=== PATIENT | female | born 1990 | race Caucasian/White ===

== ENCOUNTER → 2018-08-03 14:58 | Outpatient (CLI) | payer OTHER, SELFPAY ==
[2018-08-03 08:23] VITALS: BMI 27.8
[2018-08-07 11:30] LABS: HPV Reflexed? NOT INDICATED
--- OUTSIDE RECORDS SUMMARY | 2018-10-08 14:22 | XMS RPT_ITS ---
:1990 Author Organization OHIP Support Name Relationship Address Phone [facility] Unavailable [address] [phone] [place] [address] MARYCHUY, SHAVON Unavailable [address] [place] [address] [facility] Unavailable [address] [phone] [place] [address] MARYCHUY, SHAVON Unavailable [address] [place] [address] [facility] Unavailable [address] [phone] [place] [address] MARYCHUY, SHAVON Unavailable [address] [place] [address] AYE, ELIZABETH Unavailable Unavailable + FORREST PERRINK Unavailable [address] + [place], [place] [id number] AYE, ELIZABETH Unavailable Unavailable + FORREST PERRINK Unavailable [address] + [place], [place] [id number] AYE, ELIZABETH Unavailable Unavailable + FORREST PERRINK Unavailable [address] + [place], [place] [id number] AYE, ELIZABETH Unavailable Unavailable + AYE, ELIZABETH Unavailable Unavailable + AYE, ELIZABETH Unavailable Unavailable + FORREST PERRINK Unavailable [address] + [place], [place] [phone] AYE, ELIZABETH Unavailable Unavailable + FORREST PERRINK Unavailable [address] + [place], [place] [phone] AYE, ELIZABETH Unavailable Unavailable + AYE, ELIZABETH Unavailable Unavailable + AYE, ELIZABETH Unavailable Unavailable + AYE, ELIZABETH Unavailable Unavailable + AYE, ELIZABETH Unavailable Unavailable + AYE, ELIZABETH Unavailable Unavailable + AYE, ELIZABETH Unavailable Unavailable + AYE, ELIZABETH Unavailable Unavailable + AYE, ELIZABETH Unavailable Unavailable + AYE, ELIZABETH Unavailable Unavailable + AYE, ELIZABETH Unavailable Unavailable + AYE, ELIZABETH Unavailable Unavailable + AYE, ELIZABETH Unavailable Unavailable + AYE, ELIZABETH Unavailable Unavailable + AYE, ELIZABETH Unavailable Unavailable + AYE, ELIZABETH Unavailable Unavailable + AYE, ELIZABETH Unavailable Unavailable + AYE, ELIZABETH Unavailable Unavailable + AYE, ELIZABETH Unavailable Unavailable + SHAVON PERRIN Unavailable [address] + [place], [place] [phone] AYE, ELIZABETH Unavailable Unavailable + AYE, ELIZABETH Unavailable Unavailable + AYE, ELIZABETH Unavailable Unavailable + AYE, LEIZABETH Unavailable Unavailable + AYE, ELIZABETH Unavailable Unavailable + AYE, ELIZABETH Unavailable Unavailable + AYE, ELIZABETH Unavailable Unavailable + AYE, ELIZABETH Unavailable Unavailable + AYE, ELIZABETH Unavailable Unavailable + AYE, ELIZABETH Unavailable Unavailable + AYE, ELIZABETH Unavailable Unavailable + MARCYHUY, SHAVON Unavailable [address] + [place], [place] [id number] AYE, ELIZABETH Unavailable Unavailable + AYE, ELIZABETH Unavailable Unavailable + AYE, ELIZABETH Unavailable Unavailable + AYE, ELIZABETH Unavailable Unavailable + AYE, ELIZABETH Unavailable Unavailable + AYE, ELIZABETH Unavailable Unavailable + AYE, ELIZABETH Unavailable Unavailable + AYE, ELIZABETH Unavailable Unavailable + AYE, ELIZABETH Unavailable Unavailable + AYE, ELIZABETH Unavailable Unavailable + AYE, ELIZABETH Unavailable Unavailable + AYE, ELIZABETH Unavailable Unavailable + AYE, ELIZABETH Unavailable Unavailable + AYE, ELIZABETH Unavailable Unavailable + AYE, ELIZABETH Unavailable Unavailable + AYE, ELIZABETH Unavailable Unavailable + AYE, ELIZABETH Unavailable Unavailable + AYE, ELIZABETH Unavailable Unavailable + AYE, ELIZABETH Unavailable Unavailable + AYE, ELIZABETH Unavailable Unavailable + AYE, ELIZABETH Unavailable Unavailable + AYE, ELIZABETH Unavailable Unavailable + AYE, ELIZABETH Unavailable Unavailable + AYE, ELIZABETH Unavailable Unavailable + AYE, ELIZABETH Unavailable Unavailable + AYE, ELIZABETH Unavailable Unavailable + Care Team Providers Name Role Phone Lorelei, Dr. Winslow Attending Unavailable Mamie, Dr. Branden Vidal Referring Unavailable Leyda, Dr. Jose Whitten Primary Care Unavailable BURNS, PATRIZIA Mcfarlane Attending Unavailable BURNS, PATRIZIA M Referring Unavailable LEYDA, JOSE M Primary Care Unavailable Veskadie, Dr. Jossy Ahumada Attending Unavailable LEYDA, JOSE Maeve Primary Care Unavailable Lappen, Dr. Obinna Vinson Attending Unavailable Leyda, Dr. Jose Whitten Primary Care Unavailable Jama, Dr. Leslye Piedra Attending Unavailable Leyda, Dr. Jose Whitten Primary Care Unavailable JOSHUA SIMMONS Attending Unavailable Leyda, Dr. Jose Whitten Primary Care Unavailable Lorelei, Dr. Winslow Attending Unavailable Mamie, Dr. Branden Vidal Referring Unavailable Leyda, Dr. Jose Whitten Primary Care Unavailable PEG AGUIRRE Attending Unavailable Leyda, Dr. Jose Whitten Primary Care Unavailable Cherullmichelle, Dr. Marek Wise Admitting Unavailable Cherullo, Dr. Marek Wise Attending Unavailable Leyda, Dr. Jose Whitten Referring Unavailable Leyda, Dr. Jose Whitten Primary Care Unavailable Lappen, Dr. Obinna Vinson Attending Unavailable LEYDA, JOSE Mcfarlane Primary Care Unavailable Leyda, Dr. Jose Whitten Primary Care Unavailable Jama, Dr. Leslye Piedra Referring Unavailable Mamie, Dr. Branden Vidal Attending Unavailable Mcewen, Dr. Leslye Piedra Admitting Unavailable Jama, Dr. Leslye Piedra Attending Unavailable Mcewen, Dr. Leslye Piedra Referring Unavailable Leyda, Dr. Jose Whitten Primary Care Unavailable Lappen, Dr. Obinna Vinson Attending Unavailable Mcewen, Dr. Leslye Piedra Referring Unavailable Leyda, Dr. Jose Whitten Primary Care Unavailable Jama, Dr. Leslye Piedra Attending Unavailable Leyda, Dr. Jose Whitten Primary Care Unavailable Lazebedouard, Dr. Winslow Attending Unavailable Jama, Dr. Leslye Piedra Referring Unavailable Leyda, Dr. Jose Whitten Primary Care Unavailable Mcewen, Dr. Leslye Piedra Attending Unavailable Leyda, Dr. Jose Whitten Primary Care Unavailable Lappen, Dr. Obinna Vinson Admitting Unavailable Lappen, Dr. Obinna Vinson Referring Unavailable Leyda, Dr. Jose Whitten Primary Care Unavailable Dayana, Dr. Danae Alcantara Attending Unavailable Mamie, Dr. Branden Vidal Attending Unavailable Jama, Dr. Leslye Piedra Referring Unavailable Leyda, Dr. Jose Whitten Primary Care Unavailable Ponsky, Dr. Jt Montiel Attending Unavailable Cherullo, Dr. Marek Wise Referring Unavailable Leyda, Dr. Jose Whitten Primary Care Unavailable Leyda, Dr. Jose Whitten Primary Care Unavailable Corteville, Dr. Heaven Veras Attending Unavailable Mcewen, Dr. Leslye Piedra Referring Unavailable Leyda, Dr. Jose Whitten Primary Care Unavailable Lappen, Dr. Obinna Vinson Attending Unavailable Lappen, Dr. Obinna Vinson Referring Unavailable LEYDA, JOSE Mcfarlane Primary Care Unavailable Lappen, Dr. Obinna Vinson Attending Unavailable LEYDA, JOSE Mcfarlane Primary Care Unavailable Mcewen, Dr. Leslye Piedra Attending Unavailable Leyda, Dr. Jose Whitten Primary Care Unavailable September, Dr. Yisel Del Rosario Attending Unavailable Mcewen, Dr. Leslye Piedra Referring Unavailable Leyda, Dr. Jose Whitten Primary Care Unavailable Jama, Dr. Leslye Piedra Attending Unavailable Lappen, Dr. Obinna Vinson Referring Unavailable Leyda, Dr. Jose Whitten Primary Care Unavailable Ozcan, Dr. Kimberley Cano Attending Unavailable Jama, Dr. Leslye Piedra Referring Unavailable Leyda, Dr. Jose Whitten Primary Care Unavailable Jama, Dr. Leslye Piedra Attending Unavailable Leyda, Dr. Jose Whitten Primary Care Unavailable Jama, Dr. Leslye Piedra Referring Unavailable Jama, Dr. Leslye Piedra Attending Unavailable Leyda, Dr. Jose Whitten Primary Care Unavailable Mcewen, Dr. Leslye Piedra Admitting Unavailable Jama, Dr. Leslye Piedra Referring Unavailable Jama, Dr. Leslye Piedra Attending Unavailable Jama, Dr. Leslye Piedra Referring Unavailable Leyda, Dr. Jose Whitten Primary Care Unavailable [place], Dr. Heaven Veras Attending Unavailable Mcewen, Dr. Leslye Piedra Referring Unavailable Leyda, Dr. Jose Whitten Primary Care Unavailable Ozcan, Dr. Kimberley Cano Attending Unavailable Mcewen, Dr. Leslye Piedra Referring Unavailable Leyda, Dr. Jose Whitten Primary Care Unavailable Leyda, Dr. Jose Whitten Primary Care Unavailable CORRECT INFO, NEEDED Referring Unavailable Mcewen, Dr. Leslye Piedra Admitting Unavailable Herbie, Dr. Jennifer Ahumada Attending Unavailable Magali, Dr. Jt Montiel Attending Unavailable Leyda, Dr. Jose Whitten Primary Care Unavailable Donald, Dr. Ton Whitten Attending Unavailable Leyda, Dr. Jose Whitten Primary Care Unavailable Leslye Yun Admitting Unavailable Leslye Yun Attending Unavailable Jose Arora Primary Care Unavailable Holly RidgeLorraine Attending Unavailable DOCTOR, OUT OF TOWN Referring Unavailable Rosalee, Lorraine Attending Unavailable DOCTOR, OUT OF TOWN Referring Unavailable [place], Lorraine Attending Unavailable [place], Lorraine Referring Unavailable PROBLEMS PROBLEMS DATE TYPE CONDITION / CODE ATTENDING STATUS SOURCE 08/03/2018 Unknown Z12.4 - Encounter Lorraine Turk Active [place] for screening for Community malignant neoplasm [facility] of cervix / Repository Z12.4(ICD-10) 08/03/2018 Unknown Z97.5 - Presence of RosaleeLorraine emanuel Active [facility] (intrauterine) [facility] contraceptive Hospital device / Repository Z97.5(ICD-10) 06/24/2018 Final diagnosis Encounter for exam Dr. Marie Bennett (discharge) of blood pressure [facility] w/o abnormal Repository findings / Z01.30(ICD-10) 06/22/2018 Admitting Calculus of kidney Dr. Jt Nuno diagnosis / N20.0(ICD-10) [facility] Repository 06/22/2018 Final diagnosis Calculus of kidney Dr. Jt Nuno (discharge) / N20.0(ICD-10) [facility] Repository 06/18/2018 Final diagnosis Anxiety disorder, Dr. Marie Stoner (discharge) unspecified / [facility] F41.9(ICD-10) Repository 06/18/2018 Final diagnosis Major depressive Dr. Marie Stoner (discharge) disorder, single [facility] episode, Repository unspecified / F32.9(ICD-10) 06/18/2018 Final diagnosis Personal history of Dr. 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 Herbie Active [facility] (discharge) type, Rh negative / [facility] Z67.91(ICD-10) Repository 06/18/[address] Herbie [facility] [place] (discharge) related conditions, [facility] third trimester / Repository O26.893(ICD-10) 06/18/[address] Herbie [facility] diagnosis pre-eclampsia [facility] complicating Repository childbirth / O14.14(ICD-10) 06/18/[address] Herbie [facility] (discharge) pre-eclampsia [facility] complicating Repository childbirth / O14.14(ICD-10) 06/18/2018 Final diagnosis Single live / Dr. Herbie Active [facility] (discharge) Z37.0(ICD-10) [facility] Repository 06/18/[address] Herbie Active [facility] (discharge) complicating [facility] childbirth / Repository O99.214(ICD-10) 06/18/2018 Final diagnosis Obesity, Dr. Herbie Active [facility] (discharge) unspecified / [facility] E66.9(ICD-10) Repository 06/18/2018 Final diagnosis Other mental Dr. Herbie [facility] [place] (discharge) disorders [facility] complicating Repository childbirth / O99.344(ICD-10) 06/18/2018 Final diagnosis Second degree Dr. Herbie [facility] (discharge) perineal laceration [facility] during delivery / Repository O70.1(ICD-10) 06/18/2018 Final diagnosis Anemia complicating Dr. Herbie [facility] (discharge) childbirth / [facility] O99.02(ICD-10) Repository 06/18/[address] Herbie [facility] (discharge) prolapse, [facility] unspecified / Repository N81.4(ICD-10) 06/18/2018 Final diagnosis Oth complications Dr. Herbie [facility] (discharge) of the puerperium, [facility] NEC / Repository O90.89(ICD-10) 06/18/2018 Final diagnosis Iron deficiency Dr. Herbie [facility] (discharge) anemia, unspecified [facility] / D50.9(ICD-10) Repository 06/18/2018 Final diagnosis [address] Herbie [facility] (discharge) of / [facility] Z3A.34(ICD-10) Repository 06/10/2018 Final diagnosis Oth diseases and Dr. Charlie Active [facility] (discharge) conditions compl [facility] preg/chldbrth / Repository O99.89(ICD-10) 06/10/2018 Final diagnosis Supervision of [facility] Dr. Charlie Active [facility] (discharge) risk , [facility] unsp, unsp Repository trimester / O09.90(ICD-10) 06/10/[address] Charlie Active [place] (discharge) malformation of [facility] urinary system, Repository unspecified / Q64.9(ICD-10) 06/10/2018 Final diagnosis Unsp infection of Dr. Charlie [facility] (discharge) urinary tract in [facility] , unsp Repository trimester / O23.40(ICD-10) 06/10/2018 Final diagnosis Mild to moderate Dr. Charlie Active [place] (discharge) pre-eclampsia, [facility] third trimester / Repository O14.03(ICD-10) 06/10/[address] Charlie Active [facility] (discharge) pre-eclampsia, [facility] unspecified Repository trimester / O14.90(ICD-10) 06/10/[address] Charlie Active [place] (discharge) complicating [facility] , third Repository trimester / O99.213(ICD-10) 06/10/2018 Final diagnosis Other obesity due Dr. Charlie Active [facility] (discharge) to excess calories [facility] / E66.09(ICD-10) Repository 06/10/2018 Final diagnosis [address] Marie Guerra (discharge) of / [facility] Z3A.33(ICD-10) Repository 06/10/2018 Final diagnosis Polyhydramnios, Dr. Charlie [facility] (discharge) third trimester, [facility] not applicable or Repository unsp / O40.3XX0(ICD-10) 06/10/2018 Final diagnosis Encounter for other Dr. Charlie [facility] (discharge) specified [facility] screening / Repository Z36.89(ICD-10) 06/04/2018 Final diagnosis Oth mental Dr. Jama Active [place] (discharge) disorders [facility] complicating Repository , third trimester / O99.343(ICD-10) 06/04/2018 Final diagnosis Allergy status to Dr. Jama [facility] (discharge) penicillin / [facility] Z88.0(ICD-10) Repository 06/04/2018 Final diagnosis Allergy status to Dr. Jama Active [facility] (discharge) sulfonamides status [facility] / Z88.2(ICD-10) Repository 06/04/[address] Jama [facility] (discharge) pre-eclampsia, [facility] third trimester / Repository O14.93(ICD-10) 06/04/[address] Jama Active [place] related conditions, [facility] third trimester / Repository O26.893(ICD-10) 06/03/2018 Final diagnosis [address] Jama Active [place] (discharge) of / [facility] Z3A.32(ICD-10) Repository 06/03/[address] Jama [facility] blood-pressure [facility] reading, w/o Repository diagnosis of htn / R03.0(ICD-10) 06/03/2018 Final diagnosis Supervision of Dr. Inocente [facility] (discharge) other high risk [facility] pregnancies, unsp Repository trimester / O09.899(ICD-10) 05/27/[address] Ayleen Active [facility] pre-eclampsia, [facility] unspecified Repository trimester / O14.90(ICD-10) 05/27/2018 Final diagnosis Maternal care for Jesusita, Dr. Marie Gonsalez (discharge) hereditary disease [facility] in fetus, unsp / Repository O35.2XX0(ICD-10) 05/27/2018 Final diagnosis [address] Marie Mc (discharge) of / [facility] Z3A.31(ICD-10) Repository 05/27/2018 Final diagnosis Encounter for Dr. Jesusita Active [place] (discharge) suspected problem [facility] with growth Repository ruled out / Z03.74(ICD-10) 05/20/2018 Final diagnosis [address] Ayleen Active [facility] (discharge) of / [facility] Z3A.30(ICD-10) Repository 05/13/[address] Jama Active [facility] (discharge) renal disease, [facility] unspecified Repository trimester / O26.839(ICD-10) 05/08/[address] Mamie Active [facility] diagnosis kidney in [facility] , third Repository trimester / O23.03(ICD-10) 05/08/2018 Final diagnosis Infections of Dr. Mamie [facility] (discharge) kidney in [facility] , third Repository trimester / O23.03(ICD-10) 05/08/2018 Final diagnosis Unsp infct of Dr. Mamie [facility] (discharge) urinary tract in [facility] , third Repository trimester / O23.43(ICD-10) 05/08/2018 Final diagnosis [address] Mamie Active [facility] (discharge) of / [facility] Z3A.28(ICD-10) Repository 05/08/2018 Final diagnosis terminal gauger (current) Dr. Mamie [facility] (discharge) use of antibiotics [facility] / Z79.2(ICD-10) Repository 04/29/2018 Admitting Encntr for priya Abbasi Dr. Active [facility] diagnosis of normal [facility] , unsp, Repository unsp trimester / Z34.90(ICD-10) 04/29/2018 Unknown Encntr for priya Abbasi Dr. Active [facility] of [facility] , unsp, Repository unsp trimester / Z34.90(ICD-10) 04/29/2018 Final diagnosis Encounter for Dr. Charlie Active [facility] (discharge) suspected [facility] anomaly ruled out / Repository Z03.73(ICD-10) 04/29/2018 Final diagnosis Enctr for Dr. Marie Guerra (discharge) screening for [facility] growth retardation Repository / Z36.4(ICD-10) 04/29/2018 Final diagnosis [address] Charlie Active [place] (discharge) of / [facility] Z3A.27(ICD-10) Repository 04/29/2018 Final diagnosis Encounter for Dr. 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 Mamie Active [facility] (discharge) of / [facility] Z3A.23(ICD-10) Repository 03/21/2018 Admitting Ot diseases and Dr. Dayana Active [facility] diagnosis conditions compl [facility] preg/chldbrth / Repository O99.89(ICD-10) 03/21/2018 Final diagnosis [address] Dayana Active [place] (discharge) of / [facility] Z3A.21(ICD-10) Repository 03/21/2018 Final diagnosis Unsp infct of Dr. Marie Anne (discharge) urinary tract in [facility] , second Repository trimester / O23.42(ICD-10) 03/21/2018 Final diagnosis Unspecified renal Dr. Marie Anne (discharge) colic / N23(ICD-10) [facility] Repository 03/21/2018 Final diagnosis Oth mental Dr. Marie Anne (discharge) disorders comp [facility] , second Repository trimester / O99.342(ICD-10) 03/07/2018 Final diagnosis Encntr screen for Dr. Marie Yun (discharge) [facility] mode of transmiss / Repository Z11.3(ICD-10) 02/28/2018 Final diagnosis Encounter for Dr. Marie Moseley (discharge) suspected cervical [facility] shortening ruled Repository out / Z03.75(ICD-10) 02/28/2018 Final diagnosis 19 weeks gestation Lazebnik, Dr. [facility] (discharge) of / [facility] Z3A.19(ICD-10) Repository 01/10/2018 Final diagnosis [address] Lorelei [facility] (discharge) of / [facility] Z3A.12(ICD-10) Repository 01/10/2018 Final diagnosis Encntr for priya Moseley Dr. [facility] (discharge) of normal [facility] , unsp, Repository unsp trimester / Z34.90(ICD-10) 01/10/2018 Final diagnosis Vomiting of Dr. Lorelei [facility] (discharge) , [facility] unspecified / Repository O21.9(ICD-10) 12/14/[address] Jama [facility] (discharge) inconclusive [facility] viability, unsp / Repository O36.80X0(ICD-10) 12/14/[address] Jama [facility] (discharge) complicating [facility] , first Repository trimester / O26.851(ICD-10) 12/14/2017 Final diagnosis [address] Jama [facility] (discharge) of / [facility] Z3A.08(ICD-10) Repository 12/10/[address] Ayleen [facility] (discharge) hemorrhage, [facility] unspecified, Repository unspecified trimester / O46.90(ICD-10) 12/10/[address] Adarsh [facility] hemorrhage, [facility] unspecified, first Repository trimester / O46.91(ICD-10) 12/10/2017 Unknown Allergy status to Dr. Adarsh [facility] penicillin / [facility] Z88.0(ICD-10) Repository 12/10/2017 Unknown Allergy status to Dr. Adarsh [facility] sulfonamides status [facility] / Z88.2(ICD-10) Repository 12/10/[address] Adarsh [facility] of / [facility] Z3A.08(ICD-10) Repository 12/10/[address] Adarsh [facility] hemorrhage, [facility] unspecified, first Repository trimester / O46.91(ICD-10) 12/06/2017 Final diagnosis Encntr for Dr. Marie Marshall (discharge) suspected maternal [facility] and cond Repository ruled out / Z03.79(ICD-10) 12/06/2017 Final diagnosis Bariatric surgery Dr. Marie Moseley (discharge) status comp [facility] , first Repository trimester / O99.841(ICD-10) PROCEDURES PROCEDURES DATE CODE DESCRIPTION STATUS SOURCE 06/16/2018 [id number](ICD10- [id number] Completed [facility] Repository 06/16/2018 [id number](ICD10- 4HVL9DH Completed [facility] Repository 06/16/2018 00320DF(ICD10- 55081SI Completed [facility] Repository 06/16/2018 [id number](ICD10- 8G4I3PG Completed [facility] Repository 06/16/2018 12H473E(ICD10- 31H333G Completed [facility] 12[facility]10[facility]2017 [facility] Rep[facility] 12/09/2017 [facility] Repository RESULTS RESULTS DEVELOPMENT AND HOUSING DIRECTOR OFFICE VISIT Observed: 08/03/2018 Status: F Source: ETHEL REPORT 9:07 AM [facility] REPOSITORY [facility] [address] [place] [address]. [address] [place] [address] OFFICE VISIT Date of Service: 08/03/18 MR#: [id number] Acct: [id number] Name: MARYCHUY,SHAD Rep #: [id number] : 1990 Provider: SARA Turk Age/Sex: 28/F Location: [facility] Status: Signed with Addenda ADDENDUM by Oriana Grimes on 08/03/18 at 0907 OFFICE PROCEDURES Office Procedure Documentation entered by Oriana Grimes 08/03/18 09:07: Todd IUD IUD GC/Chlamydia:: not done Test: Yes Not Applicable Consent Signed: Yes Time out checklist: patient, procedure, site marked/identified, positioning of patient, supplies available, allergies confirmed, team agrees on procedure IUD: Yes Todd Time out time: 08:45 Details: Sign in Communication: Completed Sign out documentation: Completed The uterus sounded to 8 cm. After prepping the cervix with betadine and using sterile technique, the cervix was grasped with a single tooth tenaculum and the IUD was inserted without difficulty and the string was cut to 3cm from the external os of the cervix. All instruments were removed from the vagina and excellent hemostasis was noted. Procedure Summary: patient tolerated the procedure well without complication. levonorgestrel 20 mcg/24 hr (5 years) intrauterine device 1 insert Intrauterine ONCE IUD Details: Sign in Communication: Completed Sign out documentation: Completed The uterus sounded to [] cm. After prepping the cervix with betadine and using sterile technique, the cervix was grasped with a single tooth tenaculum and the IUD was inserted without difficulty and the string was cut to 3cm from the external os of the cervix. All instruments were removed from the vagina and excellent hemostasis was noted. Procedure Summary: patient tolerated the procedure well without complication. Office Meds levonorgestrel Performing Provider: OBEY Feliz Administered by: OBEY Feliz on 08/03/18 08:45 Dose Route Admin Location Lot Number Expiration Date NDC Fundraising Coordinator 1 insert Intrauterine monroe [id number] 04/17/22 [id number] [employer] 08/03/18 0907 <Electronically signed by Oriana Grimes > Date Oriana Grimes cc: * Signed Intake Vital Signs08/03/18 Body Mass Index (BMI) 27.8 08/03/18 Height 5 ft 2 in 08/03/18 Weight: 148 lb 08/03/18 Body Mass Index (BMI) 27.1 08/03/18 Blood Pressure 116/70 Intake Visit Reasons: 6 WEEK PP AND IUD INSERTION Senior Financial Consultant Required: No Is patient in pain?: No Allergies Sulfa (Sulfonamide Antibiotics) Allergy (Verified 08/03/18 08:21) Nausea Penicillins [PCN] Adverse Reaction (Verified 08/03/18 08:21) Anaphylaxis Medications Fluoxetine [Prozac] 20 mg PO DAILY 07/16/17 [History Confirmed 08/03/18] estradiol 0.01% (0.1 mg/gram) vaginal cream See Rx Instructions VAGINAL .COMPLEX #42.5 g 07/07/18 [Rx Confirmed 08/03/18] levonorgestrel 19.5 mcg/24 hour (4 years) intrauterine device 1 insert INTRAUTERINE ONCE 08/03/18 [History Confirmed 08/03/18] : Yes Nurse's Note: Pt states she has not had sexual relations since the , so no test was performed. [facility] Medical History Anxiety (Acute) Borderline hypothyroidism (Acute) Depression (Acute) Kidney infection (Acute) Kidney stones, calcium oxalate (Acute) Surgical History Bladder exstrophy (Acute) H/O lithotripsy (Acute) Hernia of ovary (Acute) S/P wisdom tooth extraction (Acute) complete bladder reconstruction (Acute) Family History Father Myocardial infarction Abnormal cholesterol test Anxiety Depression Mother Myocardial infarction Anxiety Depression Social History number of children: 1 current occupational status: employed current occupation: [employer] Smoking Status: Never smoker alcohol intake: never substance use type: does not use diet: other what type of physical activity do you participate in: none seatbelt use: always do you feel safe at home: Yes additional social history: 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 DateName GA/Weeks Outcome Route Bth WeighInfant GeLabor LgtAnesthesiDel LocatProvider FOB t n h a n Depression Screen PHQ-2/9 PHQ-2 Over the last 2 weeks, how often have you been bothered by any of the following problems? 1. Little interest or pleasure in doing things: not at all 2. Feeling down, depressed, or hopeless: not at all Total score: 0 If score is 2 or greater, continue Source: Developed by Drs. José Luis Merida, Natali Mariscal, Scottie Chand and colleagues, with an educational tdo from [employer]. Scoring: Total Score Depression Severity Action 1-4 Minimal depression No action needed 5-9 Mild depression Repeat PHQ-9 at follow up 10-14 Moderate depression Make tx plan,consider counseling, fup, prescription Post HPI 6 WEEK PP AND IUD INSERTION: Details: SHAD PERRIN is a 28 year old who presents for her post visit. States doing well. No concerns emotionally. Still notes vaginal prolapse. Patient delivered another facility and recently moved here Infant Feeding: Breast Menses resumed: No Lynch since delivery: No Emotional Support: Yes Last Pap:: unsure ROS Card Denies chest pain, Denies shortness of breath Resp Denies shortness of breath GI Denies change in bowel habits, Denies bloating Denies difficulty urinating Skin/Breast Denies breast lump, Denies breast pain, Denies breast skin changes Exam Const General: cooperative, no acute distress, well developed Nutritional Appearance: average body habitus Orientation: oriented x3 Chest Chest palpation AND inspection: abnormal inspection of the chest Breast inspection: normal inspection of the breasts Breast palpation: normal palpation of the breasts, normal palpation of the axillae, no axillary lymphadenopathy GI Palpation: soft, nontender, no masses General: bladder normal to palpation External Female Exam: normal external appearance, normal appearance of the urethra Urethra: normal appearance of the urethra Speculum Exam - Vagina: normal vaginal discharge, other (gaping. Cystocele at introitus. ) Speculum Exam - Cervix: normal appearance of the cervix (displaced to left) Bimanual Exam- Vagina AND Uterus: bladder normal to palpation, normal bimanual exam, uterine size normal, uterine shape normal, uterine mobility normal, uterus non-tender Bimanual Exam- Adnexa, other: normal adnexae, no adnexal masses, adnexae non-tender, cystocele, rectocele Pelvic Support: cystocele moderate, rectocele mild Office Procedures [place] IUD IUD GC/Chlamydia:: not done Test: Yes Not Applicable Consent Signed: Yes Time out checklist: patient, procedure, site marked/identified, positioning of patient, supplies available, allergies confirmed, team agrees on procedure IUD: Yes Todd Time out time: 08:45 Details: Sign in Communication: Completed Sign out documentation: Completed The uterus sounded to 8 cm. After prepping the cervix with betadine and using sterile technique, the cervix was grasped with a single tooth tenaculum and the IUD was inserted without difficulty and the string was cut to 3cm from the external os of the cervix. All instruments were removed from the vagina and excellent hemostasis was noted. Procedure Summary: patient tolerated the procedure well without complication. levonorgestrel 20 mcg/24 hr (5 years) intrauterine device 1 insert Intrauterine ONCE IUD Details: Sign in Communication: Completed Sign out documentation: Completed The uterus sounded to [] cm. After prepping the cervix with betadine and using sterile technique, the cervix was grasped with a single tooth tenaculum and the IUD was inserted without difficulty and the string was cut to 3cm from the external os of the cervix. All instruments were removed from the vagina and excellent hemostasis was noted. Procedure Summary: patient tolerated the procedure well without complication. Office Meds levonorgestrel Performing Provider: OBEY Feliz Documented (not given) by: OBEY Feliz on 08/03/18 08:45 Dose Route Admin Location Lot Number Expiration Date NDC Fundraising Coordinator 1 insert Intrauterine Assessment AND Plan Problems 1. Routine follow-up Z39.2 2. Cystocele and rectocele with incomplete uterovaginal prolapse N81.2 3. Papanicolaou smear for cervical cancer screening Z12.4 4. Encounter for insertion of intrauterine contraceptive device (IUD) Z30.430 Plan Discussed kegel exercises, time for some resolution of prolapse. Can consider pessary if problematic. Surgical consideration after family completed. Pap collected. Liletta IUD insertion:reviewed S AND S infection, condom use RTO 6 weeks Orders Orders: Medications New: Coding Level of Care Code Care Only Diagnoses Routine follow-up Z39.2 Cystocele and rectocele with incomplete uterovaginal prolapse N81.2 Papanicolaou smear for cervical cancer screening Z12.4 Encounter for insertion of intrauterine contraceptive device (IUD) Z30.430 Additional Codes IUD (71291) 08/03/18 0852 <Electronically signed by Lorraine BARNHART> Date Lorraine BARNHART Cosigner Signature: Date (if applicable) CC: PAP I-G W/RFX Collected: 08/03/2018 Status: F Source: [facility] 8:10 AM [facility] REPOSITORY Order Comment: CYTOLOGY INFORMATION: - CLINICAL INFORMATION: - DATE LMP/MENOPAUSE: - COLLECTION VIAL: Thin Prep Vial - RADIAL DRILL PRESS OPERATOR FOR PLASTIC SOURCE: CERVICAL - COLLECTION TECHNIQUE: BRUSH/SPATULA Specimen Comment: [id number] Specimen Comment: Source.............Cervix Specimen Comment: No. of containers..01 ThinPrep Vial TYPE CODE TESTS RESULT OUT OF RANGE REFERENCE UNITS LAB L7400.0800 . Normal DIAGN Comment Result Comment: NEGATIVE FOR INTRAEPITHELIAL LESION OR MALIGNANCY. LAB L7400.0900 . Normal ADEQ Comment Result Comment: Satisfactory for evaluation. Endocervical and/or squamous metaplastic cells (endocervical component) are present. LAB L7400.1400 . Normal PERFORM Comment Result Comment: Yisel Garcia, Book Solicitor (ASCP) LAB L7400.2575 . Normal TEST METHOD Comment Result Comment: This liquid based ThinPrep(R) pap test was screened with the use of an image guided system. LAB L7400.2600 . Normal . COMM LAB L7400.2700 . Normal PAPSMR Comment Result Comment: The Pap smear is a screening test designed to aid in the detection of premalignant and malignant conditions of the uterine cervix. It is not a diagnostic procedure and should not be used as the sole means of detecting cervical cancer. Both false-positive and false-negative reports do occur. LAB L7400.2800 . Normal HPV RFLX Comment Result Comment: The HPV DNA reflex criteria were not met with this specimen result therefore, no HPV testing was performed. Performed at: [facility] Lab[facility] [place] [id number] Anhydrous Ammonia Production Supervisor: Christina Holman MD, Phone: [phone] Performed By: #### L7400.0353 #### [facility] (refer to report for specific site) refer to report for address and phone number DEVELOPMENT AND HOUSING DIRECTOR OFFICE VISIT Observed: 07/07/2018 Status: F Source: [facility] 4[facility]39 [facility] [address] [place], [place] [address] OFFICE VISIT Date of Service: 07/07/18 MR#: [id number] Acct: [id number] Name: SHAD PERRIN Rep #: [id number] : 1990 Provider: SARA Turk Age/Sex: 28/F Location: [facility] Status: Signed Intake Vital Signs07/07/18 Height 5 ft 2 in 07/07/18 Weight: 152 lb 8 oz 07/07/18 Body Mass Index (BMI) 27.8 07/07/18 Blood Pressure 112/70 Intake Visit Reasons: Prolapsed cervix-delivered on 06/16/18 Senior Financial Consultant Required: No Is patient in pain?: Yes (achy pain pretty consisten) Pain scale (1-10): 4 Allergies Sulfa (Sulfonamide Antibiotics) Allergy (Verified 07/16/17 05:24) Nausea Penicillins [PCN] Adverse Reaction (Verified 07/16/17 05:24) Anaphylaxis Medications Fluoxetine [Prozac] 20 mg PO DAILY 07/16/17 [History Confirmed 07/07/18] estradiol 0.01% (0.1 mg/gram) vaginal cream See Rx Instructions VAGINAL .COMPLEX #42.5 g 07/07/18 [Rx Confirmed 07/07/18] Is last menstrual period known: No Post menopausal: No Patient : No : Yes PFSH Medical History Anxiety (Acute) Borderline hypothyroidism (Acute) Depression (Acute) Kidney infection (Acute) Kidney stones, calcium oxalate (Acute) Surgical History Bladder exstrophy (Acute) H/O lithotripsy (Acute) Hernia of ovary (Acute) S/P wisdom tooth extraction (Acute) complete bladder reconstruction (Acute) Family History Father Myocardial infarction Abnormal cholesterol test Anxiety Depression Mother Myocardial infarction Anxiety Depression Social History number of children: 1 current occupational status: employed current occupation: [employer] Smoking Status: Never smoker alcohol intake: never substance use type: does not use diet: other what type of physical activity do you participate in: none seatbelt use: always do you feel safe at home: Yes additional social history: 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 Baby home and doing well/. First History of bladder extrophy at -never had bladder control. 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 She is not having any urinary issue. [facility] physician at moved to [place] and since she lives in [place] wanted to establish here Pregancy History 1 Elective abortions Hx Para 1 Spontaneous abortions Past Pregnancies Del. DateName GA/Weeks Outcome Route Bth WeighInfant GeLabor LgtAnesthesiDel LocatProvider FOB t n h a n Exam Other: Perineum with eythema, slightly edematis, bulging suture at episiotomy. 3mm open area with questionable start of fistula. Cervix is not prolapses but prominent anterior vaginal wall at introitus. Patient was reexamined per Dr. Foy-she was able to remove sutures. Assessment AND Plan Problems 1. Discomfort at episiotomy site G89.18 2. Midline cystocele N81.11 Plan Estradiol cream daily as directed X 4 weeks OTC pain meds and ice pack prn RTO full postpartem exam, insertion IUD and recheck in 6 weeks Medications New: Coding Level of Care Code Off vis,new,level 3 Diagnoses Discomfort at episiotomy site G89.18 Midline cystocele N81.11 Cystocele location: midline 07/07/18 3755 <Electronically signed by Lorraine BARNHART> Date Lorraine BARNHART Cosigner Signature: Date (if applicable) CC: TH ABDOMEN AP VIEW Observed: 06/22/2018 Status: F [facility] 11:05 AM [facility] Patient Name: SHAD PERRIN STUDY: ABDOMEN AP VIEW; 06/22/2018 11:05 am INDICATION: Signs/Symptoms: nephrolithiasis. COMPARISON: 06/13/2013 ACCESSION NUMBER(S): [id number] ORDERING CLINICIAN: JT NUNO FINDINGS: Two views of the abdomen and pelvis. Nonobstructive bowel gas pattern. Limited evaluation of pneumoperitoneum on supine imaging, however no gross evidence of free air is noted. 3 mm calcific density in the expected location of the inferior pole of the right kidney. Visualized lungs are clear. Osseous structures demonstrate no acute bony changes. There is again seen widening of pubic symphysis. IMPRESSION: 1. 3 mm calcific density in the expected location of the inferior pole of the right kidney, likely due to a small stone. 2. Nonobstructive bowel gas pattern. Electronically signed by: BABATUNDE KOLB MD DISCHARGE SUMMARY Observed: 06/18/2018 Status: COMPLETED Source: [facility] 12:40 PM [facility] REPOSITORY Send Summary: Note Recipients: Discharge: Summary: Admission Date: .14-Jun-2018 15:00:00 Discharge Date: 18-Jun-2018 Attending Physician at Discharge: Jennifer Stoner Admission Reason: labor Final Discharge Diagnoses: Exstrophy of bladder sequence, care following vaginal delivery, Procedures: none Condition at Discharge: Satisfactory Disposition at Discharge: .Home Vital Signs: T PRBPSpO2 Value37.259670803/7099% Date/Time06/18 11:39108/19 11: 11: 11:39108/19 11:39 Range(36C - 37.3C ) (74 - 100 ) (16 - 18 ) (108 - 150 )/ (69 - 88 ) (97% - 99% ) Highest temp of 37.3 C was recorded at 06/18 11:39 Hospital Course: HROB DOA 06/14/18 DOD: 06/16 28 yr old @ 34.4 wga by 7wk US undergoing IOL for sPEC. 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 Immunizations: Immunizations: 04-May-2017 .Influenza- Influenza Virus: Immunizations, 04-May-2017 .Influenza- Influenza Virus: Immunizations, 11-Apr-2016 .Influenza- Influenza Virus: Immunizations, 07-May-2014 .Influenza- Influenza Virus: Immunizations, 07-May-2014 .Pneumonia- Pneumococcal polysaccharide vaccine-adult: Immunizations, 27-Jul-2012 Discharge Information: and Continuing Care: Discharge Instructions: Activity: activity as tolerated. May shower.. No pushing, pulling, or lifting objects greater than 20 pounds until follow-up visit. Nutrition/Diet: regular Follow Up Appointments: Follow-Up - OB Provider: Physician/Dept/Service: OB Provider Follow-Up Appointment 01: Physician/Dept/Service: OB: To be seen by the nurse Scheduled Date/Time: 23-Jun-2018 10:00 Location: Trey Sena [address] [place], [place] [id number] Discharge Medications: Home Medication PROzac 10 mg oral tablet - 2 tab(s) orally once a day ibuprofen 400 mg oral tablet - 1 tab(s) orally every 6 hours PRN Medication Lab Results - Pending: Surgical Pathology Drawn at 16-Jun-2018 04:47:00 Radiology Results - Pending: None Electronic Signatures: Lauryn Razo (ELECTROLOG OPERATOR-INTERNAL MEDICINE NURSE PRACTITIONER) (Signed 18-Jun-2018 12:46) Authored: Send Summary, Summary Content, Immunizations, Ongoing Care, Signature/Cosignature/Attestation Last Updated: 18-Jun-2018 12:46 by Lauryn Raoz (ELECTROLOG OPERATOR-INTERNAL MEDICINE NURSE PRACTITIONER) RH IMMUNE GLOB. Collected: 06/18/2018 Status: F Source: [facility] 8:15 AM [facility] REPOSITORY TYPE CODE TESTS RESULT OUT OF REFERENCE UNITS RANGE LAB RHIG(LOINC) Dose RH IMMUNE ORDER RECD GLOB. Performed By: #### RHIG #### [facility] [id number] [place] [address] CLINICAL EVENT NOTE Observed: 06/17/2018 Status: UNK Source: [facility] 6:24 PM [facility] REPOSITORY Event: Details: Urology note From a urology standpoint, patient is ok to have villagomez catheter removed and return to straight catheterization. Please call with questions Lucero Carmen MD PGY1 Urology [place] team pager: [phone] Electronic Signatures: Lucero Carmen ( (Resident)) (Signed 17-Jun-2018 18:24) Authored: Event Last Updated: 17-Jun-2018 18:24 by Lucero Carmen ( (Resident)) DAILY PROGRESS NOTE - Observed: 06/17/2018 Status: COMPLETED Source: [facility] [id number] 3:16 PM HOSPITALS REPOSITORY Current Stage: Stage: Post- Subjective Data: Post : Ambulate: Yes Flatus: Not Applicable Tolerate Diet: Yes Lochia: Light Pain Comment: well controlled with PO medications. : denies mukherjee, cp, sob, ruq pain or vision changes. Staying in [place] with her baby. Urology paged with pt. status-delivered. They will see the patient today or tomorrow. Pt. aware. Objective Information: Objective Information: T PRBPSpO2 Value36.09901405/8798% Date/Time06/17 13: 13: 13: 13: 13:18 Range(36.1C - 36.8C ) (77 - 98 ) (16 - 18 ) (107 - 150 )/ (54 - 90 ) (97% - 100% ) Pain with Activity reported at 06/17 12:20: 2 Pain at Rest reported at 06/17 12:20: 2 Physical Exam: Constitutional: alert, oriented Obstetric: abd.soft, non-tender. Fundus firm below umbilicus Genitourinary: draining clear, yellow urine to villagomez from suprapubic cath. Extremities: no calf tenderness Psychological: appropriate affect Assessment and Plan: Admitting Dx: Preeclampsia, severe: Entered Date: 14-Jun-2018 20:53 Additional Dx: Exstrophy of bladder sequence: Entered Date: 21-Mar-2018 17:37 Comorbidity: Comorbidtyanemia Anemiairon deficiency anemia Assessment: 28 yr old @ 34.4 wga 1. s/p on PPD#1 - continue routine care - pain well controlled on po medications - dvt risk score 3 2. - 3. Contraception - to discuss at PP visit 4. c/b - sPEC, s/p mag sulfate, bp's normotensive to mild range PP, no meds at this time. asx. 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 Dispo - appropriate for d/c on PPD #2 if remains stable - for f/u 1month with Primary OB provider Marline Conroy CNP [id number] Electronic Signatures: Marline Conroy (ELECTROLOG OPERATOR-DESTINI) (Signed 17-Jun-2018 15:20) Authored: Current Stage, Subjective Data, Objective Data, Assessment and Plan, Signature/Cosignature/Attestation Last Updated: 17-Jun-2018 15:20 by Marline Conroy (ELECTROLOG OPERATOR-INTERNAL MEDICINE NURSE PRACTITIONER) KB BY FLOW Collected: 06/17/2018 Status: F Source: [facility] 12:32 PM [facility]ITALS REPOSITORY TYPE CODE TESTS RESULT OUT OF RANGE REFERENCE UNITS LAB FETK3(LOINC < 0.20 % ) KB 0.02 BY FLOW Result Comment: cells were quantitated by flow cytometry using an intracellular assay with an anti-hemoglobin F antibody. This test was developed and its performance characteristics determined by the Department of Pathology, [facility], and has not been cleared or approved by the U.S. Food and Drug Administration. The laboratory is regulated under CLIA as qualified to perform high complexity testing. This test is used for clinical purposes. It should not be regarded as investigational or for research. Performed By: #### FETKB #### [facility] [address] [place] [address] /MATERN SCR Collected: 06/17/2018 Status: F Source: [facility] 12:32 PM [facility] REPOSITORY TYPE CODE TESTS RESULT OUT OF REFERENCE UNITS RANGE LAB FMS(LOINC) see comment /MATERN SCR Result Comment: FMS= negative, give 1 vial of Rhogam Performed By: #### FMS #### [facility] [address] [place] [address] DISCHARGE PROFILE2 Observed: 06/17/2018 Status: UNK Source: [facility] 9:13 AM [facility]ITALS REPOSITORY Discharge Orders: Anticipated Discharge Date: Anticipated Discharge [id number] Problem List: Admitting Dx: Preeclampsia, severe: Catalog Name: Severe pre-eclampsia, unspecified trimester Additional Dx: Exstrophy of bladder sequence: Catalog Name: Exstrophy of urinary bladder, unspecified Activity: activity as tolerated. May shower. No pushing, pulling, or lifting objects greater than 20 pounds until follow-up visit. Diet: Dietregular : Call Provider If: - Heavy bleeding. Soaking a large pad every hour or passing large clots. - Temperature greater than 100.4 degree F. - Signs of Depression. Examples include: 1. Persistent sadness 2. Frequent crying 3. Sleep problems 4. Excessive worrying 5. Feeling unable to cope. Follow-Up - OB Provider: Physician/Dept/ServiceOB Provider Provider FINAL REVIEW of Orders: Final Review: Final Review of Medication Reconciliation and Orders Completedby ESHA Landon at 17-Jun-2018 09:16:01 Appointments: Follow-Up Appointment 01: Physician/Dept/ServiceOB: To be seen by the nurse Scheduled Date/[id number] 10:00 [id number] Lashell Sena [address] [place] [address] Phone [phone] CommentsPlease bring your insurance card, photo id, a list of medication in the original bottle, any co-pays you may have, and the discharge summary Other Clinician Instructions: Other Instructions: Other Clinician InstructionsThe Indian Academy of Pediatrics recommends that pacifier use is best avoided during the initiation of and used only after is well established. In some infants, early pacifier use may interfere with establishment of good practices, whereas in others it may indicate the presence of a problem that requires intervention. Use of a pacifier may cause problems with latching, and lead to decreased milk supply by missing feeding opportunities. Pacifiers may be used during painful procedures, but are not otherwise recommended while the infant is learning to breastfeed. Mother/Baby Information Folder given, Center Phone Numbers given, ODH Screen Pamphlet Given, Patient Information Sheet 173 HIV given, [place] Hearing Screen Brochure given, Shaken Baby pamphlet given, Hepatitis B VIS/SIIS pamphlet given, TDAP VIS given, Influenza VIS(given during influenza season) Electronic Signatures: Yonatan Luz (PT ACC REP) (Signed 17-Jun-2018 11:36) Authored: Mercedes Montemayor (RN) (Signed 17-Jun-2018 09:14) Authored: Other Clinician Instructions, Gold Form - Barber Shop Manager Summary Lauryn Razo (ELECTROLOG OPERATOR-[facility]) (Signed 18-Jun-2018 06:58) Authored: Discharge Orders, Marline Conroy (ELECTROLOG OPERATOR-[facility]) (Signed 17-Jun-2018 09:16) Authored: Discharge Orders, Provider FINAL REVIEW of Orders Last Updated: 18-Jun-2018 06:58 by Lauryn Razo (ELECTROLOG OPERATOR-[facility]) DISCHARGE PLANNING Observed: 06/17/2018 Status: UNK Source: UNIVERSITY NOTE 9:04 AM HOSPITALS REPOSITORY Patient Learning: Factors that Impact Ability to Learnnone(1) Other Factors: Functional Screen: In the recent/past 2-4 weeks, patient or family have noticedno issues that require a rehabilitation consult at this time(2) Discharge Planning: Discharge Planning: Date and Time: .06/17/2018... Nursing Note/Admission/Health Maintenance: D: Patient admitted to the Mother unit from labor and delivery.... Patient admitted for vag delivery. Patient lives father of baby. Patient was independent with ambulation and ADL's prior to admission. Patients caregiver/help after discharge will be family.... Home going needs anticipated at this time: none.... Upon arrival, admitting assessment completed. See flowsheets. Stable upon admission. Discharge folder handouts and/or brochures given to patient/caregiver and reviewed with them. E: Discharge planning initiated. P: Continue to assess home going/discharge needs. Coordinate with interdisciplinary team as needed. Signature: Mercedes Chun.... Date and Time: 06/18/18 at 1330 Nursing Note/Discharge: D: According to plan, patient discharged to home with her . Instructions printed and reviewed, see Discharge Instructions sheet. Teaching provided on new medications, self care, signs and symptoms to report, PI sheets, and follow-up appointment. Patient verbalized understanding and denies any questions at time of discharge. Patient instructed to call MD/HAZEL with any additional questions after discharge. E: Discharge teaching complete and patient is prepared for discharge. P: Patient sent home with written and verbal instructions via transport in stable condition. Signature: Lakshmi Parson RN Electronic Signatures: Lakshmi Parson (ALLEN) (Signed 18-Jun-2018 13:24) Authored: Discharge Planning Note Mercedes Chun (EDVIN) (Signed 17-Jun-2018 09:07) Authored: Discharge Planning Note Last Updated: 18-Jun-2018 13:24 by Lakshmi Parson (ALLEN) References: 1. Data Referenced From 5. Education 06/14/2018 9:38 PM 2. Data Referenced From Admission Risk Screen - OB 06/14/2018 9:38 PM DAILY PROGRESS NOTE - Observed: 06/16/2018 Status: COMPLETED Source: UNIVERSITY [id number] 7:28 PM HOSPITALS REPOSITORY Current Stage: Stage: Post- Subjective Data: Post : Ambulate: No Flatus: Yes Tolerate Diet: Yes Lochia: Light : Feeling ok. Perineum sore. Denies MUKHERJEE, vision changes, RUQ. Objective Information: Objective Information: T PRBPSpO2 [id number]/7098% Date/Time06/16 18: 18: 18: 18: 18:00 Range(36.1C - 36.8C ) (80 - 118 ) (18 - 20 ) (120 - 161 )/ (61 - 87 ) (88% - 100% ) ---- Intake and Output ----- Mn/Dy/[facility] Jun 16, 2018 2:00 [id number] Jun 16, 2018 6:00 [id number] Jun 15, 2018 10:00 [id number] The Intake and Output Totals for the last 24 hours are: IntakeOutputNet [id number] Physical Exam: Constitutional: alert, oriented, resting comfortably in bed Obstetric: fundus firm at level of umbilicus, abdomen appropriately tender ENMT: MMM Respiratory/Thorax: CTAB Cardiovascular: RRR Gastrointestinal: nontender, nondistended Genitourinary: Cervix no longer visible at the introitus. Perineal repair intact. Minimal swelling. Extremities: no calf tenderness bilaterally, trace edema Psychological: appropriate affect and mood Medications: Medications: Continuous Medications 1. Magnesium Sulfate 20 gram/ Sterile Water 500 mL Infusion: 2 g/hr IntraVenous <Continuous> Scheduled Medications 1. Acetaminophen: 975 mg Oral Every 6 Hours 2. FLUoxetine: 20 mg Oral Daily 3. Ibuprofen: 400 mg Oral Every 6 Hours 4. Iron Polysaccharide Complex: 150 mg Oral Daily 5. medroxyPROGESTERone Injectable: 150 mg IntraMuscular Once PRN Medications 1. Benzocaine 20% Topical: 1 application(s) Topical 4 Times a Day 2. Bisacodyl Rectal: 10 mg Rectal Daily 3. Calcium Gluconate Injectable: 1 gram(s) IntraVenous Push Once 4. diphenhydrAMINE: 25 mg Oral Every 6 Hours 5. Docusate: 100 mg Oral 2 Times a Day 6. Lanolin Topical: 1 application(s) Topical Daily 7. Levonorgestrel (LILETTA) 52 mg Implant: 52 mg IntraUterine Once 8. Loperamide: 4 mg Oral Every 2 Hours 9. Magnesium Hydroxide -Al Hydrox -Simethicone Oral Liquid: 30 mL Oral Every 4 Hours 10. Magnesium Hydroxide Oral Liquid CONCENTRATE: 10 mL Oral Every 24 Hours 11. Measles -Mumps -Rubella (Live) MMR Vaccine: 0.5 mL SubCutaneous Once 12. Methylergonovine Injectable: 0.2 mg IntraMuscular Once 13. Ondansetron Injectable: 4 mg IntraVenous Push Every 6 Hours 14. oxyCODONE Immediate Release: 5 mg Oral Every 4 Hours 15. Oxytocin Injectable: 10 unit(s) IntraMuscular Once 16. Sodium Chloride 0.9% Injectable Flush: 1.5 mL IntraVenous Flush Every 8 Hours and as Needed 17. Witch Shante Topical: 1 application(s) Topical Once 18. Zolpidem: 5 mg Oral At Bedtime Assessment and Plan: Assessment: 28 yo PPD1 from after IOL for sPEC, now undergoing PP Mg ppx. sPEC - Dx by MUKHERJEE refractory to multiple treatments in setting of known PEC --> improved - Mg @ 2g/hr - No signs of Mg toxicity - continue for 24 hours - No IV antihypertensives intra or , will continue to monitor - diuresing appropriately - Continue routine pp care. Concern for cervical/uterine prolapse. Improving on exam. H/o bladder extrophy s/p neobladder - Urology notified of patient admission, can page with questions or concerns: [id number] Recurrent UTI - Continue nitrofurantoin 100 mg every day Anxiety and Depression - Continue Prozac Anemia - Chronic anemia Hgb 9 on admission, EBL 400 - Iron supplementation Federica Becerril, PGY-2 Signature/Cosignature/Attestation: Attending AttestationI saw and evaluated the patient. I personally obtained the katz and critical portions of the history and physical exam or was physically present for katz and critical portions performed by the resident/fellow. I reviewed the resident/fellows documentation and discussed the patient with the resident/fellow. I agree with the resident/fellows medical decision making as documented in the residents note. I personally evaluated the patient (as noted in the above attestation) on 16-Jun-2018 Electronic Signatures: Danae Anne) (Signed 16-Jun-2018 21:26) Authored: Signature/Cosignature/Attestation Co-Signer: Current Stage, Subjective Data, Objective Data, Assessment and Plan, Signature/Cosignature/Attestation Federica Becerril (Resident)) (Signed 16-Jun-2018 19:35) Authored: Current Stage, Subjective Data, Objective Data, Assessment and Plan, Signature/Cosignature/Attestation Last Updated: 16-Jun-2018 21:26 by Danae Anne) CLINICAL EVENT Observed: 06/16/2018 Status: UNK Source: [facility] NOTE-CERVICAL PROLAPSE 10:40 AM HOSPITALS REPOSITORY Event: Topic: cervical prolapse Details: food safety officer to bedside for patient reported pressure and vaginal bulge. On exam, cervix noted to be prolapsed to level of introitus. Bleeding minimal. Dr. Kirkland to bedside to assist in attempt at reduction of prolapse. Patient's epidural redosed. Manual reduction attempted without success. Will continue to monitor. Recommend f/u outpatient with urogyn. Electronic Signatures: Mildred Givens ( (Resident)) (Signed 16-Jun-2018 19:16) Authored: Event Last Updated: 16-Jun-2018 19:16 by Mildred Givens ( (Resident)) DAILY PROGRESS NOTE - Observed: 06/16/2018 Status: UNK Source: [facility] [id number] 9:14 AM HOSPITALS REPOSITORY This report has been cancelled. DAILY PROGRESS NOTE - Observed: 06/16/2018 Status: COMPLETED Source: [facility] [id number] 8:31 AM HOSPITALS REPOSITORY Current Stage: Stage: Post- Subjective Data: Post : Ambulate: No Flatus: Yes Tolerate Diet: Yes Lochia: Light : Feeling ok. Denies MUKHERJEE, vision changes, RUQ. Objective Information: Objective Information: T PRBPSpO2 [id number]/71457% Date/Time06/16 10: 11: 11: 11: 11:54 Range(36C - 36.8C ) (82 - 118 ) (16 - 20 ) (120 - 161 )/ (65 - 87 ) (88% - 100% ) Physical Exam: Constitutional: alert, oriented, resting comfortably in bed Obstetric: fundus firm at level of umbilicus, abdomen appropriately tender ENMT: MMM Respiratory/Thorax: CTAB Cardiovascular: RRR Gastrointestinal: nontender, nondistended Extremities: no calf tenderness bilaterally, trace edema Psychological: appropriate affect and mood Medications: Medications: Continuous Medications 1. Magnesium Sulfate 20 gram/ Sterile Water 500 mL Infusion: 2 g/hr IntraVenous <Continuous> Scheduled Medications 1. Acetaminophen: 975 mg Oral Every 6 Hours 2. FLUoxetine: 20 mg Oral Daily 3. Ibuprofen: 400 mg Oral Every 6 Hours 4. Iron Polysaccharide Complex: 150 mg Oral Daily 5. medroxyPROGESTERone Injectable: 150 mg IntraMuscular Once PRN Medications 1. Benzocaine 20% Topical: 1 application(s) Topical 4 Times a Day 2. Bisacodyl Rectal: 10 mg Rectal Daily 3. Calcium Gluconate Injectable: 1 gram(s) IntraVenous Push Once 4. diphenhydrAMINE: 25 mg Oral Every 6 Hours 5. Docusate: 100 mg Oral 2 Times a Day 6. Lanolin Topical: 1 application(s) Topical Daily 7. Levonorgestrel (LILETTA) 52 mg Implant: 52 mg IntraUterine Once 8. Loperamide: 4 mg Oral Every 2 Hours 9. Magnesium Hydroxide -Al Hydrox -Simethicone Oral Liquid: 30 mL Oral Every 4 Hours 10. Magnesium Hydroxide Oral Liquid CONCENTRATE: 10 mL Oral Every 24 Hours 11. Measles -Mumps -Rubella (Live) MMR Vaccine: 0.5 mL SubCutaneous Once 12. Methylergonovine Injectable: 0.2 mg IntraMuscular Once 13. Ondansetron Injectable: 4 mg IntraVenous Push Every 6 Hours 14. oxyCODONE Immediate Release: 5 mg Oral Every 4 Hours 15. Oxytocin Injectable: 10 unit(s) IntraMuscular Once 16. Sodium Chloride 0.9% Injectable Flush: 1.5 mL IntraVenous Flush Every 8 Hours and as Needed 17. Witch Shante Topical: 1 application(s) Topical Once 18. Zolpidem: 5 mg Oral At Bedtime Assessment and Plan: Assessment: 28 yo PPD 0 by after IOL for sPEC. sPEC - Dx by MUKHERJEE refractory to multiple treatments in setting of known PEC --> improved - Mg @ 2g/hr - No signs of Mg toxicity - continue for 24 hours - No IV antihypertensives intra or , will continue to monitor H/o bladder extrophy s/p neobladder - Urology notified of patient admission, can page with questions or concerns: [id number] Recurrent UTI - Continue nitrofurantoin 100 mg every day Anxiety and Depression - Continue Prozac Anemia - Chronic anemia Hgb 9 on admission, EBL 400 - Iron supplementation Shae Riley MD PGY4 Signature/Cosignature/Attestation: Attending AttestationI saw and evaluated the patient. I personally obtained the katz and critical portions of the history and physical exam or was physically present for katz and critical portions performed by the resident/fellow. I reviewed the resident/fellows documentation and discussed the patient with the resident/fellow. I agree with the resident/fellows medical decision making as documented in the residents note. I personally evaluated the patient (as noted in the above attestation) on 16-Jun-2018 Electronic Signatures: Juliette Lee (Resident)) (Signed 16-Jun-2018 12:36) Authored: Current Stage, Subjective Data, Objective Data, Assessment and Plan, Signature/Cosignature/Attestation Edouard Kirkland) (Signed 17-Jun-2018 17:50) Authored: Signature/Cosignature/Attestation Co-Signer: Current Stage, Subjective Data, Objective Data, Assessment and Plan, Signature/Cosignature/Attestation Last Updated: 17-Jun-2018 17:50 by Edouard Kirkland) [facility] SURGICAL PATHOLOGY Observed: 06/16/2018 Status: F Source: UNIVERSITY DEPARTMENT 4:47 AM HOSPITALS REPOSITORY Name SHAD PERRIN Pathologist: HAJA MASCORRO DO Date of Procedure: 06/16/2018 Date Received: 06/17/2018 Date Reported 06/21/2018 Submitting Physician: SHARMIN SIBLEY MD Location: [id number] Copy To/Referring/Attending: LESLYE YUN MD Other External # FINAL DIAGNOSIS A. PLACENTA: -- SLIGHTLY IMMATURE PLACENTA (405 GRAMS). -- INTERVILLOUS THROMBI. Electronically Signed Out By HAJA MASCORRO DO/MIKE By the signature on this report, the individual or group listed as making the Final Interpretation/Diagnosis certifies that they have reviewed this case. Clinical History: Gestational age: 34.5 Ob index: G 1, Full term 0, Zoltan 0, Ab 0, Lvg 0 Maternal history: sPEC, s/p BMZ on 06/03/18 and 06/04/18, h/o bladder extrophy s/p neobladder, recurrent UTIs, recurrent nephrolithiasis, Rh negative s/p rhogam Baby weight: 2.53 kg Apgars: 5 at 1 minute, 8 at 5 minutes Specific questions: Preeclampsia Specimens Submitted As: A: PLACENTA Gross Description: A:Received fresh, labeled with the patient?s name and hospital number, with an accompanying placental record sheet, is a placenta. Placental membranes are translucent and complete. Membrane insertion is marginal. Point of membrane rupture is indeterminate. The umbilical cord is pale-yellow, 49 cm in total length, and inserts in the placenta, 4.0 cm from the margin. On cut section, the cord has three vessels, and measures 0.8 x 0.8 cm. The placenta is discoid, 19 x 18 2.0 cm, and weighs 405 g without cord or membranes. The surface is blue-red and translucent. The maternal surface is complete. The cut surface is dark red, and spongy. The following gross abnormalities are noted: A oropeza-white firm lesion (1.0 cm) 4.0 cm from the margin. Multiple oropeza red lamellated lesions are identified, ranging 1.5-1.0 cm and located 0.5 cm from the margin. Assistant Sales Director sections are submitted in 6 cassettes. NUB Summary of Cassettes: Specimen Label Site A 1 umbilical cord sections 2 membrane rolls 3 placental parenchyma, umbilical cord insertion site 4 placental parenchyma 5-6 placental parenchyma with oropeza and red lesions nub/06/17/2018 Performed By: #### [facility] #### [facility] Surgical Pathology Department [id number] [facility] [id number] PROCEDURE NOTE - Observed: 06/16/2018 Status: COMPLETED Source: UNIVERSITY DELIVERY 4:37 AM HOSPITALS REPOSITORY Provider Information: Maternal Delivery Information: Delivery Type: vaginal delivery Did this pt receive corticosteroids at any time during this : No Was chorioamnionitis diagnosed during this labor: no What antibiotic(s) were administered during labor and/or pre- incision: none Did this patient receive progesterone in any form to prevent premature delivery: no Rupture of Membranes: artificial Spontaneous Labor: no Induction or Scheduled : induction Is patient at delivery >/= to 37 to < 39 completed weeks of gestation: no Vaginal Delivery Type: spontaneous Vaginal Delivery Complications: none Delivery Anesthesia: epidural Presentation: vertex Vertex Presentation: Right: occiput anterior Episiotomy & Repair: none Perineal Laceration: second degree Other Laceration: none Laceration Repair: yes Abrasion: none QBL (mL): 400 mL Blood Products Transfused during Delivery (indicate number of units given): none Placenta: spontaneous Choose Baby: A Delayed Cord Clamping (equal to or greater than 30 seconds): yes Time until cord clamp: 30 seconds Day of Delivery (Baby A): 16-Jun-2018 Gestational Age at Delivery (wk.days): 34.5 Vaginal Delivery Provider: Sharmin Sibley Pharmacy Specialist: Evelio Grant Second Electronics Engineering Technician: Rubi Gracia Dictation: no Postplacental IUD: IUD Assessment and Procedure: Contraindications to postplacental IUD present on admissionnone of these exist Does patient desire postplacental IUDno Signature/Cosignature/Attestation: Attending AttestationI was present for katz portions of the procedure and the procedure lasted longer than 5 minutes. Electronic Signatures: Evelio Grant (Resident)) (Signed 16-Jun-2018 04:41) Authored: Provider Information, Postplacental IUD, Signature/Cosignature/Attestation Sharmin Sibley) (Signed 19-Jun-2018 22:38) Authored: Signature/Cosignature/Attestation Co-Signer: Provider Information, Postplacental IUD, Signature/Cosignature/Attestation Last Updated: 19-Jun-2018 22:38 by Sharmin Sibley) DELIVERY RECORD Observed: 06/16/2018 Status: UN Source: [facility] 3:42 AM HOSPITALS REPOSITORY Maternal Delivery Information: Vaginal Delivery Information: Delivery Typevaginal delivery Counts Correctyes Delivery Information: Team: Team [id number] 03:30 Code Level CalledCode Universal Level 2 team [id number] 03:35 [place] A Delivery Information: Baby A Delivery: Rupture of Membranes date/bayq45-[id number]-8632 15:37 Amniotic Fluid Colorclear Delivery Typevaginal delivery Delivery Locationlabor and delivery Delivery Date/Epyx82-Pqi-3032 03:38 Delivery Date/Time Verified ByAly/EDVIN José Length of Time of ROM (rounded down to nearest hour)12 Sexfemale Identification Band [id number] ID Bands Verified byBradfisadora/Xiao 4th ID band toFOB Weight (kg)2.53 kilogram(s) Delivery of Placenta (hh:mm)03:41 Baby A: Placenta disposalsent to pathology 1 Min: Heart Rateless than 100 beats/min Respiratory Rateweak, irregular Muscle Tonesome flexion of extremities Reflex Irritabilitycough or sneeze Colorblue, pale 1 Minute Score, Baby A5 Apgars assessed byCarr 5 Min: Heart Ratemore than 100 beats/min Respiratory Rategood, crying Muscle Tonesome flexion of extremities Reflex Irritabilitycough or sneeze Colorbody pink, extremities blue 5 Minute Score, Baby A8 Apgars assessed byCarr Resuscitation Efforts: Vigorous at Birthyes Resuscitation Effortstactile stimulation; bulb syringe Baby A: Transfer Baby A: Transfer toNICU Baby A: Transfer [id number] 03:55 Baby A: Labs sentcord blood Delivery Team: Angel Parham RN Electronic Signatures: Harman Lu) (Signed 16-Jun-2018 04:02) Authored: Maternal Delivery Information, [place] Delivery Information Last Updated: 16-Jun-2018 04:02 by Harman Lu) CLINICAL EVENT Observed: 06/15/2018 Status: UNK Source: UNIVERSITY NOTE-SVE/FSE 9:09 PM HOSPITALS REPOSITORY Event: Topic: SVE/FSE Details: Now comfortable with epidural SVE 5/80/0 FSE placed FHT 140/mod/+accels/-decels Christopher q2-3 Latent FSE placed to facilitate monitoring because tracing has been difficult Continue Pit per protocol, Currently at 18 CEFM, currently cat I Continue Vanc for GBS unknown Epidural infusing Federica Becerril, PGY-2 Electronic Signatures: Federica Becerril ( (Resident)) (Signed 15-Jun-2018 21:12) Authored: Event Last Updated: 15-Jun-2018 21:12 by Federica Becerril ( (Resident)) DAILY PROGRESS NOTE - Observed: 06/15/2018 Status: COMPLETED Source: [facility] OB-INTRAPARTUM 7:00 PM HOSPITALS REPOSITORY Current Stage: Stage: Intrapartum Subjective Data: Intrapartum: Intrapartum Progress Notes Doing well. Starting to feel contractions with Pit, overall comfortable and not asking for epidural yet. Objective Information: Objective Information: T PRBPSpO2 [id number]/99424% Date/Time06/15 18: 18: 18: 18: 18:34 Range(36C - 36.9C ) (82 - 107 ) (16 - 18 ) (120 - 156 )/ (65 - 92 ) (97% - 100% ) Highest temp of 36.9 C was recorded at 06/15 2:26 ---- Intake and Output ----- Mn/Dy/Year TimeIntakeOutputNet Jun 15, 2018 2:00 [id number] Jun 15, 2018 6:00 [id number] Jun 14, 2018 10:00 [id number] The Intake and Output Totals for the last 24 hours are: IntakeOutputNet [id number] Physical Exam: Constitutional: Well-appearing, NAD Obstetric: SVE: deferred FHT: 135/mod/+accels/-decels Christopher: q5 Eyes: Sclera clear ENMT: MMM Head/Neck: NC/AT Respiratory/Thorax: normal respiratory effort Gastrointestinal: Gravid, non-tender Musculoskeletal: Normal ROM Extremities: No calf tenderness Neurological: Alert and oriented Psychological: Appropriate throughout interview Skin: No lesions Assessment and Plan: Assessment: 28 yo at 34.3 wga by 7.2 week US undergoing IOL for sPEC. Labor management - Latent - Continue Pit per protocol. Currently at 18 - s/p AROM. Will plan to recheck when more uncomfortable - GBS unknown. Vanc ppx due to anaphylactic reaction to PCN - CEFM, currently Cat I - Epidural PRN sPEC - Dx by MUKHERJEE refractory to multiple treatments in setting of known PEC. - Mg @ 2g/hr - s/p BMZ x 2 on 06/03/2018 and 06/04/2018 - No need for antihypertensive intervention at this time, will continue to monitor for severe range BP and treat as necessary. H/o bladder extrophy s/p neobladder - Urology notified of patient admission Recurrent UTI - Continue nitrofurantoin 100 mg every day Anxiety and Depression - Continue Prozac D/w Dr. Toñito Becerril, PGY-2 Signature/Cosignature/Attestation: Attending AttestationI reviewed the resident/fellows documentation and discussed the patient with the resident/fellow. I agree with the resident/fellows medical decision making as documented in the residents note. Electronic Signatures: Federica Becerril (Resident)) (Signed 15-Jun-2018 19:10) Authored: Current Stage, Subjective Data, Objective Data, Assessment and Plan, Signature/Cosignature/Attestation Sharmin Sibley) (Signed 19-Jun-2018 22:37) Authored: Signature/Cosignature/Attestation Co-Signer: Current Stage, Subjective Data, Objective Data, Assessment and Plan, Signature/Cosignature/Attestation Last Updated: 19-Jun-2018 22:37 by Sharmin Sibley) CLINICAL EVENT Observed: 06/15/2018 Status: UNK Source: UNIVERSITY NOTE-LABOR PROGRESS 3:40 PM HOSPITALS REPOSITORY Event: Topic: labor progress Details: S- comfortable, not feeling contractions BP150/80 Lungs CTA DTRs 2+ Urine output adequate Christopher- every 5 minutes FHT- 130s, category I VE- 3.5/80/-1 AROM, clear 28 y/o at 34.3 wga by 7.2 week u/s admitted for IOL d/t sPEC. sPEC - Dx by MUKHERJEE refractory to multiple treatments in setting of known PEC. - Magnesium sulfate - s/p BMZ x 2 on 06/03/2018 and 06/04/2018 - No need for antihypertensive intervention at this time, will continue to monitor for severe range BP and treat as necessary. IOL -S/p AROM, on pitocin. well-being - Cephalic - FHT category I. H/o bladder extrophy s/p neobladder - Urology notified of patient admission Recurrent UTI - Continue nitrofurantoin 100 mg every day Anxiety and Depression - Continue Prozac Rh negative: Due for Rhogam PP GBS unknown - GBS swab collected - Vancomycin tx d/t high risk PCN allergy Electronic Signatures: Anum Rouse) (Signed 15-Jun-2018 15:46) Authored: Event Last Updated: 15-Jun-2018 15:46 by Anum Rouse) CLINICAL EVENT Observed: 06/15/2018 Status: UNK Source: UNIVERSITY NOTE-UROLOGY PLAN OF 3:25 PM HOSPITALS REPOSITORY CARE Event: Topic: Urology Plan of Care Details: I was able to see the patient at the bedside this morning. She has a hx of bladder extrophy s/p repair with a neobladder over 15 years ago. 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 The patient states that she caths via an abd stoma and does not cath per [place] urethra. She is 34 weeks and admitted with concerns for pre-eclampsia Urology has been asked to assist if the patient undergoes a . We are happy to assist. As of now, the plan is for a If a is planned, please alert urology as soon as possible so we may call in an attending physician Mike Ashford MD PGY-6 Urology Adult Pager [phone] Peds Pager [phone] Electronic Signatures: Mike Ashford (Resident)) (Signed 15-Jun-2018 15:30) Authored: Event Last Updated: 15-Jun-2018 15:30 by Mike Ashford (Resident)) DAILY PROGRESS NOTE - Observed: 06/15/2018 Status: COMPLETED Source: [facility] OB-INTRAPARTUM 10:36 AM HOSPITALS REPOSITORY Current Stage: Stage: Intrapartum OB Dating: EDC/EGA: Final [id number] EGA34.6 Subjective Data: Intrapartum: Intrapartum Progress Notes comfortable, not feeling contractions Objective Information: Objective Information: ---- Intake and Output ----- Mn/Dy/Year TimeIntakeOutputNet Jun 15, 2018 6:00 [id number] Jun 14, 2018 10:00 [id number] The Intake and Output Totals for the last 24 hours are: IntakeOutputNet [id number] T PRBPSpO2 [id number]/8299% Date/Time06/15 7: 10: 10: 10: 10:25 Range(36C - 36.9C ) (90 - 116 ) (16 - 18 ) (120 - 156 )/ (65 - 92 ) (97% - 100% ) Highest temp of 36.9 C was recorded at 06/15 2:26 Physical Exam: Constitutional: alert, oriented Obstetric: def FHT- 135, moderate variability Christopher- every 10 minutes Assessment and Plan: Assessment: Patient is 28 y/o at 34.3 wga by 7.2 week u/s admitted for IOL d/t sPEC. sPEC - Dx by MUKHERJEE refractory to multiple treatments in setting of known PEC. - Magnesium sulfate started - s/p BMZ x 2 on 06/03/2018 and 06/04/2018 - No need for antihypertensive intervention at this time, will continue to monitor for severe range BP and treat as necessary. IOL -S/p CRB, now on pitocin at 4 well-being - Cephalic - FHT category I. H/o bladder extrophy s/p neobladder - Urology notified of patient admission Recurrent UTI - Continue nitrofurantoin 100 mg every day Anxiety and Depression - Continue Prozac Rh negative: Due for Rhogam PP GBS unknown - GBS swab collected - Vancomycin tx d/t high risk PCN allergy Electronic Signatures: Anum Rouse) (Signed 15-Jun-2018 10:42) Authored: Current Stage, OB Dating, Subjective Data, Objective Data, Assessment and Plan, Signature/Cosignature/Attestation Last Updated: 15-Jun-2018 10:42 by Anum Rouse) REQUEST-LEUKOREDUCED RED CELLS Collected: Status: F Source: [facility] 06/15/2018 6:47 AM HOSPITALS REPOSITORY TYPE CODE TESTS RESULT OUT OF RANGE REFERENCE UNITS LAB [facility]) ORDER RECD REQUEST-LEUK OREDUCED RED CELLS Performed By: #### OLPC #### [facility] [address] [place] [address] VISITOR LIST Observed: 06/14/2018 Status: UNK Source: [facility] 10:22 PM HOSPITALS REPOSITORY Visitor List: shavon marychuy. terra perrin. danae knight. Manolo Knight. Elizabeth Griffiths. Te Griffiths. kendra perrin. Electronic Signatures: Harman Lu (CN) (Signed 16-Jun-2018 04:54) Authored: Visitor List Staci Hogan (RN) (Signed 14-Jun-2018 22:23) Authored: Visitor List Hawa Fish (EDVIN) (Signed 17-Jun-2018 15:31) Authored: Visitor List Last Updated: 17-Jun-2018 15:31 by Hawa Fish (RN) Observed: 06/14/2018 Status: F Source: [facility] GROUP B STREP 9:47 PM HOSPITALS REPOSITORY SCREEN PATIENT: SHAD PERRIN LOCATION: [place] [address] BILL#: [id number] : 89 AGE: SEX: F ORDERED BY: EVELIO GRANT SOURCE: VAG-RECTAL COLLECTED: 06/14/18 21:47 ANTIBIOTICS AT ANMOL.: RECEIVED : 06/14/18 23:54 SITE: Cervix R E S U L T S GROUP B STREP SCREEN FINAL 06/16/18 07:23 NEGATIVE FOR GROUP B BETA STREP. Performed By: #### GBSCR #### [facility] [address] [place] [address] ADMISSION RISK SCREEN Observed: 06/14/2018 Status: UNK Source: [facility] 9:38 PM HOSPITALS REPOSITORY Allergies: Allergies: sulfa drugs: Other penicillin: Unknown Patient Verification: New W ID Band Applied in my Departmentyes (1) Patient Identity Verified Bydriver's license/state ID(1) ID Band FULL Name, include Middle, spelling matches patient's ID used for verificationyes (1) ID Band Matches Patient ID used for Verficationyes (1) ID Band MRN Matches EMR MRNyes (1) Advance Directive: Advance Directive Medicalno (1) Advance Directive Information Givenpatient/family declined (1) Falls Risk: Altered Mobilityunsteady gait(1) Change in Mental Statusno (1) Relevant Medical History / Diagnosisnone(1) Fall Historynone(1) Altered Eliminationno(1) Medications that Might Alter: equilibrium, cognitive judgement or severity of injurynone(1) Sensory Deficitno (1) UNABLE or UNWILLING to Follow Directionsno (1) Patient Identified as a Falls Riskyes (1) Family Violence Screen: Are you or have you been threatened or abused physically, emotionally, or sexually by anyoneno (1) Do you feel UNSAFE going back to the place where you are livingno (1) Clinical assessment: Are there any apparent signs of injuries/behaviors that could be related to abuse/neglectno (1) Social Service Consult for abuse/neglect needed this visitno Functional screen: Functional Screen: In the recent/past 2-4 weeks, patient or family have noticedno issues that require a rehabilitation consult at this time Learning Assessment (Patient): Patient is Able to be Assessed for Learningyes (1) Factors Influencing Readiness to Learninterest in learning(2) Factors that Impact Ability to Learnnone(2) Devices/Methods Used to Communicatenone(2) Learning Preferencesverbal instruction(2) Cultural Considerationsnone (2) Developmental Considerationsnone (2) Quaker Considerationsnone (2) Learning Assessment (Other Learner): Other learner availableno (1) Nutrition Risk Screen: Nutrition Risk Screenno indicators present Nutrition Consult needed this visitno Can Patient Participate in Room Serviceyes Pain Screen: Pain Control Method: Laborepidural Pain Control Method: Postpartumrelaxation Pain Scalenumerical 0-10 Pain Scale Educationteaching provided Acceptable Pain Level3 = Mild Expression of Pain (nonverbal)none Chronic Painno Skin - Keshawn Scale: Keshawn Scale (daily): Keshawn: Sensory Perception (response to environment)(4) no impairment Keshawn: Moisture (degree skin exposed to moisture)(4) rarely moist Keshawn: Activity (ability to walk)(1) bedfast Keshawn: Mobility (amount/control of body movement)(4) no limitation Keshawn: Nutrition (quality of food intake)(3) adequate Keshawn: Friction and Shear(3) no apparent problem Keshawn: Score19 Pressure Injury Present on Admissionno Spiritual Screen: Are there any cultural, spiritual, confucianist practices/values/needs that are important for us to knowno Suicide/Depression Screen: During the past month, have you often been bothered by feeling down, depressed or hopelessno (1) During the past month, have you often had little interest or pleasure in doing thingsno (1) Have you had any thoughts of harming yourselfno (1) Have you had any thoughts of harming anyone elseno (1) Vaccinations: Vaccination - Influenza Vaccination Screen: Is it flu season (between and )Yes Screening for identified contraindications to influenza vaccinationpatient already received vaccine this season Vaccination - Pneumonia Vaccination Screen: Patient has received a previous pneumonia vaccine:no/unknown... Immunocompetent persons with underlying chronic conditions or reside in retirement care facilitiesnone of these conditions Persons with Functional or Anatomic Asplenianone of these conditions Immunocompromised Personsnone of these conditions Pneumonia vaccine NOT indicated due to:patient DOES NOT have a condition that indicates vaccination Vaccination - TDap Vaccination Screen: Have you received a TDap vaccine this pregnancyyes (no further action required) Significant Indicatiors: Significant Indicators: Complete Note Name:Admission Risk Screen - OB Electronic Signatures: Staci Hogan (EDVIN) (Signed 14-Jun-2018 21:39) Authored: Admission Risk Screens, Vaccinations, Mother's Chart (Do Not Modify) Last Updated: 14-Jun-2018 21:39 by Staci Hogan (EDVIN) References: 1. Data Referenced From Risk Screen - OB Triage 06/14/2018 03:14 PM 2. Data Referenced From 5. Education 06/14/2018 03:14 PM TYPE + SCREEN Collected: 06/14/2018 Status: F Source: [facility] [address] [place] [address] REPOSITORY TYPE CODE TESTS RESULT OUT OF RANGE REFERENCE UNITS LAB ABORH(LOINC ) ABO TYPE O LAB RH(LOINC) RH TYPE NEG Result Comment: Review your Rh Negative female patient's potential need for Rh Immune Globulin (RhIg)administration. LAB ABSC(LOINC) ANTIBODY SCREEN POS Performed By: #### T+S #### [place] [id number] [place] [address] ANTIBODY IDENT. Collected: 06/14/2018 Status: F Source: [facility] 9:04 [facility] REPOSITORY TYPE CODE TESTS RESULT OUT OF REFERENCE UNITS RANGE LAB ABID(LOINC ) ANTIBODY Anti-D IDENT. Acquired Performed By: #### ABID #### [facility] [id number] [place] [id number] PATH REVIEW-IMMUNOHEMATOLOGY Collected: Status: F Source: [facility] 06/14/2018 9:04 PM HOSPITALS REPOSITORY TYPE CODE TESTS RESULT OUT OF RANGE REFERENCE UNITS LAB PRV30(LOINC ) PATH ASHLEY REV-IMMUNOHE MOTOL Result Comment: By her/his signature above, the Pathologist listed as making the final interpretation certifies that she/he has personally reviewed this case. ANTIBODY DETECTION SCREEN IS POSITIVE. ANTIBODY IDENTIFICATION PANEL WAS PERFORMED. THE AUTOCONTROL IS NEGATIVE. ANTI-D IS IDENTIFIED. THE PATIENT'S RBC PHENOTYPE IS RH (D) ANTIGEN NEGATIVE. THE PATIENT HAS A HISTORY OF RECEIPT OF RHIG. THESE FINDINGS ARE CONSISTENT WITH ANTI-D ACQUIRED DUE TO RECEIPT OF RHIG. ALL OTHER COMMON CLINICALLY SIGNIFICANT ALLOANTIBODIES HAVE BEEN RULED OUT. FULL CROSSMATCHED D-ANTIGEN NEGATIVE DONOR RBC UNITS SHOULD BE SELECTED FOR TRANSFUSION FOR THIS PATIENT. Performed By: #### PR30 #### [facility] [id number] [place] [address] HISTORY AND PHYSICAL Observed: 06/14/2018 Status: COMPLETED Source: [facility] - OB 9:03 PM HOSPITALS REPOSITORY HPI/OB History/Dating: Care Provider: Leslye Yun Care Location: [place] [address]/[facility] Did this patient receive any care at [facility]: no Was this patient transferred from another facility for this admission: no Dating: Choose Antepartum or Postpartumantepartum Final [id number] Current EGA:34.3 HPI Descriptive Info: HPI Pt is a 28 yr old @ 34.3 by 7.2 week u/s admitted for sPEC. Pt had BP of 160s/90s at [facility] appointment today and was sent here for evaluation. She complains of a frontal headache that feels similar to previous headaches but is not resolving. She denies fevers, chills, nausea, vomiting, chest pain, shortness of breath, abdominal pain, dysuria, frequency, hematuria, LE edema. No Contractions or LOF. Normal FM. On presentation here, BP is in 140s/80s. Patient was treated with Reglan and caffeine in triage, without resolution of MUKHERJEE, at which point the decision was made to admit the patient for sPEC. 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 Lives w/ . Denies tobacco, alcohol, and drug use. FHx: CAD (Mom [place] at 59, Dad [place] at 51); HTN/aortic aneurysm (Dad); Breast cancer (maternal aunt dx at 52), muscular dystrophy (maternal grandmother diagnosed in 80s) Antepartum: Estimated Weight: EFW (kg): 1.792 kilogram(s) EFW (lb): 3 pound(s) EFW (oz): 15 ounce(s) Determined by: ultrasound Antepartum: Vaginal Bleeding: No Contractions/Abdominal Pain: No Discharge/Loss of Fluid: No Movement: Good High Risk Factors for Hemorrhage: none of these exist TOLAC: no Progesterone: Did this patient receive progesterone in any form to prevent premature deliveryno Labs: Labs: Blood Typed Date: 06-May-2018 Blood Type: O negative Antibody Screen Results: positive Chlamydia Date: 06-Dec-2017 Chlamydia Results: negative Gonorrhea Date: 06-Dec-2017 Gonorrhea Results: negative Group B Strep Date: 14-Jun-2018 Group B Strep Comments: Currently Pending Collection as of Jun 14 2018 8:55PM GTT (dd-mmmy): 29-Apr-2018 GTT result: 125 HBsAG Date: 07-Dec-2017 HBsAG Results: negative HIV Date: 15-Dec-2017 HIV Results: negative Rubella Date: 07-Dec-2017 Syphilis ([facility]-dd-yyyy): 29-Apr-2018 Syphilis Results: negative Urine Spot (dd-mmmyy): 14-Jun-2018 Total Protein/Creatinine Ratio: 0.6 Urine 24 hour (ddmmmyy): 23-May-2018 24 hour Creatinine: 0.91 24 hour Total Protein: 481 Family History: Family History: reviewed and not pertinent to presenting problem Social History: Social History: Smoking Statusnever smoker Alcohol Usedenies Drug Usedenies Drug 2 Usedenies Allergies: penicillin: Unknown sulfa drugs: Other Review of Systems: Constitutional: NEGATIVE: Fever, Chills, Anorexia, Weight Loss, Malaise Eyes: NEGATIVE: Blurry Vision, Drainage, Diploplia, Redness, Vision Loss/ Change ENMT: NEGATIVE: Nasal Discharge, Nasal Congestion, Ear Pain, Mouth Pain, Throat Pain Respiratory: NEGATIVE: Dry Cough, Productive Cough, Hemoptysis, Wheezing, Shortness of Breath Cardiac: NEGATIVE: Chest Pain, Dyspnea on Exertion, Orthopnea, Palpitations, Syncope Gastrointestinal: NEGATIVE: Nausea, Vomiting, Diarrhea, Constipation, Abdominal Pain Genitourinary: NEGATIVE: Discharge, Dysuria, Flank Pain, Frequency, Hematuria Musculoskeletal: NEGATIVE: Decreased ROM, Pain, Swelling, Stiffness, Weakness Neurological: POSITIVE: Headache; NEGATIVE: Dizziness, Confusion, Seizures, Syncope Psychiatric: NEGATIVE: Mood Changes, Anxiety, Hallucinations, Sleep Changes, Suicidal Ideas Skin: NEGATIVE: Mass, Pain, Pruritus, Rash, Ulcer Objective: Objective Information: T PRBPSpO2 Value36.69507102/8498% Date/Time06/14 15: 20: 20: 20: 20:59 Range(36.8C - 36.8C ) (93 - 116 ) (18 - 18 ) (137 - 148 )/ (74 - 91 ) (98% - 98% ) Physical Exam: Constitutional: alert, oriented Obstetric: FHT: 150/moderate/+accels, -decels Christopher: No CTX BSUS: Cephalic SVE: 3/50/-3 Eyes: sclera anicteric ENMT: mucus membranes pink and moist Head/Neck: NC/AT Respiratory/Thorax: normal respiratory effort, lungs clear, no wheezes or rhonchi Cardiovascular: RRR, S1 and S2 WNL, no m/l/g Extremities: No calf tenderness or swelling Psychological: appropriate affect Skin: no rashes or lesions Assessment and Plan: Assessment: Patient is 28 y/o at 34.3 wga by 7.2 week u/s admitted for IOL d/t sPEC. sPEC - mild range BPs with headache refractory to medication - pt was previously diagnosed with PEC earlier this , 24 hr urine protein 481 - will start Mg for seizure prophylaxis - s/p BMZ x 2 on 06/03/2018 and 06/04/2018 - will treat severe BPs with IV antihypertensives as needed - will continue to monitor UOP IOL - Given gestational age > 34 weeks and new diagnosis of sPEC, will proceed with IOL - Given favorable cervix, will start IOL with pitocin and AROM when appropriate well-being - Cephalic - FHT category I. H/o bladder extrophy s/p neobladder with use of abdominal stoma - Urology notified upon admission - would require Urology assistance should patient require Recurrent UTI - Continue nitrofurantoin 100 mg every day Anxiety and Depression - Continue Prozac Rh negative: Due for Rhogam PP GBS unknown - GBS swab collected upon admission - Vancomycin tx d/t high risk PCN allergy D/w Dr Toñito Gracia MD PGY4 Signatures/Attestation/Certification: Attending AttestationI saw and evaluated the patient. I personally obtained the katz and critical portions of the history and physical exam or was physically present for katz and critical portions performed by the resident/fellow. I reviewed the resident/fellows documentation and discussed the patient with the resident/fellow. I agree with the resident/fellows medical decision making as documented in the residents note. I personally evaluated the patient (as noted in the above attestation) on 14-Jun-2018 Attending Provider/ROSHAN with Admit Privileges Inpatient Certification StatementI certify this patients need for inpatient care based on the above documentation including; the order to admit as inpatient, the anticipated length of stay, diagnosis, problem list and plan of care, and discharge plan. Electronic Signatures: Rubi Gracia (Resident)) (Signed 19-Jun-2018 07:19) Authored: HPI/OB History/Dating, Objective, Assessment and Plan, Signatures/Attestation/Certification Co-Signer: HPI/OB History/Dating, Antepartum, Allergies, Review of Systems, Objective, Assessment and Plan Evelio Grant (Resident)) (Signed 14-Jun-2018 21:36) Authored: HPI/OB History/Dating, Antepartum, Allergies, Review of Systems, Objective, Assessment and Plan Sharmin Sibley) (Signed 19-Jun-2018 22:36) Authored: HPI/OB History/Dating, Family History, Social History, Review of Systems, Objective, Signatures/Attestation/Certification Co-Signer: HPI/OB History/Dating, Objective, Assessment and Plan, Signatures/Attestation/Certification Last Updated: 19-Jun-2018 22:36 by Sharmin Sibley) PATIENT PROFILE - OB Observed: 06/14/2018 Status: UNK Source: [place] [address] 8:50 PM HOSPITALS REPOSITORY Profile: Initial Info: How to be AddressedNicolle(1) Spoken Language PreferredEnglish (1) Source of Informationpatient Are you currently using the Personal Electronic Health Record or [facility] Reason for admission this visitlate complication 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 Statusemployed(2) Patient Belongingsremains with patient Patient Belongings Remaining with Patientcash/credit card; cell phone/electronics; clothing; purse/wallet Medications Brought to Hospitalno Info: Gravida1 (1) Term Deliveries0 Deliveries0 (1) Abortions0 (1) Living Children0 (1) Patient stated [id number] Calculation of EGA based on patient stated EDD34.3 Is care information applicable this patient/visityes Records availableyes Trimester Care Initiatedfirst Current Riskspreeclampsia, kidney stones Testsultrasound Previous Delivery (20 weeks or greater)no Is plan applicable this patient/visityes Planno Is infant information applicable this patient/visityes Baby's Post Discharge Care Provider (Provider Name, Address and Phone Number) [facility] Is feeding plan applicable this patient/visityes Feedingbreastmilk Benefits of Breast Milk DiscussionThe benefits of exclusive breast milk feeding and the risk of adding formula have been discussed with patient / mother. Discussion Date / [id number] 20:56 General Health: Weight in vab028 pound(s) Weight in kg80.2 kilogram(s) Weight Methodstated Is weight gain information applicable this patient/visityes Prepregnancy Weight (lb)155 pound(s) Total Weight Gain (lb)22 pound(s) Height in feet5 feet Height in inches2 inch(es) Height in cm157.4 centimeter(s) Height Methodstated BMI (kg/m2)32.371 square meter Patient or Family Member Reaction to Anesthesiano previous reaction Blood Avoidance/Restrictionsnone(1) Previous Transfusion Reactionno(1) Rsp Based Care: How would you like to participate in your careto be informed What is the number one concern for you during this hospitalizationto be informed What is the most important thing we can do to support you during this hospitalizationto be informed Is there anything we need to know to best care for youpain managed Substance: Current or Former Substance Use never: Cigarette/Tobacco(1), e-Cigarette/Vaping, Alcohol(1), Street Drugs(1) Health Mgmt: Symptoms/Conditions Managed at Homegenitourinary Genitourinary Managementmanaged Genitourinary Symptoms/Conditions Commentneobaldder Barriers to Managing Healthnone Relationship/Environ: Primary Source of Support/Comfortsignificant other; parent(2) Lives Withsignificant other(2) Resource/Environmental Concernsnone [facility] Anticipated at Transitionnone Laboratory Tests/Results: Labs: Labs: Blood Typed Date: 14-Jun-2018 Blood Type: O negative Blood Type Comments: Currently Pending Collection as of Jun 14 2018 8:55PM Antibody Screen Results: positive Rhogam Comments: Currently Pending Collection as of Jun 14 2018 8:55PM Chlamydia Date: 06-Dec-2017 Chlamydia Results: negative Gonorrhea Date: 06-Dec-2017 Gonorrhea Results: negative Group B Strep Date: 14-Jun-2018 Group B Strep Comments: Currently Pending Collection as of Jun 14 2018 8:55PM GTT (dd-mmm-yy): 29-Apr-2018 GTT result: 125 HBsAG Date: 07-Dec-2017 HBsAG Results: negative Rubella Date: 07-Dec-2017 Syphilis (mmm-dd-yyyy): 29-Apr-2018 Syphilis Results: negative Urine Spot (dd-mmm-yy): 14-Jun-2018 Total Protein/Creatinine Ratio: 0.6 Urine 24 hour (dd-mmm-yy): 23-May-2018 24 hour Creatinine: 0.91 24 hour Total Protein: 481 Information Review: Allergies, Home Meds and Significant Events have been Reviewed and Verified with Patient/Familyyes ALLERGY, INTOLERANCE, ADVERSE EVENT: Allergies: sulfa drugs: Drug Category, Other, Active penicillin: Drug, Unknown, Active Electronic Signatures: Staci Hogan (RN) (Signed 14-Jun-2018 20:58) Authored: Profile, Laboratory Tests/Results, Additional Information Last Updated: 14-Jun-2018 20:58 by Staci Hogan (EDVIN) References: 1. Data Referenced From Triage Note - OB v3 06/14/2018 03:10 PM 2. Data Referenced From Patient Profile - OB v2 05/06/2018 05:13 PM EMR ADDON Collected: 06/14/2018 Status: F Source: [facility] 4:02 PM HOSPITALS REPOSITORY TYPE CODE TESTS RESULT OUT OF REFERENCE UNITS RANGE LAB EMRAC(LOIN C) ADDON CONFIRMATION REQUEST REC'D Performed By: #### EMRAD #### NO LOCATION NEEDED CBC Collected: 06/14/2018 Status: F Source: [facility] 3:52 PM [facility] REPOSITORY TYPE CODE TESTS RESULT OUT OF REFERENCE UNITS RANGE LAB WBCR(LOINC 4.4 - 11.3 x10E9/L ) WBC High 13.7 LAB NRBC(LOINC 0.0-0.0 /100 WBC ) NUCLEATED RBC 0.0 LAB RBCCT(LOIN 4.00 - 5.20 x10E12/L C) Low RBC 3.46 LAB HGB(LOINC) 12.0 - 16.0 g/dL Low HGB 9.0 LAB HCT(LOINC) 36.0 - 46.0 % Low HCT 28.5 LAB MCV(LOINC) 80 - 100 fL MCV 82 LAB MCHC2(LOIN 32.0 - 36.0 g/dL C) Low MCHC 31.6 LAB PLTCT(LOIN 150 - 450 x10E9/L C) PLT 317 LAB RDWCV(LOIN 11.5 - 14.5 % C) High RDW-CV 15.1 Performed By: #### CBC #### [facility] [address] [place] [address] TOTAL PROTEIN, URINE Collected: 06/14/2018 Status: F Source: [facility] 3:52 [facility] REPOSITORY TYPE CODE TESTS RESULT OUT OF RANGE REFERENCE UNITS LAB TPSP(LOINC) 5 - 24 mg/dL High TOTAL 38 PROT,URINE SPOT Result Comment: Please note new reference range as of 03/31/2018. LAB CRTSP(LOINC) 20.0 - mg/dL 320.0 CREATININE,URINE 63.6 Result Comment: Please note new reference range as of 03/31/2018. LAB TPCRT(LOINC) 0.00 - mg/mg 0.17 Creat T. PROTEIN/CREAT High RATIO 0.60 Result Comment: Please note new reference range as of 03/31/2018. Performed By: #### TPS2 #### [facility] [address] [place] [address] URIC ACID Collected: 06/14/2018 Status: F Source: [facility] [address] [place] [address] REPOSITORY TYPE CODE TESTS RESULT OUT OF RANGE REFERENCE UNITS LAB URIC(LOINC) 2.3 - 6.7 mg/dL URIC ACID 4.0 Result Comment: Venipuncture immediately after or during the administration of Metamizole may lead to falsely low results. Testing should be performed immediately prior to Metamizole dosing. Performed By: #### URIC #### [facility] [address] [place] [address] COMPREHENSIVE PANEL Collected: 06/14/2018 Status: F Source: [facility] [address] [place] [address] REPOSITORY TYPE CODE TESTS RESULT OUT OF REFERENCE UNITS RANGE LAB GLU(LOINC) 74 - 99 mg/dL GLUCOSE High 118 LAB SOD(LOINC) 136 - 145 mmol/L SODIUM 136 LAB K(LOINC) 3.5 - 5.3 mmol/L POTASSIUM 3.6 LAB CHLOR(LOIN 98 - 107 mmol/L C) CHLORIDE 103 LAB BIC(LOINC) 21 - 32 mmol/L Low BICARBONATE 19 LAB ANGAP(LOIN 10 - 20 mmol/L C) ANION GAP 18 LAB UREA(LOINC 6 - 23 mg/dL ) UREA NITROGEN 11 LAB CREA(LOINC 0.50 - 1.05 mg/dL ) CREATININE 0.54 LAB GFRFN(LOIN >60 mL/min/1.7 C) 3m2 GFR-NON AM. >60 LAB GFRAA(LOIN >60 mL/min/1.7 C) 3m2 GFR- AM. >60 Result Comment: CALCULATIONS OF ESTIMATED GFR ARE PERFORMED USING THE MDRD STUDY EQUATION FOR THE IDMS-TRACEABLE CREATININE METHODS. CLIN CHEM 2007;53:766-72 LAB CA(LOINC) 8.6 - 10.6 mg/dL CALCIUM 8.8 LAB ALB(LOINC) 3.4 - 5.0 g/dL ALBUMIN Low 3.2 LAB AP(LOINC) 33 - 110 U/L ALKALINE High PHOSPHATASE 142 LAB TP(LOINC) 6.4 - 8.2 g/dL TOTAL PROTEIN Low 6.1 LAB AST(LOINC) 9 - 39 U/L AST 12 LAB TBILI(LOINC) 0.0 - 1.2 mg/dL BILIRUBIN,TOTAL 0.4 LAB ALT(LOINC) 7 - 45 U/L ALT 9 Result Comment: Patients treated with Sulfasalazine may generate falsely decreased results for ALT. Performed By: #### CMP #### [facility] [address] [place] [address] LDH Collected: 06/14/2018 Status: F Source: [facility] 3:52 PM [facility]OSPITALS REPOSITORY TYPE CODE TESTS RESULT OUT OF RANGE REFERENCE UNITS LAB LDH(LOINC) 84 - 246 U/L LDH 166 Performed By: #### LDH #### [facility] [address] [place] [address] DAILY PROGRESS NOTE - Observed: 06/14/2018 Status: COMPLETED Source: [facility] OB-TRIAGE 3:37 PM [facility]OSPITALS REPOSITORY Current Stage: Stage: Triage Subjective Data: Antepartum: Vaginal Bleeding: No Contractions/Abdominal Pain: No Discharge/Loss of Fluid: No Movement: Good Fevers/Chills: No Preeclampsia Symptoms: Yes Headache, High BP Antepartum: Pt is a 28 yr old @ 34.3 by ALISON of 07/23/18 with known diagnosis of preeclampsia presenting due to high BP. Pt had BP of 160s/90s at NST appointment today and was sent here for evaluation. She complains of a frontal headache that feels similar to previous headaches but is not resolving. She denies fevers, chills, nausea, vomiting, chest pain, shortness of breath, abdominal pain, dysuria, frequency, hematuria, LE edema. No Contractions or LOF. Normal FM. On presentation here, BP is in 140s/80s. 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 Lives w/ . Denies tobacco, alcohol, and drug use. FHx: CAD (Mom [place] at 59, Dad [place] at 51); HTN/aortic aneurysm (Dad); Breast cancer (maternal aunt dx at 52), muscular dystrophy (maternal grandmother diagnosed in 80s) Objective Information: Objective Information: T PRBPSpO2 [id number]% Date/Time06/14 15: 15: 15: 15: 15:15 Range(36.8C - 36.8C ) (116 - 116 ) (18 - 18 ) (144 - 144 )/ (88 - 88 ) (98% - 98% ) Pain at Rest reported at 06/14 15:15: 3 Physical Exam: Constitutional: alert, oriented Obstetric: Christopher: no contractions FHT: 140s-150s with moderate variability, + accels, no decels Head/Neck: neck supple, no thyromegaly Respiratory/Thorax: normal respiratory effort, lungs clear, no wheezes or rhonchi Cardiovascular: S1 S2 RRR, no murmurs Gastrointestinal: No tenderness to palpation Musculoskeletal: Normal ROM Extremities: No LE edema Psychological: appropriate affect Skin: no rashes or lesions Assessment and Plan: Assessment: Pt is a 28 yr old @ 34.3 by ALISON of 07/23/18 with known diagnosis of preeclampsia presenting due to high BP. # Preeclampsia - PEC diagnosed by mild-range pressures in clinic and P:C 400 05/13/18 with 24hr urine 481 - BP on presentation 140s/80s, + headache - HELLP labs pending #Tachycardia -Pt has history of possible hyperthyroid, never treated -Tachycardia in 110s, higher than baseline HR from prior visits Plan: -Cycle pressures - improving to 130s/70s -HELLP labs unremarkable -TSH pending Pt signed out to oncoming team. Discussed with Dr. Abbasi. Tita Guerrero, DO PGY-1 Signature/Cosignature/Attestation: Attending AttestationI saw and evaluated the patient. I personally obtained the katz and critical portions of the history and physical exam or was physically present for katz and critical portions performed by the resident/fellow. I reviewed the resident/fellows documentation and discussed the patient with the resident/fellow. I agree with the resident/fellows medical decision making as documented in the resident/fellows note with the exception/addition of the following: I personally evaluated the patient (as noted in the above attestation) on 14-Jun-2018 Comments/ Additional Findings MFM Attending Addendum: I have seen, evaluated and counseled the above patient independently. 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 Patient with mild persistent MUKHERJEE in triage, no other cardiopulmonary or neurologic sx. Initial VS - BPs not requiring antihypertensive therapy. Cardiopulmonary exam non-focal. Abdomen soft, non-distended, uterus/abdomen non-tender, no rebound. Extremities non-tender, 1+ pedal edema. NST reactive. and maternal status reassuring. Reviewed plan for BP monitoring, lab assessment and period of observation in triage. Discussed potential for admission to AP service or potentially delivery if meeting criteria for Pre-E with severe features and maternal/ indications for delivery were reviewed. If admitted for delivery will contact Urology service (Magali) who plans to be available should CD be indicated. All questions answered. Ms. Perrin expressed understanding and agreement with the plan of care. Obinna Abbasi MD Electronic Signatures: Obinna Abbasi) (Signed 20-Jun-2018 10:24) Authored: Signature/Cosignature/Attestation Co-Signer: Current Stage, Subjective Data, Objective Data, Assessment and Plan Tita GuerreroDO (Resident)) (Signed 14-Jun-2018 17:37) Authored: Current Stage, Subjective Data, Objective Data, Assessment and Plan Last Updated: 20-Jun-2018 10:24 by Obinna Abbasi) RISK SCREEN - OB Observed: 06/14/2018 Status: UNK Source: [facility] TRI[facility] 3:14 PM [facility]PITALS REPOSITORY Allergies: Allergies: Allergies: sulfa drugs: Other penicillin: Unknown Patient Verification: Patient Verification: New W ID Band Applied in my Departmentyes Patient Identity Verified Bydriver's license/state ID ID Band FULL Name, include Middle, spelling matches patient's ID used for verificationyes ID Band Matches Patient ID used for Verficationyes ID Band MRN Matches EMR MRNyes Advance Directives: Advance Directive: Advance Directive Medicalno Advance Directive Information Givenpatient/family declined Falls Risk: Falls Risk: Altered Mobilityunsteady gait Change in Mental Statusno Relevant Medical History / Diagnosisnone Fall Historynone Altered Eliminationno Medications that Might Alter: equilibrium, cognitive judgement or severity of injurynone Sensory Deficitno UNABLE or UNWILLING to Follow Directionsno Patient Identified as a Falls Riskyes Family Violence: Abuse Screen: Are you or have you been threatened or abused physically, emotionally, or sexually by anyoneno Do you feel UNSAFE going back to the place where you are livingno Clinical assessment: Are there any apparent signs of injuries/behaviors that could be related to abuse/neglectno Learning Assessment (Patient): Learning Assessment (Patient): Patient is Able to be Assessed for Learningyes Factors Influencing Readiness to Learninterest in learning Factors that Impact Ability to Learnnone Devices/Methods Used to Communicatenone Learning Preferencesverbal instruction Cultural Considerationsnone Developmental Considerationsnone Quaker Considerationsnone Learning Assessment (Other Learner): Other learner availableno Suicide/Depression: Suicide/Depression Screen: During the past month, have you often been bothered by feeling down, depressed or hopelessno During the past month, have you often had little interest or pleasure in doing thingsno Have you had any thoughts of harming yourselfno Have you had any thoughts of harming anyone elseno Electronic Signatures: Sully Venegas (RN) (Signed 14-Jun-2018 15:15) Authored: Allergies, Patient Verification, Advance Directives, Falls Risk, Family Violence, Learning Assessment (Patient), Learning Assessment (Other Learner), Suicide/Depression Last Updated: 14-Jun-2018 15:15 by Sully Venegas (EDVIN) ALT Collected: 06/10/2018 Status: F Source: [place] [id number] [place] [address] REPOSITORY TYPE CODE TESTS RESULT OUT OF RANGE REFERENCE UNITS LAB ALT(LOINC) 7 - 45 U/L ALT 8 Result Comment: Patients treated with Sulfasalazine may generate falsely decreased results for ALT. Performed By: #### ALT #### [facility] [address] [place] [address] AST Collected: 06/10/2018 Status: F Source: [address] REPOSITORY TYPE CODE TESTS RESULT OUT OF RANGE REFERENCE UNITS LAB AST(LOINC) 9 - 39 U/L AST 10 Performed By: #### AST #### [facility] [address] [place] [address] CREATININE Collected: 06/10/2018 Status: F Source: [address] REPOSITORY TYPE CODE TESTS RESULT OUT OF REFERENCE UNITS RANGE LAB CREA(LOINC 0.50 - 1.05 mg/dL ) CREATININE 0.52 LAB GFRFN(LOIN >60 mL/min/1.73 C) m2 GFR-NON AM. >60 LAB GFRAA(LOIN >60 mL/min/1.73 C) m2 GFR- AM. >60 Result Comment: CALCULATIONS OF ESTIMATED GFR ARE PERFORMED USING THE MDRD STUDY EQUATION FOR THE IDMS-TRACEABLE CREATININE METHODS. CLIN CHEM 2007;53:766-72 Performed By: #### CREAT #### [facility] [address] [place] [address] UREA NITROGEN Collected: 06/10/2018 Status: F Source: [facility] 12:43 PM [facility]OSPITALS REPOSITORY TYPE CODE TESTS RESULT OUT OF REFERENCE UNITS RANGE LAB UREA(LOINC) 6 - 23 mg/dL UREA NITROGEN 11 Performed By: #### UREA #### [facility] [address] [place] [address] URIC ACID Collected: 06/10/2018 Status: F Source: [facility] 12:43 PM [facility]OSPITALS REPOSITORY TYPE CODE TESTS RESULT OUT OF RANGE REFERENCE UNITS LAB URIC(LOINC) 2.3 - 6.7 mg/dL URIC ACID 3.3 Result Comment: Venipuncture immediately after or during the administration of Metamizole may lead to falsely low results. Testing should be performed immediately prior to Metamizole dosing. Performed By: #### URIC #### [facility] [address] [place] [address] CBC Collected: 06/10/2018 Status: F Source: [facility] 12:43 [facility] REPOSITORY TYPE CODE TESTS RESULT OUT OF REFERENCE UNITS RANGE LAB WBCR(LOINC 4.4 - 11.3 x10E9/L ) WBC High 13.5 LAB NRBC(LOINC 0.0-0.0 /100 WBC ) NUCLEATED RBC 0.0 LAB RBCCT(LOIN 4.00 - 5.20 x10E12/L C) Low RBC 3.47 LAB HGB(LOINC) 12.0 - 16.0 g/dL Low HGB 9.0 LAB HCT(LOINC) 36.0 - 46.0 % Low HCT 29.0 LAB MCV(LOINC) 80 - 100 fL MCV 84 LAB MCHC2(LOIN 32.0 - 36.0 g/dL C) Low MCHC 31.0 LAB PLTCT(LOIN 150 - 450 x10E9/L C) PLT 341 LAB RDWCV(LOIN 11.5 - 14.5 % C) High RDW-CV 15.0 Performed By: #### CBC #### [facility] [address] [place] [address] TSH WITH REFLEX TO Collected: 06/10/2018 Status: F Source: [facility] FREE T4 IF ABNORMAL 12:43 PM HOSPITALS REPOSITORY TYPE CODE TESTS RESULT OUT OF RANGE REFERENCE UNITS LAB TSH2(LOINC) 0.44 - 3.98 mIU/L TSH 1.31 Result Comment: TSH testing is performed using different testing methodology at [facility] than at other [facility]. Direct result comparisons should only be made within the same method. . Patients receiving more than 5 mg/day of biotin may have interference in test results. A sample should be taken no sooner than eight hours after previous dose. Contact [phone] for additional information. Performed By: #### THYDS #### [facility] [address] [place] [address] DISCHARGE PROFILE2 Observed: 06/04/2018 Status: UNK Source: [facility] 7:02 PM HOSPITALS REPOSITORY Discharge Orders: Anticipated Discharge Date: Anticipated Discharge [id number] : Follow-Up - OB Provider: Physician/Dept/ServiceOB Provider Triage OB: Call Provider If: Contractions or cramps become more frequent than 8 in one hour or 4 in 20 minutes. Regular painful contractions every 5 minutes or less for one hour. Time your contractions from the beginning of one to the beginning of the next.. Pressure in your vagina or lower abdomen that may feel like the baby is pushing down. Period-like cramps or low dull backache that may come and go. Abdominal cramps that may be accompanied by diarrhea. Gush of fluid or blood from your vagina (it is normal to have spotting after vaginal exam or intercourse). Change in the type or amount of vaginal discharge. Your baby is not moving as much as usual. Temperature greater than 100.4(F) orally. Severe headache which is not relieved in 30 minutes after taking Tylenol (Acetaminophen). Blurry vision or spots before your eyes. Severe heartburn or pain on the upper right side of your abdomen that is not relieved by an antacid. Signs of Depression. Examples include: 1. Persistent sadness 2. Frequent crying 3. Sleep problems 4. Excessive worrying 5. Feeling unable to cope. Follow-Up - OB Provider: Physician/Dept/ServiceOB Provider CommentsFollow up with Dr. Yun as scheduled. Provider FINAL REVIEW of Orders: Final Review: Final Review of Medication Reconciliation and Orders Completedby Physician Reviewing ProviderSilvia Betts MD (Resident) at 04-Jun-2018 19:03:24 Other Clinician Instructions: Handouts Given: Topic 1Daily Movement Count Topic 2True vs False Labor Topic 3Preeclampsia Electronic Signatures: Silvia Betts ( (Resident)) (Signed 04-Jun-2018 19:03) Authored: Discharge Orders, , Triage OB, Provider FINAL REVIEW of Orders, Gold Form - Barber Shop Manager Summary Sully Vinson (ALLEN) (Signed 04-Jun-2018 19:05) Authored: Discharge Orders, Other Clinician Instructions Last Updated: 04-Jun-2018 19:05 by Sully Vinson (ALLEN) CLINICAL EVENT Observed: 06/04/2018 Status: UNK Source: [facility] NURSE VISIT 7:01 PM HOSPITALS REPOSITORY FOR BMZ ADMINISTRATIO Event: Topic: Triage nurse visit for BMZ administration Details: 28yo @ 33.0wga by LMP c/w 7wk US with h/o bladder reconstruction presents for BMZ #2 administration. No new complaints since triage visit 24hrs prior. 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 Lives w/ . Denies tobacco, alcohol, and drug use. FHx: CAD (Mom [place] at 59, Dad [place] at 51); HTN/aortic aneurysm (Dad); Breast cancer (maternal aunt dx at 52), muscular dystrophy (maternal grandmother diagnosed in 80s) Doppler heart tones 152. Pt received second dose of BMZ. Silvia Betts MD PGY-1 Vice President Of News pager [phone] Electronic Signatures: Silvia Betts (Resident)) (Signed 05-Jun-2018 00:05) Authored: Event Last Updated: 05-Jun-2018 00:05 by Silvia Betts (Resident)) RISK SCREEN - OB Observed: 06/04/2018 Status: UNK Source: [facility] TRIAGE 6:45 PM HOSPITALS REPOSITORY Allergies: Allergies: Allergies: sulfa drugs: Other penicillin: Unknown Patient Verification: Patient Verification: New W ID Band Applied in my Departmentyes Patient Identity Verified Bypatient ID Band FULL Name, include Middle, spelling matches patient's ID used for verificationyes ID Band Matches Patient ID used for Verficationyes ID Band MRN Matches EMR MRNyes Advance Directives: Advance Directive: Advance Directive Medicalno Advance Directive Information Givenpatient/family declined Falls Risk: Falls Risk: Altered Mobilitynone Change in Mental Statusno Relevant Medical History / Diagnosisnone Fall Historynone Altered Eliminationno Medications that Might Alter: equilibrium, cognitive judgement or severity of injurynone Sensory Deficitno UNABLE or UNWILLING to Follow Directionsno Patient Identified as a Falls Riskyes Family Violence: Abuse Screen: Are you or have you been threatened or abused physically, emotionally, or sexually by anyoneno Do you feel UNSAFE going back to the place where you are livingno Clinical assessment: Are there any apparent signs of injuries/behaviors that could be related to abuse/neglectno Learning Assessment (Patient): Learning Assessment (Patient): Patient is Able to be Assessed for Learningyes Factors Influencing Readiness to Learnmotivation to learn Factors that Impact Ability to Learnnone Devices/Methods Used to Communicatenone Learning Preferencesaudio; verbal instruction; group instruction; written material; individual instruction; skill demonstration Cultural Considerationsnone Developmental Considerationsnone Quaker Considerationsnone Learning Assessment (Other Learner): Other learner availableyes... Learnersignificant other Factors Influencing Readiness to Learninterest in learning Factors that Impact Ability to Learnnone Devices/Methods Used to Communicatenone Learning Preferencesaudio, group instruction, individual instruction, skill demonstration, verbal instruction, written material Cultural Considerationsnone Developmental Considerationsnone Quaker Considerationsnone Suicide/Depression: Suicide/Depression Screen: During the past month, have you often been bothered by feeling down, depressed or hopelessno During the past month, have you often had little interest or pleasure in doing thingsno Have you had any thoughts of harming yourselfno Have you had any thoughts of harming anyone elseno Electronic Signatures: Sully Vinson (ALLEN) (Signed 04-Jun-2018 18:47) Authored: Allergies, Patient Verification, Advance Directives, Falls Risk, Family Violence, Learning Assessment (Patient), Learning Assessment (Other Learner), Suicide/Depression Last Updated: 04-Jun-2018 18:47 by Sully Vinson (ALLEN) DISCHARGE PROFILE2 Observed: 06/03/2018 Status: UNK Source: [facility] 8:50 PM [facility]OSPITALS REPOSITORY Discharge Orders: Anticipated Discharge Date: Anticipated Discharge [id number] : Follow-Up - OB Provider: Physician/Dept/ServiceOB Provider Triage OB: Call Provider If: Contractions or cramps become more frequent than 8 in one hour or 4 in 20 minutes. Regular painful contractions every 5 minutes or less for one hour. Time your contractions from the beginning of one to the beginning of the next.. Pressure in your vagina or lower abdomen that may feel like the baby is pushing down. Period-like cramps or low dull backache that may come and go. Abdominal cramps that may be accompanied by diarrhea. Gush of fluid or blood from your vagina (it is normal to have spotting after vaginal exam or intercourse). Change in the type or amount of vaginal discharge. Your baby is not moving as much as usual. Temperature greater than 100.4(F) orally. Severe headache which is not relieved in 30 minutes after taking Tylenol (Acetaminophen). Blurry vision or spots before your eyes. Severe heartburn or pain on the upper right side of your abdomen that is not relieved by an antacid. Signs of Depression. Examples include: 1. Persistent sadness 2. Frequent crying 3. Sleep problems 4. Excessive worrying 5. Feeling unable to cope. Follow-Up - OB Provider: [facility] tomorrow, 06/04, at about 24hours after your first shot (8:00pm). Provider FINAL REVIEW of Orders: Final Review: Final Review of Medication Reconciliation and Orders Completedby Physician Reviewing ProviderSilvia Betts MD (Resident) at 03-Jun-2018 20:52:49 Electronic Signatures: Silvia Betts (Resident)) (Signed 03-Jun-2018 20:52) Authored: Discharge Orders, , Triage OB, Provider FINAL REVIEW of Orders, Gold Form - Barber Shop Manager Summary Last Updated: 03-Jun-2018 20:52 by Silvia Betts (Resident)) DAILY PROGRESS NOTE - Observed: 06/03/2018 Status: COMPLETED Source: [facility] 8:27 PM [facility]OSPITALS REPOSITORY Current Stage: Stage: Triage OB Dating: EDC/EGA: Final [id number] EGA32.6 Subjective Data: Antepartum: Vaginal Bleeding: No Contractions/Abdominal Pain: No Discharge/Loss of Fluid: No Movement: Good Preeclampsia Symptoms: No Antepartum: 28yo @ 32.6wga by LMP c/w 7wk US with h/o bladder reconstruction presents from clinic for evaluation due to h/o PEC and BMZ administration. She has been monitoring her blood pressures at home, has had two mild-ranges at home in the past week but each time she was normotensive after sitting for a few minutes. She also had mild headaches Wednesday-, no longer present; some epigastric pain yesterday that is also now resolved. No vision changes or swelling. Also denies VB, LOF, ctx, decreased FM. 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 Lives w/ . Denies tobacco, alcohol, and drug use. FHx: CAD (Mom [place] at 59, Dad [place] at 51); HTN/aortic aneurysm (Dad); Breast cancer (maternal aunt dx at 52), muscular dystrophy (maternal grandmother diagnosed in 80s) Objective Information: Objective Information: T PRBPSpO2 [id number]% Date/Time06/03 19: 19: 19: 19: 19:21 Range(36.7C - 36.7C ) (100 - 103 ) (17 - 17 ) (137 - 139 )/ (72 - 91 ) (100% - 100% ) Pain with Activity reported at 06/03 19:21: 0 Pain at Rest reported at 06/03 19:21: 0 Physical Exam: Constitutional: alert, oriented Obstetric: NST: 130/mod/+acc/-dec Christopher: no ctx Eyes: pupils equal, sclerae clear, EOMI Head/Neck: NC/AT Respiratory/Thorax: normal respiratory effort, CTAB Cardiovascular: RRR Gastrointestinal: nontender gravid abdomen Extremities: no LE edema or tenderness Neurological: grossly intact Psychological: appropriate affect Skin: warm and dry, no rashes or lesions Assessment and Plan: Assessment: 28yo @ 32.6wga by LMP c/w 7wk US w/ h/o PEC here for cycle BPs, check PEC labs, administer BMZ per Dr. Yun. 1. H/o bladder exstrophy s/p neobladder w/ recurrent UTIs and nephrolithiasis - fu with Dr. Fernandes - On macrobid suppression - urology to be present if indication for delivery 2. Preeclampsia - dx'd by mild-range BPs in clinic and P:C 400 - BPs normotensive in triage - HELLP labs wnl - Growth ultrasound q3 weeks - twice weekly testing with BPP or NST with weekly LILA - delivery @ 37wga 3. IUP - BMZ #1 2030 06/03/18, will return to triage in 24hrs for dose #2 - PNLs reviewed, wnl - NST reactive DW Dr. Rashi Betts MD PGY-1 Vice President Of News pager [phone] Signature/Cosignature/Attestation: Attending AttestationI saw and evaluated the patient. I personally obtained the katz and critical portions of the history and physical exam or was physically present for katz and critical portions performed by the resident/fellow. I reviewed the resident/fellows documentation and discussed the patient with the resident/fellow. I agree with the resident/fellows medical decision making as documented in the residents note. I personally evaluated the patient (as noted in the above attestation) on 03-Jun-2018 Electronic Signatures: Mohini Markham) (Signed 11-Jun-2018 09:09) Authored: Signature/Cosignature/Attestation Co-Signer: Assessment and Plan, Signature/Cosignature/Attestation Silvia Betts (Resident)) (Signed 04-Jun-2018 01:19) Authored: Current Stage, OB Dating, Subjective Data, Objective Data, Assessment and Plan, Signature/Cosignature/Attestation Last Updated: 11-Jun-2018 09:09 by Mohini Markham) CBC Collected: 06/03/2018 Status: F Source: [facility] 7:18 [facility]ALS REPOSITORY TYPE CODE TESTS RESULT OUT OF REFERENCE UNITS RANGE LAB WBCR(LOINC 4.4 - 11.3 x10E9/L ) WBC High 13.9 LAB NRBC(LOINC 0.0-0.0 /100 WBC ) NUCLEATED RBC 0.0 LAB RBCCT(LOIN 4.00 - 5.20 x10E12/L C) Low RBC 3.41 LAB HGB(LOINC) 12.0 - 16.0 g/dL Low HGB 9.2 LAB HCT(LOINC) 36.0 - 46.0 % Low HCT 28.9 LAB MCV(LOINC) 80 - 100 fL MCV 85 LAB MCHC2(LOIN 32.0 - 36.0 g/dL C) Low MCHC 31.8 LAB PLTCT(LOIN 150 - 450 x10E9/L C) PLT 285 LAB RDWCV(LOIN 11.5 - 14.5 % C) High RDW-CV 14.8 Performed By: #### CBC #### [facility] [address] [place] [address] LDH Collected: 06/03/2018 Status: F Source: [facility] 7:18 [facility] REPOSITORY TYPE CODE TESTS RESULT OUT OF RANGE REFERENCE UNITS LAB LDH(LOINC) 84 - 246 U/L LDH 157 Performed By: #### LDH #### [facility] [address] [place] [address] COMPREHENSIVE PANEL Collected: 06/03/2018 Status: F Source: [facility] 7:18 PM [facility]OSPITALS REPOSITORY TYPE CODE TESTS RESULT OUT OF REFERENCE UNITS RANGE LAB GLU(LOINC) 74 - 99 mg/dL GLUCOSE 97 LAB SOD(LOINC) 136 - 145 mmol/L SODIUM 137 LAB K(LOINC) 3.5 - 5.3 mmol/L POTASSIUM 3.7 LAB CHLOR(LOIN 98 - 107 mmol/L C) CHLORIDE 106 LAB BIC(LOINC) 21 - 32 mmol/L Low BICARBONATE 20 LAB ANGAP(LOIN 10 - 20 mmol/L C) ANION GAP 15 LAB UREA(LOINC 6 - 23 mg/dL ) UREA NITROGEN 12 LAB CREA(LOINC 0.50 - 1.05 mg/dL ) CREATININE 0.50 LAB GFRFN(LOIN >60 mL/min/1.7 C) 3m2 GFR-NON AM. >60 LAB GFRAA(LOIN >60 mL/min/1.7 C) 3m2 GFR- AM. >60 Result Comment: CALCULATIONS OF ESTIMATED GFR ARE PERFORMED USING THE MDRD STUDY EQUATION FOR THE IDMS-TRACEABLE CREATININE METHODS. CLIN CHEM 2007;53:766-72 LAB CA(LOINC) 8.6 - 10.6 mg/dL CALCIUM 8.9 LAB ALB(LOINC) 3.4 - 5.0 g/dL ALBUMIN Low 3.1 LAB AP(LOINC) 33 - 110 U/L ALKALINE High PHOSPHATASE 117 LAB TP(LOINC) 6.4 - 8.2 g/dL TOTAL PROTEIN Low 5.8 LAB AST(LOINC) 9 - 39 U/L AST 12 LAB TBILI(LOINC) 0.0 - 1.2 mg/dL BILIRUBIN,TOTAL 0.2 LAB ALT(LOINC) 7 - 45 U/L ALT 9 Result Comment: Patients treated with Sulfasalazine may generate falsely decreased results for ALT. Performed By: #### CMP #### [facility] [address] [place] [address] URIC ACID Collected: 06/03/2018 Status: F Source: [facility] 7:18 PM [facility] REPOSITORY TYPE CODE TESTS RESULT OUT OF RANGE REFERENCE UNITS LAB URIC(LOINC) 2.3 - 6.7 mg/dL URIC ACID 3.6 Result Comment: Venipuncture immediately after or during the administration of Metamizole may lead to falsely low results. Testing should be performed immediately prior to Metamizole dosing. Performed By: #### URIC #### [facility] [address] [place] [address] RISK SCREEN - OB Observed: 06/03/2018 Status: UNK Source: [facility] TRIAGE 6:49 PM HOSPITALS REPOSITORY Allergies: Allergies: Allergies: sulfa drugs: Other penicillin: Unknown Patient Verification: Patient Verification: New W ID Band Applied in my Departmentyes Patient Identity Verified Bypatient ID Band FULL Name, include Middle, spelling matches patient's ID used for verificationyes ID Band Matches Patient ID used for Verficationyes ID Band MRN Matches EMR MRNyes Advance Directives: Advance Directive: Advance Directive Medicalno Advance Directive Information Givenpatient/family declined Falls Risk: Falls Risk: Altered Mobilitynone Change in Mental Statusno Relevant Medical History / Diagnosisnone Fall Historynone Altered Eliminationno Medications that Might Alter: equilibrium, cognitive judgement or severity of injurynone Sensory Deficitno UNABLE or UNWILLING to Follow Directionsno Patient Identified as a Falls Riskyes Family Violence: Abuse Screen: Are you or have you been threatened or abused physically, emotionally, or sexually by anyoneno Do you feel UNSAFE going back to the place where you are livingno Clinical assessment: Are there any apparent signs of injuries/behaviors that could be related to abuse/neglectno Learning Assessment (Patient): Learning Assessment (Patient): Patient is Able to be Assessed for Learningyes Factors Influencing Readiness to Learnpain Factors that Impact Ability to Learnnone Devices/Methods Used to Communicatenone Learning Preferencesverbal instruction Cultural Considerationsnone Developmental Considerationsnone Quaker Considerationsnone Learning Assessment (Other Learner): Other learner availableno Suicide/Depression: Suicide/Depression Screen: During the past month, have you often been bothered by feeling down, depressed or hopelessno During the past month, have you often had little interest or pleasure in doing thingsno Have you had any thoughts of harming yourselfno Have you had any thoughts of harming anyone elseno Electronic Signatures: Spring Titus) (Signed 03-Jun-2018 18:53) Authored: Allergies, Patient Verification, Advance Directives, Falls Risk, Family Violence, Learning Assessment (Patient), Learning Assessment (Other Learner), Suicide/Depression Last Updated: 03-Jun-2018 18:53 by Spring Titus (RN) CBC Collected: 05/27/2018 Status: F Source: [place] [id number]:[id number] [place] [address] REPOSITORY TYPE CODE TESTS RESULT OUT OF RANGE REFERENCE UNITS LAB WBCR(LOINC) 4.4 - 11.3 x10E9/L High WBC 11.7 LAB RBCCT(LOINC 4.00 - 5.20 x10E12/L ) Low RBC 3.37 LAB HGB(LOINC) 12.0 - 16.0 g/dL Low HGB 9.0 LAB HCT(LOINC) 36.0 - 46.0 % Low HCT 28.4 LAB MCV(LOINC) 80 - 100 fL MCV 84 LAB MCHC2(LOINC 32.0 - 36.0 g/dL ) Low MCHC 31.7 LAB PLTCT(LOINC 150 - 450 x10E9/L ) PLT 282 LAB RDWCV(LOINC 11.5 - 14.5 % ) High RDW-CV 14.6 Performed By: #### CBC #### [facility] [address] [place] [id number] ALT Collected: 05/27/2018 Status: F Source: [address] REPOSITORY TYPE CODE TESTS RESULT OUT OF RANGE REFERENCE UNITS LAB ALT(LOINC) 7 - 45 U/L ALT 8 Result Comment: Patients treated with Sulfasalazine may generate falsely decreased results for ALT. Performed By: #### ALT #### [facility] [address] [place] [address] AST Collected: 05/27/2018 Status: F Source: [place] [id number]:[address] [place] [address] REPOSITORY TYPE CODE TESTS RESULT OUT OF RANGE REFERENCE UNITS LAB AST(LOINC) 9 - 39 U/L AST 10 Performed By: #### AST #### [facility] [address] [place] [id number] CREATININE Collected: 05/27/2018 Status: F Source: [place] [id number]:[id number] [place] [address] REPOSITORY TYPE CODE TESTS RESULT OUT OF REFERENCE UNITS RANGE LAB CREA(LOINC 0.50 - 1.05 mg/dL ) CREATININE 0.60 LAB GFRFN(LOIN >60 mL/min/1.73 C) m2 GFR-NON AM. >60 LAB GFRAA(LOIN >60 mL/min/1.73 C) m2 GFR- AM. >60 Result Comment: CALCULATIONS OF ESTIMATED GFR ARE PERFORMED USING THE MDRD STUDY EQUATION FOR THE IDMS-TRACEABLE CREATININE METHODS. CLIN CHEM 2007;53:766-72 Performed By: #### CREAT #### [facility] [address] [place] [address] UREA NITROGEN Collected: 05/27/2018 Status: F Source: [facility] 5:09 PM [facility] REPOSITORY TYPE CODE TESTS RESULT OUT OF REFERENCE UNITS RANGE LAB UREA(LOINC) 6 - 23 mg/dL UREA NITROGEN 11 Performed By: #### UREA #### [facility] [address] [place] [address] URIC ACID Collected: 05/27/2018 Status: F Source: [facility] 5:09 [facility] REPOSITORY TYPE CODE TESTS RESULT OUT OF RANGE REFERENCE UNITS LAB URIC(LOINC) 2.3 - 6.7 mg/dL URIC ACID 3.1 Result Comment: Venipuncture immediately after or during the administration of Metamizole may lead to falsely low results. Testing should be performed immediately prior to Metamizole dosing. Performed By: #### URIC #### [facility] [address] [place] [address] TOTAL PROTEIN,URINE 24H Collected: 05/23/2018 Status: F Source: [facility] 9:54 AM [facility] REPOSITORY TYPE CODE TESTS RESULT OUT OF REFERENCE UNITS RANGE LAB COLLP(LOIN hr C) COLLECTION 24 PERIOD LAB VOLUM(LOIN mL C) URINE VOLUME 1335 LAB TPUC(LOINC Not Established mg/dL ) TOTAL PROTEIN,URINE 36 LAB TPUV(LOINC 0 - 149 mg/24h ) TOTAL High PROTEIN,24HR 481 LAB CRTUC(LOIN 20.0 - 320.0 mg/dL C) CREATININE,URINE 67.8 Result Comment: Please note new reference range as of 04/04/2018. LAB CRTUV(LOINC) 0.67 - g/24h 1.59 CREATININE, 24HR 0.91 Performed By: #### TPUR #### [facility] [address] [place] [address] CREAT CLEARANCE Collected: 05/23/2018 Status: F Source: [facility] 9:54 AM [facility] REPOSITORY TYPE CODE TESTS RESULT OUT OF REFERENCE UNITS RANGE LAB COLLP(LOIN hr C) COLLECTION 24 PERIOD LAB VOLUM(LOIN mL C) URINE VOLUME 1335 LAB CREA(LOINC 0.50 - 1.05 mg/dL ) CREATININE 0.52 LAB GFRFN(LOIN >60 mL/min/1.73 C) m2 GFR-NON AM. >60 LAB GFRAA(LOIN >60 mL/min/1.73 C) m2 GFR- AM. >60 Result Comment: CALCULATIONS OF ESTIMATED GFR ARE PERFORMED USING THE MDRD STUDY EQUATION FOR THE IDMS-TRACEABLE CREATININE METHODS. CLIN CHEM 2007;53:766-72 LAB CRTUC(LOINC) 20.0 - mg/dL 320.0 CREATININE,URINE 67.8 Result Comment: Please note new reference range as of 04/04/2018. LAB CRCL2(LOINC) 70 - 125 mL/min CREATININE CLEARANCE 121 Performed By: #### CRCL #### [facility] [address] [place] [address] CBC Collected: 05/20/2018 Status: F Source: [address] REPOSITORY TYPE CODE TESTS RESULT OUT OF RANGE REFERENCE UNITS LAB WBCR(LOINC) 4.4 - 11.3 x10E9/L High WBC 12.4 LAB RBCCT(LOINC 4.00 - 5.20 x10E12/L ) Low RBC 3.37 LAB HGB(LOINC) 12.0 - 16.0 g/dL Low HGB 9.2 LAB HCT(LOINC) 36.0 - 46.0 % Low HCT 28.6 LAB MCV(LOINC) 80 - 100 fL MCV 85 LAB MCHC2(LOINC 32.0 - 36.0 g/dL ) MCHC 32.2 LAB PLTCT(LOINC 150 - 450 x10E9/L ) PLT 295 LAB RDWCV(LOINC 11.5 - 14.5 % ) High RDW-CV 14.6 Performed By: #### CBC #### [facility] [address] [place] [address] AST Collected: 05/20/2018 Status: F Source: [place] [address]:[address] [place] [address] REPOSITORY TYPE CODE TESTS RESULT OUT OF RANGE REFERENCE UNITS LAB AST(LOINC) 9 - 39 U/L AST 11 Performed By: #### AST #### [facility] [address] [place] [address] ALT Collected: 05/20/2018 Status: F Source: [facility] 11:47 [facility] REPOSITORY TYPE CODE TESTS RESULT OUT OF RANGE REFERENCE UNITS LAB ALT(LOINC) 7 - 45 U/L ALT 10 Result Comment: Patients treated with Sulfasalazine may generate falsely decreased results for ALT. Performed By: #### ALT #### [facility] [address] [place] [address] CREATININE Collected: 05/20/2018 Status: F Source: [facility] 11:47 AM [facility] REPOSITORY TYPE CODE TESTS RESULT OUT OF REFERENCE UNITS RANGE LAB CREA(LOINC 0.50 - 1.05 mg/dL ) CREATININE 0.52 LAB GFRFN(LOIN >60 mL/min/1.73 C) m2 GFR-NON AM. >60 LAB GFRAA(LOIN >60 mL/min/1.73 C) m2 GFR- AM. >60 Result Comment: CALCULATIONS OF ESTIMATED GFR ARE PERFORMED USING THE MDRD STUDY EQUATION FOR THE IDMS-TRACEABLE CREATININE METHODS. CLIN CHEM 2007;53:766-72 Performed By: #### CREAT #### [facility] [address] [place] [address] UREA NITROGEN Collected: 05/20/2018 Status: F Source: [facility] 11:47 AM [facility] REPOSITORY TYPE CODE TESTS RESULT OUT OF REFERENCE UNITS RANGE LAB UREA(LOINC) 6 - 23 mg/dL UREA NITROGEN 11 Performed By: #### UREA #### [facility] [address] [place] [address] URIC ACID Collected: 05/20/2018 Status: F Source: [facility] 11:47 AM [facility] REPOSITORY TYPE CODE TESTS RESULT OUT OF RANGE REFERENCE UNITS LAB URIC(LOINC) 2.3 - 6.7 mg/dL URIC ACID 3.1 Result Comment: Venipuncture immediately after or during the administration of Metamizole may lead to falsely low results. Testing should be performed immediately prior to Metamizole dosing. Performed By: #### URIC #### [facility] [address] [place] [address] TOTAL PROTEIN, URINE Collected: 05/13/2018 Status: F Source: [facility] 4:15 PM [facility] REPOSITORY TYPE CODE TESTS RESULT OUT OF RANGE REFERENCE UNITS LAB TPSP(LOINC) 5 - 24 mg/dL High TOTAL 51 PROT,URINE SPOT Result Comment: Please note new reference range as of 03/31/2018. LAB CRTSP(LOINC) 20.0 - mg/dL 320.0 CREATININE,URINE 126.0 Result Comment: Please note new reference range as of 03/31/2018. LAB TPCRT(LOINC) 0.00 - mg/mg 0.17 Creat T. PROTEIN/CREAT High RATIO 0.40 Result Comment: Please note new reference range as of 03/31/2018. Performed By: #### TPS2 #### [facility] [address] [place] [address] DISCHARGE SUMMARY Observed: 05/08/2018 Status: COMPLETED Source: [facility] 11:54 AM [facility]OSPITALS REPOSITORY Send Summary: Discharge Summary Providers: Provider RoleProvider Name Josefinamarydhruv Branden Ly, Jose Hudson Note Recipients: N/A Discharge: Summary: Admission Date: .06-May-2018 09:51:00 Discharge Date: 08-May-2018 Attending Physician at Discharge: Branden Hatch Admission Reason: concern for UTI vs pyelonephritis Final Discharge Diagnoses: UTI vs pyelonephritis Procedures: IV abx Condition at Discharge: Satisfactory Disposition at Discharge: .Home Hospital Course: Hospital Course Patient admitted 05/06 for concern for resistant pseudomonas at OSH. Repeat UCx on 04/26 was a pansensitive pseudomonas and patient had continued PO abx. She was sent to the hospital however for concern for dysuria and flank pain. Patient was seen by ID and started on IV Cefepime. Her vital signs were stable and she remained afebrile. Her symptoms improved. Her UCx while in house grew mixed urethral theresa. On discharge, ID stated that patient may continue daily macrobid prophylaxis and did not require a treatment course. They also recommended weekly UCx. Patient has follow up with her provider on 05/13, macrobid was sent to patient's pharmacy. From Patient HOT Patient is a 28 y/o at 29.1 wga (05/08) by 7.2 week u/s who is admitted [facility] for dysuria and b/l flank pain after failing two abx txs as an outpatient. Reports intermitted nausea over the past few days. Patient denies fever, chills, chest pain, SOB, vomiting, constipation, diarrhea. Denies VB, LOF, CTX; endorses FM. c/b - H/o bladder extrophy s/p neobladder - Questionable h/o hypothyoridism (TSH 0.63 on 01/18/2018) - Anxiety and depression, on Prozac - Rh negative, s/p Rhogam Immunizations: Immunizations: 04-May-2017 .Influenza- Influenza Virus: Immunizations, 04-May-2017 .Influenza- Influenza Virus: Immunizations, 11-Apr-2016 .Influenza- Influenza Virus: Immunizations, 07-May-2014 .Influenza- Influenza Virus: Immunizations, 07-May-2014 .Pneumonia- Pneumococcal polysaccharide vaccine-adult: Immunizations, 27-Jul-2012 Discharge Information: and Continuing Care: Discharge Instructions: Patient will need weekly UCx. Discharge Medications: Home Medication PROzac 10 mg oral tablet - 2 tab(s) orally once a day Multivitamins oral tablet - 1 tab(s) orally once a day Macrobid 100 mg oral capsule - 1 cap(s) orally once a day until the end of PRN Medication Lab Results - Pending: Path Review Immunohematology Drawn at 06-May-2018 16:56:00 Radiology Results - Pending: None Signature/Cosignature/Attestation: Attending AttestationI saw and evaluated the patient. I personally obtained the katz and critical portions of the history and physical exam or was physically present for katz and critical portions performed by the resident/fellow. I reviewed the resident/fellows documentation and discussed the patient with the resident/fellow. I agree with the resident/fellows medical decision making as documented in the residents note. I personally evaluated the patient (as noted in the above attestation) on 08-May-2018 Electronic Signatures: Branden Hatch) (Signed 09-May-2018 09:04) Authored: Ongoing Care, Signature/Cosignature/Attestation Co-Signer: Send Summary, Summary Content, Immunizations, Ongoing Care, Signature/Cosignature/Attestation Sheree Church (Resident)) (Signed 08-May-2018 11:59) Authored: Send Summary, Summary Content, Immunizations, Ongoing Care, Signature/Cosignature/Attestation Last Updated: 09-May-2018 09:04 by Branden Hatch () CLINICAL EVENT Observed: 05/08/2018 Status: UNK Source: [facility] NOTE-ID PHONE RECS 11:51 AM HOSPITALS REPOSITORY Event: Topic: ID Phone Recs Details: Spoke to ID team this morning who had seen patient on 05/16. Recommended that patient continue Macrobid suppressive therapy until end of . Did not think patient required treatment at this time as most recent UCx grew mixed urethral theresa. Final clinical note from ID pending. They did recommend that patient undergo weekly UCx. I will inform patient's care providers regarding this as outpatient management. Patient has upcoming appointment 05/13. Will discharge patient home on PO macrobid with follow up as scheduled. Sheree Church MD PGY3 M[facility] Pager [phone] Electronic Signatures: Sheree Church ( (Resident)) (Signed 08-May-2018 11:53) Authored: Event Last Updated: 08-May-2018 11:53 by Sheree Church ( (Resident)) CBC Collected: 05/08/2018 Status: F Source: [facility] 8:43 AM [facility]OSPITALS REPOSITORY TYPE CODE TESTS RESULT OUT OF REFERENCE UNITS RANGE LAB WBCR(LOINC 4.4 - 11.3 x10E9/L ) WBC High 11.8 LAB NRBC(LOINC 0.0-0.0 /100 WBC ) NUCLEATED RBC 0.0 LAB RBCCT(LOIN 4.00 - 5.20 x10E12/L C) Low RBC 3.13 LAB HGB(LOINC) 12.0 - 16.0 g/dL Low HGB 8.9 LAB HCT(LOINC) 36.0 - 46.0 % Low HCT 26.8 LAB MCV(LOINC) 80 - 100 fL MCV 86 LAB MCHC2(LOIN 32.0 - 36.0 g/dL C) MCHC 33.2 LAB PLTCT(LOIN 150 - 450 x10E9/L C) PLT 250 LAB RDWCV(LOIN 11.5 - 14.5 % C) RDW-CV 14.1 Performed By: #### CBC #### [facility] [address] [address] HEPATIC FUNCTION Collected: 05/08/2018 Status: F Source: [facility] PANEL 8:43 AM HOSPITALS REPOSITORY TYPE CODE TESTS RESULT OUT OF REFERENCE UNITS RANGE LAB ALB(LOINC) 3.4 - 5.0 g/dL Low ALBUMIN 2.8 LAB TBILI(LOIN 0.0 - 1.2 mg/dL C) BILIRUBIN,TOTAL 0.3 LAB DBILI(LOIN 0.0 - 0.3 mg/dL C) BILIRUBIN,DIRECT 0.0 LAB AP(LOINC) 33 - 110 U/L ALKALINE PHOSPHATASE 87 LAB ALT(LOINC) 7 - 45 U/L ALT 7 Result Comment: Patients treated with Sulfasalazine may generate falsely decreased results for ALT. LAB AST(LOINC) 9 - 39 U/L AST 9 LAB TP(LOINC) 6.4 - 8.2 g/dL Low TOTAL PROTEIN 5.4 Performed By: #### HEPFP #### [facility] [address] [place] [address] RENAL FUNCTION PANEL Collected: 05/08/2018 Status: F Source: [facility] 8:43 [facility] REPOSITORY TYPE CODE TESTS RESULT OUT OF REFERENCE UNITS RANGE LAB GLU(LOINC) 74 - 99 mg/dL Low GLUCOSE 72 LAB SOD(LOINC) 136 - 145 mmol/L SODIUM 138 LAB K(LOINC) 3.5 - 5.3 mmol/L POTASSIUM 3.7 LAB CHLOR(LOIN 98 - 107 mmol/L C) CHLORIDE 106 LAB BIC(LOINC) 21 - 32 mmol/L BICARBONATE 22 LAB ANGAP(LOIN 10 - 20 mmol/L C) ANION GAP 14 LAB UREA(LOINC 6 - 23 mg/dL ) UREA NITROGEN 9 LAB CREA(LOINC 0.50 - 1.05 mg/dL ) Low CREATININE 0.42 LAB GFRFN(LOIN >60 mL/min/1.7 C) 3m2 GFR-NON AM. >60 LAB GFRAA(LOIN >60 mL/min/1.7 C) 3m2 GFR- AM. >60 Result Comment: CALCULATIONS OF ESTIMATED GFR ARE PERFORMED USING THE MDRD STUDY EQUATION FOR THE IDMS-TRACEABLE CREATININE METHODS. CLIN CHEM 2007;53:766-72 LAB CA(LOINC) 8.6 - 10.6 mg/dL CALCIUM Low 8.4 LAB PHOS(LOINC) 2.5 - 4.9 mg/dL PHOSPHORUS 3.7 Result Comment: The performance characteristics of phosphorus testing in heparinized plasma have been validated by the individual laboratory site where testing is performed. Testing on heparinized plasma is not approved by the FDA; however, such approval is not necessary. LAB ALB(LOINC) 3.4 - 5.0 g/dL Low ALBUMIN 2.8 Performed By: #### RENAL #### [facility] [address] [place] [address] DAILY PROGRESS NOTE - Observed: 05/08/2018 Status: COMPLETED Source: [facility] OB-ANTEPARTUM - MFM 6:24 AM HOSPITALS REPOSITORY Current Stage: Stage: Antepartum - MFM OB Dating: EDC/EGA: Final [id number] EGA29.1 Subjective Data: Antepartum: Vaginal Bleeding: No Contractions/Abdominal Pain: No Discharge/Loss of Fluid: No Movement: Good Fevers/Chills: No Preeclampsia Symptoms: No Antepartum: Patient resting comfortably. Reports some left-sided flank pain. Denies fevers, chills, n/v, constipation, diarrhea. Denies persistent headaches, vision changes, scotomas, chest pain, dyspnea, RUQ pain, pain/swelling in extremities. Objective Information: Objective Information: T PRBPSpO2 [id number]% Date/Time05/08 5: 5: 5: 5: 5:15 Range(36.2C - 37.4C ) (82 - 96 ) (16 - 18 ) (105 - 122 )/ (68 - 77 ) (97% - 99% ) Highest temp of 37.4 C was recorded at 05/07 23:10 Pain reported at 05/07 23:10: 1 = Mild Pain with Activity reported at 05/08 5:20: 6 Pain at Rest reported at 05/08 5:20: 6 ---- Intake and Output ----- Mn/Dy/Year TimeIntakeOutputNet May 08, 2018 6:00 [id number] May 07, 2018 10:00 [id number] May 07, 2018 2:00 [id number] The Intake and Output Totals for the last 24 hours are: IntakeOutputNet [id number] Physical Exam: Constitutional: alert, oriented Obstetric: NST appropriate for gestational age (see testing note). Head/Neck: NC/AT Respiratory/Thorax: normal respiratory effort, lungs clear, no wheezes or rhonchi Cardiovascular: S1 S2 RRR, no murmurs Musculoskeletal: Left-sided CVA tenderness, right side nontender. Extremities: no calf tenderness or lower extremity edema Psychological: appropriate affect Skin: no rashes or lesions Assessment and Plan: Assessment: Patient is a 28 y/o at 29.1 wga by 7.2 week u/s admitted for recurrent UTI in the setting of neobladder and failed abx tx x 2. 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 UCx on 05/06/2018 showed mixed urethral theresa. - Cefepime 2 g q8h per ID recommendations (much appreciated). 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 - Bilateral renal u/s (05/07/2018) revealed mild right and moderate left sided hydronephrosis with nephrolithiasis in the left renal pole. Anxiety and depression - Mood stable - Continue prozac Rh negative - S/p Rhogam well-being - NST appropriate for gestational age IUP - labs WNL - 1 hr GTT WNL - S/p TDaP and flu vaccine d/w Dr. Mamie Grant MD PGY-1 [facility] Pager [phone] Signature/Cosignature/Attestation: Attending AttestationI saw and evaluated the patient. I personally obtained the katz and critical portions of the history and physical exam or was physically present for katz and critical portions performed by the resident/fellow. I reviewed the resident/fellows documentation and discussed the patient with the resident/fellow. I agree with the resident/fellows medical decision making as documented in the resident/fellows note with the exception/addition of the following: I personally evaluated the patient (as noted in the above attestation) on 08-May-2018 Comments/ Additional Findings Patient clinically imrpoved. Will transition to oral antibiotics and plan for discharge. ID appreciated regarding oral abx guidance. Electronic Signatures: Branden Hatch) (Signed 08-May-2018 10:49) Authored: Signature/Cosignature/Attestation Co-Signer: Current Stage, OB Dating, Subjective Data, Objective Data, Assessment and Plan, Signature/Cosignature/Attestation Evelio Grant (Resident)) (Signed 08-May-2018 06:31) Authored: Current Stage, OB Dating, Subjective Data, Objective Data, Assessment and Plan, Signature/Cosignature/Attestation Last Updated: 08-May-2018 10:49 by Branden Hatch) DAILY PROGRESS NOTE - Observed: 05/08/2018 Status: COMPLETED Source: [facility] OB- TESTING 6:18 AM [facility]OSPITALS REPOSITORY Current Stage: Stage: Testing Objective Information: Objective Information: ---- Intake and Output ----- Mn/Dy/Year TimeIntakeOutputNet May 08, 2018 6:00 [id number] May 07, 2018 10:00 [id number] May 07, 2018 2:00 [id number] The Intake and Output Totals for the last 24 hours are: IntakeOutputNet [id number] Testing: NST Interpretation - Baby A: Baseline [id number] Variabilitymoderate (amplitude range 6 to 25 bpm) InterpretationAppropriate for EGA (2 10x10 accels) Accelerations2+ DecelerationsNone Signature/Cosignature/Attestation: Attending AttestationI saw and evaluated the patient. I personally obtained the katz and critical portions of the history and physical exam or was physically present for katz and critical portions performed by the resident/fellow. I reviewed the resident/fellows documentation and discussed the patient with the resident/fellow. I agree with the resident/fellows medical decision making as documented in the residents note. I personally evaluated the patient (as noted in the above attestation) on 08-May-2018 Electronic Signatures: Branden Hatch) (Signed 08-May-2018 10:47) Authored: Signature/Cosignature/Attestation Co-Signer: Current Stage, Objective Data, Testing, Signature/Cosignature/Attestation Evelio Grant (Resident)) (Signed 08-May-2018 06:19) Authored: Current Stage, Objective Data, Testing, Signature/Cosignature/Attestation Last Updated: 08-May-2018 10:47 by Branden Hatch) US RENAL BILAT Observed: 05/07/2018 Status: F Source: [facility] 2:15 PM HOSPITALS REPOSITORY Patient Name: SHAD GRIFFITHS STUDY: US RENAL BILAT; 05/07/2018 2:15 pm INDICATION: Signs/Symptoms: Bladder extrophy s/p repair, self-cath, current UTI, on IV abx. COMPARISON: Renal ultrasound dated 03/18/2018 ACCESSION NUMBER(S): [id number] ORDERING CLINICIAN: SHEREE CHURCH TECHNIQUE: Multiple grayscale and color Doppler images of the kidneys were obtained. FINDINGS: RIGHT KIDNEY: The right kidney measures 12.4 cm in length. The renal cortical echogenicity and thickness are within normal limits. There is a small right-sided hydronephrosis which persists postvoid; no evidence of nephrolithiasis. LEFT KIDNEY: The left kidney measures 14.3 cm in length. Again identified is Doppler gated collecting system on the left side with moderate to severe hydronephrosis which again persists postvoid. There is a stone in the lower pole of the left kidney, measuring 0.9 x 0.6 x 0.9 cm BLADDER: The patient has reconstructed neobladder with at least 2 echogenic foci seen in the dependent portion of the lumen with posterior shadowing, with the largest measuring 1.3 x 0.6 x 1.1 cm, likely representing calculi. IMPRESSION: Mild right-sided and moderate to severe left-sided hydronephrosis which persisted in postvoid images. Status post reconstructed neobladder with at least 2 echogenic foci seen in the dependent portion of the neobladder, which also seen on prior exam, likely representing calculi. Nephrolithiasis in the lower pole of the left kidney, measuring 0.9 x 0.6 x 0.9 cm. I personally reviewed the images/study and I agree with the findings as stated. This study was interpreted at [facility], [place], [place]. Electronically signed by: MIKE RIVERA MD CBC Collected: 05/07/2018 Status: F Source: [facility] 11:57 AM HOSPITALS REPOSITORY TYPE CODE TESTS RESULT OUT OF REFERENCE UNITS RANGE LAB WBCR(LOINC 4.4 - 11.3 x10E9/L ) WBC 9.8 LAB NRBC(LOINC 0.0-0.0 /100 WBC ) NUCLEATED RBC 0.0 LAB RBCCT(LOIN 4.00 - 5.20 x10E12/L C) Low RBC 2.94 LAB HGB(LOINC) 12.0 - 16.0 g/dL Low HGB 8.1 LAB HCT(LOINC) 36.0 - 46.0 % Low HCT 25.4 LAB MCV(LOINC) 80 - 100 fL MCV 86 LAB MCHC2(LOIN 32.0 - 36.0 g/dL C) Low MCHC 31.9 LAB PLTCT(LOIN 150 - 450 x10E9/L C) PLT 238 LAB RDWCV(LOIN 11.5 - 14.5 % C) RDW-CV 13.9 Performed By: #### CBC #### [facility] [address] [place] [address] RENAL FUNCTION PANEL Collected: 05/07/2018 Status: F Source: [facility] 11:57 AM HOSPITALS REPOSITORY TYPE CODE TESTS RESULT OUT OF REFERENCE UNITS RANGE LAB GLU(LOINC) 74 - 99 mg/dL GLUCOSE 88 LAB SOD(LOINC) 136 - 145 mmol/L SODIUM 137 LAB K(LOINC) 3.5 - 5.3 mmol/L POTASSIUM 3.8 LAB CHLOR(LOIN 98 - 107 mmol/L C) CHLORIDE 106 LAB BIC(LOINC) 21 - 32 mmol/L BICARBONATE 24 LAB ANGAP(LOIN 10 - 20 mmol/L C) ANION GAP 11 LAB UREA(LOINC 6 - 23 mg/dL ) UREA NITROGEN 8 LAB CREA(LOINC 0.50 - 1.05 mg/dL ) Low CREATININE 0.45 LAB GFRFN(LOIN >60 mL/min/1.7 C) 3m2 GFR-NON AM. >60 LAB GFRAA(LOIN >60 mL/min/1.7 C) 3m2 GFR- AM. >60 Result Comment: CALCULATIONS OF ESTIMATED GFR ARE PERFORMED USING THE MDRD STUDY EQUATION FOR THE IDMS-TRACEABLE CREATININE METHODS. CLIN CHEM 2007;53:766-72 LAB CA(LOINC) 8.6 - 10.6 mg/dL CALCIUM 8.6 LAB PHOS(LOINC) 2.5 - 4.9 mg/dL PHOSPHORUS 2.9 Result Comment: The performance characteristics of phosphorus testing in heparinized plasma have been validated by the individual laboratory site where testing is performed. Testing on heparinized plasma is not approved by the FDA; however, such approval is not necessary. LAB ALB(LOINC) 3.4 - 5.0 g/dL Low ALBUMIN 2.6 Performed By: #### RENAL #### [facility] [address] [place] [address] DAILY PROGRESS NOTE - Observed: 05/07/2018 Status: COMPLETED Source: [facility] OB-ANTEPARTUM - MFM 6:24 AM HOSPITALS REPOSITORY Current Stage: Stage: Antepartum - MFM OB Dating: EDC/EGA: Final [id number] Subjective Data: Antepartum: Vaginal Bleeding: No Contractions/Abdominal Pain: No Discharge/Loss of Fluid: No Movement: Good Fevers/Chills: No Preeclampsia Symptoms: No Antepartum: Patient resting comfortably w/o complaints. Denies fevers, chills, n/v, constipation, diarrhea. Denies persistent headaches, vision changes, scotomas, chest pain, dyspnea, RUQ pain, pain/swelling in extremities. Objective Information: Objective Information: T PRBPSpO2 [id number]/7097% Date/Time05/07 5: 5: 5: 5: 5:12 Range(36.6C - 36.9C ) (86 - 120 ) (17 - 20 ) (109 - 132 )/ (70 - 84 ) (96% - 98% ) Highest temp of 36.9 C was recorded at 05/06 15:35 Pain with Activity reported at 05/06 16:45: 0 Pain at Rest reported at 05/06 16:45: 0 ---- Intake and Output ----- Mn/Dy/Year TimeIntakeOutputNet May 07, 2018 6:00 [id number] May 06, 2018 10:00 [id number] The Intake and Output Totals for the last 24 hours are: IntakeOutputNet [id number] Physical Exam: Constitutional: alert, oriented Obstetric: NST appropriate for gestational age (see testing note). 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 - Cefepime 2 g q8h per ID recommendations (much appreciated). - Will f/u w/ ID for retirement chronic suppression as patient has previously failed supression with nitrofurantoin and two other abx. Anxiety and depression - Mood stable - Continue prozac Rh negative - S/p Rhogam well-being - NST appropriate for gestational age IUP - labs WNL - 1 hr GTT WNL - S/p TDaP and flu vaccine Evelio Grant MD PGY-1 [facility] Pager [phone] Signature/Cosignature/Attestation: Attending AttestationI saw and evaluated the patient. I personally obtained the katz and critical portions of the history and physical exam or was physically present for katz and critical portions performed by the resident/fellow. I reviewed the resident/fellows documentation and discussed the patient with the resident/fellow. I agree with the resident/fellows medical decision making as documented in the residents note. I personally evaluated the patient (as noted in the above attestation) on 07-May-2018 Electronic Signatures: Branden Hatch) (Signed 07-May-2018 20:04) Authored: Signature/Cosignature/Attestation Co-Signer: Current Stage, OB Dating, Subjective Data, Objective Data, Assessment and Plan, Signature/Cosignature/Attestation Evelio Grant (Resident)) (Signed 07-May-2018 06:29) Authored: Current Stage, OB Dating, Subjective Data, Objective Data, Assessment and Plan, Signature/Cosignature/Attestation Last Updated: 07-May-2018 20:04 by Branden Hatch) DAILY PROGRESS NOTE - Observed: 05/07/2018 Status: COMPLETED Source: [facility] OB- TESTING 5:38 AM [facility]OSPITALS REPOSITORY Current Stage: Stage: Testing Objective Information: Objective Information: T PRBPSpO2 Value36.41970214/7097% Date/Time05/07 5: 5: 5: 5: 5:12 Range(36.6C - 36.9C ) (86 - 120 ) (17 - 20 ) (109 - 132 )/ (70 - 84 ) (96% - 98% ) Highest temp of 36.9 C was recorded at 05/06 15:35 Pain with Activity reported at 05/06 16:45: 0 Pain at Rest reported at 05/06 16:45: 0 Testing: Indications: IndicationRecurrent UTI with concern for pyelonephritis NST Interpretation - Baby A: Baseline [id number] Variabilitymoderate (amplitude range 6 to 25 bpm) InterpretationAppropriate for EGA (2 10x10 accels) Accelerations2+ DecelerationsNone Signature/Cosignature/Attestation: Attending AttestationI saw and evaluated the patient. I personally obtained the katz and critical portions of the history and physical exam or was physically present for katz and critical portions performed by the resident/fellow. I reviewed the resident/fellows documentation and discussed the patient with the resident/fellow. I agree with the resident/fellows medical decision making as documented in the residents note. I personally evaluated the patient (as noted in the above attestation) on 07-May-2018 Electronic Signatures: Branden Hatch) (Signed 07-May-2018 20:03) Authored: Signature/Cosignature/Attestation Co-Signer: Current Stage, Objective Data, Testing, Signature/Cosignature/Attestation Evelio Grant (Resident)) (Signed 07-May-2018 05:39) Authored: Current Stage, Objective Data, Testing, Signature/Cosignature/Attestation Last Updated: 07-May-2018 20:03 by Branden Hatch) URINALYSIS Collected: 05/06/2018 Status: F Source: [facility] 5:37 PM HOSPITALS REPOSITORY TYPE CODE TESTS RESULT OUT OF RANGE REFERENCE UNITS LAB COLU(LOIN STRAW,YELLOW C) COLOR YELLOW LAB APPRU(KEREN CLEAR NC) APPEARANCE CLEAR LAB SPGRU(KEREN 1.005 - 1.035 NC) SPECIFIC GRAVITY 1.011 LAB SANDRA(LOINC 5.0 - 8.0 ) pH 7.0 LAB PROTU(KEREN NEGATIVE mg/dL NC) PROTEIN NEGATIVE LAB GLUCU(KEREN NEGATIVE mg/dL NC) GLUCOSE NEGATIVE LAB BLDU(LOIN NEGATIVE C) BLOOD Abnormal SMALL (1+) LAB KETU(LOIN NEGATIVE mg/dL C) KETONES Abnormal 20 (1+) LAB BILIU(KEREN NEGATIVE NC) BILIRUBIN NEGATIVE LAB UROU2(KEREN 0.0 - 1.9 mg/dL NC) UROBILINOGEN <2.0 LAB NITRU(KEREN NEGATIVE NC) NITRITE NEGATIVE LAB LEUKU(KEREN NEGATIVE NC) LEUKOCYTE ESTERASE NEGATIVE Performed By: #### UA #### [facility] [address] [place] [address] UA MICROSCOPIC Collected: 05/06/2018 Status: F Source: [facility] 5:37 PM HOSPITALS REPOSITORY TYPE CODE TESTS RESULT OUT OF RANGE REFERENCE UNITS LAB WBCUR(LOINC 0-5 /HPF ) Abnormal WBC 26 LAB RBCUR(LOINC 0-5 /HPF ) RBC 5 LAB MUCOU(LOINC /LPF ) MUCUS 1+ Performed By: #### UAMIC #### [facility] [address] [place] [address] URINE Observed: 05/06/2018 Status: F Source: [facility] CULTURE,BACTERIAL 5:37 PM HOSPITALS REPOSITORY PATIENT: SHAD GRIFFITHS LOCATION: [place] [address] BILL#: [id number] : 89 AGE: SEX: F ORDERED BY: EVELIO GRANT SOURCE: URINE COLLECTED: 05/06/18 17:37 ANTIBIOTICS AT ANMOL.: RECEIVED : 05/06/18 22:18 SITE: Straight Cath R E S U L T S URINE CULTURE,BACTERIAL FINAL 05/07/18 15:59 MIXED URETHRAL THERESA. Performed By: #### URINC #### [facility] [address] [place] [address] DISCHARGE PLANNING Observed: 05/06/2018 Status: UNK Source: [facility] NOTE 5:25 PM HOSPITALS REPOSITORY Discharge Needs Assessment: Discharge Planning Assessment [id number] Discharge Planning Assessment Completed byTraci Syed RN Patient Learning: Factors that Impact Ability to Learnnone(1) Other Factors: Functional Screen: In the recent/past 2-4 weeks, patient or family have noticedno issues that require a rehabilitation consult at this time(2) Discharge Planning: Discharge Planning: Date and Time: May 06, 2018. 1726. Nursing Note/Admission/Health Maintenance: D: Patient admitted to the [facility]OP[facility] unit from Labor and Delivery triage with r/o recurrent Pyelo. Pt currently 28.6wks and has had multiple UTI's this . Pt has umbilical stoma. Lives at home with . States she feels safe and has adequate resources. Patient was independent with ambulation and ADL's prior to admission. Patient's caregiver/help after discharge will be family as needed. Home going needs anticipated at this time: None Upon arrival, admitting assessment completed. See flowsheets. Stable upon admission. Discharge folder handouts and/or brochures given to patient/caregiver and reviewed with them. E: Discharge planning initiated. P: Continue to assess home going/discharge needs. Coordinate with Regional Education Coordinator as needed. Signature: Traci Syed RN Final Disposition/Discharge: Disposition/Discharge Information: Discharge/Transfer Information: Discharge/Transfer Date/[id number] 12:45 Discharged Accompanied Byspouse Discharge Modewheelchair Transportation Methodprivate car Final DispositionHome Electronic Signatures: Bess Calvillo (RN) (Signed 08-May-2018 12:52) Authored: Final Disposition/Discharge Traci Syed (ALLEN) (Signed 06-May-2018 17:28) Authored: Discharge Planning Note Last Updated: 08-May-2018 12:52 by Bess Calvillo (RN) References: 1. Data Referenced From 5. Education 05/06/2018 01:42 PM 2. Data Referenced From Admission Risk Screen - OB 05/06/2018 01:42 PM CLINICAL INTERVENTION - Observed: 05/06/2018 Status: UNK Source: [facility] 5:20 PM [facility]OSPITALS REPOSITORY Pharmacist's Clinical Intervention: Active and Pending Medications: Cefepime IV Piggy Back, in Sodium Chloride 0.9% 50 mL (MAXIPIME) DOSE = 2 gram(s) Every 8 Hours Recommended Infusion Time: 30 minute(s), 06-May-2018, Active Reason for pharmacist's clinical intervention: Medication change, talked to ordering physician. Cefepime 2 grams ordered. patient had unknown pcn allergy. contacted nurse who called back and told me patients allergy is itching/hives and throat itching and possibly throat swelling. I called the team and told them my findings. They said this was a ID recommdation. discussed low chance of cross reactivity but to be on the look out just in case Medication change: Stated allergy to med, Drug choice Pharmacist intervention: Contacted physician, Contacted nurse Type of recommendation: Order clarification, ADR or allergy identification, Pharmacokinetics Is this intervention medication reconciliation related: No Expected outcome and basis: Prevention of ADR/Error/Toxicity, Enhance therapeutic effect/increase quality, Order clarified or corrected, Improve patient medication compliance, Discharge medication questions asked by patient and answered Time Required: 10-30 minutes Electronic Signatures: Jose Alberto Carter () (Signed 06-May-2018 17:22) Authored: Pharmacist's Clinical Intervention Last Updated: 06-May-2018 17:22 by Jose Alberto Carter () PATIENT PROFILE - OB Observed: 05/06/2018 Status: [facility] Source: [place] [id number] 5:13 PM HOSPITALS REPOSITORY Profile: Initial Info: How to be AddressedNicolle(1) Spoken Language PreferredEnglish (1) Source of Informationpatient Are you currently using the Personal Electronic Health Record or [employer]no Are you interested in learning more about [employer] for the management of your healthnot at this time Reason for admission this visitother diagnosis mid-late [place] Statusemployed Patient Belongingsremains with patient Patient Belongings Remaining with Patientclothing Medications Brought to Hospitalno Info: Gravida1 (1) Term Deliveries0 Deliveries0 (1) Abortions0 (1) Living Children0 (1) Patient stated [id number] Calculation of EGA based on patient stated EDD28.6 Is care information applicable this patient/visityes Records availablerequesting Trimester Care Initiatedfirst Current Risksnone Testsnone yet Previous Delivery (20 weeks or greater)no Is plan applicable this patient/visitnot yet Is information applicable this patient/visitnot yet Is feeding plan applicable this patient/visityes Feedingbreastmilk Benefits of Breast Milk DiscussionThe benefits of exclusive breast milk feeding and the risk of adding formula have been discussed with patient / mother. Discussion Date / [id number] 17:20 General Health: Weight in gke379.8 pound(s) Weight in kg78.4 kilogram(s) Weight Methodactual (measured) Scale Typestanding Is weight gain information applicable this patient/visityes Prepregnancy Weight (lb)150 pound(s) Total Weight Gain (lb)22 pound(s) Height in cm157.4 centimeter(s) Height Methodstated BMI (kg/m2)31.645 square meter Patient or Family Member Reaction to Anesthesiano previous reaction Blood Avoidance/Restrictionsnone(1) Previous Transfusion Reactionno(1) Rsp Based Care: How would you like to participate in your carecommunication What is the number one concern for you during this hospitalizationdenies What is the most important thing we can do to support you during this hospitalizationgood care Is there anything we need to know to best care for youdenies Substance: Current or Former Substance Use never: Cigarette/Tobacco(1), Alcohol(1), Street Drugs(1) Health Mgmt: Symptoms/Conditions Managed at [facility] Barriers to Managing Healthnone Relationship/Environ: Primary Source of Support/Comfortsignificant other; parent(2) Lives Withsignificant other(2) Resource/Environmental Concernsnone [facility] Anticipated at Transitionnone Information Review: Allergies, Home Meds and Significant Events have been Reviewed and Verified with Patient/Familyyes ALLERGY, INTOLERANCE, ADVERSE EVENT: Allergies: sulfa drugs: Drug Category, Other, Active penicillin: Drug, Unknown, Active Electronic Signatures: Traci Syed) (Signed 06-May-2018 17:24) Authored: Profile, Additional Information Last Updated: 06-May-2018 17:24 by Traci Syed (ALLEN) References: 1. Data Referenced From Triage Note - OB v3 05/06/2018 10:00 AM 2. Data Referenced From Patient Profile - OB v2 03/18/2018 12:41 PM TYPE + SCREEN Collected: 05/06/2018 Status: F Source: [facility] 4:56 PM HOSPITALS REPOSITORY TYPE CODE TESTS RESULT OUT OF RANGE REFERENCE UNITS LAB ABORH(LOINC ) ABO TYPE O LAB RH(LOINC) RH TYPE NEG Result Comment: Review your Rh Negative female patient's potential need for Rh Immune Globulin (RhIg)administration. LAB ABSC(LOINC) ANTIBODY SCREEN POS Performed By: #### T+S #### [facility] [address] [place] [address] ANTIBODY IDENT. Collected: 05/06/2018 Status: F Source: [facility] 4:56 [facility] REPOSITORY TYPE CODE TESTS RESULT OUT OF REFERENCE UNITS RANGE LAB ABID(LOINC ) ANTIBODY Anti-D IDENT. Acquired Performed By: #### ABID #### [facility] [address] [place] [address] PATH REVIEW-IMMUNOHEMATOLOGY Collected: Status: F Source: [facility] 05/06/2018 4:56 [facility] REPOSITORY TYPE CODE TESTS RESULT OUT OF RANGE REFERENCE UNITS LAB PRV30(LOINC ) PATH H.MC REV-IMMUNOHE MOTOL Result Comment: By her/his signature above, the Pathologist listed as making the final interpretation certifies that she/he has personally reviewed this case. ANTIBODY DETECTION SCREEN IS POSITIVE. ANTIBODY IDENTIFICATION PANEL WAS PERFORMED. THE AUTOCONTROL IS NEGATIVE. ANTI-D IS IDENTIFIED. THE PATIENT'S RBC PHENOTYPE IS RH (D) ANTIGEN NEGATIVE. THE PATIENT HAS A HISTORY OF RECEIPT OF RHIG. THESE FINDINGS ARE CONSISTENT WITH ANTI-D ACQUIRED DUE TO RECEIPT OF RHIG. ALL OTHER COMMON CLINICALLY SIGNIFICANT ALLOANTIBODIES HAVE BEEN RULED OUT. FULL CROSSMATCHED D-ANTIGEN NEGATIVE DONOR RBC UNITS SHOULD BE SELECTED FOR TRANSFUSION FOR THIS PATIENT. Performed By: #### PR30 #### [facility] [address] [place] [address] CBC AND DIFFERENTIAL Collected: 05/06/2018 Status: F Source: [facility] 4:55 [facility] REPOSITORY TYPE CODE TESTS RESULT OUT OF REFERENCE UNITS RANGE LAB WBCR(LOINC 4.4 - 11.3 x10E9/L ) WBC High 13.4 LAB NRBC(LOINC 0.0-0.0 /100 WBC ) NUCLEATED RBC 0.0 LAB RBCCT(LOIN 4.00 - 5.20 x10E12/L C) Low RBC 3.44 LAB HGB(LOINC) 12.0 - 16.0 g/dL Low HGB 9.7 LAB HCT(LOINC) 36.0 - 46.0 % Low HCT 29.2 LAB MCV(LOINC) 80 - 100 fL MCV 85 LAB MCHC2(LOIN 32.0 - 36.0 g/dL C) MCHC 33.2 LAB PLTCT(LOIN 150 - 450 x10E9/L C) PLT 303 LAB RDWCV(LOIN 11.5 - 14.5 % C) RDW-CV 14.3 LAB NEUT(LOINC 40.0 - 80.0 % ) % NEUTROPHIL 71.3 LAB IG(LOINC) 0.0 - 0.9 % % AUTOMATED 0.4 IMMATURE GRAN Result Comment: Percent differential counts (%) should be interpreted in the context of the absolute cell counts (cells/L). LAB LYMPH(LOINC) 13.0 - % 44.0 % LYMPHOCYTE 21.7 LAB MONO(LOINC) 2.0 - 10.0 % % MONOCYTE 5.6 LAB EOS(LOINC) 0.0 - 6.0 % % EOSINOPHIL 0.8 LAB BASO(LOINC) 0.0 - 2.0 % % BASOPHIL 0.2 LAB #NEUT(LOINC) 1.20 - x10E9/L 7.70 NEUTROPHIL High 9.51 LAB #LYMP(LOINC) 1.20 - x10E9/L 4.80 LYMPHOCYTE 2.90 LAB #MONO(LOINC) 0.10 - x10E9/L 1.00 MONOCYTE 0.75 LAB #EOS(LOINC) 0.00 - x10E9/L 0.70 EOSINOPHIL 0.11 LAB #BASO(LOINC) 0.00 - x10E9/L 0.10 BASOPHIL 0.03 Performed By: #### CBCDF #### [facility] [address] [place] [address] BASIC METABOLIC PANEL Collected: 05/06/2018 Status: F Source: [facility] 4:55 PM HOSPITALS REPOSITORY TYPE CODE TESTS RESULT OUT OF REFERENCE UNITS RANGE LAB GLU(LOINC) 74 - 99 mg/dL GLUCOSE High 127 LAB SOD(LOINC) 136 - 145 mmol/L SODIUM 136 LAB K(LOINC) 3.5 - 5.3 mmol/L Low POTASSIUM 3.4 LAB CHLOR(LOIN 98 - 107 mmol/L C) CHLORIDE 104 LAB BIC(LOINC) 21 - 32 mmol/L BICARBONATE 21 LAB ANGAP(LOIN 10 - 20 mmol/L C) ANION GAP 14 LAB UREA(LOINC 6 - 23 mg/dL ) UREA NITROGEN 10 LAB CREA(LOINC 0.50 - 1.05 mg/dL ) Low CREATININE 0.44 LAB GFRFN(LOIN >60 mL/min/1.7 C) 3m2 GFR-NON AM. >60 LAB GFRAA(LOIN >60 mL/min/1.7 C) 3m2 GFR- AM. >60 Result Comment: CALCULATIONS OF ESTIMATED GFR ARE PERFORMED USING THE MDRD STUDY EQUATION FOR THE IDMS-TRACEABLE CREATININE METHODS. CLIN CHEM 2007;53:766-72 LAB CA(LOINC) 8.6 - 10.6 mg/dL CALCIUM 8.7 Performed By: #### BMP #### [facility] [address] [place] [address] CONSULT-INFECTIOUS DISEASE Observed: 05/06/2018 Status: COMPLETED Source: [facility] 4:35 PM HOSPITALS REPOSITORY Service: Service: Infectious Disease Consult: Consult requested by (Attending Name): Leslye Yun Reason: UTI History of Present Illness: HPI: 28 y/o at 28.6 wga by 7.2 week u/s who was 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 She is currently admitted for concern about UTI; she notes some fullness and a burning sensation over her bilateral flanks, which she associates with urine tract infection. On 04/26, she had a urine culture that grew pansusceptible Pseudomonas, for which she has received Ciprofloxacin without much improvement. Prior to that medication, she received Cephalexin, which she tolerated well, but also did not improve her urine tract infection symptoms. She has been on Nitrofurantoin since the beginning of her , but this was stopped since she was started on Cephalexin. Patient denies fever, chills, change in BMs. She reports some nausea, but thinks it is related to her . No other issues or concerns. Past Medical/Surgical History: Medical History: Acute pyelonephritis NOS (disorder): Kidney stone (disorder): Review Family/Social History and ROS: Family History: Family History: No known positive history contributory to current presentation. Constitutional: NEGATIVE: Fever, Chills ENMT: NEGATIVE: Nasal Discharge, Nasal Congestion, Throat Pain Respiratory: NEGATIVE: Dry Cough, Productive Cough, Hemoptysis, Wheezing Cardiac: NEGATIVE: Chest Pain, Syncope Gastrointestinal: POSITIVE: Nausea; NEGATIVE: Vomiting, Diarrhea, Constipation, Abdominal Pain Genitourinary: NEGATIVE: Discharge, Dysuria, Flank Pain, Frequency, Hematuria Musculoskeletal: NEGATIVE: Decreased ROM, Pain, Swelling, Stiffness, Weakness Neurological: NEGATIVE: Dizziness, Confusion, Headache, Seizures, Syncope Skin: NEGATIVE: Mass, Pain, Pruritus, Rash, Ulcer All Other Systems: All other systems reviewed and are negative Allergies: sulfa drugs: Other penicillin: Unknown Objective: Objective Information: T PRBPSpO2 [id number]/7297% Date/Time05/06 15: 15: 15: 15: 15:35 Range(36.7C - 36.9C ) (106 - 120 ) (17 - 20 ) (123 - 132 )/ (72 - 84 ) (96% - 97% ) Highest temp of 36.9 C was recorded at 05/06 15:35 Physical Exam: Constitutional: NAD; appears stated age; comfortable, in no acute distress Eyes: clear sclera, well injected conjunctiva, EOMI ENMT: Oral mucosa clear, no lesion seen, no thrush Head/Neck: Soft neck; trachea midline; no thyroid enlargement, tenderness or asymmetry Respiratory/Thorax: Good chest expansion; audible, bilateral, symmetrical air entry; no rales, rhonchi or wheezes. Cardiovascular: Regular rhythm and rate; no murmurs, rubs or gallops appreciated Gastrointestinal: soft, non tender, no hepatosplenomegaly, no palpable masses, bowel sounds present, no pulsating abdominal mass palpated. Genitourinary: no genital ulcers or other lesions seen; no CVA tenderness Musculoskeletal: full range of motion, no gross signs of inflammation over upper and lower extremities joints. Extremities: soft calves, no lower extremities edema Neurological: Alert and oriented to time, place, person and situation. Adequate comprehension and judgment. Language fluid. No dysarthria. Normal voice. Cranial nerves: Visual meyer fully intact. EOMI. Facial sensation intact to light touch. Facial strength normal. Symmetric nasolabial folds. Tongue protrudes to midline. Palate elevates symmetrically. Shoulder shrug 5/5. Motor: Tone normal; strength 5/5 in proximal and distal musculature of all extremities, range of motion grossly normal. No observed fasciculation, tremor or abnormal movements. Breast: No masses, tenderness, no discharge or discoloration Lymphatic: no cervical, subclavicular, axillary or groin adenopathies palpated. Psychological: Adequate mood and behavior. Skin: Multiple well healed old scars Medications: Medications: ANTI-INFECTIVES: 1. Cefepime IV Piggy Back: 2 gram(s) IntraVenous Piggyback Every 8 Hours CENTRAL NERVOUS SYSTEM AGENTS: 1. Ondansetron Injectable: 4 mg IntraVenous Push Every 6 Hours PRN GASTROINTESTINAL AGENTS: 1. Magnesium Hydroxide -Al Hydrox -Simethicone Oral Liquid: 30 mL Oral Every 6 Hours PRN 2. Magnesium Hydroxide Oral Liquid CONCENTRATE: 10 mL Oral Every 12 Hours PRN 3. Metoclopramide Injectable: 10 mg IntraVenous Push Every 6 Hours PRN 4. Docusate: 100 mg Oral 2 Times a Day PRN 5. Psyllium Packet: 1 packet(s) Oral Daily PRN MISCELLANEOUS AGENTS: 1. Lidocaine 1% Injectable: 0.5 mL SubCutaneous Once PRN NUTRITIONAL PRODUCTS: 1. Lactated Ringers Infusion: 1000 mL IntraVenous <Continuous> 2. Sodium Chloride 0.9% Injectable Flush: 1.5 mL IntraVenous Flush Every 8 Hours and as Needed PRN 3. Sodium Chloride 0.9% Injectable Flush: 1.5 mL IntraVenous Flush Every 8 Hours and as Needed PRN 4. with Folic Acid: 1 tablet(s) Oral Daily PSYCHOTHERAPEUTIC AGENTS: 1. FLUoxetine: 20 mg Oral Daily Recent Lab Results: Results: I have reviewed these laboratory results: Urinalysis 06-May-2018 17:37:00 ResultValue Color, Urine YELLOW Reference Range: STRAW,YELLOW Appearance, Urine CLEAR Specific [place], Urine 1.011 pH, Urine 7.0 Protein, Urine NEGATIVE Glucose, Urine NEGATIVE Blood, Urine SMALL (1+) A Ketones, Urine 20 (1+) A Bilirubin, Urine NEGATIVE Urobilinogen, Urine <2.0 Nitrite, Urine NEGATIVE Leukocyte Esterase, Urine NEGATIVE Urinalysis, Microscopic 06-May-2018 17:37:00 ResultValue White Cells 26 A Red Blood Cells 5 Mucous 1+ Complete Blood Count + Differential 06-May-2018 16:55:00 ResultValue White Blood Cell Count 13.4 H Nucleated Erythrocyte Count 0.0 Red Blood Cell Count 3.44 L HGB 9.7 L HCT 29.2 L MCV 85 MCHC 33.2 PLT 303 RDW-CV 14.3 Neutrophil % 71.3 Immature Granulocytes % 0.4 Lymphocyte % 21.7 Monocyte % 5.6 Eosinophil % 0.8 Basophil % 0.2 Neutrophil Count 9.51 H Lymphocyte Count 2.90 Monocyte Count 0.75 Eosinophil Count 0.11 Basophil Count 0.03 Basic Metabolic Panel 06-May-2018 16:55:00 ResultValue Glucose, Serum 127 H NA 136 K 3.4 L CL 104 Bicarbonate, Serum 21 Anion Gap, Serum 14 BUN 10 CREAT 0.44 L GFR-Non >60 GFR- >60 Calcium, Serum 8.7 Assessment: 28 year old woman, in her third trimester, 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 Recommendations: - Get urinalysis and urine culture - Get CBC, RFP - Recommend to get kidney ultrasound to evaluate for flank pain in the context of possible urine tract infection and history of nephrolithiasis - Start Cefepime 2 grams IV every 8 hours (pseudomonal dose) - Monitor CBC, RFP, LFTs while on antibiotics. ID team B pager [phone]. For new consults, contact pager [phone]. Electronic Signatures: Peter Cuba) (Signed 06-May-2018 20:56) Authored: Service, History of Present Illness, Past Medical/Surgical History, Review Family/Social History and ROS, Allergies, Objective, Assessment/Recommendations, Signature/Cosignature/Attestation Last Updated: 06-May-2018 20:56 by Peter Cuba) ADMISSION RISK SCREEN Observed: 05/06/2018 Status: UNK Source: [facility] - OB 1:42 PM HOSPITALS REPOSITORY Allergies: Allergies: sulfa drugs: Other penicillin: Unknown Patient Verification: New W ID Band Applied in my Departmentyes (1) Patient Identity Verified Bypatient(1) ID Band FULL Name, include Middle, spelling matches patient's ID used for verificationyes (1) ID Band Matches Patient ID used for Verficationyes (1) ID Band MRN Matches EMR MRNyalem (1) Advance Directive: Advance Directive Medicalno (1) Advance Directive Information Givenpatient/family declined (1) Falls Risk: Altered Mobilityunsteady gait(1) Change in Mental Statusno (1) Relevant Medical History / Diagnosisnone(1) Fall Historynone(1) Altered Eliminationno(1) Medications that Might Alter: equilibrium, cognitive judgement or severity of injurynone(1) Sensory Deficitno (1) UNABLE or UNWILLING to Follow Directionsno (1) Patient Identified as a Falls Riskyes (1) Family Violence Screen: Are you or have you been threatened or abused physically, emotionally, or sexually by anyoneno (1) Has anyone ever threatened to hurt your family or your petsno Does anyone try to keep you from having/contacting other friends or doing things outside your homeno Do you feel UNSAFE going back to the place where you are livingno (1) Clinical assessment: Are there any apparent signs of injuries/behaviors that could be related to abuse/neglectno (1) Social Service Consult for abuse/neglect needed this visitno Functional screen: Functional Screen: In the recent/past 2-4 weeks, patient or family have noticedno issues that require a rehabilitation consult at this time Learning Assessment (Patient): Patient is Able to be Assessed for Learningyes (1) Factors Influencing Readiness to Learnmotivation to learn(2) Factors that Impact Ability to Learnnone(2) Devices/Methods Used to Communicatenone(2) Learning Preferencesverbal instruction(2) Cultural Considerationsnone (2) Developmental Considerationsnone (2) Quaker Considerationsnone (2) Learning Assessment (Other Learner): Other learner availableno (1) Nutrition Risk Screen: Nutrition Risk Screenno indicators present Nutrition Consult needed this visitno Can Patient Participate in Room Serviceyes Pain Screen: Pain Control Method: Labornone Pain Control Method: Postpartumnone Pain Scalenumerical 0-10 Pain Scale Educationteaching provided Acceptable Pain Level3 = Mild Presence of Painno Expression of Pain (nonverbal)none Lifestyle Changes/Adaptations in Response to Painno change Chronic Painno Skin - Keshawn Scale: Keshawn Scale (daily): Keshawn: Sensory Perception (response to environment)(4) no impairment Keshawn: Moisture (degree skin exposed to moisture)(4) rarely moist Keshawn: Activity (ability to walk)(3) walks occasionally Keshawn: Mobility (amount/control of body movement)(4) no limitation Keshawn: Nutrition (quality of food intake)(3) adequate Keshawn: Friction and Shear(3) no apparent problem Keshawn: Score21 Pressure Injury Present on Admissionno Spiritual Screen: Are there any cultural, spiritual, confucianist practices/values/needs that are important for us to knowno Do you want a visit/item from Pastoral Careno Would you like your Country Manager/Director Of Occupational Therapy notifiedno Suicide/Depression Screen: During the past month, have you often been bothered by feeling down, depressed or hopelessno (1) During the past month, have you often had little interest or pleasure in doing thingsno (1) Have you had any thoughts of harming yourselfno (1) Have you had any thoughts of harming anyone elseno (1) Vaccinations: Vaccination - Influenza Vaccination Screen: Is it flu season (between and )Yes Screening for identified contraindications to influenza vaccinationpatient already received vaccine this season Vaccination - Pneumonia Vaccination Screen: Patient has received a previous pneumonia vaccine:no/unknown... Immunocompetent persons with underlying chronic conditions or reside in middle or intermediate school principal care facilitiesnone of these conditions Persons with Functional or Anatomic Asplenianone of these conditions Immunocompromised Personsnone of these conditions Pneumonia vaccine NOT indicated due to:patient DOES NOT have a condition that indicates vaccination Vaccination - TDap Vaccination Screen: Have you received a TDap vaccine this pregnancyyes (no further action required) Significant Indicatiors: Significant Indicators: Complete Note Name:Admission Risk Screen - OB Electronic Signatures: Traci Syed (ALLEN) (Signed 06-May-2018 13:47) Authored: Admission Risk Screens, Vaccinations, Mother's Chart (Do Not Modify) Last Updated: 06-May-2018 13:47 by Traci Syed (ALLEN) References: 1. Data Referenced From Risk Screen - OB Triage 05/06/2018 10:05 AM 2. Data Referenced From 5. Education 05/06/2018 10:05 AM HISTORY AND PHYSICAL Observed: 05/06/2018 Status: COMPLETED Source: [facility] - OB 1:04 PM [facility]OSPITALS REPOSITORY HPI/OB History/Dating: Care Provider: Patrizia Burns Care Location: [place] [address]/[facility]/[place] Did this patient receive any care at [facility]: no Was this patient transferred from another facility for this admission: no Dating: Choose Antepartum or Postpartumantepartum Final [id number] Current EGA:28.6 HPI Descriptive Info: HPI Patient is a 28 y/o at 28.6 wga by 7.2 week u/s who is admitted to [facility] for dysuria and b/l flank pain after failing two abx txs as an outpatient. Reports intermitted nausea over the past few days. Patient denies fever, chills, chest pain, SOB, vomiting, constipation, diarrhea. Denies VB, LOF, CTX; endorses FM. 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 PMHx: As per above. Meds: PNV, prozac, zofran Allergies: Sulfa (nausea), PCN (angioedema, hives) PSHx: Bladder extrophy repair w/ neobladder, stoma scar revision, multiple lithotripsies and nephrostomy tubes for nephrolithiasis SHx: Works in [employer]. Lives w/ . Denies tobacco, alcohol, and drug use. FHx: CAD (Mom [place] at 59, Dad [place] at 51); HTN/aortic aneurysm (Dad); Breast cancer (maternal aunt dx at 52), muscular dystrophy (maternal grandmother diagnosed in 80s) Antepartum: Estimated Weight: EFW (kg): 0 kilogram(s) EFW (lb): 0 pound(s) EFW (oz): 0 ounce(s) Antepartum: Vaginal Bleeding: No Contractions/Abdominal Pain: No Discharge/Loss of Fluid: No Movement: Good High Risk Factors for Hemorrhage: none of these exist TOLAC: no Progesterone: Did this patient receive progesterone in any form to prevent premature deliveryno Labs: Labs: Blood Typed Date: 29-Apr-2018 Blood Type: O negative Antibody Screen Results: negative Chlamydia Date: 06-Dec-2017 Chlamydia Results: negative Gonorrhea Date: 06-Dec-2017 Gonorrhea Results: negative GTT (dd-mmm-yy): 29-Apr-2018 GTT result: 125 HBsAG Date: 07-Dec-2017 HBsAG Results: negative HIV Date: 07-Dec-2017 HIV Results: negative Rubella Date: 07-Dec-2017 Syphilis (mmm-dd-yyyy): 29-Apr-2018 Syphilis Results: negative Allergies: sulfa drugs: Other penicillin: Unknown Review of Systems: Constitutional: NEGATIVE: Fever, Chills, Anorexia, Weight Loss, Malaise Eyes: NEGATIVE: Blurry Vision, Drainage, Diploplia, Redness, Vision Loss/ Change ENMT: NEGATIVE: Nasal Discharge, Nasal Congestion, Ear Pain, Mouth Pain, Throat Pain Respiratory: NEGATIVE: Dry Cough, Productive Cough, Hemoptysis, Wheezing, Shortness of Breath Cardiac: NEGATIVE: Chest Pain, Dyspnea on Exertion, Orthopnea, Palpitations, Syncope Gastrointestinal: POSITIVE: Nausea; NEGATIVE: Vomiting, Diarrhea, Constipation, Abdominal Pain Genitourinary: POSITIVE: Dysuria, Flank Pain, Frequency; NEGATIVE: Discharge, Hematuria Musculoskeletal: NEGATIVE: Decreased ROM, Pain, Swelling, Stiffness, Weakness Neurological: NEGATIVE: Dizziness, Confusion, Headache, Seizures, Syncope Psychiatric: NEGATIVE: Mood Changes, Anxiety, Hallucinations, Sleep Changes, Suicidal Ideas Objective: Objective Information: T PRBPSpO2 [id number]/8496% Date/Time05/06 11: 11: 11: 11: 11:57 Range(36.7C - 36.8C ) (106 - 120 ) (17 - 20 ) (127 - 132 )/ (76 - 84 ) (96% - 97% ) Pain with Activity reported at 05/06 11:57: 0 Pain at Rest reported at 05/06 11:57: 0 Physical Exam: Constitutional: alert, oriented Obstetric: NST: 155/moderate/+accels, -decels Christopher: No CTX Head/Neck: NC/AT Respiratory/Thorax: normal respiratory effort, lungs clear, no wheezes or rhonchi Cardiovascular: S1 S2 RRR, no murmurs Extremities: no calf tenderness or swelling Psychological: appropriate affect Skin: no rashes or lesions Assessment and Plan: Assessment: Patient is a 28 y/o at 28.6 wga by 7.2 week u/s admitted for recurrent UTI in the setting of neobladder and failed abx tx x 2. Recurrent UTI - UCx growing pansensitive Pseudomonas aeruginosa (04/26/2018). - ID consult pending Anxiety and depression - Mood stable - Continue prozac Rh negative - S/p Rhogam well-being - NST appropriate for gestational age IUP - labs WNL - 1 hr GTT WNL - S/p TDaP and flu vaccine Dispo: Admit to [facility] 4 d/w Dr. Mamie Grant MD PGY-1 [facility] Pager [phone] Signatures/Attestation/Certification: Attending AttestationI saw and evaluated the patient. I personally obtained the katz and critical portions of the history and physical exam or was physically present for katz and critical portions performed by the resident/fellow. I reviewed the resident/fellows documentation and discussed the patient with the resident/fellow. I agree with the resident/fellows medical decision making as documented in the resident/fellows note with the exception/addition of the following: I personally evaluated the patient (as noted in the above attestation) on 06-May-2018 Comments/ Additional Findings Patient seen and records reviewed. Persistent infection despite outpatient oral antibiotics. Back discomfort potentially consistent with renal infection. ID consult appreciated. Complicated case given surgically repaired bladder. Patient expresses understanding and agreement. Attending Provider/ROSHAN with Admit Privileges Inpatient Certification StatementI certify this patients need for inpatient care based on the above documentation including; the order to admit as inpatient, the anticipated length of stay, diagnosis, problem list and plan of care, and discharge plan. Electronic Signatures: Branden Hatch) (Signed 07-May-2018 20:02) Authored: Signatures/Attestation/Certification Co-Signer: HPI/OB History/Dating, Antepartum, Allergies, Review of Systems, Objective, Assessment and Plan, Signatures/Attestation/Certification Evelio Grant (Resident)) (Signed 06-May-2018 14:06) Authored: HPI/OB History/Dating, Antepartum, Allergies, Review of Systems, Objective, Assessment and Plan, Signatures/Attestation/Certification Last Updated: 07-May-2018 20:02 by Branden Hatch) DISCHARGE PROFILE2 Observed: 05/06/2018 Status: UN Source: [facility] 11:56 AM HOSPITALS REPOSITORY Discharge Orders: Anticipated Discharge Date: Anticipated Discharge [id number] Problem List: Admitting Dx: Urinary tract infection in mother during , antepartum: Catalog Name: Unspecified infection of urinary tract in , unspecified trimester Triage OB: Activity: Return to normal activity as tolerated. Asses movements daily. Call Provider If: Regular painful contractions every 5 minutes or less for one hour. Time your contractions from the beginning of one to the beginning of the next.. Pressure in your vagina or lower abdomen that may feel like the baby is pushing down. Period-like cramps or low dull backache that may come and go. Abdominal cramps that may be accompanied by diarrhea. Gush of fluid or blood from your vagina (it is normal to have spotting after vaginal exam or intercourse). Change in the type or amount of vaginal discharge. Your baby is not moving as much as usual. Temperature greater than 100.4(F) orally. Severe headache which is not relieved in 30 minutes after taking Tylenol (Acetaminophen). Blurry vision or spots before your eyes. Severe heartburn or pain on the upper right side of your abdomen that is not relieved by an antacid. Diet: Regular. Follow-Up - OB Provider: Physician/Dept/ServiceOB Provider Dr. Yun Scheduled Date/[id number] 15:[address] Yun as scheduled. Provider FINAL REVIEW of Orders: Final Review: Final Review of Medication Reconciliation and Orders Completedby Physician Reviewing ProviderSheree Church MD (Resident) at 08-May-2018 06:46:28 Other Clinician Instructions: Other Instructions: Nursing InstructionsCall your OB provider for contractions (tightening, balling up) more than 4-6 times an hour; constant menstrual- like cramps in your lower belly; low, dull backache different from what you normally have; increased pressure or pain in your pelvis, lower belly, back or thighs; increased vaginal discharge or mucus-like watery or bloody discharge; red vaginal bleeding; leaking amniotic fluid (water breaks); chills or fever of 100.4 F or above; severe headache that does not go away; blurry vision; decreased baby movements; feeling that something is not right; feeling depressed or unable to cope Other Clinician InstructionsA few days after your discharge, one of our care coordinators, Pratima or Bess, will be calling you to see how things have been going at home. This phone call also gives you the opportunity to clarify any information on your discharge instructions or ask any questions that may have come up since leaving the hospital. Electronic Signatures: Pratima Viramontes (RN) (Signed 06-May-2018 11:56) Authored: Other Clinician Instructions, Gold Form - Barber Shop Manager Summary Sheree Church (Resident)) (Signed 08-May-2018 06:46) Authored: Discharge Orders, Triage OB, Provider FINAL REVIEW of Orders Last Updated: 08-May-2018 12:01 by Bess Calvillo (RN) RISK SCREEN - OB Observed: 05/06/2018 Status: UNK Source: [facility] TRIAGE 10:05 AM HOSPITALS REPOSITORY Allergies: Allergies: Allergies: sulfa drugs: Other penicillin: Unknown Patient Verification: Patient Verification: New W ID Band Applied in my Departmentyes Patient Identity Verified Bypatient ID Band FULL Name, include Middle, spelling matches patient's ID used for verificationyes ID Band Matches Patient ID used for Verficationyes ID Band MRN Matches EMR MRNyes Advance Directives: Advance Directive: Advance Directive Medicalno Advance Directive Information Givenpatient/family declined Falls Risk: Falls Risk: Altered Mobilityunsteady gait Change in Mental Statusno Relevant Medical History / Diagnosisnone Fall Historynone Altered Eliminationno Medications that Might Alter: equilibrium, cognitive judgement or severity of injurynone Sensory Deficitno UNABLE or UNWILLING to Follow Directionsno Patient Identified as a Falls Riskyes Family Violence: Abuse Screen: Are you or have you been threatened or abused physically, emotionally, or sexually by anyoneno Do you feel UNSAFE going back to the place where you are livingno Clinical assessment: Are there any apparent signs of injuries/behaviors that could be related to abuse/neglectno Learning Assessment (Patient): Learning Assessment (Patient): Patient is Able to be Assessed for Learningyes Factors Influencing Readiness to Learnmotivation to learn Factors that Impact Ability to Learnnone Devices/Methods Used to Communicatenone Learning Preferencesverbal instruction Cultural Considerationsnone Developmental Considerationsnone Quaker Considerationsnone Learning Assessment (Other Learner): Other learner availableno Suicide/Depression: Suicide/Depression Screen: During the past month, have you often been bothered by feeling down, depressed or hopelessno During the past month, have you often had little interest or pleasure in doing thingsno Have you had any thoughts of harming yourselfno Have you had any thoughts of harming anyone elseno Electronic Signatures: Kayleigh Johnson (RN) (Signed 06-May-2018 10:06) Authored: Allergies, Patient Verification, Advance Directives, Falls Risk, Family Violence, Learning Assessment (Patient), Learning Assessment (Other Learner), Suicide/Depression Last Updated: 06-May-2018 10:06 by Kayleigh Johnson (RN) CBC Collected: 04/29/2018 Status: F Source: [facility] 5:22 [facility] REPOSITORY TYPE CODE TESTS RESULT OUT OF RANGE REFERENCE UNITS LAB WBCR(LOINC) 4.4 - 11.3 x10E9/L High WBC 12.3 LAB RBCCT(LOINC 4.00 - 5.20 x10E12/L ) Low RBC 3.23 LAB HGB(LOINC) 12.0 - 16.0 g/dL Low HGB 9.1 LAB HCT(LOINC) 36.0 - 46.0 % Low HCT 28.4 LAB MCV(LOINC) 80 - 100 fL MCV 88 LAB MCHC2(LOINC 32.0 - 36.0 g/dL ) MCHC 32.0 LAB PLTCT(LOINC 150 - 450 x10E9/L ) PLT 281 LAB RDWCV(LOINC 11.5 - 14.5 % ) RDW-CV 14.1 Performed By: #### CBC #### [facility] [address] [place] [address] GLUCOSE,1 HR SCREEN, Collected: 04/29/2018 Status: F Source: [facility] PREG 5:22 [facility] REPOSITORY TYPE CODE TESTS RESULT OUT OF RANGE REFERENCE UNITS LAB GLUS1(LOINC <135 mg/dL ) GLUCOSE,1 125 HR SCREEN, PREG Result Comment: Diagnostic value with glucose loading dose of 50 g. Reference values from [employer]. Diabetes Care 2015;38(Suppl.1):S8-S16 Performed By: #### GLUS1 #### [facility] [address] [place] [address] TYPE + SCREEN Collected: 04/29/2018 Status: F Source: [facility] 5:22 [facility] REPOSITORY TYPE CODE TESTS RESULT OUT OF RANGE REFERENCE UNITS LAB ABORH(LOINC ) ABO TYPE O LAB RH(LOINC) RH TYPE NEG Result Comment: Review your Rh Negative female patient's potential need for Rh Immune Globulin (RhIg)administration. LAB ABSC([facility]) ANTIBODY SCREEN NEG Performed By: #### T+S #### [facility] [address] [place] [address] SYPHILIS IGG Collected: 04/29/2018 Status: F Source: [facility] 5:22 [facility] REPOSITORY TYPE CODE TESTS RESULT OUT OF REFERENCE UNITS RANGE LAB SYPHG(LOIN NONREACTIVE C) SYPHILIS IGG NON REACTIVE Result Comment: Patients receiving more than 5 mg/day of biotin may have interference in test results. A sample should be taken no sooner than eight hours after previous dose. Contact [phone] for additional information. LAB SOURCE([facility]) Lab Specimen Source Performed By: #### SYPH #### [facility] [address] [place] [address] URINE Observed: 04/26/2018 Status: F Source: [facility] CULTURE,BACTERIAL 12:30 PM HOSPITALS REPOSITORY PATIENT: SHAD GRIFFITHS LOCATION: [facility] BILL#: [id number] : 89 AGE: SEX: F ORDERED BY: LESLYE YUN SOURCE: URINE COLLECTED: 04/26/18 12:30 ANTIBIOTICS AT ANMOL.: RECEIVED : 04/26/18 21:43 SITE: Clean Catch/Voided R E S U L T S URINE CULTURE,BACTERIAL FINAL 04/28/18 08:49 ISOLATE1 : Pseudomonas aeruginosa 20,000-80,000 CFU/ML Organism Ps aerug Antibiotic BP INTRP Aztreonam S Ceftazidime S Ciprofloxacin S Cefepime S Gentamicin S Levofloxacin S Piperc/Tazobact S Tobramycin S S=SUSCEPTIBLE I=INTERMEDIATE R=RESISTANT SDD=SUSCEPTIBLE DOSE DEPENDENT NS=NONSUSCEPTIBLE X=REPORTED IN ERROR Performed By: #### URINC #### [facility] [address] [facility] [place] [place] [address] Observed: 04/18/2018 Status: F Source: DENOMINATIONAL C URINE 10:35 AM [facility] REPOSITORY Final Report: 50,000 cfu/ml Pseudomonas aeruginosa ORGANISM: PA SUSCEPTIBILITY RESULTS Antibiotic CIERRA Dilutn CIERRA Interp ORGANISM: PA Ceftaz : 4 S Cipro : <=1 S Gent : <=4 S Levo : <=2 S Angela : <=1 S Pip/Aren : <=16 S Tobra : <=4 S Performed By: #### [id number] #### DAVID Microbiology Subsection [address] [place] [address] OFFICE VISIT (UROLOGY) Observed: 04/15/2018 Status: UNK Source: SCOTT 12:16 PM [facility]IT[facility] REPOSITORY Chief Complaint 2 mo f/u, uti and stones History of Present Illness Last Visit (Dr. Fernandes) Bladder extrophy History of calculi History of UTI -refer to urology for assistance during delivery if necessary -continue abx prophylaxis Today's Visit: 27 year old female with history of bladder extrophy with reconstructed neobladder, nephrolithiasis, and UTIs presents today to discuss catheter problem. Patient is currently and states she has difficulty maneuvering the catheter to the appropriate pocket to drain urine, as the causes her bladder to move around. She has no other complaints today. Denies gross hematuria, nocturia, f lank pain, and bothersome frequency or urgency. Patient is a non-smoker. Review of Systems Please refer to intake forms, which will be scanned into the chart. Constitutional: no fever, no chills and not feeling poorly. Eyes: no eyesight problems. ENT: no hearing loss, no nosebleeds and no sore throat. Cardiovascular: no chest pain, no palpitations and no lower extremity edema. Respiratory: no shortness of breath, no wheezing, no cough and no shortness of breath during exertion. Gastrointestinal: no abdominal pain, no constipation, no heartburn, no diarrhea, no vomiting and no blood in stools. Genitourinary: incontinence, urinary retention and incomplete emptying of bladder, but no dysuria, no pelvic pain, no vaginal discharge and normal micturition flank pain. Musculoskeletal: no arthralgias and no gait abnormality. Integumentary: no skin lesions, no change in a mole and no skin wound. Neurological: no confusion, no dizziness, no fainting and no difficulty walking. Psychiatric: anxiety and depression, but not suicidal. 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5) (Z11.3) Sinusitis (473.9) (J32.9) Supervision of high-risk (V23.9) (O09.90) Thyroid enlargement (240.9) (E04.9) Vaginal bleeding in patient at less than 20 weeks gestation (640.90) (O20.9) Visit for genetic screening (V82.79) (Z13.79) Past Medical History History of Abnormal brain scan (794.09) (R94.02) History of acute sinusitis (V12.69) (Z87.09) History of ear pain (V12.49) (Z86.69) History of epigastric pain (V12.79) (Z87.19) History of fever (V13.89) (Z87.898) History of hemoptysis (V12.69) (Z87.09) History of sore throat (V12.60) (Z87.09) History of Vaginal Pap smear (V76.47) (Z12.72) Surgical History History of Bladder Cystotomy History of General Surgery Pt. chart only states scar tissue removal History of Hernia Repair History of Percutaneous Creation Of Nephrostomy Tract History of Repair Of Bladder Reconstruction Family History No pertinent family history No pertinent family history Social History Always uses seat belt Being A Social Drinker Denied: History of Drug Use Denied: History of domestic violence Never smoker No alcohol use No illicit drug use Allergies Penicillins Recorded By: Katey Jacques; 12/27/2012 10:18:32 AM Sulfa Drugs Recorded By: Katey Jacques; 12/27/2012 10:18:32 AM Current Meds FLUoxetine HCl - 20 MG Oral Capsule; TAKE 1 CAPSULE Daily; Therapy: [id number] to (Last Rx:[id number]) Requested for: [id number] Ordered Rx By: Jose Arora; Dispense: 0 Days ; #:90 Capsule; Refill: 1;For: Anxiety; SCOTT = N; Verified Transmission to [facility]; Last Updated By: ZuleymaAREVS; 01/26/2018 4:11:38 PM Nitrofurantoin Macrocrystal 100 MG Oral Capsule; TAKE 1 CAPSULE AT BEDTIME; Therapy: [id number] to (Evaluate:24Jul2018) Requested for: 97Zqi1913; Last Rx:[id number] Ordered Rx By: Marek Cevallos; Dispense: 30 Days ; #:30 Capsule; Refill: 5;For: Bladder exstrophy; SCOTT = N; Verified Transmission to [facility] [employer] [facility] Ondansetron HCl - 8 MG Oral Tablet; TAKE 1 TABLET Every 8 hours; Therapy: [id number] to (Evaluate:26Dec2017) Requested for: [id number]; Last Rx:[id number] Ordered Rx By: Patrizia Burns; Dispense: 10 Days ; #:30 Tablet; Refill: 1;For: Nausea and vomiting in ; SCOTT = N; Verified Transmission to [id number]; Last Updated By: Zuleyma [facility] ([facility]); 12/06/2017 4:15:25 PM 19 29-1 MG Oral Tablet; Therapy: [id number] to Recorded Dispense: 0 Days ; #: Sufficient Tablet; Refill: 0; SCOTT = N; Record; Last Updated By: Lakshmi Galindo; 12/06/2017 2:36:57 PM Physical Exam Constitutional - General appearance: No acute distress, well appearing and well nourished. Neck - Neck: Normal, supple, trachea midline, no masses or lymphadenopathy. Thyroid: Normal, no thyromegaly. Pulmonary Respiratory effort: No increased work of breathing or signs of respiratory distress. Cardiovascular Auscultation of heart: Normal rate and rhythm, normal S1 and S2, no murmurs. Upper Left Extremity:. No signs of clubbing, cyanosis or edema. Lower Left Extremity:. No signs of clubbing, cyanosis or edema. Upper Right Extremity:. No signs of clubbing, cyanosis or edema. Lower Right Extremity:. No signs of clubbing, cyanosis or edema. Genitourinary - External genitalia: Normal and no lesions appreciated. Vagina: Normal, no lesions or dryness appreciated. Urethra: Normal. Urethral meatus: Normal. Bladder: Normal, soft, non-tender and no prolapse or masses appreciated. Cervix: Normal, no palpable masses. Uterus: Normal, non-tender, not enlarged, and no palpable masses. Adnexa/parametria: Normal, non-tender and no fullness or masses a ppreciated. Anus, perineum, and rectum: Normal sphincter tone, no masses, and no prolapse. Chest - Breasts: No masses noted. Abdomen - Abdomen: Normal, non-tender, and no organomegaly noted. Gravid abdomen. Liver and spleen: No hepatomegaly or splenomegaly. Examination for hernias: No hernias appreciated. Lymphatic Palpation of lymph nodes in neck, axillae, groin and/or other locations: No lymphadenopathy or masses noted. Skin Skin and subcutaneous tissue: Normal skin turgor and no lesions or rashes. Palpation of skin and subcutaneous tissue: Normal. Neurologic: Sensation:grossly intact, no focal deficit. Psychiatric Orientation to person, place, and time: Normal. Mood and affect: Normal. Results/Data IO UA (automated w/o microscopy)14Apr2018 03:10PMJt Nuno Test NameResultFlagReference IO ColorYellowColorless-Yellow IO AppearanceCloudyClear IO Glucose - UrineNegativeNormal IO BilirubinNegativeNegative IO KetonesNegativeNegative IO Specific Gravity1.0201.000-1.030 IO BloodHemolyzed traceNegative IO pH7.05.0-8.0 IO Protein, UrineTraceNegative IO UrobilinogenNormal Normal (0.2-1.0 mg/dl) IO Nitrite, UrineNegativeNegative IO LeukocytesTraceNegative IO ColorYellowColorless-Yellow IO AppearanceCloudyClear IO Glucose - UrineNegativeNormal IO BilirubinNegativeNegative IO KetonesNegativeNegative IO Specific Gravity1.0201.000-1.030 IO BloodHemolyzed traceNegative IO pH7.05.0-8.0 IO Protein, UrineTraceNegative IO UrobilinogenNormal Normal (0.2-1.0 mg/dl) IO Nitrite, UrineNegativeNegative IO LeukocytesTraceNegative Diagnoses/Problems Neurogenic bladder (596.54) (N31.9) Orders Neurogenic bladder IO UA (automated w/o microscopy); Status:Resulted - Requires Verification,Retrospective By Protocol Authorization; Done: 14Apr2018 03:10PM Performed:In Office; Due:93Gmc6829; Last Updated By:Rosalie Abreu; 04/14/2018 3:11:31 PM;Ordered; For:Neurogenic bladder; Ordered By:Jt Nuno; Patient Discussion/Summary Today's Visit: 27 year old female with history of bladder extrophy with reconstructed neobladder, nephrolithiasis, and UTIs presents today to discuss catheter problem. Patient is currently and states she has difficulty maneuvering the catheter to the appropriate pocket to drain urine, as the causes her bladder to move around. She has no other complaints today. Denies gross hematuria, nocturia, f lank pain, and bothersome frequency or urgency. Patient is a non-smoker. Plan: 27 year old female with history of bladder extrophy with reconstructed neobladder, nephrolithiasis, and UTIs. Patient is currently and states she has difficulty maneuvering the catheter to the appropriate pocket to drain urine, as the causes her bladder to move around. She will try different sizes of catheters for this. She is due to deliver 07/2018 and plans to deliver vaginally. She was reassured that Urology will be available at that time if needed. Patient also has cystoscopy on two year intervals to survey her neobladder for malignancy. Will plan for her next cystoscopy in summer. Patient was encouraged to follow up sooner as needed. All questions and concerns were addressed. Patient verbalizes understanding and has no other questions at this time. IBlanca, am scribing for and in the presence of Dr. Nuno, under the supervision of Angie Sage. IJt, agree that all documentation by the scribe, Blanca Katz, were under my direction and are an accurate representation of the discussion, physical exam, assessment and plan. .. End of Encounter Meds FLUoxetine HCl - 20 MG Oral Capsule; TAKE 1 CAPSULE Daily; Therapy: [id number] to (Last Rx:[id number]) Requested for: [id number] Ordered Nitrofurantoin Macrocrystal 100 MG Oral Capsule; TAKE 1 CAPSULE AT BEDTIME; Therapy: [id number] to (Evaluate:24Jul2018) Requested for: 53Glj2383; Last Rx:[id number] Ordered Ondansetron HCl - 8 MG Oral Tablet; TAKE 1 TABLET Every 8 hours; Therapy: 74Ebr8966 to (Evaluate:56Ugj1349) Requested for: [id number]; Last Rx:[id number] Ordered 19 29-1 MG Oral Tablet; Therapy: [id number] to Recorded Signatures Electronically signed by : AMEENA Badillo; Apr 14 2018 4:07PM EST (Co-author) Electronically signed by : Jt Nuno MD; Apr 15 2018 12:16PM EST (Author) URINE Observed: 03/21/2018 Status: F Source: SC[facility] CULTURE,BACTERIAL 12:21 PM [facility]OS[facility]IT[facility] REPOSITORY PATIENT: SHAD GRIFFITHS LOCATION: [place] [address] BILL#: [id number] : [birth year] AGE: SEX: F ORDERED BY: ELIDIA DAVENPORT SOURCE: URINE COLLECTED: 03/21/18 12:21 ANTIBIOTICS AT ANMOL.: RECEIVED : 03/21/18 13:50 SITE: pt self caths thru her stoma R E S U L T S URINE CULTURE,BACTERIAL FINAL 03/22/18 07:27 MULTIPLE ORGANISMS PRESENT, PROBABLE CONTAMINATION PLEASE REPEAT CULTURE. Performed By: #### URINC #### [facility] [id number] [place] [address] DAILY PROGRESS NOTE - Observed: 03/21/2018 Status: COMPLETED Source: [facility] OB-ANTEPARTUM - MFM 6:02 AM [facility]ITALS REPOSITORY Current Stage: Stage: Antepartum - MFM Subjective Data: Antepartum: Vaginal Bleeding: No Contractions/Abdominal Pain: No Discharge/Loss of Fluid: No Movement: Good Fevers/Chills: No Preeclampsia Symptoms: No Antepartum: Pain is well controlled with new regimen of oxycodone 10 Q4hrs. Patient received three doses overnight. Also states that lidoderm patch is very helpful for the localized back pain. Has no other concerns at this time. Objective Information: Objective Information: ---- Intake and Output ----- Mn/Dy/Year TimeIntakeOutputNet Mar 21, 2018 6:00 [id number] Mar 20, 2018 10:00 [id number] Mar 20, 2018 2:00 [id number] The Intake and Output Totals for the last 24 hours are: IntakeOutputNet [id number] Physical Exam: Constitutional: alert, oriented Obstetric: NST: 140/moderate/+ accels/ no decels TOCO: no contractions Respiratory/Thorax: normal respiratory effort, lungs clear, no wheezes or rhonchi Cardiovascular: S1 S2 RRR, no murmurs Gastrointestinal: stoma appears normal, no erythema or pain Musculoskeletal: Some tenderness on left flank near the spine at the L2 level. Assessment and Plan: Assessment: 27 yo at 22 3/7 weeks with left flank pain and newly diagnosed kidney stone. 1. Left Flank Pain, possible left nephrolithiasis - discontinued w/ 4mg morphine - Now on scheduled dose of oxycodone 10mg Q4hrs, received three doses overnight - Lidoderm patches in place on back for localized pain - Will continue supportive management for now, hydration with NS 150ml/hr - U/S reported 5mm stone, CT scan recommended due to poor quality of image but will be deferred in the setting of decreased pain. 2. UTI - Nitrates on urine analysis - Patient started on Macrobid BID 3. Nausea - Zofran as needed - Currently stable 4. - Qshift FHR - dopplers appropriate for gestational age 5. DVT ppx - SCD For DVT ppx d/w Dr. Dayana Davenport MD PhD, PGY-2 L&D- Night team Signature/Cosignature/Attestation: Attending AttestationI saw and evaluated the patient. I personally obtained the ktaz and critical portions of the history and physical exam or was physically present for katz and critical portions performed by the resident/fellow. I reviewed the resident/fellow?s documentation and discussed the patient with the resident/fellow. I agree with the resident/fellow?s medical decision making as documented in the resident?s note. I personally evaluated the patient (as noted in the above attestation) on 21-Mar-2018 Comments/ Additional Findings [facility] Staff Patient with improved pain control using PO, instead of IV, medication. Medical management of unilateral kidney pain, where dilation but no stone was seen on imaging, is reasonable for a period of time, and she was prescribed oxycodone for one week, based on current utilized dose, in addition to lidocaine patches and tylenol. She has follow-up with [facility] in the next few weeks and understands to return or call with any worsening pain or other sxs. I agree with discharge home today. Danae Anne MD Electronic Signatures: Danae Anne) (Signed 21-Mar-2018 17:35) Authored: Signature/Cosignature/Attestation Co-Signer: Current Stage, Objective Data, Assessment and Plan, Signature/Cosignature/Attestation Elidia Davenport (Resident)) (Signed 21-Mar-2018 08:08) Authored: Current Stage, Subjective Data, Objective Data, Assessment and Plan, Signature/Cosignature/Attestation Last Updated: 21-Mar-2018 17:35 by Danae Anne) DAILY PROGRESS NOTE - Observed: 03/20/2018 Status: COMPLETED Source: SCOTT OB-ANTEPARTUM - MFM 5:40 AM [facility]ITALS REPOSITORY Current Stage: Stage: Antepartum - M Subjective Data: Antepartum: Antepartum: Patient states that her pain is well controlled with IV morphine. Endorses some spontaneous N/V this am that has resolved. Patient planning to ask RN for Zofran if nausea persists. Objective Information: Objective Information: ---- Intake and Output ----- Mn/Dy/[facility] Mar 18, 2018 10:00 [id number] Mar 18, 2018 2:00 [id number] Physical Exam: Constitutional: alert, oriented Obstetric: NST: 140/moderate/+ accels/ no decels TOCO: no contractions Respiratory/Thorax: normal respiratory effort, lungs clear, no wheezes or rhonchi Cardiovascular: S1 S2 RRR, no murmurs Gastrointestinal: stoma appears normal, no erythema or pain Musculoskeletal: Some tenderness on left flank near the spine at the L2 level. Assessment and Plan: Assessment: 27 yo at 21 6/7 weeks with left flank pain and newly diagnosed kidney stone. 1. Left Flank Pain, possible left nephrolithiasis - pain controlled w/ 4mg morphine - required 12mg total overnight (from 6pm-3am) - Patient recently requested return to 2mg of morphine for pain management, well controlled at this time. - Will continue supportive management for now, hydration with NS 150ml/hr, IV morphine/oxycodone and tylenol PRN for pain. - U/S reported 5mm stone, CT scan recommended due to poor quality of image but will be deferred in the setting of decreased pain. 2. UTI - Nitrates on urine analysis - Patient started on Macrobid BID 3. Nausea - Zofran as needed - Currently stable 4. - Qshift FHR - dopplers appropriate for gestational age 5. DVT ppx - SCD For DVT ppx d/w Dr. Dayana Holland. MD Issac PhD, PGY-2 L&D- Night team Signature/Cosignature/Attestation: Attending AttestationI saw and evaluated the patient. I personally obtained the katz and critical portions of the history and physical exam or was physically present for katz and critical portions performed by the resident/fellow. I reviewed the resident/fellow?s documentation and discussed the patient with the resident/fellow. I agree with the resident/fellow?s medical decision making as documented in the resident?s note. I personally evaluated the patient (as noted in the above attestation) on 20-Mar-2018 Comments/ Additional Findings [facility] Staff Since am rounding, readdressed medication and goals for pain control with Shad Opting for a trial of oxycodone scheduled with ongoing tylenol, the addition of a licocaine patch for what she describes as burning pain over her left kidney; will use morphine IV as breakthrough only Will reassess tomorrow and and working towards discharge tomorrow evening if pain reasonably controlled Danae Anne MD Electronic Signatures: Danae Anne) (Signed 20-Mar-2018 17:55) Authored: Signature/Cosignature/Attestation Co-Signer: Current Stage, Objective Data, Assessment and Plan, Signature/Cosignature/Attestation Elidia Davenport (Resident)) (Signed 20-Mar-2018 10:53) Authored: Current Stage, Subjective Data, Objective Data, Assessment and Plan, Signature/Cosignature/Attestation Last Updated: 20-Mar-2018 17:55 by Danae Anne) DAILY PROGRESS NOTE - Observed: 03/19/2018 Status: COMPLETED Source: SCOTT OB-ANTEPARTUM - MFM 7:00 AM [facility]ITALS REPOSITORY Current Stage: Stage: Antepartum - MFM Subjective Data: Antepartum: Antepartum: Patient is doing well this morning. States that pain was well controlled overnight after increasing the morphine to 4mg. Has required 12mg of morphine overnight. U/S was also performed overnight. Objective Information: Objective Information: T PRBPSpO2 [id number]/6297% Date/Time03/19 3:559/ 3:559 3:559/ 3:559/ 3:55 Range(36.8C - 38C ) (76 - 111 ) (18 - 20 ) (100 - 133 )/ (62 - 76 ) (96% - 99% ) Highest temp of 38 C was recorded at 03/18 11:10 ---- Intake and Output ----- Mn/Dy/Year TimeIntakeOutputNet Mar 19, 2018 6:00 [id number] Mar 18, 2018 10:00 [id number] Mar 18, 2018 2:00 [id number] The Intake and Output Totals for the last 24 hours are: IntakeOutputNet [id number] Physical Exam: Constitutional: alert, oriented Obstetric: NST: 140/moderate/+ accels/ no decels TOCO: no contractions Respiratory/Thorax: normal respiratory effort, lungs clear, no wheezes or rhonchi Cardiovascular: S1 S2 RRR, no murmurs Gastrointestinal: stoma appears normal, no erythema or pain Musculoskeletal: Some tenderness on left flank near the spine at the L2 level. Recent Lab Results: Results: I have reviewed these laboratory results: Urinalysis 18-Mar-2018 20:50:00 ResultValue Color, Urine YELLOW Reference Range: STRAW,YELLOW Appearance, Urine HAZY Specific [place], Urine 1.010 pH, Urine 7.0 Protein, Urine NEGATIVE Glucose, Urine NEGATIVE Blood, Urine SMALL (1+) A Ketones, Urine 20 (1+) A Bilirubin, Urine NEGATIVE Urobilinogen, Urine <2.0 Nitrite, Urine POSITIVE A Leukocyte Esterase, Urine NEGATIVE Urinalysis, Microscopic 18-Mar-2018 20:50:00 ResultValue White Cells 26 A Red Blood Cells 7 A Epithelial Cells, Squamous <1 Bacteria, Urine 1+ A Mucous 1+ Assessment and Plan: Assessment: 27 yo at 21 6/7 weeks with left flank pain and newly diagnosed kidney stone. 1. Left Flank Pain, possible left nephrolithiasis - pain initially controlled w/ 2mg morphine but increased requirement overnight - Uptitrated to 4mg of morphine overnight, required 12mg total, pain is now well controlled - Patient recently requested return to 2mg of morphine for pain management, well controlled at this time. - Nitrates on urine analysis , plan for treatment w/ Macrobid treatment - Will continue supportive management for now, hydration with NS 150ml/hr, IV morphine/oxycodone and tylenol PRN for pain. Antiemetics as needed. - U/S reported 5mm stone, CT scan recommended due to poor quality of image but will be deferred in the setting of decreased pain. 2. - Qshift FHR - dopplers appropriate for gestational age 3. DVT ppx - SCD For DVT ppx d/w Dr. Dayana Holland. MD Issac PhD, PGY-2 L&D- Night team Signature/Cosignature/Attestation: Attending AttestationI saw and evaluated the patient. I personally obtained the katz and critical portions of the history and physical exam or was physically present for katz and critical portions performed by the resident/fellow. I reviewed the resident/fellow?s documentation and discussed the patient with the resident/fellow. I agree with the resident/fellow?s medical decision making as documented in the resident?s note. I personally evaluated the patient (as noted in the above attestation) on 19-Mar-2018 Comments/ Additional Findings [facility] Staff Patient seen on 03/19, though note being signed on 03/21 by me. Agreed with plan as of 03/19, with updated plan of care today, 03/21 Danae Anne MD Electronic Signatures: Danae Anne) (Signed 21-Mar-2018 08:55) Authored: Signature/Cosignature/Attestation Co-Signer: Objective Data, Assessment and Plan, Signature/Cosignature/Attestation Elidia Davenport (Resident)) (Signed 20-Mar-2018 05:46) Authored: Current Stage, Subjective Data, Objective Data, Assessment and Plan, Signature/Cosignature/Attestation Last Updated: 21-Mar-2018 08:55 by Danae Anne) URINALYSIS Collected: 03/18/2018 Status: F Source: SCOTT 8:50 [facility] REPOSITORY TYPE CODE TESTS RESULT OUT OF RANGE REFERENCE UNITS LAB COLU(LOIN STRAW,YELLOW C) COLOR YELLOW LAB APPRU(KEREN CLEAR NC) APPEARANCE HAZY LAB SPGRU(KEREN 1.005 - 1.035 NC) SPECIFIC GRAVITY 1.010 LAB SANDRA(LOINC 5.0 - 8.0 ) pH 7.0 LAB PROTU(KEREN NEGATIVE mg/dL NC) PROTEIN NEGATIVE LAB GLUCU(KEREN NEGATIVE mg/dL NC) GLUCOSE NEGATIVE LAB BLDU(LOIN NEGATIVE C) BLOOD Abnormal SMALL (1+) LAB KETU(LOIN NEGATIVE mg/dL C) KETONES Abnormal 20 (1+) LAB BILIU(KEREN NEGATIVE NC) BILIRUBIN NEGATIVE LAB UROU2(KEREN 0.0 - 1.9 mg/dL NC) UROBILINOGEN <2.0 LAB NITRU(KEREN NEGATIVE NC) NITRITE Abnormal POSITIVE LAB LEUKU(KEREN NEGATIVE NC) LEUKOCYTE ESTERASE NEGATIVE Performed By: #### UA #### [facility] [id number] [place] [id number] UA MICROSCOPIC Collected: 03/18/2018 Status: F Source: SCOTT 8:50 [facility] REPOSITORY TYPE CODE TESTS RESULT OUT OF RANGE REFERENCE UNITS LAB WBCUR(LOIN 0-5 /HPF C) Abnormal WBC 26 LAB RBCUR(LOIN 0-5 /HPF C) Abnormal RBC 7 LAB EPSQE(LOIN /HPF C) SQUAMOUS <1 EPITH. CELLS LAB BACUR(LOIN /HPF C) Abnormal BACTERIA 1+ LAB MUCOU(LOIN /LPF C) MUCUS 1+ Performed By: #### UAMIC #### [facility] [address] [place] [address] US RENAL BILAT Observed: 03/18/2018 Status: F Source: SCOTT 4:30 PM [facility] REPOSITORY Patient Name: SHAD GRIFFITHS STUDY: US RENAL BILAT; 03/18/2018 4:30 pm INDICATION: Signs/Symptoms: Left flank pain, h/o bladder extrophy and , possible nephrolithiasis. COMPARISON: 04/11/2016 ultrasound kidneys, 12/09/2017 ultrasound pelvis, 07/14/2017 CT abdomen and pelvis ACCESSION NUMBER(S): [id number] ORDERING CLINICIAN: MELVIN SMITH TECHNIQUE: Multiple images of the kidneys were obtained. FINDINGS: RIGHT KIDNEY: The right kidney measures 10.2 cm in length. The renal cortical echogenicity and thickness are within normal limits. No hydronephrosis is present; 5.5 mm midpole nephrolith identified. LEFT KIDNEY: The left kidney measures 12.4 cm in length. The renal cortical echogenicity and thickness are within normal limits. Note is made of duplex left renal collecting system with dilated upper pole collecting system. BLADDER: Postsurgical changes consistent with reconstructed bladder. IMPRESSION: Subcentimeter nonobstructing right renal calculus without hydronephrosis. Duplex collecting system of the left kidney with dilated upper pole collecting system. Reconstructed neobladder has dependent echogenic contents could be due to hemorrhagic blood clots, though cannot definitely differentiate from debris or nonshadowing calculi. Recommend better evaluation with CT of the abdomen and pelvis. I personally reviewed the image(s) / study and resident, Dr. Estrella's interpretation. I agree with the findings as stated. This study has been interpreted at [facility] in [place], [place]. Electronically signed by: KHADIJAH BARRIENTOS MD HISTORY AND PHYSICAL Observed: 03/18/2018 Status: COMPLETED Source: UNIVERSITY - OB 3:13 PM HOSPITALS REPOSITORY HPI/OB History/Dating: Care Provider: RYDER Care Location: [place] [address]/[facility] Did this patient receive any care at [facility]?: no Was this patient transferred from another facility for this admission?: no Dating: ? Choose Antepartum or Postpartumantepartum ? Final [id number] ? Current EGA:21.6 HPI Descriptive Info: ? HPI 27 yo at 21 6/7 weeks who was admitted for left flank pain. Started last night. Worsening. Colicky in nature. Previously had similar episodes with renal stone. All prev episodes in the left kidney. No fever or chill. This is notable for: - Bladder exstrophy, diagnosed at . She had neobladder created with small intestine/appendix, and has been self-cathing through a stoma. Has not required any perineal surgery, though did undergo vaginal dilation as a teenager. - Possible history of hypothyroidism, most recent TSH/FT4 WNL, has never required medication - Anxiety/depression, followed by Dr. Jose Arora (), has been well controlled with Prozac. Discontinued Trazodone with . PMH: As above PSH: Exstrophy surgery as above. Stoma scar revision. Multiple lithotripsies/nephrostomy tubes for nephrolithiasis. 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 no history of STIs. 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 to [employer]. Denies tobacco/alcohol/drug use. Family Hx: CAD (Mom [place] at 59, Dad [place] at 51); HTN/aortic aneurysm (Dad); Breast cancer (maternal aunt dx at 52), muscular dystrophy (maternal grandmother diagnosed in 80s) Antepartum: Estimated Weight: EFW (kg): 0 kilogram(s) EFW (lb): 0 pound(s) EFW (oz): 0 ounce(s) Antepartum: ? Vaginal Bleeding: No ? Contractions/Abdominal Pain: No ? Discharge/Loss of Fluid: No ? Movement: Good ? High Risk Factors for Hemorrhage: none of these exist ? TOLAC: no Progesterone: ? Did this patient receive progesterone in any form to prevent premature deliveryno Allergies: ? sulfa drugs: Other ? penicillin: Unknown Objective: Objective Information: T PRBPSpO2 [id number]/7499% Date/Time03/18 15: 15: 15: 15: 15:05 Range(36.8C - 38C ) (98 - 111 ) (18 - 20 ) (113 - 133 )/ (74 - 76 ) (96% - 99% ) Highest temp of 38 C was recorded at 03/18 11:10 Physical Exam: Constitutional: alert, oriented Respiratory/Thorax: normal respiratory effort, lungs clear, no wheezes or rhonchi Cardiovascular: S1 S2 RRR, no murmurs Gastrointestinal: stoma appears normal, no erythema or pain Musculoskeletal: Some tenderness on left flank Medications: Medications: Continuous Medications 1. Lactated Ringers Infusion: 1000 mL IntraVenous <Continuous> Scheduled Medications 1. Morphine Injectable: 2 mg IntraVenous Push Once 2. with Folic Acid: 1 tablet(s) Oral Daily PRN Medications 1. Acetaminophen: 975 mg Oral Every 6 Hours 2. diphenhydrAMINE Injectable: 25 mg IntraVenous Push Every 4 Hours 3. Docusate: 100 mg Oral 2 Times a Day 4. Lidocaine 1% Injectable: 0.5 mL SubCutaneous Once 5. Magnesium Hydroxide -Al Hydrox -Simethicone Oral Liquid: 30 mL Oral Every 6 Hours 6. Magnesium Hydroxide Oral Liquid CONCENTRATE: 10 mL Oral Every 12 Hours 7. Metoclopramide Injectable: 10 mg IntraVenous Push Every 6 Hours 8. Morphine Injectable: 2 mg IntraVenous Push Every 4 Hours 9. Ondansetron Injectable: 4 mg IntraVenous Push Every 6 Hours 10. Ondansetron Injectable: 4 mg IntraVenous Push Every 6 Hours 11. Psyllium Packet: 1 packet(s) Oral Daily 12. Sodium Chloride 0.9% Injectable Flush: 1.5 mL IntraVenous Flush Every 8 Hours and as Needed Assessment and Plan: Problem List: Medical History: Kidney stone (disorder): Assessment: 27 yo at 21 6/7 weeks with left flank pain 1. Left Flank Pain, possible left nephrolithiasis Ms. Griffiths has a prev history of bladder extrophy s/p neobladder creation. She is performing intermittent cath through her stoma. Her neobladder is on the right side requiring her left ureter to course through the midline to the right. She has had several kidney stones because of this. On exam she is afebrile, WBC was 12k, Cr was 0.36. Will also order renal US to evaluate for stone or other issues. UA and Ucx pending. Supportive management for now, hydration with NS 150ml/hr, IV morphine/oxycodone and tylenol PRN for pain. Antiemetics as needed. 2. madden, uncomplicated. Normal anatomy US with some SOVs. FHR qshift. SCD For DVT ppx Pt seen and dw Dr. Abbasi, MFM attending Melvin Smith MD MF fellow Signatures/Attestation/Certification: Attending AttestationI saw and evaluated the patient. I personally obtained the katz and critical portions of the history and physical exam or was physically present for katz and critical portions performed by the resident/fellow. I reviewed the resident/fellow?s documentation and discussed the patient with the resident/fellow. I agree with the resident/fellow?s medical decision making as documented in the resident/fellow?s note with the exception/addition of the following: I personally evaluated the patient (as noted in the above attestation) on 18-Mar-2018 Comments/ Additional Findings MFM Attending Addendum: I have seen, evaluated and counseled the above patient independently. I reviewed the documentation and agree with the clinical assessment and medical decision making as noted above with the following addendum/modifications: 27 yo at 21+6 wga with history of bladder extrophy (s/p repair, neobladder with umbilical stoma) and recurrent nephrolithiasis presenting for evaluation and management of flank pain and suspected renal stone. Does not feel urine is cloudy/malodorous and denies fever/chills or other sx of UTI/pyelonephritis. Patient also takes macrobid as suppressive therapy. Denies chest pain, palpitations, dyspnea, pleurisy, abdominal pain, LOF, VB or contractions and ROS otherwise negative. Remainder of history as above. AF and VS stable/appropriate. Cardiopulmonary exam non-focal. Back with L CVAT. Abdomen soft, non-distended, uterus/abdomen non-tender, no rebound, normal appearing umbilical stoma. Extremities without erythema, tenderness or edema. Labs reviewed - no leukocytosis, normal serum Cr. Impression: Blackman gestation at 21+6 wga History of bladder extrophy s/p repair, suspect nephrolithiasis Plan: Currently and maternal status reassuring overall. Agree with plan for admission to AP service for evaluation and management of suspected renal stone. Plan for IV hydration, anlagesia, UCx and renal US. Will inform Urology of admission (patient followed by Dr. Fernandes). All questions answered. Ms. Griffiths expressed understanding and agreement with the plan of care. Obinna Abbasi MD Electronic Signatures: Obinna Abbasi) (Signed 18-Mar-2018 17:21) Authored: Signatures/Attestation/Certification Co-Signer: HPI/OB History/Dating, Assessment and Plan Melvin Smith) (Signed 18-Mar-2018 16:11) Authored: HPI/OB History/Dating, Antepartum, Allergies, Objective, Assessment and Plan Last Updated: 18-Mar-2018 17:21 by Obinna Abbasi) DISCHARGE PLANNING Observed: 03/18/2018 Status: UNK Source: UNIVERSITY NOTE 1:07 PM HOSPITALS REPOSITORY Patient Learning: ? Factors that Impact Ability to Learnnone(1) Other Factors: ? Functional Screen: In the recent/past 2-4 weeks, patient or family have noticedno issues that require a rehabilitation consult at this time(2) Discharge Planning: Discharge Planning: Date and Time: 03/18/18 @ 1110 Nursing Note/Admission/Health Maintenance: D: Patient admitted to the DEVELOPMENT AND HOUSING DIRECTOR unit from home Patient admitted for kidney stones presenting with back pain and nausea. Patient lives at home Patient was independent with ambulation and ADL's prior to admission. Patient's caregiver/help after discharge will be boyfriend Home going needs anticipated at this time: none Upon arrival, admitting assessment completed. See flowsheets. Stable upon admission. E: Discharge planning initiated. P: Continue to assess home going/discharge needs. Coordinate with Regional Education Coordinator as needed. Signature: Jose Lopez RN Final Disposition/Discharge: Disposition/Discharge Information: Discharge/Transfer Information: ? Discharge/Transfer Date/[id number] 13:00 ? Discharged Accompanied Byspouse ? Discharge Modeambulatory ? Transportation Methodprivate car ? Final DispositionHome Electronic Signatures: Jose Lopez (EDVIN) (Signed 18-Mar-2018 13:59) Authored: Discharge Planning Note Hue Hardy (RN) (Signed 21-Mar-2018 13:08) Authored: Final Disposition/Discharge Last Updated: 21-Mar-2018 13:08 by Hue Hardy (RN) References: 1. Data Referenced From 5. Education 03/18/2018 12:20 PM 2. Data Referenced From Admission Risk Screen - OB 03/18/2018 12:20 PM DISCHARGE PROFILE2 Observed: 03/18/2018 Status: UNK Source: UN[facility]ERSITY 1:05 PM HOSPITALS REPOSITORY Discharge Orders: Anticipated Discharge Date: ? Anticipated Discharge [id number] Activity: activity as tolerated. May shower. May return to school/work Instructions: May drive. Weight-bearing Instructions: full weight bearing. Diet: ? Dietregular Provider FINAL REVIEW of Orders: Final Review: ? Final Review of Medication Reconciliation and Orders Completedby Physician ? Reviewing ProviderElidia Davenport MD (Resident) at 21-Mar-2018 11:49:31 Other Clinician Instructions: Other Instructions: ? Nursing InstructionsCall your OB provider for contractions (tightening, balling up) more than 4-6 times an hour; constant menstrual- like cramps in your lower belly; low, dull backache different from what you normally have; increased pressure or pain in your pelvis, lower belly, back or thighs; increased vaginal discharge or mucus-like watery or bloody discharge; red vaginal bleeding; leaking amniotic fluid (water breaks); chills or fever of 100.4 F or above; severe headache that does not go away; blurry vision; decreased baby movements; feeling that something is not right; feeling depressed or unable to cope. ? Other Clinician InstructionsA few days after your discharge, one of our care coordinators, Pratima Kellogg, will be calling you to see how things have been going at home. This phone call also gives you the opportunity to clarify any information on your discharge instructions or ask any questions that may have come up since leaving the hospital. Electronic Signatures: Jose Lopez) (Signed 18-Mar-2018 13:07) Authored: Other Clinician Instructions, Gold Form - Barber Shop Manager Summary Elidia Davenport (Resident)) (Signed 21-Mar-2018 11:49) Authored: Discharge Orders, Provider FINAL REVIEW of Orders Hue Hardy (EDVIN) (Signed 21-Mar-2018 13:08) Authored: Other Clinician Instructions Last Updated: 21-Mar-2018 13:08 by Hue Hardy (RN) CBC AND DIFFERENTIAL Collected: 03/18/2018 Status: F Source: [facility] 1:02 PM HOSPITALS REPOSITORY TYPE CODE TESTS RESULT OUT OF REFERENCE UNITS RANGE LAB WBCR(LOINC 4.4 - 11.3 x10E9/L ) WBC High 12.7 LAB NRBC(LOINC 0.0-0.0 /100 WBC ) NUCLEATED RBC 0.0 LAB RBCCT(LOIN 4.00 - 5.20 x10E12/L C) Low RBC 3.32 LAB HGB(LOINC) 12.0 - 16.0 g/dL Low HGB 9.9 LAB HCT(LOINC) 36.0 - 46.0 % Low HCT 28.8 LAB MCV(LOINC) 80 - 100 fL MCV 87 LAB MCHC2(LOIN 32.0 - 36.0 g/dL C) MCHC 34.4 LAB PLTCT(LOIN 150 - 450 x10E9/L C) PLT 356 LAB RDWCV(LOIN 11.5 - 14.5 % C) RDW-CV 14.0 LAB NEUT(LOINC 40.0 - 80.0 % ) % NEUTROPHIL 73.9 LAB IG(LOINC) 0.0 - 0.9 % % AUTOMATED 0.7 IMMATURE GRAN Result Comment: Percent differential counts (%) should be interpreted in the context of the absolute cell counts (cells/L). LAB LYMPH(LOINC) 13.0 - % 44.0 % LYMPHOCYTE 19.9 LAB MONO(LOINC) 2.0 - 10.0 % % MONOCYTE 4.6 LAB EOS(LOINC) 0.0 - 6.0 % % EOSINOPHIL 0.7 LAB BASO(LOINC) 0.0 - 2.0 % % BASOPHIL 0.2 LAB #NEUT(LOINC) 1.20 - x10E9/L 7.70 NEUTROPHIL High 9.41 LAB #LYMP(LOINC) 1.20 - x10E9/L 4.80 LYMPHOCYTE 2.53 LAB #MONO(LOINC) 0.10 - x10E9/L 1.00 MONOCYTE 0.58 LAB #EOS(LOINC) 0.00 - x10E9/L 0.70 EOSINOPHIL 0.09 LAB #BASO(LOINC) 0.00 - x10E9/L 0.10 BASOPHIL 0.03 Performed By: #### CBCDF #### [facility] [id number] [place] [address] BASIC METABOLIC PANEL Collected: 03/18/2018 Status: F Source: [facility] 1:02 PM HOSPITALS REPOSITORY TYPE CODE TESTS RESULT OUT OF REFERENCE UNITS RANGE LAB GLU(LOINC) 74 - 99 mg/dL GLUCOSE High 110 LAB SOD(LOINC) 136 - 145 mmol/L SODIUM 137 LAB K(LOINC) 3.5 - 5.3 mmol/L Low POTASSIUM 3.1 LAB CHLOR(LOIN 98 - 107 mmol/L C) CHLORIDE 104 LAB BIC(LOINC) 21 - 32 mmol/L BICARBONATE 22 LAB ANGAP(LOIN 10 - 20 mmol/L C) ANION GAP 14 LAB UREA(LOINC 6 - 23 mg/dL ) UREA NITROGEN 9 LAB CREA(LOINC 0.50 - 1.05 mg/dL ) Low CREATININE 0.36 LAB GFRFN(LOIN >60 mL/min/1.7 C) 3m2 GFR-NON AM. >60 LAB GFRAA(LOIN >60 mL/min/1.7 C) 3m2 GFR- AM. >60 Result Comment: CALCULATIONS OF ESTIMATED GFR ARE PERFORMED USING THE MDRD STUDY EQUATION FOR THE IDMS-TRACEABLE CREATININE METHODS. CLIN CHEM 2007;53:766-72 LAB CA(LOINC) 8.6 - 10.6 mg/dL Low CALCIUM 8.4 Performed By: #### BMP #### [facility] [address] [place] [address] TYPE + SCREEN Collected: 03/18/2018 Status: F Source: [facility] 1:02 PM HOSPITALS REPOSITORY TYPE CODE TESTS RESULT OUT OF RANGE REFERENCE UNITS LAB ABORH(LOINC ) ABO TYPE O LAB RH(LOINC) RH TYPE NEG Result Comment: Review your Rh Negative female patient's potential need for Rh Immune Globulin (RhIg)administration. LAB ABSC(LOINC) ANTIBODY SCREEN NEG Performed By: #### T+S #### [facility] [address] [place] [address] PATIENT PROFILE - OB Observed: 03/18/2018 Status: UNK Source: [place] [id number] 12:41 PM HOSPITALS REPOSITORY Profile: Initial Info: How to be AddressedNicolle Spoken Language PreferredEnglish Source of Informationpatient Are you currently using the Personal Electronic Health Record or [facility] Reason for admission this visitearly complication [place] Belongingsremains with patient Medications Brought to Hospitalno Info: Gravida1 Term Deliveries0 Deliveries0 Abortions0 Living Children0 Patient stated [id number] Calculation of EGA based on patient stated EDD21.6 Is care information applicable this patient/visit?yes Records availablerequesting Trimester Care Initiatedfirst Current Risksnone Testskick counts Previous Delivery (20 weeks or greater)no Is plan applicable this patient/visit?not yet Is infant information applicable this patient/visit?not yet Is feeding plan applicable this patient/visit?not yet General Health: Weight in aba211.2 pound(s) Weight in kg72.7 kilogram(s) Weight Methodactual (measured) Scale Typestanding Is weight gain information applicable this patient/visit?yes Prepregnancy Weight (lb)156 pound(s) Total Weight Gain (lb)4 pound(s) Height in feet5 feet Height in inches5 inch(es) Height in cm165.1 centimeter(s) Height Methodstated BMI (kg/m2)26.671 square meter Patient or Family Member Reaction to Anesthesiano previous reaction; no previous family member reaction Blood Avoidance/Restrictionsnone Previous Transfusion Reactionno Rsp Based Care: How would you like to participate in your care?Be in the know What is the number one concern for you during this hospitalization?infection What is the most important thing we can do to support you during this hospitalization?Keeping me in the know Is there anything we need to know to best care for you?nothing Substance: Current or Former Substance Use never: Cigarette/Tobacco, e-Cigarette/Vaping, Alcohol, Street Drugs Health Mgmt: Symptoms/Conditions Managed at Homegenitourinary; behavioral health Behavioral Health Symptoms/Conditionsdepression; anxiety Behavioral Management Strategiesmedication therapy Behavioral Health Managementmanaged Genitourinary Managementmanaged Barriers to Managing Healthnone Relationship/Environ: Primary Source of Support/Comfortsignificant other; parent Lives Withsignificant other Resource/Environmental Concernsnone [facility] Anticipated at Transitionnone Information Review: ? Allergies, Home Meds and Significant Events have been Reviewed and Verified with Patient/Familyyes ALLERGY, INTOLERANCE, ADVERSE EVENT: Allergies: ? sulfa drugs: Drug Category, Other, Active ? penicillin: Drug, Unknown, Active Electronic Signatures: Jose Lopez) (Signed 18-Mar-2018 18:59) Authored: Profile, Additional Information Last Updated: 18-Mar-2018 18:59 by Jose Lopez) URINALYSIS Collected: 03/18/2018 Status: F Source: [facility] 12:[address] [place] [address] REPOSITORY TYPE CODE TESTS RESULT OUT OF RANGE REFERENCE UNITS LAB COLU(LOIN STRAW,YELLOW C) COLOR YELLOW LAB APPRU(KEREN CLEAR NC) APPEARANCE HAZY LAB SPGRU(KEREN 1.005 - 1.035 NC) SPECIFIC GRAVITY 1.010 LAB SANDRA(LOINC 5.0 - 8.0 ) pH 7.0 LAB PROTU(KEREN NEGATIVE mg/dL NC) PROTEIN NEGATIVE LAB GLUCU(KEREN NEGATIVE mg/dL NC) GLUCOSE NEGATIVE LAB BLDU(LOIN NEGATIVE C) BLOOD Abnormal MODERATE (2+) LAB KETU(LOIN NEGATIVE mg/dL C) KETONES Abnormal 5 (TRACE) LAB BILIU(KEREN NEGATIVE NC) BILIRUBIN NEGATIVE LAB UROU2(KEREN 0.0 - 1.9 mg/dL NC) UROBILINOGEN <2.0 LAB NITRU(KEREN NEGATIVE NC) NITRITE Abnormal POSITIVE LAB LEUKU(KEREN NEGATIVE NC) LEUKOCYTE ESTERASE NEGATIVE Performed By: #### UA #### [facility] [address] [place] [id number] UA MICROSCOPIC Collected: 03/18/2018 Status: F Source: [facility] 12:[address] [place] [address] REPOSITORY TYPE CODE TESTS RESULT OUT OF RANGE REFERENCE UNITS LAB WBCUR(LOIN 0-5 /HPF C) Abnormal WBC 6 LAB RBCUR(LOIN 0-5 /HPF C) Abnormal RBC 11 LAB BACUR(LOIN /HPF C) Abnormal BACTERIA 1+ LAB MUCOU(LOIN /LPF C) MUCUS 1+ Performed By: #### UAMIC #### [facility] [address] [place] [id number] URINE Observed: 03/18/2018 Status: F Source: [facility] CULTURE,BACTERIAL 12:25 HOSPITALS REPOSITORY PATIENT: SHAD GRIFFITHS LOCATION: [place] [address] BILL#: [id number] : 89 AGE: SEX: F ORDERED BY: SHEREE CHURCH SOURCE: URINE COLLECTED: 03/18/18 12:25 ANTIBIOTICS AT ANMOL.: RECEIVED : 03/18/18 13:26 SITE: Clean Catch/Voided R E S U L T S URINE CULTURE,BACTERIAL FINAL 03/19/18 09:00 MULTIPLE ORGANISMS PRESENT, PROBABLE CONTAMINATION PLEASE REPEAT CULTURE. Performed By: #### URINC #### [facility] [address] [place] [address] ADMISSION RISK SCREEN Observed: 03/18/2018 Status: UNK Source: [facility]ERS[facility] - OB 12:20 PM HOSPITALS REPOSITORY Allergies: Allergies: ? sulfa drugs: Other ? penicillin: Unknown Patient Verification: ? New W ID Band Applied in my Departmentyes ? Patient Identity Verified Bypatient ? ID Band FULL Name, include Middle, spelling matches patient's ID used for verificationyes ? ID Band Matches Patient ID used for Verficationyes ? ID Band MRN Matches EMR MRNyes Advance Directive: ? Advance Directive Medicalno ? Advance Directive Information Givenpatient/family declined Falls Risk: ? Altered Mobilitynone ? Change in Mental Statusno ? Relevant Medical History / Diagnosisnone ? Fall Historynone ? Altered Eliminationyes ? Medications that Might Alter: equilibrium, cognitive judgement or severity of injurynone ? Sensory Deficitno ? UNABLE or UNWILLING to Follow Directionsno ? Patient Identified as a Falls Riskno ? Provide Rationale not identified as Falls Riskno risk factors identified Family Violence Screen: ? Are you or have you been threatened or abused physically, emotionally, or sexually by anyone?no ? Has anyone ever threatened to hurt your family or your pets?no ? Does anyone try to keep you from having/contacting other friends or doing things outside your home?no ? Do you feel UNSAFE going back to the place where you are living?no ? Clinical assessment: Are there any apparent signs of injuries/behaviors that could be related to abuse/neglectno ? Social Service Consult for abuse/neglect needed this visit?no Functional screen: ? Functional Screen: In the recent/past 2-4 weeks, patient or family have noticedno issues that require a rehabilitation consult at this time Learning Assessment (Patient): ? Patient is Able to be Assessed for Learningyes ? Factors Influencing Readiness to Learnacuteness of illness; pain ? Factors that Impact Ability to Learnnone ? Devices/Methods Used to Communicateglasses ? Learning Preferencesindividual instruction; verbal instruction; written material ? Cultural Considerationsnone ? Developmental Considerationsnone ? Quaker Considerationsnone Learning Assessment (Other Learner): ? Other learner availableno Nutrition Risk Screen: ? Nutrition Risk Screenno indicators present ? Nutrition Consult needed this visit?no ? Can Patient Participate in Room Service?yes Pain Screen: ? Pain Control Method: Labornone ? Pain Control Method: Postpartumnone ? Pain Scalenumerical 0-10 ? Pain Scale Educationteaching provided ? Acceptable Pain Level5 = Moderate ? Presence of Painyes ? Expression of Pain (nonverbal)none ? Chronic Painno Skin - Keshawn Scale: Keshawn Scale (daily): ? Keshawn: Sensory Perception (response to environment)(4) no impairment ? Keshawn: Moisture (degree skin exposed to moisture)(4) rarely moist ? Keshawn: Activity (ability to walk)(4) walks frequently ? Keshawn: Mobility (amount/control of body movement)(4) no limitation ? Keshawn: Nutrition (quality of food intake)(4) excellent ? Keshawn: Friction and Shear(3) no apparent problem ? Keshawn: Score23 Pressure Injury Present on Admissionno Spiritual Screen: ? Are there any cultural, spiritual, confucianist practices/values/needs that are important for us to know?no ? Do you want a visit/item from Pastoral Care?no ? Would you like your Country Manager/Director Of Occupational Therapy notified?no Suicide/Depression Screen: ? During the past month, have you often been bothered by feeling down, depressed or hopeless?no ? During the past month, have you often had little interest or pleasure in doing things?no ? Have you had any thoughts of harming yourself?no ? Have you had any thoughts of harming anyone else?no Vaccinations: Vaccination - Influenza Vaccination Screen: ? Is it flu season? (between and )No Vaccination - Pneumonia Vaccination Screen: ? Patient has received a previous pneumonia vaccine:yes Vaccination - TDap Vaccination Screen: ? Have you received a TDap vaccine this ?no or unknown... ? TDap vaccine should NOT be administered for the following reasons (expanded guideline statements below):patient does not meet recommended guidelines ? TDap vaccine indicated?no (indicate reason above) Significant Indicatiors: Significant Indicators: Complete ? Note Name:Admission Risk Screen - OB Electronic Signatures: Jose Lopez) (Signed 18-Mar-2018 12:33) Authored: Admission Risk Screens, Vaccinations, Mother's Chart (Do Not Modify) Last Updated: 18-Mar-2018 12:33 by Berschig, Jose (RN) BACTERIAL VAGINOSIS Collected: 03/07/2018 Status: F Source: UNIVERSITY PANEL 2:35 PM HOSPITALS REPOSITORY TYPE CODE TESTS RESULT OUT OF REFERENCE UNITS RANGE LAB TVAGI(LOIN Not Detected C) TRICHOMONAS VAGINALIS Not Detected Result Comment: NOT DETECTED BY DNA PROBE LAB GVAGI(LOINC) Not Detected GARDNERELLA VAGINALIS Not Detected Result Comment: NOT DETECTED BY DNA PROBE LAB KRIS(LOINC) Not Detected Not DAMIAN Detected SPECIES Result Comment: NOT DETECTED BY DNA PROBE Performed By: #### VAG #### [facility] [id number] [place] [address] DEVELOPMENT AND HOUSING DIRECTOR - OFFICE Observed: 02/10/2018 Status: UNK Source: UNIVERSITY VISIT 4:16 PM HOSPITALS REPOSITORY Chief Complaint care History of Present Illness 27 yo at 16 2/7 weeks here for PNC due to h/o bladder exstrophy Feeling well, no complaints today, no fever or chill 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) Depression (311) (F32.9) Fatigue (780.79) (R53.83) Hyperlipidemia (272.4) (E78.5) Added by Problem List Migration; 2012-12-22; Moved to [facility] Jun 10 2013 9:01PM Hyperthyroidism (242.90) (E05.90) Infectious mononucleosis (075) (B27.90) Mole of skin (216.9) (D22.9) Muscle spasm (728.85) (M62.838) Nausea and vomiting in (643.90) (O21.9) Nephrolithiasis (592.0) (N20.0) Neurogenic bladder (596.54) (N31.9) (V22.2) (Z34.90) Pre-operative clearance (V72.84) (Z01.818) Sinusitis (473.9) (J32.9) Supervision of high-risk (V23.9) (O09.90) Thyroid enlargement (240.9) (E04.9) Vaginal bleeding in patient at less than 20 weeks gestation (640.90) (O20.9) Visit for genetic screening (V82.79) (Z13.79) Past Medical History History of Abnormal brain scan (794.09) (R94.02) History of acute sinusitis (V12.69) (Z87.09) History of ear pain (V12.49) (Z86.69) History of epigastric pain (V12.79) (Z87.19) History of fever (V13.89) (Z87.898) History of hemoptysis (V12.69) (Z87.09) History of sore throat (V12.60) (Z87.09) History of Vaginal Pap smear (V76.47) (Z12.72) Surgical History History of Bladder Cystotomy History of General Surgery Pt. chart only states scar tissue removal History of Hernia Repair History of Percutaneous Creation Of Nephrostomy Tract History of Repair Of Bladder Reconstruction Family History No pertinent family history No pertinent family history Social History Always uses seat belt Being A Social Drinker Denied: History of Drug Use Denied: History of domestic violence Never smoker No alcohol use No illicit drug use Allergies Penicillins Recorded By: Katey Jacques; 12/27/2012 10:18:32 AM Sulfa Drugs Recorded By: Katey Jacques; 12/27/2012 10:18:32 AM Current Meds FLUoxetine HCl - 20 MG Oral Capsule; TAKE 1 CAPSULE Daily; Therapy: 26Fwd4110 to (Last Rx:[id number]) Requested for: 10Dzn4965 Ordered Rx By: Jose Arora; Dispense: 0 Days ; #:90 Capsule; Refill: 1;For: Anxiety; SCOTT = N; Verified Transmission to [facility]; Last Updated By: Be Amor; 01/26/2018 4:11:38 PM Nitrofurantoin Macrocrystal 100 MG Oral Capsule; TAKE 1 CAPSULE AT BEDTIME; Therapy: 48Bpn0426 to (Evaluate:67Jvg7995) Requested for: 42Wwa2490; Last Rx:[id number] Ordered Rx By: Marek Fernandes; Dispense: 30 Days ; #:30 Capsule; Refill: 5;For: Bladder exstrophy; SCOTT = N; Verified Transmission to [facility] [address] Ondansetron HCl - 8 MG Oral Tablet; TAKE 1 TABLET Every 8 hours; Therapy: 20Kxe5421 to (Evaluate:80Psg7829) Requested for: 25Akr7873; Last Rx:[id number] Ordered Rx By: Patrizia Burns; Dispense: 10 Days ; #:30 Tablet; Refill: 1;For: Nausea and vomiting in ; SCOTT = N; Verified Transmission to [id number]; Last Updated By: Be Amor; 12/06/2017 4:15:25 PM 19 29-1 MG Oral Tablet; Therapy: 87Pjj1266 to Recorded Dispense: 0 Days ; #: Sufficient Tablet; Refill: 0; SCOTT = N; Record; Last Updated By: Lakshmi Galindo; 12/06/2017 2:36:57 PM PROzac 20 MG Oral Capsule; Therapy: 00Lga8295 to Recorded Dispense: 0 Days ; #: Sufficient Capsule; Refill: 0; SCOTT = N; Record; Last Updated By: Lakshmi Galindo; 12/06/2017 2:36:57 PM Results/Data Cult, [id number] 03:49PMLeslye Yun Test NameResultFlagReference Culture, UrineMICRSLT PATIENT: SHAD GRIFFITHS LOCATION: [facility] BILL#: [id number] : 89 AGE: SEX: F ORDER ED BY: LESLYE YUN SOURCE: URINE COLLECTED: 02/07/18 15:49 ANTIBIOTICS AT ANMOL.: RECEIVED : 02/07/18 23:00 SITE: Clean Catch/Voided R E S U L T S URINE CULTURE,BACTERIAL FINAL 02/09/18 07:52 NO SIGNIFICANT GROWTH. 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) Supervision of high-risk (V23.9) (O09.90) Orders Start: Nitrofurantoin Monohyd Macro 100 MG Oral Capsule; TAKE 1 CAPSULE TWICE DAILY UNTIL GONE Rx By: Leslye Yun; Dispense: 7 Days ; #:14 Capsule; Refill: 0;For: Bladder exstrophy, Neurogenic bladder, ; SCOTT = N; Verified Transmission to [id number] Cult, Urine; Source:Urine; Status:Complete; Done: 47Kfn3703 03:49PM Performed:[facility]; Due:08May2018;Ordered; For:Bladder exstrophy, ; Ordered By:Leslye Yun; Site : CLEAN CATCH VOIDED (URINE) Patient Discussion/Summary 27 yo at 16 2/7 weeks here for PNC due to h/o bladder exstrophy O: See flowsheet, normal vs Urine dip + nitrite abd non tender, no erythema around stoma ext no edema 1. H/o bladder exstrophy s/p neobladder - fu with Dr. Fernandes - On macrobid daily supression dose - UA + nitrite today, otherwise asx - Prior UA rev'd no nitrite this , will treat empirically with Macrobid 100mg BID x7 days (she is also PCN and sulfa allergic) - Send urine cx > to return for BETI during her anatomy US - Will eval pelvic adequacy at around 34-36 weeks and discuss rec mode of delivery - Fever/pyelo precs reviewed 2. - Schedule anatomy US in 2 weeks - RTC in 4 weeks Seen and dw SHEREE Hackett attending Melvin Smith MD MFM Fellow. Attending Note Attestation: I saw and evaluated the patient. I personally obtained the katz and critical portions of the history and physical exam or was physically present for katz and critical portions performed by [facility] attendee. I reviewed the attendee's documentation and discussed the patient with the attendee. I agree with the attendee's medical decision making as documented on the attendee's note. Signatures Electronically signed by : Melvin Smith MD; Feb 07 2018 4:50PM EST (Co-author) Electronically signed by : Leslye Yun MD; Feb 10 2018 4:16PM EST (Author) URINE Observed: 02/07/2018 Status: F Source: SCOTT CULTURE,BACTERIAL 3:49 PM HOSPITALS REPOSITORY PATIENT: SHAD GRIFFITHS LOCATION: [facility] BILL#: [id number] : 89 AGE: SEX: F ORDERED BY: LESLYE YUN SOURCE: URINE COLLECTED: 02/07/18 15:49 ANTIBIOTICS AT ANMOL.: RECEIVED : 02/07/18 23:00 SITE: Clean Catch/Voided R E S U L T S URINE CULTURE,BACTERIAL FINAL 02/09/18 07:52 NO SIGNIFICANT GROWTH. Performed By: #### URINC #### [facility] [address] 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 Renal calculi in the past. Rare UTI. Now 15 weeks - no current issues - plan is for induced vaginal delivery but urologic consultation is requested if is necessary Referral to another urologist for management has been made as I am leaving the area and will not be here for the . . Review of Systems Constitutional: no fever, no chills and not feeling poorly. Eyes: no eyesight problems. ENT: no hearing loss, no nosebleeds and no sore throat. Cardiovascular: no chest pain, no palpitations and no lower extremity edema. Respiratory: no shortness of breath, no wheezing, no cough and no shortness of breath during exertion. Gastrointestinal: abdominal pain and nausea, but no constipation, no heartburn, no diarrhea, no vomiting and no blood in stools. Genitourinary: no dysuria, no incontinence, no pelvic pain, no vaginal discharge and normal micturition. Musculoskeletal: no arthralgias and no gait abnormality. Integumentary: no skin lesions, no change in a mole and no skin wound. Neurological: no confusion, no dizziness, no fainting and no difficulty walking. Psychiatric: anxiety and depression, but not suicidal. 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) Depression (311) (F32.9) Fatigue (780.79) (R53.83) Hyperlipidemia (272.4) (E78.5) Added by Problem List Migration; 2012-12-22; Moved to [facility] Jun 10 2013 9:01PM Hyperthyroidism (242.90) (E05.90) Infectious mononucleosis (075) (B27.90) Mole of skin (216.9) (D22.9) Muscle spasm (728.85) (M62.838) Nausea and vomiting in (643.90) (O21.9) Nephrolithiasis (592.0) (N20.0) Neurogenic bladder (596.54) (N31.9) (V22.2) (Z34.90) Pre-operative clearance (V72.84) (Z01.818) Sinusitis (473.9) (J32.9) Supervision of high-risk (V23.9) (O09.90) Thyroid enlargement (240.9) (E04.9) Vaginal bleeding in patient at less than 20 weeks gestation (640.90) (O20.9) Visit for genetic screening (V82.79) (Z13.79) Past Medical History History of Abnormal brain scan (794.09) (R94.02) History of acute sinusitis (V12.69) (Z87.09) History of ear pain (V12.49) (Z86.69) History of epigastric pain (V12.79) (Z87.19) History of fever (V13.89) (Z87.898) History of hemoptysis (V12.69) (Z87.09) History of sore throat (V12.60) (Z87.09) History of Vaginal Pap smear (V76.47) (Z12.72) Surgical History History of Bladder Cystotomy History of General Surgery Pt. chart only states scar tissue removal History of Hernia Repair History of Percutaneous Creation Of Nephrostomy Tract History of Repair Of Bladder Reconstruction Family History No pertinent family history No pertinent family history Social History Always uses seat belt Being A Social Drinker Denied: History of Drug Use Denied: History of domestic violence Never smoker No alcohol use No illicit drug use Allergies Penicillins Recorded By: Katey Jacques; 12/27/2012 10:18:32 AM Sulfa Drugs Recorded By: Katey Jacques; 12/27/2012 10:18:32 AM Current Meds Nitrofurantoin Macrocrystal 100 MG Oral Capsule; TAKE 1 CAPSULE AT BEDTIME; Therapy: 96Rcc7590 to (Evaluate:14Jan2018) Requested for: 80Xgx7312; Last Rx:[id number] Ordered Rx By: Patrizia Burns; Dispense: 30 Days ; #:30 Capsule; Refill: 0;For: Bladder exstrophy; SCOTT = N; Verified Transmission to [id number]; Last Updated By: ZuleymaAREVS; 01/26/2018 9:01:59 AM Ondansetron HCl - 8 MG Oral Tablet; TAKE 1 TABLET Every 8 hours; Therapy: 67Pzj4295 to (Evaluate:26Dec2017) Requested for: 99Xgu4819; Last Rx:[id number] Ordered Rx By: Patrizia Burns; Dispense: 10 Days ; #:30 Tablet; Refill: 1;For: Nausea and vomiting in ; SCOTT = N; Verified Transmission to [facility]; Last Updated By: LoggedIn; 12/06/2017 4:15:25 PM 19 29-1 MG Oral Tablet; Therapy: 95Dgb7715 to Recorded Dispense: 0 Days ; #: Sufficient Tablet; Refill: 0; SCOTT = N; Record; Last Updated By: Lakshmi Galindo; 12/06/2017 2:36:57 PM PROzac 20 MG Oral Capsule; Therapy: 97Kgh5783 to Recorded Dispense: 0 Days ; #: Sufficient Capsule; Refill: 0; SCOTT = N; Record; Last Updated By: Lakshmi Galindo; 12/06/2017 2:36:57 PM Vitals Vital Signs Recorded: 31Zlh9872 02:41PM Heart Rate94 Mhwcijeb469 Ysjnjeecq76 Height5 ft 2 in Hbiqml208 lb 6 oz BMI Qmzrgetsfi12.97 BSA Calculated1.73 Diagnoses/Problems 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) Provider Impressions Bladder extrophy History of calculi History of UTI -refer to urology for assistance during delivery if necessary -continue abx prophylaxis End of Encounter Meds Nitrofurantoin Macrocrystal 100 MG Oral Capsule; TAKE 1 CAPSULE AT BEDTIME; Therapy: 16Vez5797 to (Evaluate:24Jul2018) Requested for: 95Zbu6530; Last Rx:11Psa1179 Ordered Ondansetron HCl - 8 MG Oral Tablet; TAKE 1 TABLET Every 8 hours; Therapy: 56Hzi1010 to (Evaluate:26Dec2017) Requested for: 50Laj0804; Last Rx:57Agg3436 Ordered 19 29-1 MG Oral Tablet; Therapy: 09Qam4365 to Recorded PROzac 20 MG Oral Capsule (FLUoxetine HCl); Therapy: 43Vcc1876 to Recorded Signatures Electronically signed by : Marek Fernandes MD; Jan 26 2018 9:45AM EST (Author) Reviewed by : Jose Arora DO; Jan 26 2018 11:54AM EST GENETICS - Observed: 01/23/2018 Status: UNK Source: [facility] 8:10 AM HOSPITALS REPOSITORY Chief Complaint 27 year old female here today for genetics consultation per Dr. YUN Accompanied by . Reference Documentation See scanned note pedigree. 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) Depression (311) (F32.9) Fatigue (780.79) (R53.83) Hyperlipidemia (272.4) (E78.5) Added by Problem List Migration; 2012-12-22; Moved to [facility] Jun 10 2013 9:01PM Hyperthyroidism (242.90) (E05.90) Infectious mononucleosis (075) (B27.90) Mole of skin (216.9) (D22.9) Muscle spasm (728.85) (M62.838) Nausea and vomiting in (643.90) (O21.9) Nephrolithiasis (592.0) (N20.0) Neurogenic bladder (596.54) (N31.9) (V22.2) (Z34.90) Pre-operative clearance (V72.84) (Z01.818) Sinusitis (473.9) (J32.9) Supervision of high-risk (V23.9) (O09.90) Thyroid enlargement (240.9) (E04.9) Vaginal bleeding in patient at less than 20 weeks gestation (640.90) (O20.9) Past Medical History History of Abnormal brain scan (794.09) (R94.02) History of acute sinusitis (V12.69) (Z87.09) History of ear pain (V12.49) (Z86.69) History of epigastric pain (V12.79) (Z87.19) History of fever (V13.89) (Z87.898) History of hemoptysis (V12.69) (Z87.09) History of sore throat (V12.60) (Z87.09) History of Vaginal Pap smear (V76.47) (Z12.72) Surgical History History of Bladder Cystotomy History of General Surgery Pt. chart only states scar tissue removal History of Hernia Repair History of Percutaneous Creation Of Nephrostomy Tract History of Repair Of Bladder Reconstruction Family History No pertinent family history No pertinent family history Social History Always uses seat belt Being A Social Drinker Denied: History of Drug Use Denied: History of domestic violence Never smoker No alcohol use No illicit drug use Allergies Penicillins Recorded By: Katey Jacques; 12/27/2012 10:18:32 AM Sulfa Drugs Recorded By: Katey Jacques; 12/27/2012 10:18:32 AM Current Meds Nitrofurantoin Macrocrystal 100 MG Oral Capsule; TAKE 1 CAPSULE AT BEDTIME; Therapy: 62Ike8209 to (Evaluate:37Dqe5902) Requested for: 40Sio7584; Last Rx:02Pnr2282 Ordered Rx By: Patrizia Burns; Dispense: 30 Days ; #:30 Capsule; Refill: 0;For: Bladder exstrophy; SCOTT = N; Verified Transmission to [facility]; Last Updated By: Rg AmorBandtastic; 12/15/2017 9:52:28 AM [facility] Sleep-A[facility] Nighttime 25 MG Oral Tablet; Take 1/2 tab up to three times daily as needed for nausea; Therapy: 31Bfx1477 to (Last Rx:26Ykx1400) Requested for: 00Loi3719 Ordered Rx By: Patrizia Burns; Dispense: 0 Days ; #:30 Tablet; Refill: 0;For: Nausea and vomiting in ; SCOTT = N; Verified Transmission to [facility]; Last Updated By: Rg AmorBandtastic; 12/06/2017 4:15:25 PM Ondansetron HCl - 8 MG Oral Tablet; TAKE 1 TABLET Every 8 hours; Therapy: 22Fnd7620 to (Evaluate:26Dec2017) Requested for: 58Daz9258; Last Rx:20Qun6210 Ordered Rx By: Patrizia Burns; Dispense: 10 Days ; #:30 Tablet; Refill: 1;For: Nausea and vomiting in ; SCOTT = N; Verified Transmission to [facility]; Last Updated By: Rg AmorBandtastic; 12/06/2017 4:15:25 PM 19 29-1 MG Oral Tablet; Therapy: 33Jjq7835 to Recorded Dispense: 0 Days ; #: Sufficient Tablet; Refill: 0; SCOTT = N; Record; Last Updated By: Lakshmi Galindo; 12/06/2017 2:36:57 PM PROzac 20 MG Oral Capsule; Therapy: 52Hbk5834 to Recorded Dispense: 0 Days ; #: Sufficient Capsule; Refill: 0; SCOTT = N; Record; Last Updated By: Lakshmi Galindo; 12/06/2017 2:36:57 PM Vitals Vital Signs Recorded: 14Jan2018 01:05PM Heart Rate92 Prcurjxx250 Hgrylyhgw00 Height5 ft 2 in Jfacbb092 lb BMI Abycijoxwr13.9 BSA Calculated1.73 LMP Pain Scale0 Diagnoses/Problems (V22.2) (Z34.90) 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 Singleton is a 27 year year old, , female who was 13 weeks at the time of our appointment with an EDC of 07/23/18. She was seen for genetic counseling with her , Shavon, to discuss her genetic screening and testing options. 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 She has a personal history of depression and anxiety for which she takes Prozac. She is being seen by maternal medic ine for her ongoing care with this . A nuchal translucency was measured previous and was within normal limits. FAMILY HISTORY: Medical and family histories were reviewed and the following additional concerns regarding this were apparent. Ms. Singleton' paternal grandfather was born with epispadius. Her father has depression and has had an aortic aneurysm. Ms. Singleton has a maternal aunt who had breast cancer in her 50s and a maternal half-aunt who had breast cancer in her 60s. Reportedly, both wome n had negative BRCA genetic testing. The remainder of the family history was negative for defects, intellectual disabilities, recurrent loss, or recognized inherited conditions. Consanguinity was denied. ETHNICITY: Ms. Singleton is of [place], [place] and [place] ancestry and her is of Kisw[place]ili and [place] ancestry. Per ACOG recommendations from September 2016, we discussed the option of carrier screening for cystic fi brosis (CF) and spinal muscular atrophy (SMA). We reviewed the varied clinical manifestations of both conditions and the availability of carrier screening for both. Based on the couple's ethnicity, the risk for CF is 1 in 2500 and the risk for SMA is 1 in 5000. If both members of the couple are found to be carriers for the same condition, there is a 25% chance for an affected child and diagno sis would be available. [place] screening is only available for CF and is not yet available for SMA. Carrier screening for CF and SMA was declined. COUNSELING: The following information was discussed with your patient: 1.Bladder exstrophy and epispadius are part of the same complex (BEEC). There have been families in which there can be an autosomal dominant inheritance pattern noted, with reduced penetrance. Thus, thi s family, with 2 affected family members, it is possible that there is a greater genetic tendency compared to families with an isolated case. However, recurrence risks are estimated to be 1 in 70 althou gh there is a theoretical risk that this chance could be higher if an autosomal dominant condition is in the family. There are no genetic studies available for [facility] at this time. Diagnosis is made by ultrasound. 2.Ms. Singleton was interested in noninvasive screening to determine the gender as she was told that knowing the gender would assist in delineating the treatment plan for an affected pregnan cy. While this is true, her medical insurance plan would not cover the cost of NIPS for this reason as we do not know the is affected. 3.The availability, benefits and limitations of non-invasive screening. We discussed the methodology for this testing, which includes using cell-free DNA obtained from a mother's blood to screen for the presence of common chromosomal abnormalities. Depending on the laboratory used, there is a >99% sensitivity for Down syndrome, at least 97.4% sensitivity for trisomy 18, and at least 87.5% sensitivity for trisomy 13. Specificity for these trisomies is >99%. Although sensitivity and specificity rates are high, in a woman of 27 years old, the positive predictive value is 50%; where as false negative results are rare. This means that 50% of the time a positive result will not be confirmed. In the event of an abnormal result, diagnosis through amniocentesis is recommended t o confirm the findings. Results take approximately 7-10 days. Currently, not all insurance companies are covering noninvasive screening on lower risk women, including Ms. Singleton' and the self-pay strauss is $349. 4.Chromosomes, genes, non-disjunction, and common aneuploidies. Based on the age of 27 at EDC, the risk for having a fetus with Down syndrome is 1 in 1124. The risk for any chromosome abnormality is 1 in 476. 5. We discussed the newest version of first trimester maternal serum screening from our reference laboratory that now includes measuring inhibin and placental growth factor analytes along with nuchal tr anslucency. The sensitivity for Down syndrome is increased to 95% and the false positive rate is reduced to 2.3%. Sensitivity for trisomy 18 and 13 is 95% with a false positive rate of 0.5%. 6.The availability, benefits and limitations of ultrasound study. An ultrasound study is recommended at 12-14 weeks gestation for assessment of nuchal translucency and again at 19-20 weeks gestation to survey organs. An ultrasound study in the second trimester can identify 50% of Down syndrome cases and 90% of trisomy 18 or trisomy 13 cases. DISPOSITION: The couple stated that they understood the above information and declined further screening at this time. Peg Aguirre M.S., Ph.D., Licensed Genetic Counselor, spent 30 minutes with the patient with greater than 50% of the time spent in face to face counseling. Thank you for allowing us to participate in the care of your patient. Should you or your patient have any questions, please do not hesitate to contact our office at [phone]. Sincerely, Peg Aguirre M.S., Ph.D. Licensed Genetic Counselor reviewed by Branden Hatch M.D. Attending Note Attendee Role: genetics Attestation: I discussed the patient with the attendee, and reviewed the attendee's documentation. I agree with the attendee's medical decision making and plans as documented in the attendee's note. End of Encounter Meds [facility] Sleep-Aid Nighttime 25 MG Oral Tablet; Take 1/2 tab up to three times daily as needed for nausea; Therapy: 40Mbg9969 to (Last Rx:48Yyj9804) Requested for: 70Qto5508 Ordered Nitrofurantoin Macrocrystal 100 MG Oral Capsule; TAKE 1 CAPSULE AT BEDTIME; Therapy: 61Ixc4106 to (Evaluate:14Jan2018) Requested for: 67Deh6794; Last Rx:45Eta9328 Ordered Ondansetron HCl - 8 MG Oral Tablet; TAKE 1 TABLET Every 8 hours; Therapy: 39Rln1879 to (Evaluate:26Dec2017) Requested for: 99Zpj8839; Last Rx:39Prc9110 Ordered 19 29-1 MG Oral Tablet; Therapy: 48Nxk0211 to Recorded PROzac 20 MG Oral Capsule (FLUoxetine HCl); Therapy: 47Qxj6671 to Recorded Signatures Electronically signed by : Peg Aguirre, PhD; Jan 21 2018 1:05PM EST (Author) Reviewed by : Branden Hatch MD; Jan 23 2018 8:15AM EST TSH Collected: 01/18/2018 Status: F Source: SCOTT 11:36 AM HOSPITALS REPOSITORY TYPE CODE TESTS RESULT OUT OF RANGE REFERENCE UNITS LAB TSH2(LOINC) 0.44 - 3.98 mIU/L TSH 0.63 Result Comment: TSH testing is performed using different testing methodology at [facility] than at other [facility]. Direct result comparisons should only be made within the same method. . Patients receiving more than 5 mg/day of biotin may have interference in test results. A sample should be taken no sooner than eight hours after previous dose. Contact [phone] for additional information. Performed By: #### TSH2 #### [facility] [address] [place] [address] FIRST TRIMESTER SCREEN Collected: 01/18/2018 Status: F Source: [facility] PLUS 11:36 AM HOSPITALS REPOSITORY TYPE CODE TESTS RESULT OUT OF REFERENCE UNITS RANGE LAB GN111(LOIN C) FIRST TRIMESTER SEE BELOW SCREEN PLUS Result Comment: RESULTS WILL BE SENT ON SEPARATE REPORT. Performed By: #### FTSPL #### [facility] [address] [address] [place], [place] [id number] PROVIDER NOTE - ED Observed: 12/10/2017 Status: COMPLETED Source: [facility] 2:28 AM HOSPITALS REPOSITORY Time Seen: ? Time Seen 09-Dec-2017 21:27 Triage Vital Signs: ? Triage Information Most recent Vital Sign Value Date Temp (F): 98.8 12-09-2017 22:07 Temp (C): 37.1 12-09-2017 22:07 Heart Rate (beats/min): 101 12-09-2017 22:07 Respirations (breaths/min): 20 12-09-2017 22:07 SpO2 (%): 97 12-09-2017 22:07 BP Systolic (mm Hg): 142 12-09-2017 22:07 BP Diastolic (mm Hg): 87 12-09-2017 22:07 History of Present Illness: /Lactating: ? Are You yes (1) ? Are You Currently no (1) This 27 year old Female presents with complaint(s) of vaginal bleeding(1)vaginal bleeding 8 weeks (1) Past Medical History: Medical History: ? Acute pyelonephritis NOS (disorder): ? Kidney stone (disorder): Allergy, Intolerance, Adverse Event: Allergies: ? sulfa drugs: Drug Category, Other, Active ? penicillin: Drug, Unknown, Active Outpatient Medication, Review/Add Medications: * Patient Currently Takes Medications as of 14-Jul-2017 14:38 documented in Structured Notes Smoking Status: never smoker Alcohol Use: occasionally Drug Use: denies HISTORY ATTESTATION: ? Attestation I have reviewed and confirmed nurse's/medic's notes for patient's medications, allergies, medical history, and surgical history PROGRESS NOTE: ? ED Course: HPI: This is a 27-year-old female coming in today complaining of vaginal bleeding. Patient says it's dark red blood later than a period that started a few hours ago. She had no trauma. No recent intercourse. She states that she is almost 8 weeks . She had ultrasound done this past Wednesday that was normal. She has not had vaginal bleeding during this . She is a Ab0 female that is getting care at high risk because of her bladder surgery at childhood she's had no abdominal cramping and no leaking fluid and no vaginal discharge she has not had any anticoagulant PMH: Reviewed Fam Hx: Reviewed and unremarkable except for that mentioned SOC HX: Denies IV drugs ROS: Ten systems reviewed and unremarkable except for the pertinent positives discussed above Physical exam: General: Vitals noted, no distress. Afebrile. EENT: No scleral icterus Posterior oropharynx unremarkable and mm moist. Neck: No adenopathy Cardiac: Regular, rate, rhythm, no murmur. Pulmonary: Lungs clear bilaterally with good aeration. No adventitious breath sounds. Chest: Equal chest rise Abdomen: Soft, nonsurgical. Nontender. No peritoneal signs. Normoactive bowel sounds. No pulsatile mass. : No flank tenderness; scant amount of dark red blood in the vaginal vault. Os closed Extremities: No clubbing, cyanosis edema or palpable cords. Skin: Warm, dry. No rash. Neuro: Alert and oriented, speech clear. No focal neurologic deficits, NIH score of 0. Medical Decision Making: CBC is unremarkable. Blood type previously drawn was O-. Ultrasound showed 7 week 5 day intrauterine Patient was discussed with the DEVELOPMENT AND HOUSING DIRECTOR water resource consultant. She felt the patient could be discharged home and get rhogam in the office tomorrow since we do not have rhogram available here in the emergency department Impression: Vaginal bleeding in first trimester Portions of this note are produced with speech recognition. Errors in translation may be present. Please call for any questions. Diagnoses/Visit Problems: ? Vaginal bleeding in : MEDICATION RECONCILIATION/DISCHARGE MEDS: * Outpatient Medication Status not yet specified Attestation: CRITICAL CARE: ? Is This a Critically Ill Patient no Electronic Signatures: Jossy Corbin) (Signed 10-Dec-2017 02:34) Authored: Time Seen / ED Notes, Triage Vital Signs, History of Present Illness, Patient History, History Attestation, Progress Note, ED Disposition (REQUIRED), Attestation Last Updated: 10-Dec-2017 02:34 by Jossy Corbin) References: 1. Data Referenced From Triage - ED 12/09/2017 10:07 PM RISK SCREEN - ADULT Observed: 12/10/2017 Status: UNK Source: [facility] 12:28 AM [facility]OSPITALS REPOSITORY Preferred Language: Preferred Language: ? Preferred Language for Discussing Health Care (patient/designee) Kiswahili Advanced Directives: ? Advance Directive Medical no Family Violence Adult: Abuse Screen: ? Are you or have you been threatened or abused physically, emotionally, or sexually by anyone? no Suicide / Depression: Suicide/Depression Screen: ? During the past month, have you often been bothered by feeling down, depressed or hopeless? no ? During the past month, have you often had little interest or pleasure in doing things? no ? Have you had any thoughts of harming yourself? no (1) ? Have you had any thoughts of harming anyone else? no (1) Learning Assessment (Patient): Learning Assessment (Patient): ? Patient is Able to be Assessed for Learning yes ? Factors Influencing Readiness to Learn acuteness of illness; anxiety ? Factors that Impact Ability to Learn none ? Devices/Methods Used to Communicate none ? Learning Preferences written material ? Cultural Considerations none ? Developmental Considerations none ? Quaker Considerations none ? Other Learners mother Learning Assessment (Other Learner): Learning Assessment (Other Learner): ? Other learner available yes... ? Learner mother ? Factors Influencing Readiness to Learn acuteness of illness ? Factors that Impact Ability to Learn none ? Devices/Methods Used to Communicate none ? Learning Preferences written material ? Cultural Considerations none ? Developmental Considerations none ? Quaker Considerations none Fall Risk Adult: Falls Risk: ? Altered Mobility none ? Change in Mental Status no ? Relevant Medical History / Diagnosis none ? Fall History none ? Altered Elimination no ? Medications that Might Alter: equilibrium, cognitive judgement or severity of injury none ? Sensory Deficit no ? UNABLE or UNWILLING to Follow Directions no ? Patient Identified as a Falls Risk no ? Provide Rationale not identified as Falls Risk no risk factors identified Pressure Injury: Pressure Injury Present on Admission no Respiratory / Cough /TB: ED / TB / Cough / Respiratory Screen: ? Do you have a cough? no Smoking/Social History (Required age 13 or older): Smoking Status: never smoker Alcohol Use: occasionally Drug Use: denies Admission Risk Screen: ? Significant Indicators Complete CAGE: CAGE: Is this an injured patient at a Trauma Center ([facility] / [facility]): no Electronic Signatures: Sylvia Howard (RN) (Signed 10-Dec-2017 00:30) Authored: Preferred Language, Advanced Directives, Family Violence Adult, Suicide / Depression, Learning Assessment (Patient), Learning Assessment (Other Learner), Fall Risk Adult, Pressure Injury, Respiratory / Cough /TB, Smoking/Social History (Required age 13 or older), CAGE Last Updated: 10-Dec-2017 00:30 by Sylvia Howard (RN) References: 1. Data Referenced From Triage - ED 12/09/2017 10:07 PM US PELVIS OB Observed: 12/09/2017 Status: F Source: [facility] TRANSABDOMINAL WITH 10:32 PM [facility] REPOSITORY TRANSVAGINAL Patient Name: SHAD GRIFFITHS STUDY: US PELVIS OB TRANSABDOMINAL WITH TRANSVAGINAL; 12/09/2017 10:32 pm INDICATION: Signs/Symptoms: bleeding in1st tri. COMPARISON: None. ACCESSION NUMBER(S): [id number] ORDERING CLINICIAN: JOSSY CORBIN TECHNIQUE: Grayscale and color Doppler transabdominal and transvaginal images of the pelvis. Spectral Doppler of the ovaries. FINDINGS: LMP = 10/15/2017, corresponding to 7 weeks, 6 days; beta-hCG = none available. There is an intrauterine gestational sac with a pole and normal-appearing yolk sac. [place]-rump length of 11.1 mm corresponds to a gestational age of 7 weeks, 2 days. cardiac activity is detected at 147 beats per minute. Mean gestational sac diameter is 22.2 mm corresponding to 7 weeks, 1 day. There is a normal amount of chorionic fluid. UTERUS: The uterus has a homogeneous echotexture, is anteverted, and measures 8.8 x 5.3 x 7.8 cm. CERVIX: Closed. OVARIES: The right ovary measures 2.3 x 1.2 x 1.7 cm and appears normal. The left ovary measures 3.1 x 1.9 x 2.8 cm and appears normal. Both ovaries demonstrate normal arterial and venous color and spectral Doppler flow. No adnexal mass is seen. CUL-DE-SAC: No free fluid. IMPRESSION: Single live intrauterine with gestational age of 7 weeks, 6 days based on LMP, which is concordant with biometric measurements. Routine anatomic survey ultrasound is recommended between 18 and 20 weeks gestational age. Transvaginal images confirm the above. Electronically signed by: OSVALDO BATEMAN MD TRIAGE - ED Observed: 12/09/2017 Status: UNK Source: [facility] 10:07 PM HOSPITALS REPOSITORY Quick Triage: The patient and/or guardian verbally acknowledges placement for services into the following (when Urgent Care Service hours are operating): emergency department Are You yes Are You Currently no Chart Review: CHIEF COMPLAINT SHAD GRIFFITHS is a Female patient with a chief complaint of vaginal bleeding. Other Complaints: vaginal bleeding 8 weeks Triage Date/Time: 09-Dec-2017 22:07 Vital Signs: Temperature: 98.8F ( 37.1C) Blood Pressure: 142/87 Mean: Heart Rate: 101 Respiratory Rate: 20 Pulse Oximetry: 97% Height: 5 feet 2.00 inches. 157.4 CM Weight: 154.0 pounds. Calculated 69.8 kg. 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 Symptoms Are Negative For: back pain, edema, fever, vaginal itching, nausea and vaginal discharge. PAIN Pain Scale Used: TAZ Past Medical History: ? Past Medical History Reviewed yes Electronic Signatures: Sylvia Howard (RN) (Signed 09-Dec-2017 22:46) Authored: Triage, Past Medical History Last Updated: 09-Dec-2017 22:46 by Sylvia Howard (RN) CBC AND DIFFERENTIAL Collected: 12/09/2017 Status: F Source: [facility] 9:35 PM HOSPITALS REPOSITORY TYPE CODE TESTS RESULT OUT OF REFERENCE UNITS RANGE LAB WBCR(LOINC 4.4 - 11.3 x10E9/L ) WBC High 12.6 LAB RBCCT(LOIN 4.00 - 5.20 x10E12/L C) RBC 4.45 LAB HGB(LOINC) 12.0 - 16.0 g/dL HGB 12.8 LAB HCT(LOINC) 36.0 - 46.0 % HCT 38.1 LAB MCV(LOINC) 80 - 100 fL MCV 86 LAB MCHC2(LOIN 32.0 - 36.0 g/dL C) MCHC 33.6 LAB PLTCT(LOIN 150 - 450 x10E9/L C) PLT 342 LAB RDWCV(LOIN 11.5 - 14.5 % C) RDW-CV High 14.8 LAB NEUT(LOINC 40.0 - 80.0 % ) % NEUTROPHIL 54.7 LAB LYMPH(LOIN 13.0 - 44.0 % C) % LYMPHOCYTE 36.7 LAB MONO(LOINC 2.0 - 10.0 % ) % MONOCYTE 6.9 LAB EOS(LOINC) 0.0 - 6.0 % % EOSINOPHIL 1.5 LAB BASO(LOINC 0.0 - 2.0 % ) % BASOPHIL 0.2 LAB #NEUT(LOIN 1.20 - 7.70 x10E9/L C) NEUTROPHIL 6.88 Result Comment: Percent differential counts (%) should be interpreted in the context of the absolute cell counts (cells/L). LAB #LYMP(LOINC) 1.20 - x10E9/L 4.80 LYMPHOCYTE 4.60 LAB #MONO(LOINC) 0.10 - x10E9/L 1.00 MONOCYTE 0.86 LAB #EOS(LOINC) 0.00 - x10E9/L 0.70 EOSINOPHIL 0.19 LAB #BASO(LOINC) 0.00 - x10E9/L 0.10 BASOPHIL 0.02 Performed By: #### CBCDF #### [facility] [address] [facility] [address] [place] [address] CBC Collected: 12/07/2017 Status: F Source: [facility] 12:[address] [place] [address] REPOSITORY TYPE CODE TESTS RESULT OUT OF REFERENCE UNITS RANGE LAB WBCR(LOINC 4.4 - 11.3 x10E9/L ) WBC 10.3 LAB NRBC(LOINC 0.0-0.0 /100 WBC ) NUCLEATED RBC 0.0 LAB RBCCT(LOIN 4.00 - 5.20 x10E12/L C) RBC 4.39 LAB HGB(LOINC) 12.0 - 16.0 g/dL HGB 12.6 LAB HCT(LOINC) 36.0 - 46.0 % HCT 37.9 LAB MCV(LOINC) 80 - 100 fL MCV 86 LAB MCHC2(LOIN 32.0 - 36.0 g/dL C) MCHC 33.2 LAB PLTCT(LOIN 150 - 450 x10E9/L C) PLT 315 LAB RDWCV(LOIN 11.5 - 14.5 % C) High RDW-CV 14.7 Performed By: #### CBC #### [facility] [address] [place] [id number] HEPATITIS B SURFACE AG Collected: 12/07/2017 Status: F Source: [facility] 12:[address] [place] [address] REPOSITORY TYPE CODE TESTS RESULT OUT OF REFERENCE UNITS RANGE LAB HAGFN(LOIN NONREACTIVE C) HEP.B SURFACE NONREACTIVE AG Result Comment: Patients receiving more than 5 mg/day of biotin may have interference in test results. A sample should be taken no sooner than eight hours after previous dose. Contact [phone] for additional information. LAB SOURCE(LOINC) Lab Specimen Source Performed By: #### HBSAG #### [facility] [address] [place] [id number] SYPHILIS IGG Collected: 12/07/2017 Status: F Source: [facility] 12:54 [facility] REPOSITORY TYPE CODE TESTS RESULT OUT OF REFERENCE UNITS RANGE LAB SYPHG(LOIN NONREACTIVE C) SYPHILIS IGG NON REACTIVE Result Comment: Patients receiving more than 5 mg/day of biotin may have interference in test results. A sample should be taken no sooner than eight hours after previous dose. Contact [phone] for additional information. LAB SOURCE(LOINC) Lab Specimen Source Performed By: #### SYPH #### [facility] [address] [place] [address] TYPE + SCREEN Collected: 12/07/2017 Status: F Source: [facility] 12:54 [facility] REPOSITORY TYPE CODE TESTS RESULT OUT OF RANGE REFERENCE UNITS LAB ABORH(LOINC ) ABO TYPE O LAB RH(LOINC) RH TYPE NEG Result Comment: Review your Rh Negative female patient's potential need for Rh Immune Globulin (RhIg)administration. LAB ABSC(LOINC) ANTIBODY SCREEN NEG Performed By: #### T+S #### [address] [place] [address] RUBELLA IGG AB Collected: 12/07/2017 Status: F Source: [facility] 12:[address] [place] [address] REPOSITORY TYPE CODE TESTS RESULT OUT OF REFERENCE UNITS RANGE LAB RUBIG(LOINC IU/ML ) RUBELLA IGG AB 35.9 Result Comment: REF VALUES NON-IMMUNE: < 5 EQUIVOCAL: 5-9 IMMUNE: >=10 Performed By: #### RUBIG #### [facility] [id number] [place] [address]. [place] [address] HEMOGLOBIN IDENTIFICATION Collected: 12/07/2017 Status: F Source: [facility] 12:[address] [place] [address] REPOSITORY TYPE CODE TESTS RESULT OUT OF REFERENCE UNITS RANGE LAB HBA(LOINC) % HEMOGLOBIN A 96.5 LAB HBF(LOINC) % HEMOGLOBIN F 0.4 LAB HBA2(LOINC % ) HEMOGLOBIN A2 3.1 Result Comment: HGB A2 values may be falsely elevated in the presence of HGB S. LAB HBINT(LOINC) INTERPRETATION SEE COMMENT Result Comment: Normal Performed By: #### SOPHY #### [facility] [address] [place] [address] PATH REVIEW-HGB Collected: 12/07/2017 Status: F Source: [facility] IDENTIFICATION 12:[address] [place] [address] REPOSITORY TYPE CODE TESTS RESULT OUT OF RANGE REFERENCE UNITS LAB PRV27(LOINC ) ERI BOTELLO REV-HGB IDENT. Result Comment: By her/his signature above, the Pathologist listed as making the final interpretation certifies that she/he has personally reviewed this case. Performed By: #### PR27 #### [facility] [address] [place] [id number] CBC Collected: 12/06/2017 Status: CANCELLED Source: [facility] 4:42 [facility] REPOSITORY Order Comment: TEST CBC WAS CANCELLED, 12/06/2017 16:56 UNABLE TO OBTAIN SPECIMEN. TYPE CODE TESTS RESULT OUT OF REFERENCE UNITS RANGE LAB WBCR(LOINC ) WBC Canceled LAB NRBC(LOINC ) NUCLEATED RBC Canceled LAB RBCCT(LOIN C) RBC Canceled LAB HGB(LOINC) HGB Canceled LAB HCT(LOINC) HCT Canceled LAB MCV(LOINC) MCV Canceled LAB MCHC2(LOIN C) MCHC Canceled LAB PLTCT(LOIN C) PLT Canceled LAB RDWCV(LOIN C) RDW-CV Canceled Performed By: #### CBC #### [facility] [address] [place] [address] HEPATITIS B SURFACE Collected: 12/06/2017 Status: CANCELLED Source: [facility] AG 4:42 [facility] REPOSITORY Order Comment: TEST HEPATITIS B SURFACE AG WAS CANCELLED, 12/06/2017 16:56 UNABLE TO OBTAIN SPECIMEN. TYPE CODE TESTS RESULT OUT OF REFERENCE UNITS RANGE LAB HAGFN(LOIN C) HEP.B SURFACE Canceled AG Result Comment: Patients receiving more than 5 mg/day of biotin may have interference in test results. A sample should be taken no sooner than eight hours after previous dose. Contact [phone] for additional information. LAB SOURCE(LOINC) Lab Specimen Source Performed By: #### HBSAG #### [facility] [address] [place] [address] HEMOGLOBIN IDENTIFICATION Collected: 12/06/2017 Status: CANCELLED Source: [facility] 4:42 [facility] REPOSITORY Order Comment: TEST HEMOGLOBIN IDENTIFICATION WAS CANCELLED, 12/06/2017 16:56 UNABLE TO OBTAIN SPECIMEN. TYPE CODE TESTS RESULT OUT OF REFERENCE UNITS RANGE LAB HBINT(KEREN NC) INTERPRETATION Canceled Performed By: #### SOPHY #### [facility] [address] [place] [address] PATH REVIEW-HGB Collected: 12/06/2017 Status: CANCELLED Source: [place] [id number] [place] [address] REPOSITORY Order Comment: TEST PATH REVIEW-HGB IDENTIFICATION WAS CANCELLED, 12/06/2017 16:56 UNABLE TO OBTAIN SPECIMEN. TYPE CODE TESTS RESULT OUT OF REFERENCE UNITS RANGE LAB PRV27(LOINC ) PATH Canceled REV-HGB IDENT. Result Comment: By her/his signature above, the Pathologist listed as making the final interpretation certifies that she/he has personally reviewed this case. Performed By: #### PR27 #### [facility] [address] [place] [address] RUBELLA IGG AB Collected: 12/06/2017 Status: CANCELLED Source: [address] REPOSITORY Order Comment: TEST RUBELLA IGG AB WAS CANCELLED, 12/06/2017 16:56 UNABLE TO OBTAIN SPECIMEN. TYPE CODE TESTS RESULT OUT OF REFERENCE UNITS RANGE LAB RUBIG(LOIN C) RUBELLA IGG Canceled AB Performed By: #### RUBIG #### [facility] [address] [place] [id number] SYPHILIS IGG Collected: 12/06/2017 Status: CANCELLED Source: [address] REPOSITORY Order Comment: TEST SYPHILIS IGG WAS CANCELLED, 12/06/2017 16:56 UNABLE TO OBTAIN SPECIMEN. TYPE CODE TESTS RESULT OUT OF REFERENCE UNITS RANGE LAB SYPHG(LOIN C) SYPHILIS IGG Canceled Result Comment: Patients receiving more than 5 mg/day of biotin may have interference in test results. A sample should be taken no sooner than eight hours after previous dose. Contact [phone] for additional information. LAB SOURCE(LOINC) Lab Specimen Source Performed By: #### SYPH #### [facility] [address] [place] [id number] TYPE + SCREEN Collected: 12/06/2017 Status: CANCELLED Source: [facility] 4:42 PM HOSPITALS REPOSITORY Order Comment: TEST TYPE + SCREEN WAS CANCELLED, 12/06/2017 16:56 UNABLE TO OBTAIN SPECIMEN. TYPE CODE TESTS RESULT OUT OF REFERENCE UNITS RANGE LAB ABORH(LOIN C) ABO TYPE Canceled LAB RH(LOINC) RH TYPE Canceled LAB ABSC(LOINC ) ANTIBODY Canceled SCREEN Performed By: #### T+S #### [facility] [address] [place] [address] URINALYSIS Collected: 12/06/2017 Status: F Source: [facility] 2:56 PM [facility] REPOSITORY TYPE CODE TESTS RESULT OUT OF RANGE REFERENCE UNITS LAB COLU(LOIN STRAW,YELLOW C) COLOR STRAW LAB APPRU(KEREN CLEAR NC) APPEARANCE CLEAR LAB SPGRU(KEREN 1.005 - 1.035 NC) Low SPECIFIC GRAVITY 1.003 LAB SANDRA(LOINC 5.0 - 8.0 ) pH 6.0 LAB PROTU(KEREN NEGATIVE mg/dL NC) PROTEIN NEGATIVE LAB GLUCU(KEREN NEGATIVE mg/dL NC) GLUCOSE NEGATIVE LAB BLDU(LOIN NEGATIVE C) BLOOD Abnormal SMALL (1+) LAB KETU(LOIN NEGATIVE mg/dL C) KETONES NEGATIVE LAB BILIU(KEREN NEGATIVE NC) BILIRUBIN NEGATIVE LAB UROU2(KEREN 0.0 - 1.9 mg/dL NC) UROBILINOGEN <2.0 LAB NITRU(KEREN NEGATIVE NC) NITRITE NEGATIVE LAB LEUKU(KEREN NEGATIVE NC) LEUKOCYTE Abnormal ESTERASE TRACE Performed By: #### UA #### [facility] [address] [place] [address] UA MICROSCOPIC Collected: 12/06/2017 Status: F Source: [facility] 2:56 PM [facility] REPOSITORY TYPE CODE TESTS RESULT OUT OF RANGE REFERENCE UNITS LAB WBCUR(LOINC 0-5 /HPF ) WBC 2 LAB RBCUR(LOINC 0-5 /HPF ) RBC <1 LAB MUCOU(LOINC /LPF ) MUCUS 1+ Performed By: #### UAMIC #### [facility] [address] [place] [address] GC + CHLAMYDIA BY Collected: 12/06/2017 Status: F Source: [facility] AMPLIFIED DETECTION 2:56 PM [facility] REPOSITORY TYPE CODE TESTS RESULT OUT OF REFERENCE UNITS RANGE LAB GCAMP(LOINC NEGATIVE ) NEGATIVE N.GONORRHEA, AMPLIFIED Result Comment: Performance characteristics for Neisseria gonorrhoeae testing on female urine samples has been validated by [facility]. Testing on this sample type is not FDA-approved, but such approval is not necessary. This laboratory is certified by CLIA to perform high complexity testing. LAB CTAMP(LOINC) NEGATIVE CHLAMYDIA TRACH.,AMPLIFIED NEGATIVE Result Comment: Performance characteristics for Chlamydia trachomatis testing on female urine samples has been validated by [facility]. Testing on this sample type is not FDA-approved, but such approval is not necessary. This laboratory is certified by CLIA to perform high complexity testing. LAB [facility] Lab Specimen Source Urine Performed By: #### GCCHA #### [facility] [address] [place] [address] URINE Observed: 12/06/2017 Status: F Source: [facility] CULTURE,BACTERIAL 2:56 PM HOSPITALS REPOSITORY PATIENT: SHAD GRIFFITHS LOCATION: [address]#: [id number] : 89 AGE: SEX: F ORDERED BY: PATRIZIA BURNS SOURCE: URINE COLLECTED: 12/06/17 14:56 ANTIBIOTICS AT ANMOL.: RECEIVED : 12/07/17 03:37 SITE: Clean Catch/Voided R E S U L T S URINE CULTURE,BACTERIAL FINAL 12/07/17 21:58 MULTIPLE ORGANISMS PRESENT, PROBABLE CONTAMINATION PLEASE REPEAT CULTURE. Performed By: #### URINC #### [facility] [address] [place] [address] HCG,BETA-QUANTITATIVE Collected: Status: F Source: [facility] 11/19/2017 12:00 PM HOSPITALS REPOSITORY TYPE CODE TESTS RESULT OUT OF RANGE REFERENCE UNITS LAB HCGQU(LOINC IU/L ) Abnormal 2226 HCG,BETA-QU ANTITATIVE Result Comment: Low-level positive HCG results can be seen in early , in jeff- or post-menopausal females due to normal pituitary HCG production, or with analytic interference. Repeat testing in 48-72 hours can aid in assessing for as results should double in this time period. FSH measurement is recommended in jeff- or post-menopausal females as concurrent elevation of FSH can support pituitary production as the source of the HCG elevation. . Total HCG measurement is performed using the Siemens Advia Centaur immunoassay which detects intact HCG and free beta HCG subunit. This test is not indicated for use as a tumor marker. HCG testing is performed using a different test methodology at [facility] than other [facility]. Direct result comparison should only be made within the same method. REF VALUES NON FEMALE <5 MALES <5 Performed By: #### HCGQU #### [facility] [address] [place] [address] PROGRESS Observed: 11/16/2017 Status: COMPLETED Source: [place] 8:00 AM [facility] REPOSITORY HNO ID: [id number] Author: Salvatore Gonzales) Mia Service: (none) Author Type: Nurse Practitioner Type: Progress Notes Filed: 11/16/2017 11:11 AM Note Text: Subjective The history is provided by the patient. 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 Eye Problem This is a new problem. The current episode started in the past 7 days (5 DAYS). The problem occurs constantly. The problem has been gradually worsening. Associated symptoms include congestion, coughing and a sore throat. Pertinent negatives include no abdominal pain, anorexia, arthralgias, change in bowel habit, chest pain, chills, diaphoresis, fatigue, fever, headaches, joint swelling, myalgias, nausea, neck pain, numbness, rash, swollen glands, urinary symptoms, vertigo, visual change, vomiting or weakness. Associated symptoms comments: Post nasal drip that may or may not be baseline; right ear pain; right eye crusted shut this am with yellow/green crusts. Nothing aggravates the symptoms. Treatments tried: OTC cold medicine The treatment provided mild relief. Ear Pain Associated symptoms include congestion, coughing and a sore throat. Pertinent negatives include no abdominal pain, anorexia, arthralgias, change in bowel habit, chest pain, chills, diaphoresis, fatigue, fever, headaches, joint swelling, myalgias, nausea, neck pain, numbness, rash, swollen glands, urinary symptoms, vertigo, visual change, vomiting or weakness. Review of Systems Constitutional: Negative for chills, diaphoresis, fatigue and fever. HENT: Positive for congestion, ear pain and sore throat. Negative for ear discharge, hearing loss, nosebleeds, sinus pain and tinnitus. Right ear fullness; Right ear pain 3/10. Eyes: Positive for blurred vision, discharge and redness. Negative for double vision, photophobia and pain. Blurred vision in right eye d/t discharge in right eye Respiratory: Positive for cough. Negative for stridor. Cardiovascular: Negative for chest pain. Gastrointestinal: Negative for abdominal pain, anorexia, change in bowel habit, diarrhea, nausea and vomiting. Musculoskeletal: Negative for arthralgias, joint swelling, myalgias and neck pain. Skin: Negative for rash. Neurological: Negative for vertigo, weakness, numbness and headaches. Objective Physical Exam Constitutional: She is oriented to person, place, and time and well-developed, well-nourished, and in no distress. HENT: Head: Normocephalic. Right Ear: Hearing, tympanic membrane, external ear and ear canal normal. Left Ear: Hearing, tympanic membrane, external ear and ear canal normal. Nose: Right sinus exhibits maxillary sinus tenderness. Right sinus exhibits no frontal sinus tenderness. Left sinus exhibits maxillary sinus tenderness. Left sinus exhibits no frontal sinus tenderness. Mouth/Throat: Oropharynx is clear and moist and mucous membranes are normal. Eyes: EOM and lids are normal. Pupils are equal, round, and reactive to light. Right conjunctiva is injected. Yellow mucoid discharge at medial aspect of right eye. Cardiovascular: Normal rate, regular rhythm and normal heart sounds. Pulmonary/Chest: Effort normal and breath sounds normal. Lymphadenopathy: She has no cervical adenopathy. No palpable cervical lymph nodes on exam. Neurological: She is alert and oriented to person, place, and time. Skin: Skin is warm and dry. ASSESSMENT/PLAN: 1. Bacterial conjunctivitis - ICD9: 372.39, 041.9, ICD10: H10.9 (primary diagnosis) - TOBRAMYCIN 0.3 % EYE DROPS - as written - conjunctivitis patient information provided - For any changes in vision, increased eye pain or eye discharge, sensitivity to the light, or fever greater than 101F, please report immediately to the emergency room. - Work excuse provided 2. Otalgia of right ear - ICD9: 388.70, ICD10: H92.01 - Flonase 2 sprays both nostrils once daily at bedtime. - Zyrtec (cetrizine) 10 mg by mouth once daily. 3. Common cold - ICD9: 460, ICD10: J00 - common cold patient information provided - Nasal saline 2 sprays both nostrils every 3 hours while awake. May also use neti pot/bottle nasal saline rinse. - May also use Guaifenesin (Mucinex) 600-1200 mg by mouth every 2 hours. You must be drinking lots of water in order for this medication to work. You may also use Sudafed per the package instructions to help with nasal congestion. - If no improvement in cold symptoms in 5 days, please follow up with your PCP or [facility]. Salvatore Bellamy APRN.DESTINI CNOV Observed: 11/16/2017 Status: COMPLETED Source: [place] 7:45 AM [facility] REPOSITORY Office Visit (STFLE) SHAD GRIFFITHS ([id number]) 1990 F Date Time Provider Department 11/16/17 7:45 AM SALVATORE BELLAMY (DESTINI) ST[facility]LE During your visit today, we recorded the following information about you: Temperature Pulse Blood pressure Weight 99.6 degrees 99/minute 112/86 71.7 kg Height Last Period 1.549 m 10/17/17 Salvatore Bellamy APRN.CNP 11/16/2017 11:11 AM Addendum Subjective The history is provided by the patient. 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 Eye Problem This is a new problem. The current episode started in the past 7 days (5 DAYS). The problem occurs constantly. The problem has been gradually worsening. Associated symptoms include congestion, coughing and a sore throat. Pertinent negatives include no abdominal pain, anorexia, arthralgias, change in bowel habit, chest pain, chills, diaphoresis, fatigue, fever, headaches, joint swelling, myalgias, nausea, neck pain, numbness, rash, swollen glands, urinary symptoms, vertigo, visual change, vomiting or weakness. Associated symptoms comments: Post nasal drip that may or may not be baseline; right ear pain; right eye crusted shut this am with yellow/green crusts. Nothing aggravates the symptoms. Treatments tried: OTC cold medicine The treatment provided mild relief. Ear Pain Associated symptoms include congestion, coughing and a sore throat. Pertinent negatives include no abdominal pain, anorexia, arthralgias, change in bowel habit, chest pain, chills, diaphoresis, fatigue, fever, headaches, joint swelling, myalgias, nausea, neck pain, numbness, rash, swollen glands, urinary symptoms, vertigo, visual change, vomiting or weakness. Review of Systems Constitutional: Negative for chills, diaphoresis, fatigue and fever. HENT: Positive for congestion, ear pain and sore throat. Negative for ear discharge, hearing loss, nosebleeds, sinus pain and tinnitus. Right ear fullness; Right ear pain 3/10. Eyes: Positive for blurred vision, discharge and redness. Negative for double vision, photophobia and pain. Blurred vision in right eye d/t discharge in right eye Respiratory: Positive for cough. Negative for stridor. Cardiovascular: Negative for chest pain. Gastrointestinal: Negative for abdominal pain, anorexia, change in bowel habit, diarrhea, nausea and vomiting. Musculoskeletal: Negative for arthralgias, joint swelling, myalgias and neck pain. Skin: Negative for rash. Neurological: Negative for vertigo, weakness, numbness and headaches. Objective Physical Exam Constitutional: She is oriented to person, place, and time and well-developed, well-nourished, and in no distress. HENT: Head: Normocephalic. Right Ear: Hearing, tympanic membrane, external ear and ear canal normal. Left Ear: Hearing, tympanic membrane, external ear and ear canal normal. Nose: Right sinus exhibits maxillary sinus tenderness. Right sinus exhibits no frontal sinus tenderness. Left sinus exhibits maxillary sinus tenderness. Left sinus exhibits no frontal sinus tenderness. Mouth/Throat: Oropharynx is clear and moist and mucous membranes are normal. Eyes: EOM and lids are normal. Pupils are equal, round, and reactive to light. Right conjunctiva is injected. Yellow mucoid discharge at medial aspect of right eye. Cardiovascular: Normal rate, regular rhythm and normal heart sounds. Pulmonary/Chest: Effort normal and breath sounds normal. Lymphadenopathy: She has no cervical adenopathy. No palpable cervical lymph nodes on exam. Neurological: She is alert and oriented to person, place, and time. Skin: Skin is warm and dry. ASSESSMENT/PLAN: 1. Bacterial conjunctivitis - ICD9: 372.39, 041.9, ICD10: H10.9 (primary diagnosis) - TOBRAMYCIN 0.3 % EYE DROPS - as written - conjunctivitis patient information provided - For any changes in vision, increased eye pain or eye discharge, sensitivity to the light, or fever greater than 101F, please report immediately to the emergency room. - Work excuse provided 2. Otalgia of right ear - ICD9: 388.70, ICD10: H92.01 - Flonase 2 sprays both nostrils once daily at bedtime. - Zyrtec (cetrizine) 10 mg by mouth once daily. 3. Common cold - ICD9: 460, ICD10: J00 - common cold patient information provided - Nasal saline 2 sprays both nostrils every 3 hours while awake. May also use neti pot/bottle nasal saline rinse. - May also use Guaifenesin (Mucinex) 600-1200 mg by mouth every 2 hours. You must be drinking lots of water in order for this medication to work. You may also use Sudafed per the package instructions to help with nasal congestion. - If no improvement in cold symptoms in 5 days, please follow up with your PCP or [facility]. Salvatore Bellamy APRN.DESTINI Driver 11/16/2017 8:03 AM Signed Left eye acuity:20/16 Right eye acuity:20/20 Joshua Bellamy APRN.DESTINI 11/16/2017 8:17 AM Signed [facility] PATIENT INFO CONJUNCTIVITIS OVERVIEW Conjunctivitis, also called pinkeye, is defined as an inflammation of the conjunctiva. The conjunctiva is the thin membrane that lines the inner surface of the eyelids and the whites of the eyes (called the sclera). Conjunctivitis can affect children and adults. The most common symptoms of conjunctivitis include a red eye and discharge. There are many potential causes of conjunctivitis, including bacterial or viral infections, allergies, or a non-specific condition (eg, a foreign body in the eye). All types of conjunctivitis cause a red eye, although not everyone with a red eye has conjunctivitis. TYPES OF CONJUNCTIVITIS There are four main types of conjunctivitis: bacterial, viral, allergic, and non-specific. Most cases of infectious conjunctivitis are viral in adults and children; however, bacterial conjunctivitis is more common in children than in adults. Viral conjunctivitis ? Viral conjunctivitis is typically caused by a virus that can also cause the common cold. A person may have symptoms of conjunctivitis alone, or as part of a general cold syndrome, with swollen lymph nodes (glands), fever, a sore throat, and runny nose. Viral conjunctivitis is highly contagious. It is spread by contact, usually with objects which have come into contact with the infected person's eye secretions. As examples, the virus can be transmitted when an infected person touches their eye and then touches another surface (eg, door handle) or shares an object that has touched their eye (eg, a towel or pillow case). The most common symptoms of viral conjunctivitis include redness, watery or mucus discharge, and a burning, maura, or gritty feeling in one eye. Some people have morning crusting followed by watery discharge, perhaps with some scant mucus discharge throughout the day. The second eye usually becomes infected within 24 to 48 hours. There is no cure for viral conjunctivitis. Recovery can begin within days, although the symptoms frequently get worse for the first three to five days, with gradual improvement over the following one to two weeks for a total course of two to three weeks. Some people experience morning crusting that continues for up to two weeks after the initial symptoms, although the daytime redness, irritation, and tearing should be much improved. Bacterial conjunctivitis ? Bacterial conjunctivitis is highly contagious, often affecting multiple family members or children within a classroom. Bacterial conjunctivitis is spread by contact, usually with objects which have come into contact with the infected person's eye secretions. As examples, the virus can be transmitted when an infected person touches their eye and then touches another surface (eg, door handle) or shares an object that has touched their eye (eg, a towel or pillow case). The most common symptoms of bacterial conjunctivitis include redness and thick discharge from one eye, although both eyes can become infected. The discharge may be yellow, white, or green, and it usually continues to drain throughout the day. The affected eye often is stuck shut in the morning. Most types of bacterial conjunctivitis resolve quickly and cause no permanent damage when treated with antibiotic eye drops or ointment Non-specific conjunctivitis ? It is possible to develop a red eye and discharge that is not caused by an infection or allergy. The most common causes include one of the following. ? People with a dry eye may have chronic or intermittent redness or discharge. A person whose eyes are irrigated after a chemical splash may have redness and discharge. ? A person with a foreign body (eg, dust, eyelash) in the eye may have redness and discharge for 12 to 24 hours after the object is removed. All of these problems generally improve spontaneously within 24 hours. CONJUNCTIVITIS TREATMENT The treatment of conjunctivitis depends upon the cause. For this reason, it is important to have the correct diagnosis before treatment begins. Viral conjunctivitis treatment ? A topical antihistamine/decongestant eye drop may help to relieve the itching and irritation of viral conjunctivitis. These drops are available without a prescription in most pharmacies. However, particular care must be taken to avoid spreading viral infections from one eye to the other ? apply drops only to affected eye and wash hands thoroughly after application. Similar to cold medicines, this treatment may reduce the symptoms but does not shorten the course of the infection. Another option is to use warm or cool compresses, as needed. The irritation and discharge may get worse for three to five days before getting better, and symptoms can persist for two to three weeks. Bacterial conjunctivitis treatment ? Bacterial conjunctivitis is usually treated with an antibiotic eye drop or ointment. When started early, treatment helps to shorten the duration of symptoms, although most cases do resolve spontaneously if no treatment is used. Adults ? Adults are usually treated with an antibiotic eye drop or ointment for five to seven days. Redness, irritation, and eye discharge should begin to improve within 24 to 48 hours. If there is no improvement or if the condition worsens within this time, the person should be evaluated by an nylon winder. Contact lens wearers ? People who wear contact lenses should be evaluated by a healthcare provider before treatment begins; this is to confirm the diagnosis of conjunctivitis and to be sure that another, more serious condition related to contact lens use (an infection of the cornea), is not present. People who wear contact lenses should avoid wearing the lenses during the first 24 hours of treatment, or until the eye is no longer red. The contact case should be thrown away and the contacts disinfected overnight or replaced (if disposable). Return to work/school ? The safest approach to avoid spreading viral and bacterial conjunctivitis to others is to stay home until there is no longer any discharge from the eye(s). However, this is not practical for most students and for those who work outside the home. Most daycare centers and schools require that students receive 24 hours of eye drops or ointment before returning to school. This treatment helps to prevent the spread of bacterial conjunctivitis, but is not necessary or helpful for children with viral conjunctivitis. Viral conjunctivitis is similar to a cold because it spreads easily between people. Younger children, who may not remember to wash their hands or avoid touching their eyes, should probably not attend school until the discharge has resolved. Older students or adults may choose to attend school/work, although they should limit close contact with others. In addition, adults who have contact with the very old, the very young, and people with a weakened immune system should limit contact with these susceptible individuals. Non-specific conjunctivitis treatment ? The conjunctiva heals quickly after it is injured, and non-specific conjunctivitis usually resolves within a few days without any treatment. However, the eye may feel better faster when it is treated with a lubricant, such as drops or ointments. These products are available without a prescription in most pharmacies. Preservative-free preparations are more expensive and are necessary only for people with a severe case of dry eye and those who are allergic to preservatives. Lubricant drops can be used as often as hourly with no side effects. The ointment provides longer lasting relief but blurs vision temporarily. For this reason, some people use ointment only at bedtime. It may be worthwhile to switch brands if one brand of drop or ointment is irritating, since each preparation contains different active and inactive ingredients and preservatives. Antibiotic or steroid eye drops/ointments are not recommended unless there is a specific reason they are needed (eg, a bacterial infection or inflammatory condition). Using these treatments when they are not needed can lead to serious complications. If the symptoms of conjunctivitis do not improve within two weeks, an examination with an nylon winder may be recommended. CONJUNCTIVITIS PREVENTION Bacterial and viral conjunctivitis are both highly contagious and spread by direct contact with secretions or contact with contaminated objects. Simple hygiene measures can help minimize transmission to others. ? Adults or children with bacterial or viral conjunctivitis should not share handkerchiefs, tissues, towels, cosmetics, or bed sheets/pillows with uninfected family or friends. ? Hand washing is an essential and highly effective way to prevent the spread of infection. Hands should be wet with water and plain soap, and rubbed together for 15 to 30 seconds. It is not necessary to use antibacterial hand soap. Teach children to wash their hands before and after eating and after touching the eyes, coughing, or sneezing. ? Alcohol-based hand rubs are a good alternative for disinfecting hands if a sink is not available. Hand rubs should be spread over the entire surface of hands, fingers, and wrists until dry, and may be used several times. These rubs can be used repeatedly without skin irritation or loss of effectiveness. [facility] PATIENT INFO COMMON COLD OVERVIEW The common cold is one of the most frequent illnesses in the [place]. Although most colds are mild and resolve within a short time period, colds cost billions of dollars per year, mostly due to lost time at work and school. COMMON COLD CAUSES The common cold is a group of symptoms caused by one of a large number of viruses. Rhinoviruses cause the greatest number of colds; there are more than 100 different varieties of rhinovirus. Most viruses cause a person to be ill only once. However, due to the large number of viruses, a person can have a cold multiple times throughout his or her lifetime. The average adult experiences two to three colds per year, while children average 8 to 12 colds per year. Colds are transmitted from [id number]. Less often, the virus can be transmitted by touching a surface. Direct contact ? People with colds typically carry the cold virus on their hands. The virus may remain alive on the skin and capable of infecting another person for at least two hours. Thus, if a sick person shakes someone's hand and that individual then touches his eye, nose, or mouth, the virus can be transmitted and later infect that person. Infection from particles on surfaces ? Some cold viruses can live on surfaces (such as a counter top, door handle, or phone) for several hours. Inhaling viral particles ? Droplets containing viral particles can be breathed, coughed, or sneezed into the air by a person with a cold. The virus can be transmitted to others if another person is standing close (a few feet) and the droplet touches that person?s eye, nose, or mouth. Covering the mouth while coughing or sneezing greatly reduces this risk. Most cold viruses are not spread by saliva. Thus, kissing itself is not likely to transmit the common cold, but close direct contact can. Colds are not caused by cold climates or being exposed to cold air. However, some types of virus cause more colds during certain seasons (eg, fall and winter versus spring). COMMON COLD SIGNS AND SYMPTOMS The common cold usually causes nasal congestion, runny nose, and sneezing. A sore throat may be present on the first day but usually resolves quickly. If a cough occurs, it generally develops on about the fourth or fifth day of symptoms, typically when congestion and runny nose are usually resolving. COMMON COLD COMPLICATIONS In most cases, colds do not cause serious illness. Most colds last for three to seven days, although many people continue to have symptoms (coughing, sneezing, congestion) for up to two weeks. Some viruses that cause the common cold can also depress the immune system or cause swelling in the lining of the nose or airways; this can, in turn, lead to a new viral infection or bacterial infection. ? One of the more common complications is sinusitis, which is usually caused by viruses and rarely (about 2 percent of the time) by bacteria. However, it can be difficult to distinguish bacterial sinusitis from sinusitis caused by a cold because the signs and symptoms can be similar Having thick or yellow to green-colored nasal discharge does not mean that bacterial sinusitis has developed; discolored nasal discharge is a normal phase of the common cold. ? Lower respiratory infections, such as pneumonia or bronchitis, may develop following a cold. ? Infection of the middle ear, or otitis media, can accompany or follow a cold. ? The influenza virus, which causes the flu, can also cause features similar to those of a cold. However, the flu usually causes other signs and symptoms (fever, body aches) and is more serious than a cold. COMMON COLD TREATMENT There is no specific treatment for the viruses that cause the common cold. Most treatments are aimed at relieving some of the symptoms of the cold, but do not shorten or cure the cold. Antibiotics are not useful for treating the common cold; antibiotics are only used to treat illnesses caused by bacteria, not viruses. The symptoms of a cold will resolve over time, even without any treatment. The following are treatments that may reduce the symptoms caused by the common cold. People with underlying medical conditions and those who use other [id number] or prescription medications should speak with their healthcare provider or pharmacist to ensure that it is safe to use these treatments. Runny nose and nasal congestion ? Runny nose and congestion may improve with the use of decongestants. Pseudoephedrine is a decongestant that can improve nasal congestion. Most drugstores in the [place] carry pseudoephedrine behind the counter, so it must be requested from the pharmacist (a prescription is not required). Antihistamines such as diphenhydramine (Benadryl?) may also help, but can cause side effects such as drowsiness and drying of the eyes, nose, and mouth. Nasal inhalers, including ipratropium bromide (Atrovent?, available by prescription) may relieve runny nose and sneezing while cromolyn sodium (NasalCrom?, a non-prescription medicine) may relieve runny nose, cough, and sneezing. Other nasal sprays such an oxymetazoline (Afrin? and others) can also give temporary relief of nasal congestion. However, these sprays should never be used for more than two to three days; use for more than three days use can worsen congestion. Nasal irrigation and saline sprays ? Rinsing the nose with a salt-water (saline) solution is called nasal irrigation or nasal lavage. Saline is also available in a standard nasal spray, although this is not as effective as using larger amounts of water in an irrigation. Nasal irrigation is particularly useful for treating drainage down the back of the throat, sneezing, nasal dryness, and congestion. The treatment helps by rinsing out allergens and irritants from the nose. Saline rinses also clean the nasal lining and can be used before applying sprays containing medications, to get a better effect from the medication. Nasal lavage with warmed saline can be performed as needed, once per day, or twice daily for increased symptoms. Nasal lavage carries few risks when performed correctly. Saline nasal sprays and irrigation kits can be purchased [id number]. Saline mixes can also be purchased or patients can make their own solution. A variety of devices, including bulb syringes, Neti pots, and bottle sprayers, may be used to perform nasal lavage; instructions for nasal lavage are provided in the table. At least 200 mL (about 3/4 cup) of fluid is recommended for each nostril. Sore throat and headache ? Sore throat and headache are best treated with a mild pain reliever such as acetaminophen (Tylenol?) or a non-steroidal anti-inflammatory agent such as ibuprofen or naproxen (Motrin? or Aleve?). Cough ? Common cough medicine ingredients include guaifenesin and dextromethorphan; these are often combined with other medications in sxku-rwi-hybjiwb cold formulas. However, the benefit of cough medicines is likely to be small to non-existent. In clinical trials, cough suppressants were no more effective in reducing the duration or severity of coughing due to cold than a placebo (a non-drug substitute). Antibiotics ? Antibiotics should not be used to treat an uncomplicated common cold. As noted above, colds are caused by viruses. Antibiotics treat bacterial, not viral infections. Alternative treatments ? Heated, humidified air can improve symptoms of nasal congestion and runny nose, and causes few to no side effects. PREVENTION Hand washing is an essential and highly effective way to prevent the spread of infection. Hands should be wet with water and plain soap, and rubbed together for 15 to 30 seconds. Special attention should be paid to the fingernails, between the fingers, and the wrists. Hands should be rinsed thoroughly, and dried with a single use towel. Alcohol-based hand rubs are a good alternative for disinfecting hands if a sink is not available. Hand rubs should be spread over the entire surface of hands, fingers, and wrists until dry, and may be used several times. These rubs can be used repeatedly without skin irritation or loss of effectiveness. Hand rubs are available as a liquid or wipe in small, portable sizes that are easy to carry in a pocket or handbag. When a sink is available, visibly soiled hands should be washed with soap and water. Hands should be washed before preparing food and eating, and after coughing, blowing the nose, or sneezing. While it is not always possible to limit contact with people who may be infected with a cold, touching the eyes, nose, or mouth after direct contact should be avoided when possible. In addition, tissues should be used to cover the mouth when sneezing or coughing. These used tissues should be disposed of promptly. Sneezing/coughing into the sleeve of one's clothing (at the inner elbow) is another means of containing sprays of saliva and secretions and does not contaminate the hands. SUMMARY ? The average adult experiences two to three colds per year, while children average 8 to 12 colds per year. ? Symptoms of the common cold usually include nasal congestion, runny nose, and sneezing. They typically last for three to seven days, although many people have symptoms (coughing, sneezing, congestion) for up to two weeks. ? People with colds typically carry the cold virus on their hands, where it can infect another person for at least two hours. Some cold viruses can live on surfaces (such as a counter top, door handle, or phone) for several hours. Droplets containing viral particles can be breathed, coughed, or sneezed into the air. ? There is no specific treatment for colds. Treatment may reduce some of the symptoms of the cold, but do not shorten or cure the cold. Antibiotics are not useful for treating the common cold. Hand washing can prevent the spread of infection. Hands should be wet with water and plain soap, and rubbed together for 15 to 30 seconds. Alcohol-based hand rubs are a good alternative for disinfecting hands if a sink is not available Nasal saline 2 sprays both nostrils every 3 hours while awake. May also use neti pot/bottle nasal saline rinse. May also use Guaifenesin (Mucinex) 600-1200 mg by mouth every 2 hours. You must be drinking lots of water in order for this medication to work. You may also use Sudafed per the package instructions to help with nasal congestion. For any changes in vision, increased eye pain or eye discharge, sensitivity to the light, or fever greater than 101F, please report immediately to the emergency room. Flonase 2 sprays both nostrils once daily at bedtime. Zyrtec (cetrizine) 10 mg by mouth once daily. If no improvement in cold symptoms in 5 days, please follow up with your PCP or [facility]. Referring Provider: SELF [[id number]] Allergies As of Date: 11/16/2017 Noted Allergy Reaction PENICILLINS 08/27/2015 10 - Anaphylaxis SULFA (SULFONAMIDE ANTIBIOTICS) 07/19/2011 11 - Vomiting SULFA (SULFONAMIDE ANTIBIOTICS) 07/19/2011 16 - Unknown Date Reviewed: 11/16/2017 Reviewed by: Salvatore Bellamy - Fully Assessed Reason for Visit: Eye Problem [43] Cmt: RIGHT EYE CRUSTED OVER THIS MORNING,CLOSED SHUT,REDNESS,FEELS LIKE EYE LID IS SWOLLEN, PAIN AND DRAINAGE IN RIGHT EAR,.RIGHT EYE STARTED THIS MORNING Ear Pain [817] Cmt: RIGHT EAR PAIN STARTED YESTERDAY EAR FEELS FULL, Primary Visit Diagnosis:Bacterial conjunctivitis [H10.9] Other Visit Diagnoses:Otalgia of right ear [H92.01] Common cold [J00] Order(s):tobramycin (TOBREX) 0.3 % ophthalmic solutionUse 1-2 Drops in the right eye every 4 hours for 7 days.Disp: 1 BottleRfl: 0 Prescriptions as of 11/16/2017 Sig: FLUTICASONE 50 MCG/ACTUATION * Use 2 Sprays in each nostril * FLUOXETINE 20 MG CAPSULE Take 20 mg by mouth once elzbieta* TRAZODONE ORAL Take 50 mg by mouth once elzbieta* NORGESTIMATE 0.18 MG/0.215 MG* Take by mouth once daily. TOBRAMYCIN 0.3 % EYE DROPS Use 1-2 Drops in the right ey* Medication notes this encounter AZITHROMYCIN 250 MG TABLET >> Joshua Drvier 11/16/2017 7:50 AM >> JOSHUA DRIVER November 16, 2017 7:50 AM PT NO LONGER TAKING Problem List As Of Date 11/16/2017 Noted Resolved Renal calculus [N20.0] INVALID FOR*04/28/2017 Other instructions from your clinician: [facility] PATIENT INFO CONJUNCTIVITIS OVERVIEW Conjunctivitis, also called pinkeye, is defined as an inflammation of the conjunctiva. The conjunctiva is the thin membrane that lines the inner surface of the eyelids and the whites of the eyes (called the sclera). Conjunctivitis can affect children and adults. The most common symptoms of conjunctivitis include a red eye and discharge. There are many potential causes of conjunctivitis, including bacterial or viral infections, allergies, or a non-specific condition (eg, a foreign body in the eye). All types of conjunctivitis cause a red eye, although not everyone with a red eye has conjunctivitis. TYPES OF CONJUNCTIVITIS There are four main types of conjunctivitis: bacterial, viral, allergic, and non-specific. Most cases of infectious conjunctivitis are viral in adults and children; however, bacterial conjunctivitis is more common in children than in adults. Viral conjunctivitis ? Viral conjunctivitis is typically caused by a virus that can also cause the common cold. A person may have symptoms of conjunctivitis alone, or as part of a general cold syndrome, with swollen lymph nodes (glands), fever, a sore throat, and runny nose. Viral conjunctivitis is highly contagious. It is spread by contact, usually with objects which have come into contact with the infected person's eye secretions. As examples, the virus can be transmitted when an infected person touches their eye and then touches another surface (eg, door handle) or shares an object that has touched their eye (eg, a towel or pillow case). The most common symptoms of viral conjunctivitis include redness, watery or mucus discharge, and a burning, maura, or gritty feeling in one eye. Some people have morning crusting followed by watery discharge, perhaps with some scant mucus discharge throughout the day. The second eye usually becomes infected within 24 to 48 hours. There is no cure for viral conjunctivitis. Recovery can begin within days, although the symptoms frequently get worse for the first three to five days, with gradual improvement over the following one to two weeks for a total course of two to three weeks. Some people experience morning crusting that continues for up to two weeks after the initial symptoms, although the daytime redness, irritation, and tearing should be much improved. Bacterial conjunctivitis ? Bacterial conjunctivitis is highly contagious, often affecting multiple family members or children within a classroom. Bacterial conjunctivitis is spread by contact, usually with objects which have come into contact with the infected person's eye secretions. As examples, the virus can be transmitted when an infected person touches their eye and then touches another surface (eg, door handle) or shares an object that has touched their eye (eg, a towel or pillow case). The most common symptoms of bacterial conjunctivitis include redness and thick discharge from one eye, although both eyes can become infected. The discharge may be yellow, white, or green, and it usually continues to drain throughout the day. The affected eye often is stuck shut in the morning. Most types of bacterial conjunctivitis resolve quickly and cause no permanent damage when treated with antibiotic eye drops or ointment Non-specific conjunctivitis ? It is possible to develop a red eye and discharge that is not caused by an infection or allergy. The most common causes include one of the following. ? People with a dry eye may have chronic or intermittent redness or discharge. A person whose eyes are irrigated after a chemical splash may have redness and discharge. ? A person with a foreign body (eg, dust, eyelash) in the eye may have redness and discharge for 12 to 24 hours after the object is removed. All of these problems generally improve spontaneously within 24 hours. CONJUNCTIVITIS TREATMENT The treatment of conjunctivitis depends upon the cause. For this reason, it is important to have the correct diagnosis before treatment begins. Viral conjunctivitis treatment ? A topical antihistamine/decongestant eye drop may help to relieve the itching and irritation of viral conjunctivitis. These drops are available without a prescription in most pharmacies. However, particular care must be taken to avoid spreading viral infections from one eye to the other ? apply drops only to affected eye and wash hands thoroughly after application. Similar to cold medicines, this treatment may reduce the symptoms but does not shorten the course of the infection. Another option is to use warm or cool compresses, as needed. The irritation and discharge may get worse for three to five days before getting better, and symptoms can persist for two to three weeks. Bacterial conjunctivitis treatment ? Bacterial conjunctivitis is usually treated with an antibiotic eye drop or ointment. When started early, treatment helps to shorten the duration of symptoms, although most cases do resolve spontaneously if no treatment is used. Adults ? Adults are usually treated with an antibiotic eye drop or ointment for five to seven days. Redness, irritation, and eye discharge should begin to improve within 24 to 48 hours. If there is no improvement or if the condition worsens within this time, the person should be evaluated by an nylon winder. Contact lens wearers ? People who wear contact lenses should be evaluated by a healthcare provider before treatment begins; this is to confirm the diagnosis of conjunctivitis and to be sure that another, more serious condition related to contact lens use (an infection of the cornea), is not present. People who wear contact lenses should avoid wearing the lenses during the first 24 hours of treatment, or until the eye is no longer red. The contact case should be thrown away and the contacts disinfected overnight or replaced (if disposable). Return to work/school ? The safest approach to avoid spreading viral and bacterial conjunctivitis to others is to stay home until there is no longer any discharge from the eye(s). However, this is not practical for most students and for those who work outside the home. Most daycare centers and schools require that students receive 24 hours of eye drops or ointment before returning to school. This treatment helps to prevent the spread of bacterial conjunctivitis, but is not necessary or helpful for children with viral conjunctivitis. Viral conjunctivitis is similar to a cold because it spreads easily between people. Younger children, who may not remember to wash their hands or avoid touching their eyes, should probably not attend school until the discharge has resolved. Older students or adults may choose to attend school/work, although they should limit close contact with others. In addition, adults who have contact with the very old, the very young, and people with a weakened immune system should limit contact with these susceptible individuals. Non-specific conjunctivitis treatment ? The conjunctiva heals quickly after it is injured, and non-specific conjunctivitis usually resolves within a few days without any treatment. However, the eye may feel better faster when it is treated with a lubricant, such as drops or ointments. These products are available without a prescription in most pharmacies. Preservative-free preparations are more expensive and are necessary only for people with a severe case of dry eye and those who are allergic to preservatives. Lubricant drops can be used as often as hourly with no side effects. The ointment provides longer lasting relief but blurs vision temporarily. For this reason, some people use ointment only at bedtime. It may be worthwhile to switch brands if one brand of drop or ointment is irritating, since each preparation contains different active and inactive ingredients and preservatives. Antibiotic or steroid eye drops/ointments are not recommended unless there is a specific reason they are needed (eg, a bacterial infection or inflammatory condition). Using these treatments when they are not needed can lead to serious complications. If the symptoms of conjunctivitis do not improve within two weeks, an examination with an nylon winder may be recommended. CONJUNCTIVITIS PREVENTION Bacterial and viral conjunctivitis are both highly contagious and spread by direct contact with secretions or contact with contaminated objects. Simple hygiene measures can help minimize transmission to others. ? Adults or children with bacterial or viral conjunctivitis should not share handkerchiefs, tissues, towels, cosmetics, or bed sheets/pillows with uninfected family or friends. ? Hand washing is an essential and highly effective way to prevent the spread of infection. Hands should be wet with water and plain soap, and rubbed together for 15 to 30 seconds. It is not necessary to use antibacterial hand soap. Teach children to wash their hands before and after eating and after touching the eyes, coughing, or sneezing. ? Alcohol-based hand rubs are a good alternative for disinfecting hands if a sink is not available. Hand rubs should be spread over the entire surface of hands, fingers, and wrists until dry, and may be used several times. These rubs can be used repeatedly without skin irritation or loss of effectiveness. [facility] PATIENT INFO COMMON COLD OVERVIEW The common cold is one of the most frequent illnesses in the [place]. Although most colds are mild and resolve within a short time period, colds cost billions of dollars per year, mostly due to lost time at work and school. COMMON COLD CAUSES The common cold is a group of symptoms caused by one of a large number of viruses. Rhinoviruses cause the greatest number of colds; there are more than 100 different varieties of rhinovirus. Most viruses cause a person to be ill only once. However, due to the large number of viruses, a person can have a cold multiple times throughout his or her lifetime. The average adult experiences two to three colds per year, while children average 8 to 12 colds per year. Colds are transmitted from [id number]-tctjkx. Less often, the virus can be transmitted by touching a surface. Direct contact ? People with colds typically carry the cold virus on their hands. The virus may remain alive on the skin and capable of infecting another person for at least two hours. Thus, if a sick person shakes someone's hand and that individual then touches his eye, nose, or mouth, the virus can be transmitted and later infect that person. Infection from particles on surfaces ? Some cold viruses can live on surfaces (such as a counter top, door handle, or phone) for several hours. Inhaling viral particles ? Droplets containing viral particles can be breathed, coughed, or sneezed into the air by a person with a cold. The virus can be transmitted to others if another person is standing close (a few feet) and the droplet touches that person?s eye, nose, or mouth. Covering the mouth while coughing or sneezing greatly reduces this risk. Most cold viruses are not spread by saliva. Thus, kissing itself is not likely to transmit the common cold, but close direct contact can. Colds are not caused by cold climates or being exposed to cold air. However, some types of virus cause more colds during certain seasons (eg, fall and winter versus spring). COMMON COLD SIGNS AND SYMPTOMS The common cold usually causes nasal congestion, runny nose, and sneezing. A sore throat may be present on the first day but usually resolves quickly. If a cough occurs, it generally develops on about the fourth or fifth day of symptoms, typically when congestion and runny nose are usually resolving. COMMON COLD COMPLICATIONS In most cases, colds do not cause serious illness. Most colds last for three to seven days, although many people continue to have symptoms (coughing, sneezing, congestion) for up to two weeks. Some viruses that cause the common cold can also depress the immune system or cause swelling in the lining of the nose or airways; this can, in turn, lead to a new viral infection or bacterial infection. ? One of the more common complications is sinusitis, which is usually caused by viruses and rarely (about 2 percent of the time) by bacteria. However, it can be difficult to distinguish bacterial sinusitis from sinusitis caused by a cold because the signs and symptoms can be similar Having thick or yellow to green-colored nasal discharge does not mean that bacterial sinusitis has developed; discolored nasal discharge is a normal phase of the common cold. ? Lower respiratory infections, such as pneumonia or bronchitis, may develop following a cold. ? Infection of the middle ear, or otitis media, can accompany or follow a cold. ? The influenza virus, which causes the flu, can also cause features similar to those of a cold. However, the flu usually causes other signs and symptoms (fever, body aches) and is more serious than a cold. COMMON COLD TREATMENT There is no specific treatment for the viruses that cause the common cold. Most treatments are aimed at relieving some of the symptoms of the cold, but do not shorten or cure the cold. Antibiotics are not useful for treating the common cold; antibiotics are only used to treat illnesses caused by bacteria, not viruses. The symptoms of a cold will resolve over time, even without any treatment. The following are treatments that may reduce the symptoms caused by the common cold. People with underlying medical conditions and those who use other gvzj-che-csgxhki or prescription medications should speak with their healthcare provider or pharmacist to ensure that it is safe to use these treatments. Runny nose and nasal congestion ? Runny nose and congestion may improve with the use of decongestants. Pseudoephedrine is a decongestant that can improve nasal congestion. Most drugstores in the [place] carry pseudoephedrine behind the counter, so it must be requested from the pharmacist (a prescription is not required). Antihistamines such as diphenhydramine (Benadryl?) may also help, but can cause side effects such as drowsiness and drying of the eyes, nose, and mouth. Nasal inhalers, including ipratropium bromide (Atrovent?, available by prescription) may relieve runny nose and sneezing while cromolyn sodium (NasalCrom?, a non-prescription medicine) may relieve runny nose, cough, and sneezing. Other nasal sprays such an oxymetazoline (Afrin? and others) can also give temporary relief of nasal congestion. However, these sprays should never be used for more than two to three days; use for more than three days use can worsen congestion. Nasal irrigation and saline sprays ? Rinsing the nose with a salt-water (saline) solution is called nasal irrigation or nasal lavage. Saline is also available in a standard nasal spray, although this is not as effective as using larger amounts of water in an irrigation. Nasal irrigation is particularly useful for treating drainage down the back of the throat, sneezing, nasal dryness, and congestion. The treatment helps by rinsing out allergens and irritants from the nose. Saline rinses also clean the nasal lining and can be used before applying sprays containing medications, to get a better effect from the medication. Nasal lavage with warmed saline can be performed as needed, once per day, or twice daily for increased symptoms. Nasal lavage carries few risks when performed correctly. Saline nasal sprays and irrigation kits can be purchased [id number]. Saline mixes can also be purchased or patients can make their own solution. A variety of devices, including bulb syringes, Neti pots, and bottle sprayers, may be used to perform nasal lavage; instructions for nasal lavage are provided in the table. At least 200 mL (about 3/4 cup) of fluid is recommended for each nostril. Sore throat and headache ? Sore throat and headache are best treated with a mild pain reliever such as acetaminophen (Tylenol?) or a non-steroidal anti-inflammatory agent such as ibuprofen or naproxen (Motrin? or Aleve?). Cough ? Common cough medicine ingredients include guaifenesin and dextromethorphan; these are often combined with other medications in alxn-dab-gvmmalp cold formulas. However, the benefit of cough medicines is likely to be small to non-existent. In clinical trials, cough suppressants were no more effective in reducing the duration or severity of coughing due to cold than a placebo (a non-drug substitute). Antibiotics ? Antibiotics should not be used to treat an uncomplicated common cold. As noted above, colds are caused by viruses. Antibiotics treat bacterial, not viral infections. Alternative treatments ? Heated, humidified air can improve symptoms of nasal congestion and runny nose, and causes few to no side effects. PREVENTION Hand washing is an essential and highly effective way to prevent the spread of infection. Hands should be wet with water and plain soap, and rubbed together for 15 to 30 seconds. Special attention should be paid to the fingernails, between the fingers, and the wrists. Hands should be rinsed thoroughly, and dried with a single use towel. Alcohol-based hand rubs are a good alternative for disinfecting hands if a sink is not available. Hand rubs should be spread over the entire surface of hands, fingers, and wrists until dry, and may be used several times. These rubs can be used repeatedly without skin irritation or loss of effectiveness. Hand rubs are available as a liquid or wipe in small, portable sizes that are easy to carry in a pocket or handbag. When a sink is available, visibly soiled hands should be washed with soap and water. Hands should be washed before preparing food and eating, and after coughing, blowing the nose, or sneezing. While it is not always possible to limit contact with people who may be infected with a cold, touching the eyes, nose, or mouth after direct contact should be avoided when possible. In addition, tissues should be used to cover the mouth when sneezing or coughing. These used tissues should be disposed of promptly. Sneezing/coughing into the sleeve of one's clothing (at the inner elbow) is another means of containing sprays of saliva and secretions and does not contaminate the hands. SUMMARY ? The average adult experiences two to three colds per year, while children average 8 to 12 colds per year. ? Symptoms of the common cold usually include nasal congestion, runny nose, and sneezing. They typically last for three to seven days, although many people have symptoms (coughing, sneezing, congestion) for up to two weeks. ? People with colds typically carry the cold virus on their hands, where it can infect another person for at least two hours. Some cold viruses can live on surfaces (such as a counter top, door handle, or phone) for several hours. Droplets containing viral particles can be breathed, coughed, or sneezed into the air. ? There is no specific treatment for colds. Treatment may reduce some of the symptoms of the cold, but do not shorten or cure the cold. Antibiotics are not useful for treating the common cold. Hand washing can prevent the spread of infection. Hands should be wet with water and plain soap, and rubbed together for 15 to 30 seconds. Alcohol-based hand rubs are a good alternative for disinfecting hands if a sink is not available Nasal saline 2 sprays both nostrils every 3 hours while awake. May also use neti pot/bottle nasal saline rinse. May also use Guaifenesin (Mucinex) 600-1200 mg by mouth every 2 hours. You must be drinking lots of water in order for this medication to work. You may also use Sudafed per the package instructions to help with nasal congestion. For any changes in vision, increased eye pain or eye discharge, sensitivity to the light, or fever greater than 101F, please report immediately to the emergency room. Flonase 2 sprays both nostrils once daily at bedtime. Zyrtec (cetrizine) 10 mg by mouth once daily. If no improvement in cold symptoms in 5 days, please follow up with your PCP or Express Care. Visit Notes: >> Joshua Toussaint November 16, 2017 8:01 AM Status: Signed Left eye acuity:20/16 Right eye acuity:20/20 Joshua Driver Prescriptions ordered this encounter Disp Refills Start End TOBRAMYCIN 0.3 % EYE DROPS 1 Satish* 0 11/16/2017 11/23/2017 Route: RIGHT EYE Sig: Use 1-2 Drops in the right eye every 4 hours for 7 days. Medications Discontinued During This Encounter azithromycin (ZITHROMAX Z-ISIS) 250 m* 6 ta* 0 06/18/2017 11/16/2017 Sig: Two (2) tablets by mouth the first day and then one (1) tablet by mouth daily for 4 days. Disc: Course of therapy completed Letter Text Salvatore Bellamy APRN.CNP [facility] [address] [facility] [address] Dept: [phone] Dept 11/16/2017 Shad Griffiths [address] [place] [address] Dr Butch [facility] [address] To Whom it May Concern: This is to certify that Shad Anastacia Griffiths was seen at our office for medical care. Shad may return to work on 11/17/2017. If you have any questions please feel free to call. Sincerely: Salvatore Bellamy APRN.INTERNAL MEDICINE NURSE PRACTITIONER Encounter Status:Closed by SALVATORE BELLAMY CNP on 11/16/17 ALLERGIES ALLERGIES DATE TYPE / NAME / CODE REACTION SEVERITY SOURCE CODE 08/03/2018 Drug Penicillins/F0010 Anaphylaxis Unknown [facility] Allergy/41 17152(RXNORM) Community 9206272[facility]) Repository 08/03/2018 Drug Sulfa Nausea Unknown [facility] Allergy/41 (Sulfonamide [facility] 7368618( Antibiotics)/F001 [facility]) 378554(RXNORM) Repository 08/27/2015 Drug PENICILLINS ANAPHYLAXIS High [facility] Class/[address] [place] [address](SNOM Repository ED CT) 07/19/2011 Drug SULFA Vomiting [facility] Class/4195 (SULFONAMIDE [address] [place] [address](SN ANTIBIOTICS) Repository ED CT) ENCOUNTERS ENCOUNTERS ADMIT/DISCHARGE ACCOUNT NUMBER ADMITTING ENCOUNTER LOCATION SOURCE CLASS 08/03/2018 [id number] Ambulatory [facility] ding:LABSPEC Repository 08/03/2018/08/03/19 [id number] Ambulatory BMSBuilding: [place] 19 [facility] Repository 07/07/2018/07/07/20 [id number] Ambulatory BMSBuilding: [place] 18 BMS.[facility] Repository 06/24/2018 [id number] Ambulatory [facility] Repository 06/22/2018 [id number] Ambulatory UHCBuilding: [address] Repository 06/14/2018/06/18/20 [id number] Jama, Inpatient UHCBuilding: [place] [address] Dr[address] Coreas Encounter LF8RShnc: [facility] E8317Tkr: Repository [id number] 06/14/2018 [id number] Ambulatory [facility] Repository 06/10/2018 [id number] Ambulatory [facility] Repository 06/07/2018 [id number] Ambulatory [facility] Repository 06/04/2018/06/04/20 [id number] Mcewen, Ambulatory UHCBuilding: [place] [address] Dr[address] Coreas NH4WTzkb: [facility] R1846Qmw: Repository [id number] 06/03/2018/06/03/20 [id number] Ambulatory UHCBuilding: [place] [address] CU8DVjiw: Hospitals F4393Hbn: Repository [id number] 06/03/2018 [id number] Ambulatory [facility] Repository 05/31/2018 [id number] Ambulatory [facility] Repository 05/27/2018 [id number] Ambulatory [facility] Repository 05/27/2018 [id number] Ambulatory [facility] Repository 05/24/2018 [id number] Ambulatory [facility] Repository 05/20/2018 [id number] Ambulatory [facility] Repository 05/20/2018 [id number] Ambulatory [facility] Repository 05/13/2018 [id number] Ambulatory [facility] Repository 05/06/2018/05/08/20 [id number] Mcewen, Inpatient UHCBuilding: [place] [address] Dr[address] Coreas Encounter UK2MLnhp: [facility] S9540Nqo: Repository [id number] 04/29/2018 [id number] Ambulatory [facility] Repository 04/29/2018 [id number] Ambulatory [facility] Repository 04/18/2018/04/18/20 [id number] Jama, Ambulatory [place] [address] Regional ding:[facility] Repository 04/18/2018 [id number] Ambulatory [address] [place] [address] Repository 04/14/2018 [id number] Ambulatory [address] [place] [address] Repository 04/01/2018 [id number] Ambulatory [facility] Repository 03/18/2018/03/21/[id number] Ayleen Inpatient UHCBuilding: [place] [address] [facility] TR4OAasx: Hospitals U9764Mci: Repository [id number] 03/07/2018 [id number] Ambulatory [facility] Repository 02/28/2018 [id number] Ambulatory [facility] Repository 02/07/2018 [id number] Ambulatory [facility] Repository 01/25/2018 [id number] [facility] [address] [place] [address] Dr. Jara [facility] Repository 01/14/2018 [id number] Ambulatory [facility] Repository 01/10/2018 [id number] Ambulatory [facility] Repository 12/14/2017 [id number] Ambulatory [facility] Repository 12/10/2017 [id number] Ambulatory [facility] Repository 12/09/2017/12/11/19 [id number] Ambulatory [address] lding:VIRIDIANARo Repository om: UZZP7Xop: JTER06 12/07/2017 [id number] Ambulatory [facility] Repository 12/06/2017 [id number] Ambulatory [facility] Repository 12/06/2017 [id number] Ambulatory [facility] Repository 11/16/2017 [id number] Ambulatory [facility] Repository PAYERS PAYERS ENCOUNTER GUARANTOR PAYER SUBSCRIBER SOURCE 08/03/2018 HSAD [id number] Primary SHAVON ANGEL LUISB: Evens Velasquez Insurance:MED [place] [id number] TPAPolicy Number: [facility] [id number]: (553) [id number] Repository [phone] (HP) e Date:3859-11-96WN [address], [place] [address]AZ: CHECK WEBSITE 08/03/2018 Secondary NOT GIVENUNK [facility] Insurance:SELF PAY [facility] Number: Effective Repository Date:2018-08-03 08/03/2018 SHAD [id number] Primary SHAVON SIGLERDOB: [place] Eva Insurance:MEDICAL [id number] [address]Vaf: (330) Number: Repository [phone] () [id number] e Date:2411-08-79WY [address] [place], [place] [address]WP: 08/03/2018 Secondary NOT GIVENUNK [facility] Insurance:SELF PAY [facility] Number: Effective Repository Date:2018-08-03 07/07/2018 SHAD [id number] Primary SHAVON SIGLERDOB: [place] Insurance:MEDICAL [id number] [address]Frg: (330) Number: Repository [phone] () [id number] e Date:3110-65-65CD [address] [place] [address]BZ: 07/07/2018 Secondary SHAD [place] Insurance:MED MUT SIGLERDOB: [facility] [id number] [facility] Number: Repository [id number] e Date:9975-57-18CM [address] [address]FG: 07/07/2018 Tertiary NOT GIVENUNK [place] Insurance:SELF PAY [facility] Number: Effective Repository Date:2018-06-21 06/24/2018 SHAD SIGLERDOB: [facility] [id number] Insurance:Medical SIGLERDOB: [facility] [address] [facility] [id number] Repository [address] Number: [address] [id number]: [id number] [address] e Date:Plan [id number]: (HP) Name:[facility] (HP) (WP) 06/22/2018 SHAD HEINB: [facility] [id number] Insurance:Medical SIGLERDOB: [facility] [address] [facility] [id number] Repository [place], [place] Number: [address] [id number]: [id number] S3RGBMDXZ[place], [place] e Date:Plan [id number]: (HP) Name:[facility] (HP) (WP) 06/22/2018 Secondary SHAVON HEINB: [place] Insurance:[place] [id number] [facility] [address] [facility] U2KEBKCIVV[place], [place] Number: [id number]: [id number] e Date:Plan () Name:[facility] [address], [place] [address]TB: 06/14/2018 SHAD HEINB: [facility] [id number] Insurance:Medical SIGLERDOB: [facility] [address] [facility] [id number] Repository K8LJIGXMHVIRGIN[place], [place] Number: [address] [id number]: [id number] [address] e Date:Plan [id number]: (HP) Name:[facility] () (WP) 06/14/2018 SHAD HEINB: [facility] [id number] Insurance:Medical SIGLERDOB: [facility] [address] [facility] [id number] Repository D8AAGIOVEVIR[place]ACH, [place] Number: [address] [id number]: [id number] [address] e Date:Plan [id number]: (HP) Name:[place] [phone] () (WP) 06/10/2018 SHAD HEINB: [facility] [id number] Insurance:Medical SIGLERDOB: [facility] [address] [facility] [id number] Repository L1YMZEYSA, [place] Number: [address] [id number]: [id number] I7MJLEDIW, [place] e Date:Plan [id number]: (HP) Name:[place] [phone] () (WP) 06/07/2018 SHAD HEINB: [facility] Insurance:Medical SIGLERDOB: [facility] [address] [facility] [id number] Repository Y5USPQIMN, [place] Number: [address] [id number]: [id number] N9UPAVSVV, [place] e Date:Plan [id number]: (HP) Name:[place] [phone] () (WP) 06/04/2018 SHAD HEINB: [facility] Insurance:Medical SIGLERDOB: [facility] [address] [facility] [id number] Repository D6QGPPHQW, [place] Number: [address] [id number]: [id number] I1KOERKCE, [place] e Date:Plan [id number]: (HP) Name:[place] [address] () (WP) 06/03/2018 SHAD HEINB: [facility] [id number] Insurance:Medical SIGLERDOB: [facility] [address] [facility] [id number] Repository F9GUKHVMC, [place] Number: [address] [id number]: [id number] E6OIDWGEU, [place] e Date:Plan [id number]: (HP) Name:[place] [address] () (WP) 06/03/2018 SHAD HEINB: [facility] [id number] Insurance:Medical SIGLERDOB: [facility] [address] [facility] [id number] Repository E6LCYUCJK, [place] Number: [address] [id number]: [id number] F9PWQUXDV, [place] e Date:Plan [id number]: () Name:[address] () (WP) 05/31/2018 SHAD HEINB: [facility] [id number] Insurance:Medical SIGLERDOB: [facility] [address] [facility] [id number] Repository Z1JCGLXIZ, [place] Number: [address] [id number]: [id number] J0MDEBRUL, [place] e Date:Plan [id number]: () Name:[address] () (WP) 05/31/2018 Secondary shavon siglerDOB: University Insurance:[place] [id number] [facility] Number: [id number] e Date:Plan Name:[facility] [address]Uwqvfeqxl, [place] [id number]: 05/27/2018 SHAD HEINB: [facility] [id number] Insurance:Medical SIGLERDOB: [facility] [address] [facility] [id number] Repository E7UOUUNVQ, [place] Number: [address] [id number]: [id number] U9KCBPPVV, [place] e Date:Plan [id number]: (HP) Name:[facility] () (WP) 05/27/2018 SHAD HEINB: [facility] [id number] Insurance:Medical SIGLERDOB: [facility] [address] [facility] [id number] Repository Y6UMVSAKL, [place] Number: [address] [id number]: [id number] L6IUOQDFB, [place] e Date:Plan [id number]: (HP) Name:[facility] () (WP) 05/24/2018 SHAD HEINB: [facility] [id number] Insurance:Medical SIGLERDOB: [facility] [address] [facility] [id number] Repository G7JWOJTTR, [place] Number: [address] [id number]: [id number] S9AXVTHBS, [place] e Date:Plan [id number]: (HP) Name:[facility] () (WP) 05/20/2018 SHAD HEINB: [facility] [id number] Insurance:Medical SIGLERDOB: [facility] [address] [facility] [id number] Repository N0BVTALIB, [place] Number: [address] [id number]: [id number] M5LVGSKQC, [place] e Date:Plan [id number]: (HP) Name:[facility] () (WP) 05/20/2018 SHAD FLOYD: [facility] [id number] Insurance:Medical [facility] CENTRAL CAMPUSB: [facility] [address] [facility] [id number] Repository D3YAJAXIK, [place] Number: [address] [id number]: [id number] J1KUUYTFF, [place] e Date:Plan [id number]: (HP) Name:[facility] () (WP) 05/13/2018 SHAD SIGLERDOB: [facility] [id number] Insurance:Medical SIGLERDOB: [facility] [address] [facility] [id number] Repository Y8NHQMAQJ, [place] Number: [address] [id number]: [id number] T4WJDPUHS, [place] e Date:Plan [id number]: (HP) Name:[facility] () (WP) 05/13/2018 [facility] Insurance:Medical SIGLERDOB: [facility] [id number] Repository Number: [address] [id number] C6KOENYIC, [place] e Date:Plan [id number]: Name:[place] [address] () (WP) 05/06/2018 SHAD SIGMERARIB: [facility] [id number] Insurance:Medical SIGCHIPPEWA [facility] HOSPITALB: [facility] [address] [facility] [id number] Repository H1OXKARGH, [place] Number: [address] [id number]: [id number] Q7QLOAUVS, [place] e Date:Plan [id number]: (HP) Name:[facility] () (WP) 04/29/2018 SHAD PÉREZOB: [facility] [id number] Insurance:Medical KOVACSDOB: [facility] [address] [facility] [id number] Repository J8PTQXOPVVIRGINIA [place]ACH, [place] Number: [address] [id number]: [id number] [address] e Date:Plan [id number]: () Name:[place] [address] () (WP) 04/29/2018 SHAD KALEBLAURASDOB: [facility] [id number] Insurance:Medical KOVACSDOB: [facility] [address] [facility] [id number] Repository Y7TOLYCZE, [place] Number: [address] [id number]: [id number] [address] e Date:Plan [id number]: () Name:[place] [address] () (WP) 04/18/2018 SHAD Galaviz [facility] SHAD Anastacia Mormon ELISAOB: Insurance:Medical KOVACSDOB: [facility] Number: [id number] [facility] [address] [facility] [address] Repository E3CMIFZJVVIRGIN[place], [place] Date:2018-04-[address] [address]Fjl: [id number] [address]Kwe: Name:Medical () [facility] ()Tel: (579) [place], [place] [phone] () [address]AE: 04/18/2018 SHAD PÉREZOB: [facility] [id number] Insurance:Medical KOVACSDOB: [facility] [address] [facility] [id number] Repository N7FZMCINX, [place] Number: [address] [id number]: [id number] P7XYGSDSY, [place] e Date:Plan [id number]: () Name:[facility] () (WP) 04/18/2018 [facility] Insurance:Medical KOVACSDOB: [facility] [id number] Repository Number: [address] [id number] Z2YSVWXUOVIRGINIA BEACH, [place] e Date:Plan [id number]: Name:[facility] () (WP) 04/14/2018 SHAD [facility]aviz [facility] CenterV[facility]SDOB: Insurance:Medical KOVACSDOB: [facility] [id number] Repository JASMIN MONTES Number: JASMIN ASHLEY [facility] [id number] [place], [place] e Date:[facility] [address]Vqf: (330) Name:[place], [place] () [address]Knc: () (WP) 04/01/2018 SHAD HEIN: [facility] Insurance:Medical SIGCHIPPEWA CITY MON[facility]IDEO HOSPITALB: [facility] [address] [facility] [id number] Repository [address], [place] Number: [address] [id number]: [id number] P7MKATZDB, [place] e Date:Plan [id number]: () Name:[facility] () (WP) 03/18/2018 TE ANNNHOB: [facility] [id number] Insurance:Medical KOVACSDOB: [facility] [id number] Repository [place], [place] Number: [address] ZAVALA [address]Ybx: (585) [id number] [address] [phone] () e Date:Plan [id number]: Name:[facility] (HP) () 03/07/2018 SHAD A [facility] Hamilton[facility] Gal[facility]iz [facility]: Insurance:Medical KOVACSDOB: Hospitals [id number]: [facility] [id number] Repository Number: () [id number] e Date:Plan Name:Health 03/07/[address] [facility] Anastacia Grant Insurance:Medical KOVACSDOB: [facility] [id number] Repository Number: [id number] e Date:Plan Name:[facility] 02/28/2018 SHAD Anastacia [facility] Anastacia [facility]: Insurance:Medical KOVACSDOB: Hospitals [id number]: [facility] [id number] Repository Number: () [id number] e Date:Plan Name:[facility] 02/07/2018 SHAD A [facility] Anastacia [facility] CenterOB: Insurance:Medical KOVACSDOB: Hospitals [id number]: [facility] [id number] Repository Number: () [id number] e Date:Plan Name:[facility] 01/25/2018 SHAD A [facility] CenterButch Gal[facility]iz [facility] CenterOB: Insurance:Medical KOVACSDOB: [facility] [id number] Repository JASMIN MONTES Number: JASMIN [facility] OKLAHOMA CITYAnastacia [id number] JYOTI [place], [place] e Date:Plan [place] [address]Erz: (330) Name:[place], [place] [phone] (HP) [address]Zyf: (HP) (WP) 01/14/2018 SHAD Galaviz [facility]: Insurance:Medical KOVACSDOB: [facility] [id number] [facility] JASMIN MONTES Number: JASMIN DOMINGUEZ [id number] JYOTI [place], [place] e Date:Plan HOGA [address]Buo: (330) Name:Health [place], [place] 6120092 (HP) [address]Jna: (HP) (WP) 01/10/2018 SHAD Galaviz Primary TE A [facility]FI[facility]OSPITALSDOB: [facility] AntonioSDOB: Insurance:[facility] [id number] [facility] [id number]: cy Number: [place] Repository [id number] [place], [place] () e Date: - [address]Uzk: 330) 4711-59-08Eqwd [phone] () Name:Health 01/10/2018 Secondary SHAD Anastacia Grant Insurance:Medical KOVACSDOB: [facility] [id number] Repository Number: [id number] e Date:Plan Name:Health 12/14/2017 SHAD Galaviz Primary TE A [facility]SDOB: Insurance:[facility] [id number] [facility] cy Number: [facility] CenterAngie [facility]LEY [facility] [id number] [facility] e Date:Plan [address]Odp: (330) [place], [place] Name:Health [phone] (HP) [address]Qzl: () 12/14/2017 Secondary SHAD A [place] Insurance:Medical KOVACSDOB: [facility] [id number] Repository Number: JASMIN ASHLEY [id number] e Date:Plan Name:[place], [place] [address]Gla: (HP) (WP) 12/10/2017 SHAD Galaviz Grant ELISAOB: Insurance:Medical KOVACSDOB: [facility] [id number] Repository [address] Number: JASMIN DOMINGUEZ [id number] [address] [place], [place] e Date:[facility] [address]Uwv: (330) Name:[place], [place] [phone] (HP) [address]Sew: (HP) (WP) 12/09/2017 SHAD Galaviz Grant SETHSDOB: Insurance:Medical KOVACSDOB: [facility] [id number] Repository [address] Number: JASMIN DOMINGUEZ [id number] [address] [place], [place] e Date:[facility] [address]Dzn: (330) Name:[place], [place] [phone] (HP) [address]Jzq: (HP) (LC) 12/07/2017 SHAD Galaviz Grant SETHSDOB: Insurance:Medical KOVACSDOB: [facility] [id number] Repository [address] Number: JASMIN DOMINGUEZ [id number] [address] [place], [place] e Date:[facility] [address]Lwr: (330) Name:[place] [phone] (HP) [address]Fkt: (HP) (WP) 12/06/2017 SHAD Galaviz Grant ELISAOB: Insurance:Medical KOVACSDOB: [facility] [id number] Repository [address] Number: JASMIN DOMINGUEZ [id number] DR[address] [place], [place] e Date:Plan Tel: (330) Name:CARMINE Gonzalez [address] (HP) [address]Fmc: (HP) (WP) 12/06/2017 SHAD Galaviz [facility] HamiltonLLE Anastacia [facility] CenterOB: Insurance:[facility] FacilityOB: [facility] [id number] Repository JASMIN MONTES Number: JASMIN DOMINGUEZ [id number] [facility] [place] e Date:Plan Tel: (330) Name:CARMINE Gonzalez [phone] (HP) [address]Tsr: (HP) (WP)
== END ==
PROVIDERS: Referring Provider Nurse Practitioner Women's Health; Visit Provider Nurse Practitioner Women's Health
DX: Z12.4 Encounter for screening for malignant neoplasm of cervix (principal)
CPT/HCPCS: 87624; 88175; G0145

== ENCOUNTER → 2019-01-11 11:16 | Outpatient (CLI) | payer OTHER, SELFPAY ==
[2018-12-27 08:12] VITALS: BMI 27.8
[2019-01-11 12:01] LABS: Absolute Lymphocyte Count 3.41 X10^3/ul (0.83-4.51); Absolute Neutrophil Count 4.5 X10^3/uL (2.0-7.7); Basophil# 0.04 X10^3/uL; Basophil% 0.5 % (0-1); Eosinophils% 1.2 % (0-5); Hematocrit 39.1 % (37-47); Hemoglobin 12.3 g/dl (12.0-15.0); Lymphocyte # 3.41 X10^3/ul (4.0); Lymphocyte % 39.6 % (19-41); Mean Corp Hgb Conc 31.5 g/gl (32-36); Mean Corpuscular Volume 76.2 fL (81-99); Mean Platelet Vol. 8.1 fl (6.2-12.0); Neutrophil # 4.45 X10^3/uL (2.7-7.7); Neutrophil % 51.6 % (47-70); Platelet Count 321 K/mm3 (150-450); RBC Distribution Width CV 16.6 % (11.6-14.6); RBC Distribution Width SD 46.5 fl (35.1-43.9); Red Blood Count 5.13 M/mm3 (4.2-5.4); White Blood Count 8.6 K/mm3 (4.4-11.0)
[2019-01-11 12:03] LABS: POSITIVE COUNT NO; POSITIVE DIFFERENTIAL NO; POSITIVE MORPHOLOGY NO
[2019-01-11 12:36] LABS: ALB/GLOB Ratio 0.9 RATIO (0.9-2.4); AST(SGOT) 17 U/L (15-37); Alanine Aminotransfer ALT/SGPT 24 U/L (13-56); Albumin, Serum 3.6 g/dL (3.2-5.0); Alkaline Phosphatase 128 U/L (45-117); Anion Gap 4 (5-15); BUN 12 mg/dL (7-18); BUN/Creat Ratio 19.1 RATIO (10-20); Calcium,Total 8.4 mg/dL (8.5-10.1); Chloride 107 mmol/L (98-107); Cholesterol 197 mg/dL (200); Creatinine, Serum 0.63 mg/dL (0.55-1.02); EST Glomerular Filtration Rate 120 mL/min (>60); Est Glom Filt Rate - Afr Amer 145 mL/min (>60); Globulin 4.2 g/dL (2.2-4.2); Glucose 86 mg/dL (74-106); High Density Lipoprotein 56 mg/dL; Potassium 3.5 mmol/L (3.5-5.1); Protein, Total 7.8 g/dL (6.4-8.2); Sodium Level 137 mmol/L (136-145); Thyroid Stim Hormone (TSH) 1.24 uIU/mL (0.358-3.74); Triglycerides 53 mg/dL; Very Low Density Lipoprotein 11 mg/dL (5-40)
== END ==
PROVIDERS: Family Provider Family Medicine; PCP Family Medicine; Referring Provider Family Medicine; Visit Provider Family Medicine
DX: E78.5 Hyperlipidemia, unspecified (principal); E04.1 Nontoxic single thyroid nodule; N20.0 Calculus of kidney; D64.9 Anemia, unspecified
CPT/HCPCS: 36415; 80053; 80061; 84443; 85025

== ENCOUNTER 2019-02-04 16:22 | Emergency (ER) | payer OTHER, SELFPAY ==
[2018-12-27 08:12] VITALS: BMI 27.8
[2019-02-04 16:23] VITALS: BP 143/81; PULSE 99; RESP 16; TEMP 36.8; O2SAT 98; BMI 29.9
[2019-02-04 16:31] VITALS: BP 143/81; PULSE 99; RESP 16; TEMP 36.8; O2SAT 98
[2019-02-04 17:00] LABS: Mucous, Urine 0 SEEN /hpf (<or=2+)
[2019-02-04 17:01] LABS: Color, Urine Yellow (Yellow); Glucose, Dipstick Normal (Normal); Ketone-Dipstick Negative (Negative); Leukocyte Esterase-Dipstick 500 /ul (Negative); Nitrite-Dipstick Positive (Negative); Occult Blood-Urine 150 /ul (Negative); Protein-Dipstick 100 mg/dl (Negative); Specific Gravity, Urine 1.015 (1.002-1.030); Urine Bilirubin Dipstick Negative (Negative); Urine Clarity Cloudy (Clear); Urine Urobilinogen Normal (Normal)
[2019-02-04 17:14] LABS: White Blood Cells >100 SEEN /hpf (0-5)
[2019-02-04 17:15] LABS: Bacteria 3+ /hpf (None Seen); Red Blood Cells-Urine 0-5 SEEN /hpf (0-5); Squamous Epithelial Cells - UA 0-5 SEEN /hpf (5-10)
[2019-02-04 17:20] LABS: Absolute Lymphocyte Count 3.19 X10^3/uL (0.83-4.51); Absolute Neutrophil Count 8.2 X10^3/uL (2.0-7.7); Basophil# 0.04 X10^3/uL; Basophil% 0.3 % (0-1); Eosinophil# 0.13 X10^3/uL; Hematocrit 38.2 % (37-47); Hemoglobin 12.1 g/dL (12.0-15.0); Lymphocyte # 3.19 X10^3/ul (4.0); Lymphocyte % 25.7 % (19-41); Mean Corp Hgb Conc 31.7 g/dL (32-36); Mean Corpuscular Hgb 24.2 pg (27.0-32.0); Mean Corpuscular Volume 76.6 fL (81-99); Monocyte# 0.83 X10^3/uL; Monocyte% 6.7 % (0-10); NRBC Flagged by Analyzer 0 % (0-5); Neutrophil # 8.19 X10^3/uL (2.7-7.7); Platelet Count 348 K/mm3 (150-450); RBC Distribution Width CV 16.8 % (11.6-14.6); RBC Distribution Width SD 46.5 fl (35.1-43.9); Red Blood Count 4.99 M/mm3 (4.2-5.4); White Blood Count 12.4 K/mm3 (4.4-11.0)
[2019-02-04 17:33] LABS: Anion Gap 5 (5-15); BUN 16 mg/dL (7-18); BUN/Creat Ratio 23.2 RATIO (10-20); Calcium,Total 8.4 mg/dL (8.5-10.1); Chloride 107 mmol/L (98-107); Creatinine, Serum 0.69 mg/dL (0.55-1.02); EST Glomerular Filtration Rate 108 mL/min (>60); Est Glom Filt Rate - Afr Amer 131 mL/min (>60); Estimated Creatinine Clearance 96.86 ml/min; Glucose 129 mg/dL (74-106); Potassium 3.4 mmol/L (3.5-5.1); Sodium Level 137 mmol/L (136-145)
--- NOTE | 2019-02-04 17:36 | ED.VISSUMM ---
- ER Visit Summary Date of Service: 02/04/19 Chief Complaint: Stoma pain History of Present Illness: The patient is a 28 F who states that 21 years ago she had bladder reconstructive surgery and had a stoma placed. 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 Eventually this led to her surgery. Therefore she is self cathed for about 21 years. She states that over the past couple days she has developed a swollen red painful stoma. She notes burning when she caths. She also has noted some blood in the urine which she states is not abnormal for her as she has a history of kidney stones. She does not currently have a urologist because her urologist moved 8 months ago to [place] and she has been referred to Dr. Conroy but not until May. Physical Examination: Afebrile vital signs stable Gen: Well-nourished well-developed Head: Normocephalic atraumatic Eyes: Perrl EOMI ENT: TMs clear no rhinorrhea moist mucous membranes Neck: Supple no lymphadenopathy no JVD nontender CVS: Regular rate rhythm no murmurs normal S1-S2 Respiratory: No distress clear to auscultation bilaterally chest nontender Abdomen: Soft the stoma itself looks okay however the surgical scar tissue around the stoma looks mildly irritated and swollen. There is no fluctuance. There is no significant erythema. Nondistended normal bowel sounds no masses Back: Nontender Extremity: Nontender no edema Skin: Normal color no rash Neuro: alert orientated ?3 CN II-XII intact normal strength sensation reflexes gait cerebellar Psych: Normal affect normal mood Test Results: White count is 12.4. Urinalysis is grossly infected with positive nitrates. Emergency Department Course and Treatment: Topical lidocaine was applied to the area which is helped her discomfort. I will place her on Bactrim. She can continue the lidocaine at home. Culture will be obtained. Return if worsening or concerns Impression: 1. UTI 2. Stoma pain This note was generated with [employer] dictation software. It may contain incorrect words, spelling, and punctuation that were not noted in review of the chart prior to signing ED Disposition - Plan for ED Patient: Disposition: Home or Assisted Living Instructions: Bladder Infection, Female (Adult) Prescriptions: Cephalexin [Keflex] 500 mg PO Q6 #28 cap Prescription Printed Lidocaine 2% Jelly [Xylocaine 2% Jelly] 5 ml OPERA.SITE Q6H 3 Days #60 ml Prescription Printed Referrals: Inga Shook MD [Primary Care Provider] - 3-5 Days if not improving
[2019-02-04 18:06] VITALS: BP 115/74; PULSE 91; RESP 16; O2SAT 97
--- NOTE | 2019-02-04 18:07 | ED.RN ---
REVIEWED D/C INSTRUCTIONS, FOLLOW UP CARE, PRESCRIPTIONS, AND S/S THAT WOULD WARRANT A RETURN TO THE ED WITH PT. PT VERBALIZED AN UNDERSTANDING AND DENIES FURTHER QUESTIONS FOR THIS RN. PT SKIN P/W/D, RESP EVEN AND UNLABORED, PT A&O X 3, NO DISTRESS NOTED. PT AMBULATED OUT OF ED, GAIT STEADY.
== END 2019-02-04 18:11 | disposition home or self-care (01) ==
PROVIDERS: Emergency Provider Emergency Medicine; Family Provider Family Medicine; PCP Family Medicine
DX: T83.84XA Pain due to genitourinary prosthetic devices, implants and grafts, initial encounter (principal); N39.0 Urinary tract infection, site not specified; R31.9 Hematuria, unspecified; R32 Unspecified urinary incontinence; F41.9 Anxiety disorder, unspecified; Z79.899 Other long term (current) drug therapy; Z87.442 Personal history of urinary calculi
CPT/HCPCS: 80048; 81001; 85025; 87086; 87088; 87186; 99282

== ENCOUNTER 2019-02-05 19:36 | Emergency (ER) | payer OTHER, SELFPAY ==
[2019-02-04 16:23] VITALS: BMI 29.9
[2019-02-05 19:37] VITALS: BP 131/98; PULSE 104; RESP 18; TEMP 36.7; O2SAT 98; BMI 29.7
--- NOTE | 2019-02-05 20:07 | CT_ITS ---
STUDY: CT ABDOMEN AND PELVIS WITH CONTRAST REASON FOR EXAM: Female, 28 years old. Edema drainage from the urinary stoma. RADIATION DOSAGE (If Supplied By Facility): CTDIvol = ( 13.33 ) mGy, DLP = ( 772.01 ) mGycm TECHNIQUE: Transaxial images were obtained from the dome of the diaphragm to the symphysis pubis without oral contrast. 100 IV Isovue 300 was administered. Sagittal and coronal images were reconstructed. Individualized dose optimization techniques were used for this CT. COMPARISON: None. FINDINGS: The visualized lung bases are unremarkable. The visualized portions of the heart are within normal limits. Normal liver. Normal gallbladder and extrahepatic biliary system. Normal spleen. Normal pancreas. Normal bilateral adrenal glands. Normal right kidney. There is mild cortical thinning within the upper pole the left kidney likely secondary to prior reflux. 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 Normal visualized stomach. Normal small intestine. Normal colon. There is non-visualization of the appendix. Normal abdominal aorta. Normal inferior vena cava. Normal retroperitoneum. There is a reconstructed urinary bladder. There is bladder wall thickening present. There are calculi within the urinary bladder. There is a cutaneous stoma within the umbilicus. There is an umbilical skin thickening associated with periumbilical subcutaneous edema. There is intrauterine device in place. The uterus appears to be somewhat rotated. There is a right-sided nabothian cyst. There is pubic diastases consistent with history of bladder exstrophy. CT/Abdomen/Pelvis W IV Cont ONLY IMPRESSION: Bladder wall thickening of reconstructed bladder concerning for a history of cystitis. Bladder calculi. Periumbilical subcutaneous edema associated with periumbilical wall thickening may be secondary to underlying cellulitis. Pubic diastases consistent with a history of bladder exstrophy. Electronically Signed: Antonia Gibbs MD at 22:39 EDT Tel , Service support ,
--- NOTE | 2019-02-05 20:08 | ED.DCSUM_ITS ---
History of Present Illness Chief Complaint: Wound Check Detail of Chief Complaint: Swelling and drainage around urinary stoma Informant: Patient Onset: - - Last several days Context: Gradual Onset Current Severity: Moderate Maximum Severity: Moderate Narrative: Patient has a history of bladder reconstructive surgery 21 years ago secondary to bladder exstrophy. A stoma was placed and she self caths. Patient states over the last several days she is noted increased pain when trying to lie on her stomach. She was seen in the ED yesterday secondary to pain around the stoma site. She would have increased pain when she would cath. In the ED yesterday she was noted to have a UTI. She was started on Keflex. Patient returns today with continued pain. She now has redness spreading on her abdominal wall. She has noted some drainage from the stoma site and a slight black discoloration to a small area of the skin. She has been using lidocaine jelly on the wound. Past Medical History - Allergies and Home Meds Allergies/Adverse Reactions: Allergies Sulfa (Sulfonamide Antibiotics) Allergy (Verified 02/05/19 19:40) Nausea Penicillins [PCN] Adverse Reaction (Verified 02/05/19 19:40) Anaphylaxis Primary Care Physician: Inga Shook MD [Primary Care Provider] - Prior records reviewed: Yes Past Medical History: - - Reviewed Lives: With Family Smoking Status: Never smoker Review of Systems General: Denies: Chills, Fever Eyes: Denies: Visual changes - bilaterally ENT: Denies: Bilateral ear pain, Sore throat Cardiovascular: Denies: Chest pain Respiratory: Denies: Dyspnea, Cough Gastrointestinal: Reports: Abdominal pain. Denies: Nausea, Vomiting, Diarrhea Neurological: Denies: Headache Endocrine: Denies: Polydipsia Hematologic: Denies: Easy bleeding Allergy: Denies: Uticaria Physical Exam Vital Signs/Narrative: Vital Signs Temp Pulse Resp BP Pulse Ox 02/05/19 19:37 98.0 F 104 H 18 131/98 H 98 Inital Vital Signs reviewed: Yes General: Well nourished, Well developed ENT: Moist mucous membranes Cardiovascular: Regular rate, Regular rhythm Respiratory: No distress, CTA bilaterally Abdomen: Soft, - - Mild erythema noted around her urinary stoma. She has drainage of serosanguineous appearing fluid. There is slight black discoloration to an area measuring approximately 1 x 5 mm that appears to be just superficial discoloration. There is no palpable abscess. Extremities: Nontender Skin: Negative for: Normal color - As above Neurological: Alert, Oriented x3 Psychological: Normal affect Diagnostic/Tx/Re-eval Laboratory Tests 02/05/19 02/05/19 02/05/19 Range/Units 20:59 20:18 20:18 WBC 10.4 (4.4-11.0) K/mm3 RBC 5.16 (4.2-5.4) M/mm3 Hgb 12.8 (12.0-15.0) g/dL Hct 39.9 (37-47) % MCV 77.3 L (81-99) fL MCH 24.8 L (27.0-32.0) pg MCHC 32.1 (32-36) g/dL RDW Std Deviation 46.6 H (35.1-43.9) fl RDW Coeff of Claudia 16.7 H (11.6-14.6) % Plt Count 349 (150-450) K/mm3 MPV 8.2 (6.2-12.0) fl Immature Gran % (Auto) 0.300 (0.0-0.9) % Neut % (Auto) 53.4 (47-70) % Lymph % (Auto) 36.2 (19-41) % [place] % (Auto) 8.2 (0-10) % Eos % (Auto) 1.5 (0-5) % Baso % (Auto) 0.4 (0-1) % Absolute Neuts (auto) 5.6 (2.0-7.7) X10^3/uL Absolute Lymphs (auto) 3.77 (0.83-4.51) X10^3/uL Absolute Nucleated RBC 0.00 (0-5) 10^3/uL Nucleated RBC % 0 (0-5) % Sodium 134 L (136-145) mmol/L Potassium 3.6 (3.5-5.1) mmol/L Chloride 104 (98-107) mmol/L Carbon Dioxide 26.0 (21.0-32.0) mmol/L Anion Gap 4 L (5-15) BUN 16 (7-18) mg/dL Creatinine 0.80 (0.55-1.02) mg/dL Estim Creat Clear Calc 83.54 ml/min Est GFR (MDRD) Af Amer 111 (>60) mL/min Est GFR (MDRD) Non-Af 91 (>60) mL/min BUN/Creatinine Ratio 20.1 H (10-20) RATIO Glucose 99 (74-106) mg/dL Calcium 8.9 (8.5-10.1) mg/dL Serum , Qual NEGATIVE Negative - Medical Decision Making Patient was given morphine, Zofran, and IV fluids. Laboratory evaluation is improved when compared to yesterday's studies. She is sent to CT for imaging to rule out abscess or fluid collection along with pyelonephritis. This will be signed out to oncoming physician for final review and disposition. ED Disposition - Plan for ED Patient: Referrals: Inga Shook MD [Primary Care Provider] -
[2019-02-05] MEDS: Morphine 4 MG/ML Syringe IV ×2 (20:29→22:32)
[2019-02-05] MEDS: 0.9% Normal Saline 1,000 ML 150 ML IV (20:29)
[2019-02-05] MEDS: Ondansetron 4 MG/2 ML Vial IV (20:29)
[2019-02-05 20:35] LABS: Absolute Lymphocyte Count 3.77 X10^3/uL (0.83-4.51); Absolute Neutrophil Count 5.6 X10^3/uL (2.0-7.7); Basophil# 0.04 X10^3/uL; Basophil% 0.4 % (0-1); Eosinophil# 0.16 X10^3/uL; Eosinophils% 1.5 % (0-5); Hematocrit 39.9 % (37-47); Hemoglobin 12.8 g/dL (12.0-15.0); Lymphocyte # 3.77 X10^3/ul (4.0); Lymphocyte % 36.2 % (19-41); Mean Corp Hgb Conc 32.1 g/dL (32-36); Mean Corpuscular Hgb 24.8 pg (27.0-32.0); Mean Corpuscular Volume 77.3 fL (81-99); Mean Platelet Vol. 8.2 fl (6.2-12.0); Monocyte# 0.85 X10^3/uL; Monocyte% 8.2 % (0-10); NRBC Flagged by Analyzer 0 % (0-5); Neutrophil # 5.56 X10^3/uL (2.7-7.7); Neutrophil % 53.4 % (47-70); Platelet Count 349 K/mm3 (150-450); RBC Distribution Width CV 16.7 % (11.6-14.6); RBC Distribution Width SD 46.6 fl (35.1-43.9); Red Blood Count 5.16 M/mm3 (4.2-5.4); White Blood Count 10.4 K/mm3 (4.4-11.0)
[2019-02-05 20:43] LABS: Anion Gap 4 (5-15); BUN 16 mg/dL (7-18); BUN/Creat Ratio 20.1 RATIO (10-20); Calcium,Total 8.9 mg/dL (8.5-10.1); Chloride 104 mmol/L (98-107); EST Glomerular Filtration Rate 91 mL/min (>60); Est Glom Filt Rate - Afr Amer 111 mL/min (>60); Estimated Creatinine Clearance 83.54 ml/min; Glucose 99 mg/dL (74-106); Potassium 3.6 mmol/L (3.5-5.1); Sodium Level 134 mmol/L (136-145)
[2019-02-05 21:36] LABS: Internal QC Validated? YES +Cl - CLEAR BKGD; Pregnancy, Serum, hCG Quali. NEGATIVE Negative
[2019-02-05 22:22] VITALS: BP 118/61; PULSE 89; RESP 18; TEMP 36.7; O2SAT 98
--- NOTE | 2019-02-05 22:24 | ED.RN ---
DR. BUSTOS SAID THIS NURSE DID NOT HAVE TO DO SEPSIS SCREENS.
--- NOTE | 2019-02-05 22:55 | ED.DCSUM_ITS ---
- ER Visit Summary Date of Service: 02/05/19 Chief Complaint: [] History of Present Illness: The patient is a 28 F [] Physical Examination: [] Test Results: [] Emergency Department Course and Treatment: [] Treatment Plan: [] Disposition: [] Impression: [] This note was generated with [employer] dictation software. It may contain incorrect words, spelling, and punctuation that were not noted in review of the chart prior to signing ED Disposition - Plan for ED Patient: Disposition: Home or Assisted Living Diagnosis: Skin infection Instructions: Cellulitis Referrals: Inga Shook MD [Primary Care Provider] -
[2019-02-05 23:11] VITALS: BP 111/66; PULSE 85; RESP 18; O2SAT 99
== END 2019-02-05 23:13 | disposition home or self-care (01) ==
PROVIDERS: Emergency Medicine; Emergency Provider Emergency Medicine; Family Provider Family Medicine; PCP Family Medicine
DX: L08.9 Local infection of the skin and subcutaneous tissue, unspecified (principal); T83.84XA Pain due to genitourinary prosthetic devices, implants and grafts, initial encounter; N39.0 Urinary tract infection, site not specified; N21.0 Calculus in bladder; Z79.899 Other long term (current) drug therapy; Z88.2 Allergy status to sulfonamides; Z88.0 Allergy status to penicillin
CPT/HCPCS: 74177; 80048; 84703; 85025; 87040; 96361; 96374; 96375; 96376; 99283; J7030; Q9967; A4216; J2405

== ENCOUNTER 2019-03-21 11:50 | Emergency (ER) | payer OTHER, SELFPAY ==
[2019-03-21 11:51] VITALS: BP 125/75; PULSE 93; RESP 18; TEMP 36.6; O2SAT 98; BMI 28.3
[2019-03-21 11:53] VITALS: BP 116/68; PULSE 81; RESP 18; TEMP 37.1; O2SAT 99
--- NOTE | 2019-03-21 12:11 | ED.DCSUM_ITS ---
History of Present Illness Chief Complaint: Flank Pain Informant: Patient Onset: Yesterday Context: Sudden Onset Timing: Continuous Current Severity: Moderate Maximum Severity: Severe Narrative: The patient presents to the emergency department with flank pain. She does have history of prior kidney stone requiring lithotripsy remotely. 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 Her pain began last night. She states this feels like her normal kidney stone pain. She is scheduled to see Dr. Fabio Gill for urology, but not until May. She describes nausea. She denies any dysuria or frequency. She states this feels like her similar stones. Prior similar symptoms: Yes Recent Illness/Hospitalization: Yes Past Medical History - Allergies and Home Meds Allergies/Adverse Reactions: Allergies Sulfa (Sulfonamide Antibiotics) Allergy (Verified 03/21/19 11:53) Nausea Penicillins [PCN] Adverse Reaction (Verified 03/21/19 11:53) Anaphylaxis Primary Care Physician: Inga Shook MD [Primary Care Provider] - Prior records reviewed: Yes Past Medical History: - Smoking Status: Never smoker Review of Systems General: Denies: Chills, Fever, Sweats Eyes: Denies: Visual changes - bilaterally, Diplopia ENT: Denies: Rhinorrhea, Sore throat Cardiovascular: Denies: Chest pain, Palpitations Respiratory: Denies: Dyspnea, Cough, Dyspnea on exertion Gastrointestinal: Reports: Nausea. Denies: Abdominal pain, Vomiting, Diarrhea, Melena, Hematochezia Genitourinary: Denies: Dysuria, Hematuria, Frequency Musculoskeletal: Reports: Back pain. Denies: Extremity Pain Skin: Denies: Rash, Wounds Neurological: Denies: Headache, Weakness, Numbness Physical Exam Vital Signs/Narrative: Vital Signs Temp Pulse Resp BP Pulse Ox 03/21/19 11:51 98 F 93 18 125/75 H 98 Inital Vital Signs reviewed: Yes General: Well nourished, Well developed, No Acute Distress Head: Normocephalic, Atraumatic Eyes: Perrl, EOMI ENT: Moist mucous membranes, No rhinorrhea Neck: Supple, Nontender Cardiovascular: Regular rate, Regular rhythm, No murmurs Respiratory: No distress, CTA bilaterally, Chest nontender Abdomen: Soft, Nontender, Nondistended, Normal bowel sounds Back: Nontender, Normal Inspection Extremities: Nontender, No edema Skin: Normal color, No rash Neurological: Alert, Oriented x3, Cranial nerves II-XII grossly intact, Normal Strength, Normal Sensation Psychological: Normal affect, Normal Mood Diagnostic/Tx/Re-eval Abnormal Lab Results 03/21/19 03/21/19 03/21/19 12:10 12:10 12:10 WBC 14.0 H RBC 5.01 Hgb 12.4 Hct 39.0 MCV 77.8 L MCH 24.8 L MCHC 31.8 L RDW Std Deviation 47.8 H RDW Coeff of Claudia 17.0 H Plt Count 305 MPV 8.1 Immature Gran % (Auto) 0.300 Neut % (Auto) 70.9 H Lymph % (Auto) 20.2 [place] % (Auto) 7.7 Eos % (Auto) 0.5 Baso % (Auto) 0.4 Absolute Neuts (auto) 9.9 H Absolute Lymphs (auto) 2.82 Nucleated RBC % 0 Sodium 137 Potassium 4.1 Chloride 106 Carbon Dioxide 24.0 Anion Gap 7 BUN 12 Creatinine 0.67 Estim Creat Clear Calc 99.75 Est GFR (MDRD) Af Amer 134 Est GFR (MDRD) Non-Af 111 BUN/Creatinine Ratio 17.8 Glucose 95 Calcium 8.6 Serum , Qual NEGATIVE Urine Color Urine Clarity Urine pH Ur Specific [place] Urine Protein Urine Glucose (UA) Urine Ketones Urine Occult Blood Urine Nitrite Urine Bilirubin Urine Urobilinogen Ur Leukocyte Esterase Urine RBC Urine WBC Ur Squamous Epith Cells Urine Bacteria Urine Mucus 03/21/19 12:15 WBC RBC Hgb Hct MCV MCH MCHC RDW Std Deviation RDW Coeff of Claudia Plt Count MPV Immature Gran % (Auto) Neut % (Auto) Lymph % (Auto) [place] % (Auto) Eos % (Auto) Baso % (Auto) Absolute Neuts (auto) Absolute Lymphs (auto) Nucleated RBC % Sodium Potassium Chloride Carbon Dioxide Anion Gap BUN Creatinine Estim Creat Clear Calc Est GFR (MDRD) Af Amer Est GFR (MDRD) Non-Af BUN/Creatinine Ratio Glucose Calcium Serum , Qual Urine Color Yellow Urine Clarity Cloudy Urine pH 6.5 Ur Specific [place] 1.010 Urine Protein 100 H Urine Glucose (UA) Normal Urine Ketones Negative Urine Occult Blood 250 H Urine Nitrite Positive H Urine Bilirubin Negative Urine Urobilinogen Normal Ur Leukocyte Esterase 500 H Urine RBC 5-10 SEEN Urine WBC 50-100 SEEN Ur Squamous Epith Cells 0-5 SEEN Urine Bacteria 2+ Urine Mucus 0 SEEN - Medical Decision Making The patient presents with signs and symptoms of kidney stone versus pyelonephritis. IV was established. She was treated with analgesics and antiemetics and was feeling markedly improved. I did review her last CT from 6 weeks ago. There is no definitive stone within the kidney. Her urine does show more evidence of infection. Culture was added. She did have E. coli that was resistant to Macrobid which is when she was treated with in the past. She may have a small stone that just was not visualized. Either way, she is pain-free now. I do feel that she is safe for outpatient therapy. Patient will be treated with oral antibiotics and analgesics. She will follow-up with urology. Impression 1. Left flank pain 2. Cystitis ED Disposition - Plan for ED Patient: Disposition: Home or Assisted Living Instructions: KIDNEY STONE w/ Colic Prescriptions: Ciprofloxacin [Cipro] 500 mg PO BID #14 tab Prescription Printed Oxycodone HCl/Acetaminophen [Percocet 5/325] 1 tab PO Q6H PRN PRN 3 Days #12 tab PRN Reason: Pain Prescription Printed Ondansetron [Zofran Odt] 4 mg PO Q8H PRN PRN #10 tab PRN Reason: Nausea Prescription Printed Referrals: Inga Shook MD [Primary Care Provider] -
[2019-03-21] MEDS: Ketorolac 30 MG/ML Syringe IV (12:16)
[2019-03-21] MEDS: Ondansetron 4 MG/2 ML Vial IV (12:16)
[2019-03-21] MEDS: 0.9% Normal Saline 1,000 ML 250 ML IV (12:17)
[2019-03-21] MEDS: Morphine 4 MG/ML Syringe IV (12:17)
[2019-03-21 12:20] LABS: Absolute Lymphocyte Count 2.82 X10^3/uL (0.83-4.51); Absolute Neutrophil Count 9.9 X10^3/uL (2.0-7.7); Basophil# 0.06 X10^3/uL; Basophil% 0.4 % (0-1); Eosinophil# 0.07 X10^3/uL; Eosinophils% 0.5 % (0-5); Hemoglobin 12.4 g/dL (12.0-15.0); Lymphocyte # 2.82 X10^3/ul (4.0); Lymphocyte % 20.2 % (19-41); Mean Corp Hgb Conc 31.8 g/dL (32-36); Mean Corpuscular Hgb 24.8 pg (27.0-32.0); Mean Corpuscular Volume 77.8 fL (81-99); Mean Platelet Vol. 8.1 fl (6.2-12.0); Monocyte# 1.08 X10^3/uL; Monocyte% 7.7 % (0-10); NRBC Flagged by Analyzer 0 % (0-5); Neutrophil # 9.89 X10^3/uL (2.7-7.7); Neutrophil % 70.9 % (47-70); Platelet Count 305 K/mm3 (150-450); RBC Distribution Width SD 47.8 fl (35.1-43.9); Red Blood Count 5.01 M/mm3 (4.2-5.4)
[2019-03-21 12:23] LABS: Mucous, Urine 0 SEEN /hpf (<or=2+)
[2019-03-21 12:27] LABS: Color, Urine Yellow (Yellow); Glucose, Dipstick Normal (Normal); Ketone-Dipstick Negative (Negative); Leukocyte Esterase-Dipstick 500 /ul (Negative); Nitrite-Dipstick Positive (Negative); Occult Blood-Urine 250 /ul (Negative); Protein-Dipstick 100 mg/dl (Negative); Urine Bilirubin Dipstick Negative (Negative); Urine Clarity Cloudy (Clear); Urine Urobilinogen Normal (Normal); Urine pH 6.5 (5.0 - 8.0)
[2019-03-21 12:30] LABS: Anion Gap 7 (5-15); BUN 12 mg/dL (7-18); BUN/Creat Ratio 17.8 RATIO (10-20); Calcium,Total 8.6 mg/dL (8.5-10.1); Chloride 106 mmol/L (98-107); Creatinine, Serum 0.67 mg/dL (0.55-1.02); EST Glomerular Filtration Rate 111 mL/min (>60); Est Glom Filt Rate - Afr Amer 134 mL/min (>60); Estimated Creatinine Clearance 99.75 ml/min; Glucose 95 mg/dL (74-106); Potassium 4.1 mmol/L (3.5-5.1); Sodium Level 137 mmol/L (136-145)
[2019-03-21 12:39] LABS: Bacteria 2+ /hpf (None Seen); Red Blood Cells-Urine 5-10 SEEN /hpf (0-5); Squamous Epithelial Cells - UA 0-5 SEEN /hpf (5-10); White Blood Cells 50-100 SEEN /hpf (0-5)
[2019-03-21 12:53] VITALS: BP 122/66; PULSE 71; RESP 19; TEMP 37; O2SAT 99
[2019-03-21 13:00] VITALS: BP 124/68; PULSE 75; RESP 18; TEMP 37.1; O2SAT 97
[2019-03-21 13:03] LABS: Internal QC Validated? YES +Cl - CLEAR BKGD; Pregnancy, Serum, hCG Quali. NEGATIVE Negative
[2019-03-21 13:30] VITALS: BP 112/76; PULSE 93; RESP 17; O2SAT 99
== END 2019-03-21 13:35 | disposition home or self-care (01) ==
LOC: ED 12:03
PROVIDERS: Emergency Provider Emergency Medicine; Family Provider Family Medicine; PCP Family Medicine
DX: R10.9 Unspecified abdominal pain (principal); N30.90 Cystitis, unspecified without hematuria; Z79.899 Other long term (current) drug therapy; Z88.2 Allergy status to sulfonamides; Z88.0 Allergy status to penicillin; Z87.442 Personal history of urinary calculi
CPT/HCPCS: 80048; 81001; 84703; 85025; 87086; 87088; 87186; 96361; 96374; 96375; 99283; J7030; A4216; J2405

== ENCOUNTER 2019-08-17 09:51 | Emergency (ER) | payer OTHER, SELFPAY ==
[2019-08-17 09:52] VITALS: BP 134/89; PULSE 94; RESP 17; TEMP 37.1; O2SAT 96; BMI 30.2
--- NOTE | 2019-08-17 10:22 | US_ITS ---
STUDY: ABDOMINAL ULTRASOUND - RIGHT UPPER QUADRANT REASON FOR VISIT: Female, 29 years old RUQ PAIN RADIATING TO BACK N/V WITH BLOOD TECHNIQUE: Ultrasound evaluation of the right upper quadrant was performed with real-time and static cruz-scale imaging. TECHNICAL QUALITY: Adequate. COMPARISON: None. FINDINGS: Liver: The liver measures 15.4 cm. There is normal echogenicity of the liver. The bile ducts are within normal limits. There is hepatic color flow. The direction of portal flow is hepatopetal. There is no demonstrated mass lesion. Gallbladder: Normal distended gallbladder. The gallbladder wall measures 2.0 mm. There is a negative sonographic Yuan''s sign. There is no pericholecystic fluid. There are no gallstones. Common Bile Duct (C.B.D.): The common bile duct measures 3.6 mm. Pancreas: Normal size of the head, body and tail of the pancreas. There is normal echogenicity of the pancreas. There is no demonstrated pancreatic mass or cyst. Right Kidney: Normal size of the right kidney. The right kidney measures 11.1 cm x 6.6 x 5.3 cm. Normal renal cortex. The right cortex measures 1.4 cm. There is no demonstrated renal mass or cyst. There is no right hydronephrosis. US/Gallbladder IMPRESSION: Normal right upper quadrant ultrasound examination. Electronically Signed: [place], at 12:06 EST , Service support ,
--- NOTE | 2019-08-17 10:26 | ED.DCSUM_ITS ---
History of Present Illness Chief Complaint: Abd Pain Informant: Patient - Abdominal Pain/Flank Pain Onset: Today Timing: Waxes and wanes Quality: Sharp Location: Epigastric Worsened by: Nothing Relieved by: Nothing - Nausea/Vomiting/Emesis GI Symptom: Nausea, Vomiting Onset: Today Quality: Hematemesis - Diarrhea/Melena/Hematochezia GI Symptom: Negative for: Diarrhea, Melena, Hematochezia Associated Symptoms: Negative for: Dysuria, Frequency LMP: 3 weeks Narrative: She is a 29-year-old female presenting with worsening epigastric abdominal pain as well as hematemesis. Patient states for the past few weeks she has had issues with epigastric abdominal pain. She states that it needs to her back. She has not figured out a rate in relieving factors. She states the pain is constant but then intermittently she has clenching sharp pains with increased severity. Today she woke up at 2 AM and then started throwing up at 3 AM. She states she threw up 6 times. While she was throwing up her vomit started to become more bloody in appearance. She notes she was sweating and shaking. She she had normal bowel movements no black or bloody stools. She saw her PCP for the abdominal pain last week. As she is not started on any medications and was told to keep a food diary. Patient denies any chest pain, shortness of breath or difficulty breathing. She denies any lightheadedness. She notes that she has had bladder reconstruction surgery with a stoma. She denies any urinary symptoms however. She has a Mirena and does not think she is . Past Medical History - Allergies and Home Meds Allergies/Adverse Reactions: Allergies Sulfa (Sulfonamide Antibiotics) Allergy (Verified 08/17/19 09:51) Nausea Penicillins [PCN] Adverse Reaction (Verified 08/17/19 09:51) Anaphylaxis Primary Care Physician: Inga Shook MD [Primary Care Provider] - Smoking Status: Never smoker Review of Systems General: Denies: Chills, Fever, Sweats Eyes: Denies: Visual changes - bilaterally, Diplopia ENT: Denies: Rhinorrhea, Sore throat Cardiovascular: Denies: Chest pain, Palpitations Respiratory: Denies: Dyspnea, Cough, Dyspnea on exertion Gastrointestinal: Reports: Abdominal pain, Nausea, Vomiting, - - Hematemesis. Denies: Diarrhea, Constipation, Melena, Hematochezia Genitourinary: Denies: Dysuria, Hematuria, Frequency Musculoskeletal: Denies: Back pain, Extremity Pain Skin: Denies: Rash, Wounds Neurological: Denies: Headache, Weakness, Numbness Physical Exam Vital Signs/Narrative: Vital Signs Temp Pulse Resp BP Pulse Ox 08/17/19 09:52 98.8 F 94 17 134/89 H 96 Inital Vital Signs reviewed: Yes General: Well nourished, Well developed, No Acute Distress Head: Normocephalic, Atraumatic Eyes: Perrl, EOMI ENT: Moist mucous membranes, No rhinorrhea Neck: Supple, Nontender Cardiovascular: Regular rate, Regular rhythm, No murmurs Respiratory: No distress, CTA bilaterally, Chest nontender Abdomen: Soft, Nondistended, Normal bowel sounds, Tender - Epigastric and right upper quadrant. Negative for: Guarding, Rebound tenderness, Yuan's sign Back: Nontender, Normal Inspection Extremities: Nontender, No edema Skin: Normal color, No rash Neurological: Alert, Oriented x3, Cranial nerves II-XII grossly intact, Normal Strength, Normal Sensation Psychological: Normal affect, Normal Mood Diagnostic/Tx/Re-eval Clinical Impression(s) from Imaging Studies Gallbladder Ultrasound 08/17/19 10:22 IMPRESSION: Normal right upper quadrant ultrasound examination. Electronically Signed: [place] [facility], at 12:06 EST , Service support , Laboratory Data 08/17/19 08/17/19 08/17/19 10:45 10:45 12:00 WBC 10.2 RBC 4.95 Hgb 14.1 Hct 41.9 MCV 84.6 MCH 28.5 MCHC 33.7 RDW Std Deviation 42.7 RDW Coeff of Claudia 14.0 Plt Count 288 MPV 8.2 Immature Gran % (Auto) 0.200 Neut % (Auto) 59.5 Lymph % (Auto) 30.8 [place] % (Auto) 7.8 Eos % (Auto) 1.4 Baso % (Auto) 0.3 Absolute Neuts (auto) 6.0 Absolute Lymphs (auto) 3.13 Nucleated RBC % 0 Sodium 137 Potassium 4.3 Chloride 109 H Carbon Dioxide 23.0 Anion Gap 5 BUN 11 Creatinine 0.68 Estim Creat Clear Calc 97.42 Est GFR (MDRD) Af Amer 133 Est GFR (MDRD) Non-Af 110 BUN/Creatinine Ratio 16.2 Glucose 91 Calcium 9.1 Total Bilirubin 0.20 AST 19 ALT 30 Alkaline Phosphatase 89 Total Protein 7.9 Albumin 3.7 Globulin 4.2 Albumin/Globulin Ratio 0.9 Lipase 97 Urine Color Urine Clarity Urine pH Ur Specific [place] Urine Protein Urine Glucose (UA) Urine Ketones Urine Occult Blood Urine Nitrite Urine Bilirubin Urine Urobilinogen Ur Leukocyte Esterase Urine RBC Urine WBC Ur Squamous Epith Cells Urine Bacteria Urine Mucus Urine Test Negative 08/17/19 12:00 WBC RBC Hgb Hct MCV MCH MCHC RDW Std Deviation RDW Coeff of Claudia Plt Count MPV Immature Gran % (Auto) Neut % (Auto) Lymph % (Auto) [place] % (Auto) Eos % (Auto) Baso % (Auto) Absolute Neuts (auto) Absolute Lymphs (auto) Nucleated RBC % Sodium Potassium Chloride Carbon Dioxide Anion Gap BUN Creatinine Estim Creat Clear Calc Est GFR (MDRD) Af Amer Est GFR (MDRD) Non-Af BUN/Creatinine Ratio Glucose Calcium Total Bilirubin AST ALT Alkaline Phosphatase Total Protein Albumin Globulin Albumin/Globulin Ratio Lipase Urine Color Straw Urine Clarity Clear Urine pH 7.0 Ur Specific [place] 1.010 Urine Protein Negative Urine Glucose (UA) Normal Urine Ketones Negative Urine Occult Blood 50 H Urine Nitrite Negative Urine Bilirubin Negative Urine Urobilinogen Normal Ur Leukocyte Esterase 25 H Urine RBC 0 SEEN Urine WBC 0-5 SEEN Ur Squamous Epith Cells 0-5 SEEN Urine Bacteria 0 SEEN Urine Mucus 0 SEEN Urine Test - Medical Decision Making Patient evaluated for epigastric/right upper quadrant pain and new onset of vomiting and hematemesis. She appears nontoxic in no acute distress. Her vital signs are normal. Patient does not appear anemic. She is not have any hematemesis while in the emergency room. She does have tenderness in her epigastric region as well as her right upper quadrant however she has a negative Yuan sign. Because of the ongoing right upper quadrant pain I did order an ultrasound which is negative for any acute pathology. CBC is normal as well as CMP. Urinalysis is not consistent with pyelonephritis or significant UTI. There is no bacteria. Patient is treated with IV fluids, Zofran and Pepcid. On reevaluation she is feeling better. Patient might have bleeding ulcer, peptic ulcer disease, GERD or Eva-Arora tear. She is well-appearing and I am not concerned for mediastinitis. She is not have chest pain. I think she is stable for outpatient follow-up. She will be started on an H2 reinier. She is also discharged with Zofran for her symptoms. She is instructed to follow-up with her PCP. Patient is counseled on signs and symptoms requiring return to the emergency room. She does not take NSAIDs or drink much alcohol but she is advised to stay away from these things as well. Patient verbalizes agreement and understand this plan. Patient discharged home in stable and improved condition. ED Disposition - Plan for ED Patient: Disposition: Home or Assisted Living Diagnosis: Epigastric abdominal pain, Hematemesis of unknown cause Instructions: ABDOMINAL PAIN, Unknown Cause, (Female), GASTRITIS vs. ULCER Prescriptions: Famotidine [Pepcid] 20 mg PO BID #28 tab Transmission Status: Pending to [id number] Ondansetron [Zofran Odt] 4 mg PO Q8H PRN PRN #10 tab PRN Reason: Nausea Transmission Status: Pending to [id number] Referrals: Inga Shook MD [Primary Care Provider] - Additional Instructions: Your work-up today is normal. I think you are safe to follow-up with your primary care doctor. You will be started on an antacid as well as nausea medicine.
[2019-08-17 10:53] LABS: Absolute Lymphocyte Count 3.13 X10^3/uL (0.83-4.51); Basophil# 0.03 X10^3/uL; Basophil% 0.3 % (0-1); Eosinophil# 0.14 X10^3/uL; Eosinophils% 1.4 % (0-5); Hematocrit 41.9 % (37-47); Hemoglobin 14.1 g/dL (12.0-15.0); Lymphocyte # 3.13 X10^3/ul (4.0); Lymphocyte % 30.8 % (19-41); Mean Corp Hgb Conc 33.7 g/dL (32-36); Mean Corpuscular Hgb 28.5 pg (27.0-32.0); Mean Corpuscular Volume 84.6 fL (81-99); Mean Platelet Vol. 8.2 fl (6.2-12.0); Monocyte# 0.79 X10^3/uL; Monocyte% 7.8 % (0-10); NRBC Flagged by Analyzer 0 % (0-5); Neutrophil # 6.04 X10^3/uL (2.7-7.7); Neutrophil % 59.5 % (47-70); Platelet Count 288 K/mm3 (150-450); RBC Distribution Width SD 42.7 fl (35.1-43.9); Red Blood Count 4.95 M/mm3 (4.2-5.4); White Blood Count 10.2 K/mm3 (4.4-11.0)
[2019-08-17] MEDS: 0.9% Normal Saline 1,000 ML 1000 ML IV (10:54)
[2019-08-17] MEDS: Ondansetron 4 MG/2 ML Vial IV (10:54)
[2019-08-17 11:13] LABS: ALB/GLOB Ratio 0.9 RATIO (0.9-2.4); AST(SGOT) 19 U/L (15-37); Alanine Aminotransfer ALT/SGPT 30 U/L (13-56); Albumin, Serum 3.7 g/dL (3.2-5.0); Alkaline Phosphatase 89 U/L (45-117); Anion Gap 5 (5-15); BUN 11 mg/dL (7-18); BUN/Creat Ratio 16.2 RATIO (10-20); Calcium,Total 9.1 mg/dL (8.5-10.1); Chloride 109 mmol/L (98-107); Creatinine, Serum 0.68 mg/dL (0.55-1.02); EST Glomerular Filtration Rate 110 mL/min (>60); Est Glom Filt Rate - Afr Amer 133 mL/min (>60); Estimated Creatinine Clearance 97.42 ml/min; Globulin 4.2 g/dL (2.2-4.2); Glucose 91 mg/dL (74-106); Lipase 97 U/L (73-393); Potassium 4.3 mmol/L (3.5-5.1); Protein, Total 7.9 g/dL (6.4-8.2); Sodium Level 137 mmol/L (136-145)
[2019-08-17] MEDS: Famotidine 200 MG/20 ML MDV 20 MG in 0.9% Normal Saline (Pres. free 8 ML 300 MG IV (11:37)
[2019-08-17 13:27] LABS: Bacteria 0 SEEN /hpf (None Seen); Mucous, Urine 0 SEEN /hpf (<or=2+); Red Blood Cells-Urine 0 SEEN /hpf (0-5)
[2019-08-17 13:32] LABS: Color, Urine Straw (Yellow); Glucose, Dipstick Normal (Normal); Ketone-Dipstick Negative (Negative); Leukocyte Esterase-Dipstick 25 /ul (Negative); Nitrite-Dipstick Negative (Negative); Occult Blood-Urine 50 /ul (Negative); Protein-Dipstick Negative (Negative); Urine Bilirubin Dipstick Negative (Negative); Urine Clarity Clear (Clear); Urine Urobilinogen Normal (Normal)
[2019-08-17 13:34] LABS: Internal QC Validated? YES +Cl - CLEAR BKGD; Pregnancy, Urine Negative Negative
[2019-08-17 13:40] LABS: Squamous Epithelial Cells - UA 0-5 SEEN /hpf (5-10); White Blood Cells 0-5 SEEN /hpf (0-5)
[2019-08-17 14:13] VITALS: BP 116/72; PULSE 75; RESP 14
== END 2019-08-17 14:14 | disposition home or self-care (01) ==
PROVIDERS: Emergency Provider Emergency Medicine; PCP Family Medicine
DX: R10.13 Epigastric pain (principal); R10.11 Right upper quadrant pain; K92.0 Hematemesis; Z88.2 Allergy status to sulfonamides; Z88.0 Allergy status to penicillin; Z79.899 Other long term (current) drug therapy; Z97.5 Presence of (intrauterine) contraceptive device
CPT/HCPCS: 76705; 80053; 81001; 81025; 83690; 85025; 96361; 96374; 96375; 99284; J7030; A4216; J2405; J3490

== ENCOUNTER → 2019-09-06 12:23 | Outpatient (CLI) | payer OTHER, SELFPAY ==
[2019-08-17 09:52] VITALS: BMI 30.2
[2019-09-06 14:22] LABS: T4 Free Direct 0.86 ng/dL (0.76-1.46); Thyroid Stim Hormone (TSH) 1.47 uIU/mL (0.358-3.74)
== END ==
PROVIDERS: PCP Family Medicine; Referring Provider Family Medicine; Visit Provider Family Medicine
DX: R53.83 Other fatigue (principal)
CPT/HCPCS: 36415; 84439; 84443; 84481

== ENCOUNTER 2019-12-25 07:53 | Emergency (ER) | payer OTHER, SELFPAY ==
[2019-12-25 07:54] VITALS: BP 117/81; PULSE 76; RESP 18; TEMP 36.1; O2SAT 97; BMI 29.7
--- NOTE | 2019-12-25 08:10 | US_ITS ---
STUDY: ABDOMINAL ULTRASOUND - RIGHT UPPER QUADRANT REASON FOR VISIT: Female, 29 years old EPIGASTRIC AND RUQ PAIN TECHNIQUE: Ultrasound evaluation of the right upper quadrant was performed with real-time and static cruz-scale imaging. TECHNICAL QUALITY: Adequate. COMPARISON: Comparison is made with prior sonogram dated August 17, 2019. FINDINGS: Liver: The liver measures 17.1 cm. There is increased echogenicity consistent with fatty infiltration. The bile ducts are within normal limits. There is hepatic color flow. The direction of portal flow is hepatopetal. There is no demonstrated mass lesion. Gallbladder: Normal distended gallbladder. The gallbladder wall measures 2.4 mm. There is a negative sonographic Yuan''s sign. There is no pericholecystic fluid. There are no gallstones. Common Bile Duct (C.B.D.): The common bile duct measures 3.0 mm. Pancreas: Normal size of the head, body and tail of the pancreas. There is normal echogenicity of the pancreas. There is no demonstrated pancreatic mass or cyst. Right Kidney: Normal size of the right kidney. The right kidney measures 11.1 cm x 5.7 cm x 4.8 cm. Normal renal cortex. The right cortex measures 1.0 cm. There is no demonstrated renal mass or cyst. There is mild hydronephrosis of the right kidney. US/Gallbladder IMPRESSION: Mild right hydronephrosis. Fatty infiltration of the liver. Electronically Signed: [place] [facility], at 10:20 EDT , Service support ,
--- NOTE | 2019-12-25 08:12 | ED.VIS.GEN ---
History of Present Illness Chief Complaint: Abd Pain Informant: Patient Narrative: Patient presents with epigastric and right upper quadrant abdominal pain for the past 3 days. She has no fever or chills she has nausea she has decreased p.o. intake. She has no radiation to her back she has no chest pain or shortness of breath she has no lower abdominal pain. She does have a complicated past medical history with bladder reconstruction and multiple kidney stones. This does not feel like a urogenital problem per the patient. Past Medical History - Allergies and Home Meds Allergies/Adverse Reactions: Allergies Sulfa (Sulfonamide Antibiotics) Allergy (Verified 12/25/19 07:56) Nausea Penicillins [PCN] Adverse Reaction (Verified 12/25/19 07:56) Anaphylaxis Primary Care Physician: Inga Shook MD [Primary Care Provider] - Past Medical History: - - Multiple kidney stones Surgical History: - - Neobladder surgery, multiple kidney stones Smoking Status: Never smoker Review of Systems All systems negative except as indicated General: Denies: Fever ENT: Denies: Sore throat Cardiovascular: Denies: Chest pain Respiratory: Denies: Dyspnea, Cough Gastrointestinal: Reports: Abdominal pain, Nausea. Denies: Vomiting, Diarrhea, Constipation Genitourinary: Denies: Dysuria Musculoskeletal: Denies: Myalgias Skin: Denies: Rash Neurological: Denies: Headache, Weakness Endocrine: Denies: Polyuria Hematologic: Denies: Easy bruising Physical Exam Vital Signs/Narrative: Vital Signs Temp Pulse Resp BP Pulse Ox 12/25/19 07:54 97.0 F L 76 18 117/81 H 97 General: Well nourished, Well developed, Acute Distress Head: Normocephalic, Atraumatic ENT: Moist mucous membranes Neck: Supple Cardiovascular: Regular rate, Regular rhythm Respiratory: No distress, CTA bilaterally Abdomen: Soft, - - There is right upper quadrant and epigastric tenderness but the patient has a negative Yuan's sign. There is no lower abdominal pain. There is no guarding or rebound. Back: Nontender, Normal Inspection. Negative for: CVA tenderness Extremities: Nontender Skin: Normal color Neurological: Alert Psychological: Normal affect Diagnostic/Tx/Re-eval - Medical Decision Making Patient has an unremarkable work-up for gallbladder disease, this is likely gastric in origin and I will treat as such, she significantly improved I will discharge in stable condition ED Disposition - Plan for ED Patient: Disposition: Home or Assisted Living Diagnosis: Gastritis, Epigastric pain Instructions: ED Gastritis Prescriptions: Omeprazole 40 mg PO DAILY #15 capsule.dr Transmission Status: Pending to [facility]/pharmacy #[id number] Referrals: Inga Shook MD [Primary Care Provider] -
[2019-12-25 08:46] LABS: Absolute Lymphocyte Count 3.21 X10^3/uL (0.83-4.51); Absolute Neutrophil Count 5.4 X10^3/uL (2.0-7.7); Basophil# 0.04 X10^3/uL; Basophil% 0.4 % (0-1); Eosinophil# 0.18 X10^3/uL; Eosinophils% 1.9 % (0-5); Hematocrit 43.5 % (37-47); Hemoglobin 14.3 g/dL (12.0-15.0); Lymphocyte # 3.21 X10^3/ul (4.0); Mean Corp Hgb Conc 32.9 g/dL (32-36); Mean Corpuscular Volume 88.2 fL (81-99); Mean Platelet Vol. 8.5 fl (6.2-12.0); Monocyte# 0.63 X10^3/uL; Monocyte% 6.7 % (0-10); NRBC Flagged by Analyzer 0 % (0-5); Neutrophil # 5.36 X10^3/uL (2.7-7.7); Neutrophil % 56.7 % (47-70); Platelet Count 294 K/mm3 (150-450); RBC Distribution Width CV 13.2 % (11.6-14.6); RBC Distribution Width SD 42.4 fl (35.1-43.9); Red Blood Count 4.93 M/mm3 (4.2-5.4); White Blood Count 9.5 K/mm3 (4.4-11.0)
[2019-12-25] MEDS: Ondansetron 4 MG/2 ML Vial IV (08:53)
[2019-12-25] MEDS: 0.9% Normal Saline 1,000 ML 1000 ML IV (08:54)
[2019-12-25] MEDS: Morphine 4 MG/ML Syringe IV (08:54)
[2019-12-25 09:01] LABS: ALB/GLOB Ratio 0.9 RATIO (0.9-2.4); AST(SGOT) 46 U/L (15-37); Alanine Aminotransfer ALT/SGPT 39 U/L (13-56); Albumin, Serum 3.6 g/dL (3.2-5.0); Alkaline Phosphatase 95 U/L (45-117); Anion Gap 7 (5-15); BUN 9 mg/dL (7-18); BUN/Creat Ratio 14.3 RATIO (10-20); Calcium,Total 8.6 mg/dL (8.5-10.1); Chloride 109 mmol/L (98-107); Creatinine, Serum 0.63 mg/dL (0.55-1.02); EST Glomerular Filtration Rate 119 mL/min (>60); Est Glom Filt Rate - Afr Amer 144 mL/min (>60); Estimated Creatinine Clearance 105.15 ml/min; Globulin 4.2 g/dL (2.2-4.2); Glucose 92 mg/dL (74-106); Lipase 81 U/L (73-393); Potassium 5.3 mmol/L (3.5-5.1); Protein, Total 7.8 g/dL (6.4-8.2); Sodium Level 136 mmol/L (136-145)
[2019-12-25 10:05] VITALS: BP 96/41; PULSE 63; RESP 16; O2SAT 97
[2019-12-25] MEDS: Mag Hydrox/Al Hydrox/Simeth 30 ML UDC PO (10:44)
[2019-12-25 10:45] VITALS: BP 122/68; PULSE 75; RESP 18; O2SAT 99
== END 2019-12-25 10:46 | disposition home or self-care (01) ==
PROVIDERS: Emergency Provider Emergency Medicine; PCP Family Medicine
DX: K29.70 Gastritis, unspecified, without bleeding (principal); Z87.442 Personal history of urinary calculi
CPT/HCPCS: 76705; 80053; 83690; 85025; 96361; 96374; 96375; 99285; J7030; A4216; J2405

== ENCOUNTER → 2020-03-04 11:35 | Outpatient (CLI) | payer OTHER, SELFPAY ==
[2020-03-04 13:13] LABS: hCG Titer Quant., Serum < 1 mIU/mL (1-3)
== END ==
PROVIDERS: PCP Family Medicine; Referring Provider Obstetrics & Gynecology; Visit Provider Obstetrics & Gynecology
DX: N91.2 Amenorrhea, unspecified (principal)
CPT/HCPCS: 36415; 84702

== ENCOUNTER 2020-03-26 11:05 | Emergency (ER) | payer OTHER, SELFPAY ==
[2020-03-07 09:33] VITALS: BMI 29.7
[2020-03-26 11:05] VITALS: BP 134/71; PULSE 89; RESP 16; TEMP 36.6; O2SAT 98; BMI 29.2
--- NOTE | 2020-03-26 11:16 | EKG12_ITS ---
Test Reason : CHEST PRESSURE Blood Pressure : / mmHG Vent. Rate : 081 BPM Atrial Rate : 081 BPM P-R Int : 148 ms QRS Dur : 084 ms QT Int : 382 ms P-R-T Axes : 045 043 058 degrees QTc Int : 443 ms Normal sinus rhythm with sinus arrhythmia Normal ECG Confirmed by GHASSAN ARELLANO, MADAN ([id number]), editor book ERIK REYES ([id number]) on 03/28/2020 9:37:46 AM Referred By: CHATA Confirmed By:MADAN FERRELL MD
--- NOTE | 2020-03-26 11:16 | RAD_ITS ---
STUDY: X-RAY CHEST REASON FOR EXAM: Female, 29 years old. SYNCOPE THIS MORNING, INTERMITTENT DIZZINESS X 2 WKS, CHEST PRESSURE TECHNIQUE: PA and lateral views of the chest. COMPARISON: None. FINDINGS: EKG electrodes are seen. The lungs are clear and expanded. There is no demonstrated pleural abnormality. Normal size heart. Normal mediastinum and natasha. Normal visualized pulmonary arteries. Normal visualized aortic arch and descending thoracic aorta. Normal visualized thoracic spine. Normal visualized ribs, clavicles, and shoulders. There is no demonstrated abnormality of the visualized soft tissue structures of the upper abdomen. RAD/Chest PA and Lateral IMPRESSION: Normal x-ray examination of the chest. Electronically Signed: [place] [facility], at 12:38 EDT , Service support ,
--- NOTE | 2020-03-26 11:17 | ED.VIS.GEN ---
History of Present Illness Chief Complaint: Syncope Narrative: This patient is a 29-year-old female who presents after a syncopal episode. She has been having intermittent dizziness which she describes as near syncope for the past 2 weeks. This is worse with positional changes for example from changing from a sitting position to a standing position. Today she got up off the couch states she started to see stars and then awoke laying back on the couch like she had fallen. She also complains of some anterior chest pressure. She denies shortness of breath. She states after this episode she felt fatigued as if her arms were heavy from carrying in the groceries. She denies any vomiting or diarrhea. She has had normal oral intake. No abdominal pain. No recent illness. She does report prior history of anemia with . She denies history of any bleeding or heavy menstrual periods. She denies any recent travel or surgery. No history of DVT or pulmonary embolism. No leg pain or swelling. Past Medical History - Allergies and Home Meds Allergies/Adverse Reactions: Allergies Sulfa (Sulfonamide Antibiotics) Allergy (Verified 03/26/20 11:05) Nausea Penicillins [PCN] Adverse Reaction (Verified 03/26/20 11:05) Anaphylaxis Primary Care Physician: Inga Shook MD [Primary Care Provider] - Past Medical History: - - Depression and anxiety Surgical History: - - Neobladder surgery, multiple kidney stones Smoking Status: Never smoker Review of Systems All systems negative except as indicated General: Denies: Fever Eyes: Denies: Visual changes - bilaterally ENT: Denies: Bilateral ear pain Cardiovascular: Reports: Chest pain, Heart racing, - - Syncope Respiratory: Denies: Dyspnea, Cough Gastrointestinal: Denies: Abdominal pain, Nausea, Vomiting, Diarrhea Musculoskeletal: Denies: Extremity Pain Skin: Denies: Rash Neurological: Denies: Headache Hematologic: Denies: Easy bruising Allergy: Denies: Uticaria Physical Exam Vital Signs/Narrative: Vital Signs Temp Pulse Resp BP Pulse Ox 03/26/20 11:05 97.8 F 89 16 134/71 H 98 Inital Vital Signs reviewed: Yes General: Well nourished Head: Normocephalic Eyes: EOMI ENT: Moist mucous membranes Neck: Supple Cardiovascular: Regular rate, Regular rhythm Respiratory: No distress, CTA bilaterally Abdomen: Soft, Nontender Extremities: Nontender Skin: Normal color Neurological: Alert Psychological: Normal affect Diagnostic/Tx/Re-eval Impressions Chest X-Ray 03/26/20 11:16 IMPRESSION: Normal x-ray examination of the chest. Electronically Signed: [place], at 12:38 EDT , Service support , 03/26/20 11:16 Chest PA and Lateral [RAD] Stat Laboratory Results 03/26/20 03/26/20 03/26/20 11:35 11:35 11:35 WBC 9.9 RBC 4.79 Hgb 13.9 Hct 41.9 MCV 87.5 MCH 29.0 MCHC 33.2 RDW Std Deviation 42.2 RDW Coeff of Claudia 13.3 Plt Count 318 MPV 8.2 Immature Gran % (Auto) 0.400 Neut % (Auto) 60.1 Lymph % (Auto) 32.5 [place] % (Auto) 5.6 Eos % (Auto) 1.1 Baso % (Auto) 0.3 Absolute Neuts (auto) 6.0 Absolute Lymphs (auto) 3.23 Nucleated RBC % 0 D-Dimer Quant (PE/DVT) 0.47 Sodium 140 Potassium 3.4 L Chloride 108 H Carbon Dioxide 27.0 Anion Gap 5 BUN 13 Creatinine 0.77 Estim Creat Clear Calc 86.03 Est GFR (MDRD) Af Amer 114 Est GFR (MDRD) Non-Af 94 BUN/Creatinine Ratio 16.9 Glucose 128 H Calcium 8.9 Troponin I < 0.015 - Medical Decision Making Patient was treated with IV fluids while here. She is resting comfortably on reevaluation. EKG shows normal sinus rhythm at a rate of 81 with no acute ischemic changes. Chest x-ray shows no acute process. Laboratory studies are unremarkable. Orthostatic vital signs were negative. Patient was advised to follow-up as an outpatient. She does understand to return for new or worsening symptoms. ED Disposition - Plan for ED Patient: Disposition: Home or Assisted Living Diagnosis: Syncope Instructions: ED Fainting Uncertain Cause Referrals: Inga Shook MD [Primary Care Provider] -
[2020-03-26] MEDS: 0.9% Normal Saline 1,000 ML 1000 ML IV (11:35)
[2020-03-26 11:40] VITALS: BP 106/77; PULSE 81; O2SAT 95
[2020-03-26 11:46] LABS: Absolute Lymphocyte Count 3.23 X10^3/uL (0.83-4.51); Basophil# 0.03 X10^3/uL; Basophil% 0.3 % (0-1); Eosinophil# 0.11 X10^3/uL; Eosinophils% 1.1 % (0-5); Hematocrit 41.9 % (37-47); Hemoglobin 13.9 g/dL (12.0-15.0); Lymphocyte # 3.23 X10^3/ul (4.0); Lymphocyte % 32.5 % (19-41); Mean Corp Hgb Conc 33.2 g/dL (32-36); Mean Corpuscular Volume 87.5 fL (81-99); Mean Platelet Vol. 8.2 fl (6.2-12.0); Monocyte# 0.56 X10^3/uL; Monocyte% 5.6 % (0-10); NRBC Flagged by Analyzer 0 % (0-5); Neutrophil # 5.97 X10^3/uL (2.7-7.7); Neutrophil % 60.1 % (47-70); Platelet Count 318 K/mm3 (150-450); RBC Distribution Width CV 13.3 % (11.6-14.6); RBC Distribution Width SD 42.2 fl (35.1-43.9); Red Blood Count 4.79 M/mm3 (4.2-5.4); White Blood Count 9.9 K/mm3 (4.4-11.0)
[2020-03-26 11:56] LABS: D-Dimer Quantitative (DVT/PE) 0.47 FEU/ug/m (0.27-0.49)
[2020-03-26 12:03] LABS: Anion Gap 5 (5-15); BUN 13 mg/dL (7-18); BUN/Creat Ratio 16.9 RATIO (10-20); Calcium,Total 8.9 mg/dL (8.5-10.1); Chloride 108 mmol/L (98-107); Creatinine, Serum 0.77 mg/dL (0.55-1.02); EST Glomerular Filtration Rate 94 mL/min (>60); Est Glom Filt Rate - Afr Amer 114 mL/min (>60); Estimated Creatinine Clearance 86.03 ml/min; Glucose 128 mg/dL (74-106); Potassium 3.4 mmol/L (3.5-5.1); Sodium Level 140 mmol/L (136-145)
[2020-03-26 12:08] VITALS: BP 100/66; BP 120/77; BP 131/65; PULSE 68; PULSE 74
[2020-03-26 12:59] VITALS: BP 112/70; PULSE 80; RESP 23; O2SAT 98
== END 2020-03-26 13:05 | disposition home or self-care (01) ==
PROVIDERS: Emergency Provider Emergency Medicine; PCP Family Medicine
DX: R55 Syncope and collapse (principal); R07.89 Other chest pain; F32.9 Major depressive disorder, single episode, unspecified; F41.9 Anxiety disorder, unspecified; Z79.899 Other long term (current) drug therapy; Z88.2 Allergy status to sulfonamides; Z88.0 Allergy status to penicillin
CPT/HCPCS: 71046; 80048; 84484; 85025; 85379; 93005; 96360; 99285; J7030

== ENCOUNTER → 2020-04-02 15:57 | Outpatient (CLI) | payer OTHER, SELFPAY ==
[2020-03-26 11:05] VITALS: BMI 29.2
--- NOTE | 2020-04-02 15:59 | CT_ITS ---
STUDY: CT FACIAL BONES WITHOUT CONTRAST REASON FOR EXAM: Female, 29 years old. Recurrent ear infections left greater than right. The left year and jaw pain. RADIATION DOSAGE (If Supplied By Facility): CTDIvol = ( 33.45 ) mGy, DLP = ( 587.34 ) mGycm TECHNIQUE: The patient was scanned in a multi detector CT scanner. Sagittal and coronal images were reconstructed. Individualized dose optimization techniques were used for this CT. COMPARISON: None. FINDINGS: Normal soft tissue structures. Normal orbital robledo and orbital contents. Normal nasal bones and anterior nasal spine. Normal facial bones. There is no demonstrated fracture. The external auditory canals middle and inner ears appear normal and without abnormality. Normal visualized paranasal sinuses. CT/Sinus/Facial Bone IMPRESSION: Normal unenhanced CT of the facial bones. Electronically Signed: Robbi Aden DO at 21:05 EDT Tel [phone], Service support ,
== END ==
PROVIDERS: PCP Family Medicine; Referring Provider Family Medicine; Visit Provider Family Medicine
DX: J32.0 Chronic maxillary sinusitis (principal)
CPT/HCPCS: 70486

== ENCOUNTER 2020-04-26 18:36 | Emergency (ER) | payer OTHER, SELFPAY ==
[2020-04-09 11:50] VITALS: BMI 29.2
[2020-04-26 18:37] VITALS: BP 130/90; PULSE 111; RESP 19; TEMP 36.8; O2SAT 97; BMI 28.7
--- NOTE | 2020-04-26 19:09 | CT_ITS ---
STUDY: CT ABDOMEN AND PELVIS WITHOUT CONTRAST REASON FOR EXAM: Female, 30 years old. LT FLANK PAIN AND ABD PAIN, INTERMITTENT FEVER, HX MULTIPLE KIDNEY STONES, JLUIS BLADDER RADIATION DOSAGE (If Supplied By Facility): CTDIvol = ( 8.31 ) mGy, DLP = ( 400.83 ) mGycm TECHNIQUE: Transaxial images were obtained from the dome of the diaphragm to the symphysis pubis without oral contrast, and without intravenous contrast. Sagittal and coronal images were reconstructed. Individualized dose optimization techniques were used for this CT. COMPARISON: 02/05/2019. FINDINGS: Lung bases are clear. Heart size is normal. The liver is unremarkable. The gallbladder is unremarkable. The spleen and pancreas are unremarkable. The adrenal glands are normal. Right kidney is normal. Duplex left renal collecting system with moderate upper pole hydronephrosis and hydroureter. Distal ureter is not seen. No stones are identified along the expected course of the right ureter to the reconstructed bladder. The aorta is normal in caliber. There is no free fluid, free air or organized collection. No bowel obstruction or inflammatory change. Reconstructed urinary bladder with 4 stones, mildly increased in size compared to the prior study. Wide pubic diastases consistent with bladder exstrophy. IUD in place. Normal abdominal wall. Normal osseous structures. CT/Abdomen/Pelvis without Cont IMPRESSION: 1. Duplex left renal collecting system with moderate upper pole hydroureteronephrosis. No obstructing stone is identified. 2. Reconstructed urinary bladder with multiple stones. 3. Pubic diastases with history of bladder exstrophy. Electronically Signed: Guera Hernandez MD at 21:03 EDT Tel , Service support ,
--- NOTE | 2020-04-26 19:16 | ED.DCSUM_ITS ---
History of Present Illness Chief Complaint: Flank Pain Informant: Patient Narrative: 30-year-old female presenting with left flank pain. She states that she has had this since about 5 PM last evening. She had a low-grade fever at home and took ibuprofen and this resolved. She does not have any cough, cold symptoms. She states that he self caths through a stoma on the right side of her abdomen. She is had previous surgery where her bladder is on the right side of her abdomen as well. Patient states she is had nausea and vomiting for the last 24 hours. No return of fever. She does not have diarrhea but does states she has been slightly constipated. She denies other medical problems. Past Medical History - Allergies and Home Meds Allergies/Adverse Reactions: Allergies Sulfa (Sulfonamide Antibiotics) Allergy (Verified 04/26/20 18:36) Nausea Penicillins [PCN] Adverse Reaction (Verified 04/26/20 18:36) Anaphylaxis Primary Care Physician: Inga Shook MD [Primary Care Provider] - Prior records reviewed: Yes Past Medical History: - - Kidney stone Surgical History: - - Neobladder surgery, multiple kidney stones Lives: With Family Smoking Status: Never smoker Alcohol: None Drugs: None Review of Systems General: Reports: Fever. Denies: Sweats Eyes: Denies: Visual changes - bilaterally, Diplopia ENT: Denies: Rhinorrhea, Sore throat Cardiovascular: Denies: Chest pain, Palpitations Respiratory: Denies: Dyspnea, Cough, Dyspnea on exertion Gastrointestinal: Reports: Abdominal pain, Nausea, Vomiting. Denies: Diarrhea, Melena, Hematochezia Musculoskeletal: Reports: Back pain - Left-sided flank pain Skin: Denies: Rash, Wounds Neurological: Denies: Headache, Weakness, Numbness Physical Exam Vital Signs/Narrative: Vital Signs Temp Pulse Resp BP Pulse Ox 04/26/20 18:37 98.3 F 111 H 19 H 130/90 H 97 Inital Vital Signs reviewed: Yes General: Well nourished, Well developed, No Acute Distress Eyes: Perrl, EOMI ENT: Moist mucous membranes, No rhinorrhea Cardiovascular: Regular rhythm, Tachycardia Respiratory: No distress, CTA bilaterally Abdomen: Soft, Tender - Mild tenderness to palpation of the right lower quadrant overlying the patient's bladder. Bladder stoma is free of erythema. Back: CVA tenderness - Left-sided Extremities: Nontender, No edema Skin: Normal color, No rash Neurological: Alert, Oriented x3 Psychological: Normal affect, Normal Mood Diagnostic/Tx/Re-eval - Medical Decision Making Clinical Impression(s) from Imaging Studies Abdomen/Pelvis CT 04/26/20 19:09 IMPRESSION: 1. Duplex left renal collecting system with moderate upper pole hydroureteronephrosis. No obstructing stone is identified. 2. Reconstructed urinary bladder with multiple stones. 3. Pubic diastases with history of bladder exstrophy. Electronically Signed: Guera Hernandez MD at 21:03 EDT Tel , Service support , Laboratory Data 04/26/20 04/26/20 04/26/20 19:30 19:30 19:30 WBC 14.7 H RBC 4.56 Hgb 13.0 Hct 40.3 MCV 88.4 MCH 28.5 MCHC 32.3 RDW Std Deviation 42.8 RDW Coeff of Claudia 13.2 Plt Count 279 MPV 8.5 Immature Gran % (Auto) 0.300 Neut % (Auto) 73.2 H Lymph % (Auto) 18.5 L Whitley % (Auto) 7.1 Eos % (Auto) 0.7 Baso % (Auto) 0.2 Absolute Neuts (auto) 10.8 H Absolute Lymphs (auto) 2.73 Nucleated RBC % 0 Sodium 136 Potassium 3.6 Chloride 106 Carbon Dioxide 22.0 Anion Gap 8 BUN 14 Creatinine 0.65 Estim Creat Clear Calc 101.00 Est GFR (MDRD) Af Amer 138 Est GFR (MDRD) Non-Af 114 BUN/Creatinine Ratio 21.4 H Glucose 85 Calcium 8.9 Urine Color Straw Urine Clarity Cloudy Urine pH 6.0 Ur Specific [place] 1.020 Urine Protein 100 H Urine Glucose (UA) Normal Urine Ketones 15 H Urine Occult Blood 150 H Urine Nitrite Positive H Urine Bilirubin Negative Urine Urobilinogen Normal Ur Leukocyte Esterase 500 H Urine RBC 25-50 SEEN Urine WBC >100 SEEN Ur Squamous Epith Cells 0 SEEN Urine Bacteria 3+ Urine Mucus 0 SEEN 30-year-old female presenting with left flank pain. She has a history of kidney stones and she had a fever yesterday so she believes she has a urinary tract infection. She does self catheterize herself through her stoma. Urine was found to be infected. She has a slight leukocytosis of 14.5 thousand. Otherwise her vital signs are stable and she is nontoxic-appearing. I did obtain CT imaging of the abdomen pelvis which shows for kidney stones in the urinary bladder. I did ask her how she normally with passed stones and she states that usually her stones just stay in her bladder they do not pass and they will eventually dissolve. She states that she does not usually have any kind of procedure to remove them. As far as her urinary tract infection I did send a urine culture. I started her on Keflex and give her Zofran for home. Due to the left flank pain which is likely secondary to a passed kidney stone she was sent home with a prescription for Percocet. She is given strict return precautions. Patient stable for discharge at this time. 1. Renal colic 2. pyelonephritis 3. Bladder calculi ED Disposition - Plan for ED Patient: Disposition: Home or Assisted Living Instructions: ED Pyelonephritis Female Adult, ED Renal Stone w Colic Prescriptions: Cephalexin [Keflex] 500 mg PO Q6 #40 cap Transmission Status: Received by [facility]/pharmacy #[id number] Oxycodone HCl/Acetaminophen [Percocet 5/325] 1 tab PO Q6H PRN PRN 3 Days #12 tab PRN Reason: Pain Prescription Printed Ondansetron [Zofran Odt] 4 mg PO Q8H PRN PRN #20 tab PRN Reason: Nausea Transmission Status: Received by [facility]/pharmacy #[id number] Referrals: Inga Shook MD [Primary Care Provider] -
[2020-04-26] MEDS: Ketorolac 15 MG/ML Vial IV (19:38)
[2020-04-26 19:53] LABS: Mucous, Urine 0 SEEN /hpf (<or=2+); Squamous Epithelial Cells - UA 0 SEEN /hpf (5-10)
[2020-04-26] MEDS: Morphine 4 MG/ML Syringe IV (19:55)
[2020-04-26 19:56] LABS: Absolute Lymphocyte Count 2.73 X10^3/uL (0.83-4.51); Absolute Neutrophil Count 10.8 X10^3/uL (2.0-7.7); Basophil# 0.03 X10^3/uL; Basophil% 0.2 % (0-1); Eosinophil# 0.11 X10^3/uL; Eosinophils% 0.7 % (0-5); Hematocrit 40.3 % (37-47); Lymphocyte # 2.73 X10^3/ul (4.0); Lymphocyte % 18.5 % (19-41); Mean Corp Hgb Conc 32.3 g/dL (32-36); Mean Corpuscular Hgb 28.5 pg (27.0-32.0); Mean Corpuscular Volume 88.4 fL (81-99); Mean Platelet Vol. 8.5 fl (6.2-12.0); Monocyte# 1.04 X10^3/uL; Monocyte% 7.1 % (0-10); NRBC Flagged by Analyzer 0 % (0-5); Neutrophil # 10.77 X10^3/uL (2.7-7.7); Neutrophil % 73.2 % (47-70); Platelet Count 279 K/mm3 (150-450); RBC Distribution Width CV 13.2 % (11.6-14.6); RBC Distribution Width SD 42.8 fl (35.1-43.9); Red Blood Count 4.56 M/mm3 (4.2-5.4); White Blood Count 14.7 K/mm3 (4.4-11.0)
[2020-04-26] MEDS: Ondansetron 4 MG/2 ML Vial IV (19:56)
[2020-04-26 19:57] LABS: Color, Urine Straw (Yellow); Glucose, Dipstick Normal (Normal); Ketone-Dipstick 15 mg/dl (Negative); Leukocyte Esterase-Dipstick 500 /ul (Negative); Nitrite-Dipstick Positive (Negative); Occult Blood-Urine 150 /ul (Negative); Protein-Dipstick 100 mg/dl (Negative); Urine Bilirubin Dipstick Negative (Negative); Urine Clarity Cloudy (Clear); Urine Urobilinogen Normal (Normal)
[2020-04-26 20:19] LABS: Red Blood Cells-Urine 25-50 SEEN /hpf (0-5); White Blood Cells >100 SEEN /hpf (0-5)
[2020-04-26 20:20] LABS: Bacteria 3+ /hpf (None Seen)
[2020-04-26 20:21] LABS: Anion Gap 8 (5-15); BUN 14 mg/dL (7-18); BUN/Creat Ratio 21.4 RATIO (10-20); Calcium,Total 8.9 mg/dL (8.5-10.1); Chloride 106 mmol/L (98-107); Creatinine, Serum 0.65 mg/dL (0.55-1.02); EST Glomerular Filtration Rate 114 mL/min (>60); Est Glom Filt Rate - Afr Amer 138 mL/min (>60); Glucose 85 mg/dL (74-106); Potassium 3.6 mmol/L (3.5-5.1); Sodium Level 136 mmol/L (136-145)
[2020-04-26] MEDS: Ondansetron ODT 4 MG Tablet PO (21:41)
[2020-04-26] MEDS: Cephalexin 250 MG Capsule 500 MG PO (21:41)
[2020-04-26] MEDS: oxyCODONE 5 MG Tablet PO (21:41)
[2020-04-26 21:48] VITALS: BP 100/66; PULSE 80; RESP 16
== END 2020-04-26 21:49 | disposition home or self-care (01) ==
PROVIDERS: Emergency Provider Student in an Organized Health Care Education/Training Program; PCP Family Medicine
DX: N23 Unspecified renal colic (principal); N12 Tubulo-interstitial nephritis, not specified as acute or chronic; N21.0 Calculus in bladder; K59.00 Constipation, unspecified; Z79.899 Other long term (current) drug therapy; Z87.442 Personal history of urinary calculi
CPT/HCPCS: 74176; 80048; 81001; 85025; 87077; 87086; 87088; 87186; 96374; 96375; 99285; J2405

== ENCOUNTER → 2020-09-05 08:59 | Outpatient (CLI) | payer OTHER, SELFPAY ==
[2020-08-12 14:12] VITALS: BMI 28.9
[2020-09-05 09:30] LABS: hCG Titer Quant., Serum < 1 mIU/mL (1-3)
== END ==
PROVIDERS: PCP Family Medicine; Referring Provider Obstetrics & Gynecology; Visit Provider Obstetrics & Gynecology
DX: N91.2 Amenorrhea, unspecified (principal)
CPT/HCPCS: 36415; 84702

== ENCOUNTER 2020-09-12 07:08 | Emergency (ER) | payer OTHER, SELFPAY ==
[2020-08-12 14:12] VITALS: BMI 28.9
[2020-09-12 07:09] VITALS: BP 111/69; PULSE 120; RESP 18; TEMP 36.6; O2SAT 100; BMI 31.1
--- NOTE | 2020-09-12 07:32 | CT_ITS ---
STUDY: CT ABDOMEN AND PELVIS WITHOUT CONTRAST REASON FOR EXAM: Female, 30 years old. Kidney Stone RADIATION DOSAGE (If Supplied By Facility): CTDIvol = ( 8.43 ) mGy, DLP = ( 418.91 ) mGycm TECHNIQUE: Transaxial images were obtained from the dome of the diaphragm to the symphysis pubis without oral contrast, and without intravenous contrast. Sagittal and coronal images were reconstructed. Individualized dose optimization techniques were used for this CT. COMPARISON: Comparison is made with prior study dated 04/26/2020. FINDINGS: The visualized lung bases are unremarkable. The visualized portions of the heart are within normal limits. Normal liver. Normal gallbladder and extrahepatic biliary system. There is mild splenomegaly. Normal pancreas. Normal bilateral adrenal glands. Normal right kidney. Once again, there is a duplex left renal collecting system with moderate degree of hydronephrosis and hydroureter of the upper pole moiety. There is a new 4 mm calculus at the left base of the bladder suggestive of recently passed stone. No obstructive uropathy is seen at this time. Normal visualized stomach. Normal small intestine. Normal colon. The appendix is visualized and appears normal. Normal abdominal aorta. Normal inferior vena cava. Normal retroperitoneum. The patient is status post reconstruction of the urinary bladder. Multiple stones are seen within the urinary bladder. The IUD is not seen at this time. Normal abdominal wall. Normal osseous structures. CT/Abdomen/Pelvis without Cont IMPRESSION: Stable hydronephrosis of the upper moiety of the left kidney and hydroureter. A 4 mm calculus is seen at the left base of the bladder most likely from a recently passed calculus. Multiple large stones within the urinary bladder. Electronically Signed: Bay Blue MD at 8:25 EST , Service support ,
--- NOTE | 2020-09-12 07:33 | ED.VISSUMM ---
- ER Visit Summary Date of Service: 09/12/20 Chief Complaint: Left flank pain History of Present Illness: The patient is a 30 F who presents with left flank pain that began yesterday. Patient states it began rather suddenly. Patient states it went away yesterday evening but returned late last night. Patient describes the pain as throbbing. Patient states the pain is worse with deep breathing. Patient states the pain is similar to prior kidney stones. Patient admits to subjective chills but did not take her temperature. Patient admits to nausea and vomiting. Patient has a neobladder and self caths. Patient denies any hematuria. Physical Examination: Vital signs are stable except for tachycardia of 120. Patient is afebrile. Patient is in no acute distress. Neck is supple. Trachea is midline. There is no JVD. Heart was regular and tachycardic. Lungs are clear and equal bilaterally. Abdomen is soft. Bowel sounds are normal. There is left upper quadrant and left flank tenderness. There is no rebound or guarding noted. Cranial nerves II through XII are intact. There are no focal motor or sensory deficits noted. Extremities are intact. There is no calf tenderness or edema. Test Results: CT scan of the abdomen pelvis was obtained. There is stable hydronephrosis and hydroureter on the left. There is a recently passed stone in the bladder. There are other stones noted in the bladder as well. This was interpreted by the radiologist and reviewed by myself. CBC shows a mild leukocytosis of 13.4. Basic metabolic profile was essentially within normal limits. Urinalysis shows leukocyte esterase of 500 with positive nitrites and 5-10 white blood cells and 1+ bacteria. Emergency Department Course and Treatment: Patient was given IV fluids, morphine, and Zofran. Patient was given a repeat dose of morphine. Patient was advised of her findings. Patient was given prescription for Cipro and a short course of Percocet. Patient was instructed to follow-up with her urologist in 3 to 5 days. Patient understood and was agreeable with the plan. All questions were answered. Disposition: Discharge home Impression: 1. Nephrolithiasis This note was generated with [employer] software. It may contain incorrect words, spelling, and punctuation that were not noted in review of the chart prior to signing ED Disposition - Plan for ED Patient: Disposition: Home or Assisted Living Diagnosis: Nephrolithiasis Instructions: ED Kidney Stone w/ Colic Prescriptions: Ciprofloxacin [Cipro] 500 mg PO BID #6 tab Prescription Printed Oxycodone HCl/Acetaminophen [Percocet 5/325] 1 tab PO Q6H PRN PRN 3 Days #12 tab PRN Reason: Pain Prescription Printed Referrals: Inga Shook MD [Primary Care Provider] - 3-5 Days
[2020-09-12] MEDS: Ondansetron 4 MG/2 ML Vial IV (07:42)
[2020-09-12] MEDS: Morphine 4 MG/ML Syringe IV ×2 (07:42→09:02)
[2020-09-12] MEDS: 0.9% Normal Saline 1,000 ML 250 ML IV (07:50)
[2020-09-12 07:54] LABS: Absolute Lymphocyte Count 0.97 X10^3/uL (0.83-4.51); Absolute Neutrophil Count 11.5 X10^3/uL (2.0-7.7); Basophil# 0.03 X10^3/uL; Basophil% 0.2 % (0-1); Eosinophil# 0.01 X10^3/uL; Eosinophils% 0.1 % (0-5); Hematocrit 38.4 % (37-47); Hemoglobin 12.7 g/dL (12.0-15.0); Lymphocyte # 0.97 X10^3/ul (4.0); Lymphocyte % 7.2 % (19-41); Mean Corp Hgb Conc 33.1 g/dL (32-36); Mean Corpuscular Hgb 28.5 pg (27.0-32.0); Mean Corpuscular Volume 86.1 fL (81-99); Mean Platelet Vol. 8.5 fl (6.2-12.0); Monocyte# 0.89 X10^3/uL; Monocyte% 6.6 % (0-10); NRBC Flagged by Analyzer 0 % (0-5); Neutrophil # 11.45 X10^3/uL (2.7-7.7); Neutrophil % 85.4 % (47-70); Platelet Count 202 K/mm3 (150-450); RBC Distribution Width CV 13.6 % (11.6-14.6); Red Blood Count 4.46 M/mm3 (4.2-5.4); White Blood Count 13.4 K/mm3 (4.4-11.0)
[2020-09-12 08:09] LABS: Anion Gap 8 (5-15); BUN 17 mg/dL (7-18); BUN/Creat Ratio 22.7 RATIO (10-20); Calcium,Total 8.6 mg/dL (8.5-10.1); Chloride 106 mmol/L (98-107); Creatinine, Serum 0.75 mg/dL (0.55-1.02); EST Glomerular Filtration Rate 97 mL/min (>60); Est Glom Filt Rate - Afr Amer 117 mL/min (>60); Estimated Creatinine Clearance 83.52 ml/min; Glucose 124 mg/dL (74-106); Potassium 4.2 mmol/L (3.5-5.1); Sodium Level 134 mmol/L (136-145)
[2020-09-12 08:45] LABS: Mucous, Urine 0 SEEN /hpf (<or=2+); Squamous Epithelial Cells - UA 0 SEEN /hpf (5-10)
[2020-09-12 08:52] LABS: Color, Urine Yellow (Yellow); Glucose, Dipstick Normal (Normal); Ketone-Dipstick Negative (Negative); Leukocyte Esterase-Dipstick 500 /ul (Negative); Nitrite-Dipstick Positive (Negative); Occult Blood-Urine 150 /ul (Negative); Protein-Dipstick 30 mg/dl (Negative); Specific Gravity, Urine 1.015 (1.002-1.030); Urine Bilirubin Dipstick Negative (Negative); Urine Clarity Cloudy (Clear); Urine Urobilinogen Normal (Normal)
[2020-09-12 09:03] LABS: Bacteria 1+ /hpf (None Seen); White Blood Cells 5-10 SEEN /hpf (0-5)
[2020-09-12 09:06] LABS: Red Blood Cells-Urine 0-5 SEEN /hpf (0-5)
[2020-09-12 09:24] VITALS: BP 90/52; PULSE 115; RESP 16; O2SAT 99
[2020-09-12 10:05] VITALS: BP 94/58; PULSE 110; RESP 16; O2SAT 99
== END 2020-09-12 10:06 | disposition home or self-care (01) ==
PROVIDERS: Emergency Provider Emergency Medicine; PCP Family Medicine
DX: N13.2 Hydronephrosis with renal and ureteral calculous obstruction (principal); N21.0 Calculus in bladder; F32.9 Major depressive disorder, single episode, unspecified; Z79.899 Other long term (current) drug therapy; Z87.442 Personal history of urinary calculi
CPT/HCPCS: 74176; 80048; 81001; 85025; 96361; 96374; 96375; 96376; 99285; J7030; A4216; J2405

== ENCOUNTER 2020-09-14 06:21 | Emergency (ER) | payer OTHER, SELFPAY ==
[2020-09-14 06:21] VITALS: BP 113/65; PULSE 120; RESP 15; TEMP 37; O2SAT 98; BMI 30.3
--- NOTE | 2020-09-14 06:29 | RAD_ITS ---
STUDY: X-RAY CHEST REASON FOR EXAM: Female, 30 years old. sob TECHNIQUE: Single AP portable view of the chest. COMPARISON: 03/26/2020 FINDINGS: The lungs are clear and expanded. There is no demonstrated pleural abnormality. Normal size heart. Normal mediastinum and natasha. Normal visualized pulmonary arteries. Normal visualized aortic arch and descending thoracic aorta. Normal visualized thoracic spine. Normal visualized ribs, clavicles, and shoulders. There is no demonstrated abnormality of the visualized soft tissue structures of the upper abdomen. RAD/Chest 1 View (Portable) IMPRESSION: Normal x-ray examination of the chest. Electronically Signed: Sunil Prabhakar MD at 8:13 EST Tel , Service support ,
--- NOTE | 2020-09-14 06:30 | ED.VIS.GEN ---
History of Present Illness Informant: Patient Onset: Days Context: Gradual Onset Timing: Continuous Current Severity: Moderate Maximum Severity: Moderate Narrative: Patient is a 30-year-old female with medical history significant for bladder reconstruction in 1997 with urinary stoma who self caths. The patient presents with intermittent flank pain, fever, chills, and shortness of breath. The patient was seen here 2 days ago. At that point, she had a CT scan which showed recently passed stone. Her urine was also infected. The patient was given Percocet and Cipro. She states that she is taken 5 doses of the Cipro. However, she states that she still had intermittent fevers. Her highest today was 104. She describes chills and sweats. She is also had intermittent flank pain. She states this feels like when she has had kidney infection in the past. She states that today, she is also had intermittent chest pressure with nausea. She has no history of coronary vascular disease. Prior similar symptoms: Yes Recent Illness/Hospitalization: No <Fish Moyer - Last Filed: 09/14/20 06:30> <Meet Georges - Last Filed: 09/14/20 10:10> Chief Complaint: Flank Pain Past Medical History Prior records reviewed: Yes Past Medical History: - - Hypothyroidism, bladder reconstruction, recurrent kidney stone, gastritis Surgical History: - - Neobladder surgery, multiple kidney stones Smoking Status: Never smoker <Fish Moyer - Last Filed: 09/14/20 06:30> <Meet Georges - Last Filed: 09/14/20 10:10> - Allergies and Home Meds Allergies/Adverse Reactions: Allergies Sulfa (Sulfonamide Antibiotics) Allergy (Verified 09/14/20 06:25) Nausea Penicillins [PCN] Adverse Reaction (Verified 09/14/20 06:25) Anaphylaxis Primary Care Physician: Inga Shook MD [Primary Care Provider] - Review of Systems General: Reports: Chills, Fever Eyes: Denies: Visual changes - bilaterally, Diplopia ENT: Denies: Rhinorrhea, Sore throat Cardiovascular: Reports: Chest pain Respiratory: Denies: Dyspnea, Cough, Dyspnea on exertion Gastrointestinal: Reports: Nausea Genitourinary: Reports: Frequency Musculoskeletal: Reports: Back pain Skin: Denies: Rash, Wounds Neurological: Denies: Headache, Weakness, Numbness <Fish Moyer - Last Filed: 09/14/20 06:30> Physical Exam Vital Signs/Narrative: Vital Signs Temp Pulse Resp BP Pulse Ox 09/14/20 06:21 98.6 F 120 H 15 113/65 98 Inital Vital Signs reviewed: Yes General: Well nourished, Well developed, No Acute Distress Head: Normocephalic, Atraumatic Eyes: Perrl, EOMI ENT: Moist mucous membranes, No rhinorrhea Neck: Supple, Nontender Cardiovascular: Regular rate, Regular rhythm, No murmurs Respiratory: No distress, CTA bilaterally, Chest nontender Abdomen: Soft, Nontender, Nondistended, Normal bowel sounds Back: Normal Inspection, CVA tenderness Extremities: Nontender, No edema Skin: Normal color, No rash Neurological: Alert, Oriented x3, Cranial nerves II-XII grossly intact, Normal Strength, Normal Sensation Psychological: Normal affect, Normal Mood <Fish Moyer - Last Filed: 09/14/20 06:30> Vital Signs/Narrative: Vital Signs Temp Pulse Resp BP Pulse Ox 09/14/20 10:03 97.5 F L 112 H 17 98/63 96 09/14/20 08:50 97.8 F 109 H 17 107/64 99 09/14/20 06:21 98.6 F 120 H 15 113/65 98 <Meet Georges - Last Filed: 09/14/20 10:10> Diagnostic/Tx/Re-eval - Medical Decision Making The patient presents with symptoms of pyelonephritis. I did review her CT which showed recently passed stone 2 days ago. My concern is that she may have resistance to the Cipro that she has been on. The patient will undergo metabolic work-up. This will be followed up by the oncoming physician. <Fish Moyer - Last Filed: 09/14/20 06:30> - Medical Decision Making Patient was checked out to me with labs pending. Test results: CBC shows an H&H of 11.5 and 34.0, second neutrophils of 72. CMP shows a sodium 135, potassium of 2.6, calcium of 8.4, albumin of 2.9. Lactic acid is 1.0. UA shows leukocytes, blood, ketones, 10-25 white blood cells, and rare bacteria. Emergency department course: Patient was given a liter of normal saline. I reviewed her prior urine cultures which showed E. coli and Pseudomonas. She has already been on a fluoroquinolone and seems to be worsening and having fever so she was given cefepime IV. She was given K-Dur p.o. Treatment plan: Currently her blood pressure is 98/63 with a heart rate of 112. She is resting comfortably. Had a prolonged discussion with her about treatment options. She is concerned about the possibility of sepsis as PA. She will be admitted to the hospital for further evaluation and treatment. Disposition: Admitted in improved condition. Impression: 1. Pyelonephritis. 2. Sepsis. 3. Hypokalemia. <Meet Georges - Last Filed: 09/14/20 10:10> ED Disposition <Fish Moyer - Last Filed: 09/14/20 06:30> <Meet Georges - Last Filed: 09/14/20 10:10> - Plan for ED Patient: Diagnosis: Pyelonephritis, Sepsis, Hypokalemia Referrals: Inga Shook MD [Primary Care Provider] -
--- NOTE | 2020-09-14 07:08 | EKG12_ITS ---
Test Reason : KIDNEY INFECTION Blood Pressure : / mmHG Vent. Rate : 102 BPM Atrial Rate : 102 BPM P-R Int : 132 ms QRS Dur : 090 ms QT Int : 340 ms P-R-T Axes : 040 041 037 degrees QTc Int : 443 ms Sinus tachycardia Nonspecific ST abnormality Abnormal ECG Confirmed by JOCELIN ARELLANO, PEYTON ([id number]), assistant editor CHRISTINE WARNER ([id number]) on 09/16/2020 10:07:21 AM Referred By: KT Confirmed By:PEYTON MONREAL MD
[2020-09-14 07:34] LABS: Absolute Lymphocyte Count 1.61 X10^3/uL (0.83-4.51); Absolute Neutrophil Count 5.8 X10^3/uL (2.0-7.7); Basophil# 0.02 X10^3/uL; Basophil% 0.2 % (0-1); Eosinophil# 0.01 X10^3/uL; Eosinophils% 0.1 % (0-5); Hemoglobin 11.5 g/dL (12.0-15.0); Lymphocyte # 1.61 X10^3/ul (4.0); Mean Corp Hgb Conc 33.8 g/dL (32-36); Mean Corpuscular Hgb 28.8 pg (27.0-32.0); Mean Platelet Vol. 8.2 fl (6.2-12.0); Monocyte# 0.57 X10^3/uL; Monocyte% 7.1 % (0-10); NRBC Flagged by Analyzer 0 % (0-5); Neutrophil # 5.81 X10^3/uL (2.7-7.7); Neutrophil % 72.2 % (47-70); Platelet Count 173 K/mm3 (150-450); RBC Distribution Width CV 14.1 % (11.6-14.6); RBC Distribution Width SD 43.9 fl (35.1-43.9); White Blood Count 8.1 K/mm3 (4.4-11.0)
[2020-09-14 07:58] LABS: ALB/GLOB Ratio 0.7 RATIO (0.9-2.4); AST(SGOT) 21 U/L (15-37); Alanine Aminotransfer ALT/SGPT 30 U/L (13-56); Albumin, Serum 2.9 g/dL (3.2-5.0); Alkaline Phosphatase 66 U/L (45-117); Anion Gap 11 (5-15); BUN 10 mg/dL (7-18); BUN/Creat Ratio 10.6 RATIO (10-20); Calcium,Total 8.4 mg/dL (8.5-10.1); Chloride 103 mmol/L (98-107); Creatinine, Serum 0.95 mg/dL (0.55-1.02); EST Glomerular Filtration Rate 74 mL/min (>60); Est Glom Filt Rate - Afr Amer 90 mL/min (>60); Estimated Creatinine Clearance 65.93 ml/min; Glucose 99 mg/dL (74-106); Potassium 2.6 mmol/L (3.5-5.1); Protein, Total 6.9 g/dL (6.4-8.2); Sodium Level 135 mmol/L (136-145)
[2020-09-14] MEDS: Ondansetron 4 MG/2 ML Vial IV (08:02)
[2020-09-14] MEDS: 0.9% Normal Saline 1,000 ML 1000 ML IV (08:02)
[2020-09-14] MEDS: Morphine 4 MG/ML Syringe IV (08:02)
[2020-09-14] MEDS: Potassium Chloride Oral Tablet 20 MEQ 60 MEQ PO (08:22)
[2020-09-14 08:50] VITALS: BP 107/64; PULSE 109; RESP 17; TEMP 36.6; O2SAT 99
[2020-09-14 08:52] LABS: Mucous, Urine 0 SEEN /hpf (<or=2+); Red Blood Cells-Urine 0 SEEN /hpf (0-5); Squamous Epithelial Cells - UA 0 SEEN /hpf (5-10)
[2020-09-14 09:40] LABS: Color, Urine Yellow (Yellow); Glucose, Dipstick Normal (Normal); Ketone-Dipstick 15 mg/dl (Negative); Leukocyte Esterase-Dipstick 100 /ul (Negative); Nitrite-Dipstick Negative (Negative); Occult Blood-Urine 50 /ul (Negative); Protein-Dipstick 100 mg/dl (Negative); Urine Bilirubin Dipstick Negative (Negative); Urine Clarity Clear (Clear); Urine Urobilinogen Normal (Normal)
[2020-09-14 09:46] LABS: White Blood Cells 10-25 SEEN /hpf (0-5)
[2020-09-14 09:47] LABS: Bacteria RARE /hpf (None Seen)
[2020-09-14 10:03] VITALS: BP 98/63; PULSE 112; RESP 17; TEMP 36.4; O2SAT 96
--- NOTE | 2020-09-14 10:29 | ED.DCSUM_ITS ---
- ER Visit Summary Date of Service: 09/14/20 Treatment Plan: Patient was seen by Dr. Mcnair in the emergency department and has decided that she would prefer outpatient treatment. She will be discharged with Zofran, 750 mg of Cipro twice daily x1 week, and 10 Percocet. Instructed to follow-up with her primary care physician in 2 days to get the results of the urine culture. Return to the emergency department for any worsening symptoms. Disposition: To home in improved and stable condition. Impression: 1 1. Sepsis. 2. Pyelonephritis. 3. Hypokalemia. This note was generated with [employer] software. It may contain incorrect words, spelling, and punctuation that were not noted in review of the chart prior to signing ED Disposition - Plan for ED Patient: Diagnosis: Pyelonephritis, Sepsis, Hypokalemia Instructions: ED Pyelonephritis, Female (Adult) Prescriptions: Ciprofloxacin [Cipro] 250 mg PO BID #14 tablet Ciprofloxacin [Cipro] 500 mg PO BID #14 tablet Oxycodone HCl/Acetaminophen [Percocet 5/325] 1 tablet PO Q6H PRN PRN 3 Days #12 tablet PRN Reason: Pain Ondansetron [Zofran Odt] 4 mg PO Q8H PRN PRN #10 tablet PRN Reason: Nausea Referrals: Inga Shook MD [Primary Care Provider] - 2 Days Additional Instructions: Follow-up with Dr. Shook in 2 days to get the results of your urine culture.
[2020-09-14] MEDS: oxyCODONE 5 MG Tablet 10 MG PO (11:02)
[2020-09-14 11:08] VITALS: BP 97/63; PULSE 110; RESP 16; O2SAT 97
== END 2020-09-14 11:11 | disposition home or self-care (01) ==
LOC: ED 07:56
PROVIDERS: Emergency Provider Emergency Medicine; PCP Family Medicine
DX: A41.9 Sepsis, unspecified organism (principal); N12 Tubulo-interstitial nephritis, not specified as acute or chronic; E87.6 Hypokalemia; R07.89 Other chest pain; E03.9 Hypothyroidism, unspecified; Z79.899 Other long term (current) drug therapy; Z87.442 Personal history of urinary calculi
CPT/HCPCS: 71045; 80053; 81001; 83605; 85025; 87040; 87086; 87088; 93005; 96361; 96365; 96375; 99285; J7030; A4216; J2405

== ENCOUNTER → 2020-11-04 11:31 | Outpatient (CLI) | payer OTHER, SELFPAY ==
[2020-11-04 12:22] LABS: hCG Titer Quant., Serum < 1 mIU/mL (1-3)
== END ==
PROVIDERS: PCP Family Medicine; Referring Provider Obstetrics & Gynecology; Visit Provider Obstetrics & Gynecology
DX: N91.2 Amenorrhea, unspecified (principal)
CPT/HCPCS: 36415; 84702

== ENCOUNTER → 2021-01-01 10:26 | Outpatient (CLI) | payer OTHER, SELFPAY ==
[2021-01-01 12:14] LABS: hCG Titer Quant., Serum 213 mIU/mL (1-3)
== END ==
PROVIDERS: PCP Family Medicine; Referring Provider Obstetrics & Gynecology; Visit Provider Obstetrics & Gynecology
DX: N91.2 Amenorrhea, unspecified (principal)
CPT/HCPCS: 36415; 84702

== ENCOUNTER → 2021-01-03 09:13 | Outpatient (CLI) | payer OTHER, SELFPAY ==
[2021-01-03 10:38] LABS: hCG Titer Quant., Serum 421 mIU/mL (1-3)
== END ==
PROVIDERS: PCP Family Medicine; Referring Provider Nurse Practitioner Women's Health; Visit Provider Nurse Practitioner Women's Health
DX: N91.2 Amenorrhea, unspecified (principal)
CPT/HCPCS: 36415; 84702

== ENCOUNTER → 2021-02-06 14:35 | Outpatient (CLI) | payer OTHER, SELFPAY ==
[2021-02-06 13:43] VITALS: BMI 30.3
[2021-02-06 14:51] LABS: Absolute Lymphocyte Count 2.39 X10^3/uL (0.83-4.51); Absolute Neutrophil Count 5.1 X10^3/uL (2.0-7.7); Basophil# 0.03 X10^3/uL; Basophil% 0.4 % (0-1); Eosinophil# 0.09 X10^3/uL; Eosinophils% 1.1 % (0-5); Hematocrit 36.6 % (37-47); Hemoglobin 12.3 g/dL (12.0-15.0); Lymphocyte # 2.39 X10^3/ul (0.83-4.51); Mean Corp Hgb Conc 33.6 g/dL (32-36); Mean Corpuscular Hgb 29.6 pg (27.0-32.0); Mean Corpuscular Volume 88.2 fL (81-99); Mean Platelet Vol. 7.9 fl (6.2-12.0); Monocyte# 0.58 X10^3/uL; NRBC Flagged by Analyzer 0 % (0-5); Neutrophil # 5.13 X10^3/uL (2.7-7.7); Neutrophil % 62.1 % (47-70); Platelet Count 292 K/mm3 (150-450); RBC Distribution Width CV 12.4 % (11.6-14.6); RBC Distribution Width SD 39.9 fl (35.1-43.9); Red Blood Count 4.15 M/mm3 (4.2-5.4); White Blood Count 8.3 K/mm3 (4.4-11.0)
[2021-02-06 15:23] LABS: Amphetamine Urine VISTA NEGATIVE (<1000 ng/mL); Barbiturate Urine VISTA NEGATIVE (< 200 ng/mL); Benzodiazepine Urine VISTA NEGATIVE (< 200 ng/mL); Cocaine Urine VISTA NEGATIVE (< 300 ng/mL); Ecstacy Urine VISTA NEGATIVE (< 500 ng/mL); Methadone Urine VISTA NEGATIVE (< 300 ng/mL); PCP Urine VISTA NEGATIVE (< 25 ng/mL); THC Urine VISTA NEGATIVE (< 50 ng/mL); Vista UDS pH Range 7
[2021-02-06 15:27] LABS: Protein, Urine (Random) 22.5 mg/dL (<11.9); Protein:Creat Ratio 496 mg/g CRE (0-200)
[2021-02-06 15:34] LABS: ALB/GLOB Ratio 0.8 RATIO (0.9-2.4); AST(SGOT) 23 U/L (15-37); Alanine Aminotransfer ALT/SGPT 39 U/L (13-56); Albumin, Serum 3.4 g/dL (3.2-5.0); Alkaline Phosphatase 66 U/L (45-117); Anion Gap 6 (5-15); BUN 15 mg/dL (7-18); BUN/Creat Ratio 20.3 RATIO (10-20); Calcium,Total 9.1 mg/dL (8.5-10.1); Chloride 102 mmol/L (98-107); Creatinine, Serum 0.74 mg/dL (0.55-1.02); EST Glomerular Filtration Rate 98 mL/min (>60); Est Glom Filt Rate - Afr Amer 119 mL/min (>60); Glucose 133 mg/dL (74-106); Potassium 3.4 mmol/L (3.5-5.1); Protein, Total 7.4 g/dL (6.4-8.2); Sodium Level 137 mmol/L (136-145)
[2021-02-07 09:01] LABS: HIV - WCH Non-Reactive (Nonreactive); Hepatitis B Surface Antigen Non-Reactive (Nonreactive); Hepatitis C Antibody Non-Reactive (Nonreactive); Rubella IgG Reactive (Nonreactive); Syphilis Antibodies Non-reactive
[2021-02-10 20:07] LABS: Dilute Prothrombin Time (dPT) 32.1 sec (0.0-55.0); Dilute Russell Viper Venom 29.6 sec (0.0-47.0); Thrombin Time 15.9 sec (0.0-23.0); dPT Confirm Ratio 1.15 Ratio (0.00-1.40)
[2021-02-10 20:07] LABS: Chlamydia By Nucleic Acid AMP Negative (Negative)
[2021-02-10 21:50] LABS: Gonococcus By Nucleic Acid AMP Negative (Negative)
[2021-02-10 21:52] LABS: Anti-Cardiolipin Ab, IgA, Qn < 9 APL U/mL (0-11); Anti-Cardiolipin Ab, IgG, Qn < 9 GPL U/mL (0-14); Anti-Cardiolipin Ab, IgM, Qn < 9 MPL U/mL (0-12); Beta-2-Glycoprotein I IgA <9 (0-25); Beta-2-Glycoprotein I IgG <9 (0-20); Beta-2-Glycoprotein I IgM <9 (0-32); Interpretation Comment: (.)
== END ==
PROVIDERS: PCP Family Medicine; Referring Provider Obstetrics & Gynecology; Visit Provider Obstetrics & Gynecology
DX: O09.299 Supervision of pregnancy with other poor reproductive or obstetric history, unspecified trimester (principal); N96 Recurrent pregnancy loss; Z3A.00 Weeks of gestation of pregnancy not specified
CPT/HCPCS: 36415; 80053; 80307; 82570; 84156; 85025; 86146; 86147; 86703; 86762; 86780; 86803; 86850; 86900; 86901; 87086; 87088; 87340; 87491; 87591

== ENCOUNTER → 2021-02-24 09:17 | Outpatient (CLI) | payer OTHER, SELFPAY ==
[2021-02-21 14:12] VITALS: BMI 30.3
[2021-02-24 11:01] LABS: NATERA MAILED SPECIMEN
== END ==
PROVIDERS: PCP Family Medicine; Referring Provider Obstetrics & Gynecology; Visit Provider Obstetrics & Gynecology
DX: Z34.81 Encounter for supervision of other normal pregnancy, first trimester (principal)
CPT/HCPCS: 36415

== ENCOUNTER → 2021-03-28 10:17 | Outpatient (CLI) | payer OTHER, SELFPAY ==
--- NOTE | 2021-03-28 10:26 | US_ITS ---
STUDY: ABDOMINAL ULTRASOUND - RIGHT UPPER QUADRANT REASON FOR VISIT: Female, 30 years old RUQ pain x 2 days TECHNIQUE: Ultrasound evaluation of the right upper quadrant was performed with real-time and static cruz-scale imaging. TECHNICAL QUALITY: Adequate. COMPARISON: None. FINDINGS: Liver: The liver measures 16.5 cm. There is normal echogenicity of the liver. The bile ducts are within normal limits. There is hepatic color flow. The direction of portal flow is hepatopetal. There is no demonstrated mass lesion. Gallbladder: Normal distended gallbladder. The gallbladder wall measures 2.8 mm. There is a negative sonographic Yuan''s sign. There is no pericholecystic fluid. There are no gallstones. Common Bile Duct (C.B.D.): The common bile duct measures 3.9 mm. Pancreas: Normal size of the head, body and tail of the pancreas. There is normal echogenicity of the pancreas. There is no demonstrated pancreatic mass or cyst. Right Kidney: Normal size of the right kidney. The right kidney measures 11.3 cm x 7.4 cm x 5.3 cm. Normal renal cortex. The right cortex measures 1.1 cm. There is no demonstrated renal mass or cyst. There is an extra-renal pelvis of the right kidney. There is no distention of the renal calyces. US/Abdomen Limited IMPRESSION: Normal right upper quadrant ultrasound examination. Electronically Signed: Bay Blue MD at 11:17 EDT , Service support ,
[2021-03-28 10:40] LABS: Absolute Neutrophil Count 5.5 X10^3/uL (2.0-7.7); Basophil# 0.02 X10^3/uL; Basophil% 0.3 % (0-1); Eosinophil# 0.08 X10^3/uL; Eosinophils% 1.1 % (0-5); Hematocrit 38.4 % (37-47); Hemoglobin 12.8 g/dL (12.0-15.0); Lymphocyte % 17.7 % (19-41); Mean Corp Hgb Conc 33.3 g/dL (32-36); Mean Corpuscular Volume 90.1 fL (81-99); Monocyte# 0.45 X10^3/uL; Monocyte% 6.1 % (0-10); NRBC Flagged by Analyzer 0 % (0-5); Neutrophil # 5.48 X10^3/uL (2.7-7.7); Neutrophil % 74.4 % (47-70); Platelet Count 273 K/mm3 (150-450); RBC Distribution Width CV 13.2 % (11.6-14.6); RBC Distribution Width SD 43.8 fl (35.1-43.9); Red Blood Count 4.26 M/mm3 (4.2-5.4); White Blood Count 7.4 K/mm3 (4.4-11.0)
[2021-03-28 11:12] LABS: ALB/GLOB Ratio 0.7 RATIO (0.9-2.4); AST(SGOT) 18 U/L (15-37); Alanine Aminotransfer ALT/SGPT 27 U/L (13-56); Albumin, Serum 2.9 g/dL (3.2-5.0); Alkaline Phosphatase 62 U/L (45-117); Anion Gap 7 (5-15); BUN 5 mg/dL (7-18); BUN/Creat Ratio 11.2 RATIO (10-20); Calcium,Total 8.5 mg/dL (8.5-10.1); Chloride 105 mmol/L (98-107); Creatinine, Serum 0.44 mg/dL (0.55-1.02); EST Glomerular Filtration Rate 176 mL/min (>60); Est Glom Filt Rate - Afr Amer 213 mL/min (>60); Globulin 4.3 g/dL (2.2-4.2); Glucose 89 mg/dL (74-106); Potassium 3.6 mmol/L (3.5-5.1); Protein, Total 7.2 g/dL (6.4-8.2); Sodium Level 135 mmol/L (136-145)
== END ==
PROVIDERS: PCP Family Medicine; Referring Provider Obstetrics & Gynecology; Visit Provider Obstetrics & Gynecology
DX: R10.11 Right upper quadrant pain (principal)
CPT/HCPCS: 36415; 76705; 80053; 85025

== ENCOUNTER → 2021-06-09 09:19 | Outpatient (CLI) | payer OTHER, SELFPAY ==
[2021-06-09 09:39] LABS: Absolute Lymphocyte Count 2.42 X10^3/uL (0.83-4.51); Absolute Neutrophil Count 7.3 X10^3/uL (2.0-7.7); Basophil# 0.02 X10^3/uL; Basophil% 0.2 % (0-1); Eosinophil# 0.09 X10^3/uL; Eosinophils% 0.9 % (0-5); Hematocrit 32.4 % (37-47); Hemoglobin 10.8 g/dL (12.0-15.0); Lymphocyte # 2.42 X10^3/ul (0.83-4.51); Lymphocyte % 23.3 % (19-41); Mean Corp Hgb Conc 33.3 g/dL (32-36); Mean Corpuscular Hgb 29.3 pg (27.0-32.0); Mean Corpuscular Volume 87.8 fL (81-99); Mean Platelet Vol. 8.1 fl (6.2-12.0); Monocyte# 0.51 X10^3/uL; Monocyte% 4.9 % (0-10); NRBC Flagged by Analyzer 0 % (0-5); Neutrophil % 70.3 % (47-70); Platelet Count 266 K/mm3 (150-450); RBC Distribution Width CV 13.2 % (11.6-14.6); RBC Distribution Width SD 42.5 fl (35.1-43.9); Red Blood Count 3.69 M/mm3 (4.2-5.4); White Blood Count 10.4 K/mm3 (4.4-11.0)
[2021-06-09 09:49] LABS: Glucose Challenge Gest 1H 50g 140 mg/dL (70-140)
== END ==
PROVIDERS: PCP Family Medicine; Referring Provider Obstetrics & Gynecology; Visit Provider Obstetrics & Gynecology
DX: Z34.90 Encounter for supervision of normal pregnancy, unspecified, unspecified trimester (principal); Z3A.15 15 weeks gestation of pregnancy
CPT/HCPCS: 36415; 82950; 85025; 86850; 86900; 86901

== ENCOUNTER 2021-07-21 09:57 | Outpatient (CLI) | payer OTHER, SELFPAY | END 2021-07-21 23:59 | disposition short-term general hospital (02) | LOC: LABSPEC 09:59 | PROVIDERS: PCP Family Medicine; Referring Provider Physician Assistant Surgical; Visit Provider Physician Assistant Surgical | DX: Z20.822 Contact with and (suspected) exposure to COVID-19 (principal) | CPT/HCPCS: 87635; U0003; U0005 ==

== ENCOUNTER → 2021-07-30 07:55 | Outpatient (CLI) | payer OTHER, SELFPAY | PROVIDERS: PCP Family Medicine | DX: O09.899 Supervision of other high risk pregnancies, unspecified trimester (principal); Z3A.00 Weeks of gestation of pregnancy not specified | CPT/HCPCS: 87086; 87088 ==

== ENCOUNTER → 2021-08-14 14:20 | Outpatient (CLI) | payer OTHER, SELFPAY | PROVIDERS: PCP Family Medicine | DX: Z36.85 Encounter for antenatal screening for Streptococcus B (principal) | CPT/HCPCS: 87081 ==

== ENCOUNTER → 2021-12-31 | Outpatient (CLI) | payer OTHER, SELFPAY ==
[2021-12-31 08:08] LABS: Cholesterol 193 mg/dL (200); Glucose 99 mg/dL (74-106); High Density Lipoprotein 72 mg/dL; Triglycerides 70 mg/dL; Very Low Density Lipoprotein 14 mg/dL (5-40)
== END | disposition home or self-care (01) ==
LOC: LAB 07:27
PROVIDERS: PCP Family Medicine; Referring Provider Family Medicine; Visit Provider Family Medicine
DX: Z00.00 Encounter for general adult medical examination without abnormal findings (principal)
CPT/HCPCS: 36415; 80061; 82947

== ENCOUNTER → 2023-01-07 | Outpatient (CLI) | payer OTHER, SELFPAY ==
--- NOTE | 2023-01-07 08:55 | US_ITS ---
HISTORY: PAIN AFTER EATING. TECHNIQUE: [place] scale and color doppler imaging was performed of the right upper quadrant. 102 images. COMPARISON: CT 09/12/2020. US 03/28/2021. FINDINGS: LIVER: 16.8 cm in length. Homogeneous echotexture without focal lesion demonstrated. No intrahepatic ductal dilatation. MAIN PORTAL VEIN: Patent with hepatopedal flow. COMMON BILE DUCT: 5 mm in diameter. GALLBLADDER: No gallstones. Small fold noted. 2 mm wall thickness, within normal limits. No pericholecystic fluid. Sonographic Yuan sign negative. PANCREAS: Visualized proximal portion unremarkable. RIGHT KIDNEY: 11 cm in length with a cortical thickness of 1.4 cm. No hydronephrosis or gross renal mass demonstrated. Mildly echogenic medulla, question nephrocalcinosis. US/Abdomen Limited IMPRESSION: No sonographic evidence of cholelithiasis. 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 Electronically Signed: Kylie Rowland MD at 11:33 EDT ,
== END | disposition home or self-care (01) ==
LOC: US 08:53
PROVIDERS: PCP Family Medicine; Referring Provider Family Medicine; Visit Provider Family Medicine
DX: R10.11 Right upper quadrant pain (principal)
CPT/HCPCS: 76705

== ENCOUNTER 2023-03-02 16:09 | Emergency (ER) | payer OTHER, SELFPAY ==
[2023-03-02 16:09] VITALS: BP 126/74; PULSE 87; RESP 18; TEMP 36.1; O2SAT 100; BMI 29.4
--- NOTE | 2023-03-02 17:46 | EDS_ITS ---
HPI HPI - GI History of Present Illness Chief Complaint: Flank Pain Informant: patient Abdominal Pain/Flank Pain Onset: Today Context: Sudden Onset Timing: Continuous and Waxes and wanes Quality: Aching Location: Left Flank Current Severity: Severe Maximum Severity: Severe Worsened by: Nothing Relieved by: Nothing (Tried prescription pain medications) Nausea/Vomiting/Emesis GI Symptom: Positive for Nausea and Vomiting Onset: Today Associated Symptoms Associated Symptoms: Negative for Dysuria, Frequency or Hematuria Narrative Narrative: Patient with a longstanding history of kidney stones on the left side, felt another 1, and today the only reason she came in was because she can get the pain controlled at home with her prescription hydrocodone. She states she gets these a lot and usually can control the symptoms at home. There is nothing different with regards to features of her symptoms today. She has a history of bladder exstrophy, she was born with it. She had to have her bladder placed back inside but it did not work well so she had to have a reconstruction and has a neobladder, and her ureter was attached to it, and apparently it is more horizontal and she tends to get stones. She rarely needs surgery to remove them, she usually passes them on her own. She denies any fevers or chills or dysuria or hematuria lately. [facility] Medical History Anxiety Depression Kidney infection Kidney stones, calcium oxalate Limb weakness Proteinuria Home Medications tamsulosin 0.4 mg capsule (Flomax) 0.4 mg PO DAILY PRN flank pain/kidney stone 08/12/20 [History Last Taken Unknown] ondansetron 4 mg disintegrating tablet 4 mg PO Q8H PRN PRN Nausea #10 tabs 09/14/20 [Rx Last Taken Unknown] clobetasol 0.05 % topical cream 1 applic topical .COMPLEX #15 grams 11/20/20 [Rx Last Taken Unknown] prenat.vits,izzy,[id number] 1 tab PO DAILY 01/23/21 [History Last Taken Unknown] sertraline 50 mg tablet (Zoloft) 50 mg PO DAILY #90 tabs 01/23/21 [Rx Last Taken Unknown] promethazine 12.5 mg tablet 12.5 mg PO TID PRN nausea and vomiting #60 tabs 03/19/21 [Rx Last Taken Unknown] ondansetron HCl 4 mg tablet (Zofran) 4 mg PO Q8H PRN nausea and vomiting #30 tabs 06/27/21 [Rx Last Taken Unknown] ciprofloxacin HCl 500 mg tablet 500 mg PO BID #6 TABLETS 03/02/23 [Rx Last Taken Unknown] Allergy/AdvReac Type Severity Reaction Status Date / Time Sulfa (Sulfonamide Allergy Nausea Verified 03/02/23 16:11 Antibiotics) Penicillins [PCN] AdvReac Anaphylaxis Verified 03/02/23 16:11 Family History Father Myocardial infarction Abnormal cholesterol test Anxiety Depression Mother Myocardial infarction Anxiety Depression Surgical History (Updated 02/16/22 @ 16:06 by Nurys Meredith) Bladder exstrophy complete bladder reconstruction H/O lithotripsy Hernia of ovary S/P wisdom tooth extraction Social History adopted: No household members: spouse and children number of children: 1 current occupational status: employed current occupation: [employer] pets and animals: Yes (no litter box) pets and animals: cat(s) and dog(s) Smoking Status: Never smoker alcohol intake: never substance use type: does not use diet: other what type of physical activity do you participate in: none seatbelt use: always do you feel safe at home: Yes additional social history: [employer]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 [facility] ROS ED Constitutional Constitutional ED: Denies chills or fever(s) Eyes Eyes: Denies change in vision or diplopia ENT ENT ED: Denies rhinorrhea or sore throat Cardiovascular Cardiovascular: Denies chest pain or palpitations Respiratory/Chest Respiratory/Chest: Denies cough or dyspnea Gastrointestinal Gastrointestinal: Reports abdominal pain, nausea and vomiting; Denies diarrhea Genitourinary Genitourinary ED: Reports flank pain; Denies dysuria or hematuria Musculoskeletal Musculoskeletal: Reports back pain; Denies neck pain Integumentary Denies abscess or rash Neurologic Neurologic: Denies headache(s), paresthesias or weakness Psychiatric Psychiatric: Denies anxiety or suicidal thoughts EXAM Physical Exam Const Vital Signs: 03/02/23 16:09 Temperature 97 F L Temperature Source Temporal Pulse Rate 87 Respiratory Rate 18 Blood Pressure 126/74 H Blood Pressure Mean 91 Pulse Ox 100 Oxygen Delivery Method Room Air Positive well nourished and well developed Constitutional Narrative: Mild painful distress otherwise in no distress General Appearance ED: well developed HEENT Reports moist mucous membranes normocephalic and atraumatic Eyes PERRL and EOMs intact bilaterally Neck full ROM and supple Resp normal respiratory effort and clear to auscultation bilaterally Cardio regular rate, regular rhythm and no murmurs GI non-tender and non-distended Auscultation: normoactive bowel sounds Palpation: soft Back/Spine General Back: CVA tenderness left and other FROM Extremity normal to inspection General Extremety ED: Negative for edema, pulses abnormal or tenderness General Extremity: Negative for edema or pulses abnormal Neuro oriented x3, CN's II-XII intact bilaterally and no sensory deficits noted Sensorium / Orientation: awake and alert Motor Exam: strength 5/5 throughout Skin no rashes or lesions noted and no wounds MDM MDM MDM Narrative Medical decision making narrative: Considered advanced imaging of the abdomen/pelvis with CT, discussed this with patient, and with shared decision-making, she is comfortable without having imaging right now, since she has a longstanding history of these and really just wants symptom control. She agrees that this is much less likely to be inf ectious, since she had sudden onset of the symptoms like she does as usual with stones. She is a difficult stick with regards to IVs and blood work. I do not think we have to have blood work right now. She is not . I advised IM Toradol and morphine in addition to oral Zofran she is comfortable with that plan which was given. This really helped her pain, and she has pain medication at home. Her urine shows signs of infection, however she already knows she is chronically colonized. I will give her a dose of Cipro to cover her bases, send a culture, and send her home with 3 days worth of antibiotic, to cover her until the culture comes back, at which point we will prescribe her more if it is indicated. She is comfortable with that plan. Lab Data Attestation: I reviewed the patient's lab results. Labs: Laboratory Results - last 24 hr 03/02/23 18:47 Urine Color Straw Urine Clarity Cloudy Urine pH 6.0 Ur Specific [place] 1.025 Urine Protein 100 H Urine Glucose (UA) Normal Urine Ketones Negative Urine Occult Blood 50 H Urine Nitrite Positive H Urine Bilirubin Negative Urine Urobilinogen Normal Ur Leukocyte Esterase 25 H Urine RBC 0 SEEN Urine WBC 10-25 SEEN Ur Squamous Epith Cells 0-5 SEEN Urine Bacteria 1+ Urine Mucus 2+ Discharge Plan Triage Chief Complaint: Flank Pain ED Provider: Fito Tabares Dx/Rx/DC Orders Clinical Impression: Renal colic on left side Instructions: ED Kidney Stone w/ Colic Prescriptions: New ciprofloxacin HCl [ciprofloxacin HCl] 500 mg tablet 500 mg PO BID Qty: 6 0RF No Action tamsulosin [Flomax] 0.4 mg capsule 0.4 mg PO DAILY PRN (Reason: flank pain/kidney stone) prenat.vits,izzy,ksa-tbjb-tdaht Tablet 1 tab PO DAILY sertraline [Zoloft] 50 mg tablet 50 mg PO DAILY Qty: 90 4RF promethazine 12.5 mg tablet 12.5 mg PO TID PRN (Reason: nausea and vomiting) Qty: 60 1RF ondansetron 4 MG tablet 4 mg PO Q8H PRN PRN (Reason: Nausea) Qty: 10 0RF clobetasol 0.05 % cream 1 applic topical .COMPLEX Qty: 15 2RF Rx Instructions: 1 applic TOPICAL apply thin layer as directed bid X 2 weeks then daily X 2 weeks; apply thin layer; massage in to cover area ondansetron HCl [Zofran] 4 mg tablet 4 mg PO Q8H PRN (Reason: nausea and vomiting) Qty: 30 0RF Primary Care Provider: Inga Shook Referrals: Inga Shook MD [Primary Care Provider] - Doctor,Your [Non-Staff] - (urology as needed) Disposition Disposition: Home, Self Care
[2023-03-02] MEDS: Morphine 4 MG/ML Syringe IM (18:00)
[2023-03-02] MEDS: Ondansetron ODT 4 MG Tablet 8 MG PO (18:00)
[2023-03-02] MEDS: Ketorolac 30 MG/ML Syringe 60 MG IM (18:00)
[2023-03-02 18:57] LABS: Red Blood Cells-Urine 0 SEEN /hpf (0-5)
[2023-03-02 19:07] LABS: Color, Urine Straw (Yellow); Glucose, Dipstick Normal (Normal); Ketone-Dipstick Negative (Negative); Leukocyte Esterase-Dipstick 25 /ul (Negative); Nitrite-Dipstick Positive (Negative); Occult Blood-Urine 50 /ul (Negative); Protein-Dipstick 100 mg/dl (Negative); Specific Gravity, Urine 1.025 (1.002-1.030); Urine Bilirubin Dipstick Negative (Negative); Urine Clarity Cloudy (Clear); Urine Urobilinogen Normal (Normal)
[2023-03-02 19:32] LABS: Bacteria 1+ /hpf (None Seen); Mucous, Urine 2+ /hpf (<or=2+); Squamous Epithelial Cells - UA 0-5 SEEN /hpf (5-10); White Blood Cells 10-25 SEEN /hpf (0-5)
[2023-03-02 20:17] VITALS: BP 114/87; PULSE 81; RESP 16; O2SAT 99
[2023-03-02] MEDS: Ciprofloxacin 500 MG Tablet PO (20:18)
== END 2023-03-02 20:18 | disposition home or self-care (01) ==
PROVIDERS: Emergency Provider Emergency Medicine; PCP Family Medicine; Visit Provider Emergency Medicine
DX: N23 Unspecified renal colic (principal); R11.2 Nausea with vomiting, unspecified; F32.A Depression, unspecified; F41.9 Anxiety disorder, unspecified; Z79.899 Other long term (current) drug therapy
CPT/HCPCS: 81001; 96372; 99283; A4216

== ENCOUNTER → 2023-05-06 | Outpatient (CLI) | payer OTHER, SELFPAY ==
[2023-05-10 14:08] LABS: HPV APTIMA, High Risk Negative (Negative)
== END | disposition home or self-care (01) ==
PROVIDERS: Referring Provider Nurse Practitioner Women's Health; Visit Provider Nurse Practitioner Women's Health
DX: Z12.4 Encounter for screening for malignant neoplasm of cervix (principal)
CPT/HCPCS: 87624; 88175; G0145

== ENCOUNTER → 2023-06-23 | Outpatient (CLI) | payer OTHER, SELFPAY ==
--- NOTE | 2023-06-23 14:30 | US_ITS ---
INDICATION: pain-rlq EXAMINATION: Ultrasound US Pelvis Non OB Complete With Transvaginal Imaging TECHNIQUE: Transabdominal and transvaginal pelvic ultrasound was performed. Grayscale, spectral waveform, and color flow Doppler evaluation of the adnexa. COMPARISON: None. FINDINGS: UTERUS: Anteverted. The uterus measures 8.9 x 7 x 4.5 cm. There is no uterine mass. The endometrial stripe measures 13 mm in AP diameter which is within normal limits. RIGHT OVARY: Measures 3.3 x 3.1 x 2.5 cm. Non-enlarged, normal echogenicity. There is normal arterial inflow and venous outflow present in the right ovary. LEFT OVARY: Measures 3.6 x 2.4 x 1.8 cm. Non-enlarged, normal echogenicity. There is normal arterial inflow and venous outflow present in the left ovary. Greater than 20 follicles are seen in the left ovary. FREE FLUID: None. US/Pelvic w/ Transvaginal IMPRESSION: Findings consistent with polycystic ovarian syndrome. Electronically Signed: Maxime Navarro MD at 20:56 EST ,
== END | disposition home or self-care (01) ==
LOC: US 14:30
PROVIDERS: PCP Family Medicine; Referring Provider Nurse Practitioner Women's Health; Visit Provider Nurse Practitioner Women's Health
DX: R10.31 Right lower quadrant pain (principal)
CPT/HCPCS: 76830; 76856

== ENCOUNTER → 2023-08-17 | Outpatient (CLI) | payer OTHER, SELFPAY ==
--- NOTE | 2023-08-17 07:13 | US_ITS ---
STUDY: ABDOMINAL ULTRASOUND - RIGHT UPPER QUADRANT REASON FOR VISIT: Female, 33 years old RUQ PAIN TECHNIQUE: Ultrasound evaluation of the right upper quadrant was performed with real-time and static cruz-scale imaging. TECHNICAL QUALITY: Adequate. COMPARISON: Comparison is made with prior study dated January 07, 2023. FINDINGS: Liver: The liver measures 15.6 cm. There is normal echogenicity of the liver. The bile ducts are within normal limits. There is hepatic color flow. The direction of portal flow is hepatopetal. There is no demonstrated mass lesion. Gallbladder: Normal distended gallbladder. The gallbladder wall measures 3 mm. There is a negative sonographic Yuan''s sign. There is no pericholecystic fluid. There are no gallstones. Common Bile Duct (C.B.D.): The common bile duct measures 5 mm. Pancreas: Normal size of the head, body and tail of the pancreas. There is normal echogenicity of the pancreas. There is no demonstrated pancreatic mass or cyst. Right Kidney: Normal size of the right kidney. The right kidney measures 11 cm x 5.6 cm x 4.9 cm. Normal renal cortex. The right cortex measures 1.1 by cm. There is no demonstrated renal mass or cyst. There is no right hydronephrosis. The medullary portions of the kidney however increased echotexture. 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 US/Abdomen Limited IMPRESSION: Normal right upper quadrant ultrasound examination. 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 Electronically Signed: [place] MD at 14:51 EST ,
--- OUTSIDE RECORDS SUMMARY | 2023-08-17 07:18 | XMS RPT_ITS | CCD ---
Author Name Unknown Address [id number] [place] [address] Organization [facility] Care Team Providers Care Trigonometry Teacher Name Role Phone MARCELO KWON Unavailable Unavailable BEATA HARDING R Unavailable Unavailable BEATA HARDING R Unavailable Unavailable ROBIN, BRYNN J (LEARNING DEVELOPMENT SPECIALIST) Unavailable Unavail able ROBIN, BRYNN J (LEARNING DEVELOPMENT SPECIALIST) Unavailable Unavail able TIBURCIO DIOP JOSHUA Unavailable Unavailabl e GREEN, TIBURCIO JOSHUA Unavailable Unavailabl e GANGEL JR, MARINA GENE Unavailable Unavaila ble IRMA ARORA MARINA Unavailable Unavailabl e GANGEL JR, MARINA GENE Unavailable Unavaila ble GANGEL JR, MARINA GENE Unavailable Unavaila ble GANGEL JR, MARINA GENE Unavailable Unavaila ble GANGEL JR, MARINA GENE Unavailable Unavaila ble GUERA VALERO Unavailable Unavailable ROBIN, BRYNN J Unavailable Unavailable ROBIN, BRYNN J Unavailable Unavailable NO REFERRING DR Unavailable Unavailable NO REFERRING DR Unavailable Unavailable GREEN, TIBURCIO H Unavailable Unavailable GREEN, TIBURCIO H Unavailable Unavailable GANGEL, MARINA Unavailable Unavailable IMCA Unavailable Unavailable GANGEL, MARINA Unavailable Unavailable IMCA Unavailable Unavailable GANGEL, MARINA Unavailable Unavailable IMCA Unavailable Unavailable GANGEL, MARINA Unavailable Unavailable GANGEL, MARINA Unavailable Unavailable IMCA Unavailable Unavailable Ulysses, Irma Unavailable Unavailable GANGEL, MARINA Unavailable Unavailable MARYLU, GUERA Unavailable Unavailable Ulysses, Irma M Unavailable Unavailable Jama, Lyudmila S Unavailable Unavailable Jama, Lyudmila S Unavailable Unavailable Ulysses, Irma Unavailable Unavailable Patrice Figueredo Unavailable Unavailable Patrizia Burns Unavailable Unavailable None, No PCP Unavailable Unavailable Francesco Alexis Unavailable Unavailable Eda Singh Unavailable Unavailable Irma Arora M Unavailable Unavailable None, No PCP Unavailable Unavailable Unavailable Unavailable Unavailable Primary Care Provider UnavailInga Varma MD Primary Care Provider Law ARELLANO Deidra Butch Unavailable [phone] ULISES DE SOUZA Attending Unavailab le Patrice Figueredo Attending Unavailable Patrice Figueredo Referring Unavailable Boone ARELLANO Inga E Primary Care Provider Law ARELLANO Deidra E Unavailable [phone] PATRICE FIGUEREDO Attending Unavailable PATRICE FIGUEREDO Referring Unavailable BOONE INGA E Primary Care Unavailable BOONE INGA Butch Primary Care Unavailable INGA SHOOK Attending Unavailable JUANITO THAPA Referring Unavailable Neo Tello Attending Unavailable Scarberry, Dr. Ulises Medina Attending Unava ilable Scarberry, Dr. Ulises Medina Attending Unava ilable Scarberry, Dr. Ulises Medina Admitting Unava ilable UNKNOWN, UNKNOWN Referring Unavailable Hassani, Dr. Karin Miller Attending Unavaila ble Hassani, Dr. Karin Miller Referring Unavaila ble Hassani, Dr. Karin Miller Attending Unavaila ble Hassani, Dr. Karin Miller Referring Unavaila ble Bea, Dr. Patrice Hardy Attending Unavai lable Bea, Dr. Patrice Hardy Referring Unavai lable Scarberry, Dr. Ulises Medina Attending Unava ilable Scarberry, Dr. Ulises Medina Referring Unava ilable PCP, Pt States None Referring Unavailable Scarberry, Dr. Ulises Medina Attending Unava ilable Scarberry, Dr. Ulises Medina Referring Unava ilable Scarberry, Dr. Ulises Medina Attending Unava ilable Kvng, Dr. Katie Rich Attending Unavailable Scarberry, Dr. Ulises Medina Referring Unava ilable Scarberry, Dr. Ulises Medina Admitting Unava ilable Scarberry, Dr. Ulises Medina Attending Unava ilable HASSANIKARIN Admitting Unavailable KARIN MCMANUS Attending Unavailable Allergies Allergy Classification Reported Allergen(s) Allergy Type Date of Onset Reaction(s) Facility Penicillins (antibiotic) (7 sources) Penicillins; Translations: [Penicillins] Drug Allergy YV-Grsmbyb-Ae sman [address] [place] Work Phone: Sulfonamides (antibiotic) (7 sources) Sulfonamides (Antibiotic); Translations: [Sulfa Drugs] Drug Allergy ZI-Quklwzo-Dz sman [address] [place] Work Phone: (20 sources) Penicillins; Translations: [PENICILLINS] Propensity to adverse reactions to drug (disorder) 6 Anaphylaxis, Hives, Swelling [facility] Repository (3 sources) Sulfonamides (Antibiotic); Translations: [SULFA (SULFONAMIDE ANTIBIOTICS)] Propensity to adverse reactions to drug (disorder) 2 AOF [facility] Rep[facility] (17 sources) Sulfonamides (Antibiotic); Translations: [Sulfa Drugs] drug allergy Nausea, Vomiting TS-Eklzxgc-Kq sman Work Phone: (1 source) ALLERGIES NOT ON FILE; Translations: [ALLERGIES NOT ON FILE] Propensity to adverse reactions (disorder) [facility] Repository Medications Current Medications Medication Drug Class(es) Dates Sig (Normalized) Sig (Original) aspirin 81 mg chewable tablet (1 source) Platelet Aggregation Inhibitor, Nonsteroidal Anti-inflammatory Drug take 1 tablet by mouth once daily aspirin 81 MG chewable tablet Take 81 mg by mouth daily 0 Active FLUoxetine 20 mg oral capsule (10 sources) Serotonin Reuptake Inhibitor Start: 02-27-2015 take 1 capsule by mouth once daily FLUoxetine (PROZAC) 20 MG capsule TAKE 1 CAPSULE BY MOUTH EVERY DAY 90 Capsule 0 10/20/2021 Active MV-Min-Fe Fum-FA-DHA ( 1 PO) (1 source) MV-Min- Fe Fum-FA-DHA ( 1 PO) Take 1 tablet by mouth 0 Active promethazine hydrochloride 12.5 mg oral tablet (1 source) Phenothiazine promethazine (PHENERGAN) 12.5 MG tablet Take by mouth every 6 hours as needed 0 Active Completed/Discontinued Medications Medication Drug Class(es) Dates Sig (Normalized) Sig (Original) acetaminophen 325 mg / HYDROcodone bitartrate 5 mg oral tablet (10 sources) Opioid Agonist Start: 04-07-2022 End: 09-16-2022 take 1 tablet by mouth every eight hours as needed for pain HYDROcodone-Acetami nophen 5-325 MG Oral Tablet Take 1 tab every 8 hours as needed for severe pain only. Quantity: 20 Refills: 0 Ordered: 07-Apr-2022 yu-LIIWYK-AbivxyPatirce Banerjee MD Start : 07-Apr-2022 End : 16-Sep-2022 Complete acetaminophen 325 mg / oxyCODONE hydrochloride 5 mg oral tablet (3 sources) Opioid Agonist Start: 06-05-2019 take 1 tablet by mouth every six hours as needed for pain oxyCODONE-Acetamino phen 5-325 MG Oral Tablet TAKE 1 TABLET EVERY 6 HOURS NEEDED FOR PAIN. Quantity: 30 Refills: 0 Patrice Figueredo MD Start : 05-Jun-2019 Active ALPRAZolam 0.25 mg oral tablet (3 sources) Benzodiazepine Start: 06-05-2019 Xanax 0.25 MG Oral Tablet Refills: 0 DO Start : 05-Jun-2019 Active cholecalciferol 0.025 mg oral capsule (12 sources) Vitamin D Start: 02-25-2021 take 1 capsule by mouth once daily Vitamin D3 25 MCG (1000 UT) Oral Capsule TAKE DIRECTED. Take one capsule daily Quantity: 0 Refills: 0 Ordered: 25-Feb-2021 DO Start : 25-Feb-2021 Active nitrofurantoin, macrocrystals 100 mg oral capsule (3 sources) Nitrofuran Antibacterial Start: 02-07-2021 Nitrofurantoin Macrocrystal 100 MG Oral Capsule Quantity: 0 Refills: 0 Ordered: 07-Feb-2021 DO Start : 07-Feb-2021 Active nitrofurantoin, macrocrystals 25 mg / nitrofurantoin, monohydrate 75 mg oral capsule (6 sources) Nitrofuran Antibacterial Start: 09-07-2022 take 1 capsule by mouth twice daily at mealtime Nitrofurantoin Monohyd Macro 100 MG Oral Capsule TAKE 1 CAPSULE TWICE DAILY WITH MEALS. Quantity: 20 Refills: 0 Ordered: 07-Sep-2022 Ulises De Souza MD Start : 07-Sep-2022 Active ondansetron 8 mg oral tablet (20 sources) Serotonin-3 Receptor Antagonist Start: 12-06-2017 take 1 tablet by mouth every eight hours Ondansetron HCl - 8 MG Oral Tablet TAKE 1 TABLET Every 8 hours Quantity: 30 Refills: 1 Ordered: 06-Dec-2017 Patrizia Burns MD Start : 06-Dec-2017 Active Problems Active Problems Problem Classification Problem Date Documented Da te Episodic/Chronic Anxiety disorders (6 sources) Anxiety; Translations: [Mixed anxiety and depressive disorder] Onset: 07-24-2021 10-16-2021 Chronic Deficiency and other anemia (3 sources) Anemia; Translations: [Anemia] Episodic Disorders of lipid metabolism (20 sources) Hyperlipidemia; Translations: [Other and unspecified hyperlipidemia] Chronic Past or Other Problems Problem Classification Problem Date Documented Da te Episodic/Chronic Calculus of urinary tract (20 sources) Calculus of kidney; Translations: [Kidney stone] Onset: 7 10-16-2021 Episodic Diabetes or abnormal glucose tolerance complicating ; childbirth; or the puerperium (2 sources) Impaired glucose tolerance in ; Translations: [Abnormal glucose complicating ] Onset: 1 Resolved: 2 07-24-2021 Episodic Genitourinary congenital anomalies (12 sources) H/O: urinary disease; Translations: [Personal history of other specified urinary system disorders] Onset: 1 Resolved: 1 10-16-2021 Episodic Genitourinary symptoms and ill-defined conditions (20 sources) Bladder pain; Translations: [Other symptoms involving urinary system] Onset: 1 Resolved: 1 10-16-2021 Episodic Other aftercare (1 source) Other correction (current) drug therapy; Translations: [Other correction (current) drug therapy] Onset: 3 Episodic Other complications of (2 sources) Proteinuria; Translations: [Gestational proteinuria, unspecified trimester] Resolved: 1 07-15-2021 Episodic Other complications of (2 sources) Large for gestation age fetus; Translations: [Maternal care for excessive growth, unspecified trimester, not applicable or unspecified] Onset: 2 Resolved: 2 10-16-2021 Episodic Other diseases of kidney and ureters (6 sources) Unspecified hydronephrosis; Translations: [Unspecified hydronephrosis] Onset: 2 Episodic Other female genital disorders (20 sources) H/O: amenorrhea; Translations: [Personal history of other genital system and obstetric disorders] Resolved: 1 Episodic Other gastrointestinal disorders (20 sources) H/O: gastrointestinal disease; Translations: [Personal history of other diseases of digestive system] Resolved: 8 Episodic Other hematologic conditions (20 sources) History of anemia; Translations: [Personal history of diseases of blood and blood-forming organs] Resolved: 1 Episodic Other infections; including parasitic (20 sources) History of glandular fever; Translations: [Personal history of other infectious and parasitic diseases] Resolved: 1 Episodic Other lower respiratory disease (20 sources) H/O: respiratory disease; Translations: [Personal history of other diseases of respiratory system] Resolved: 1 Episodic Other lower respiratory disease (20 sources) History of clinical finding in subject; Translations: [Personal history of other diseases of respiratory system] Resolved: 1 Episodic Other lower respiratory disease (3 sources) Unspecified abnormalities of breathing; Translations: [Unspecified abnormalities of breathing] Onset: 3 Episodic Other lower respiratory disease (1 source) Chest pain on breathing; Translations: [Chest pain on breathing] Onset: 3 Episodic Other nervous system disorders (20 sources) H/O: ear disorder; Translations: [Personal history of other disorders of nervous system and sense organs] Resolved: 8 Episodic Other nutritional; endocrine; and metabolic disorders (2 sources) Obesity; Translations: [Obesity, unspecified] Resolved: 1 07-15-2021 Chronic Residual codes; unclassified (2 sources) History of pre-eclampsia; Translations: [Personal history of other complications of , childbirth and the puerperium] Onset: 1 10-16-2021 Episodic Screening and history of mental health and substance abuse codes (20 sources) H/O: anxiety state; Translations: [Personal history of other mental disorders] Resolved: 1 Episodic Unclassified (1 source) ACUTE PHARYNGITIS UNSPEC Onset: 7 Unclassified (6 sources) History of clinical finding in subject; Translations: [History of fever] Unclassified (9 sources) Patient encounter status; Translations: [History of Vaginal Pap smear] Unclassified (3 sources) Blood pressure finding; Translations: [BP check] NEGATED: Highlighted row has not occurred!Residual codes; unclassified (20 sources) Disease Episodic Results Test Name Value Interpretation Reference Range Facil ity Vital Signs Date Time Vital Sign Value Performing Clinician Yosef zabalay 03-16-2023 13:26-0400 Body height 157.48 cm No PCP None YO-PDUBR-Mndzpmt e 2420 DO Work Phone: 03-16-2023 13:26-0400 Body mass index (BMI) [Ratio] 29.26 kg/m2 No PCP None ZM-KCSAX-Myxgvrkk 2420 DO Work Phone: 03-16-2023 13:26-0400 Body surface area Derived from formula 1.74 m2 No PCP None RK-MZASB-Njlchtfv 2420 DO Work Phone: 03-16-2023 13:26-0400 Body weight 72.58 kg No PCP None DW-WJWFJ-Vwwvrpp e 2420 DO Work Phone: 03-16-2023 13:0400 0 1 No PCP None CX-TXODH-Maiukfa e 2420 DO Work Phone: Encounters Encounter Date Encounter Type Care Provider Facility Start: 06-02-2023 ambulatory KARIN MCMANUS [facility] Start: 03-24-[address] Ulises De Souza Facility:[id number] Start: 03-16-2023 Phys/qhp telephone evaluation 21-30 min No PCP None OM-LZVKW-Scxxcxkf 2420 DO Work Phone: Start: 03-16-[address] Karin Mcmanus Facility:[id number] Start: 02-22-[address] Karin Mcmanus Facility:[id number] Start: 02-22-2023 Office outpatient ne w 60 minutes No PCP None HU-EYZUV-Xgtkcfgg 2420 DO Work Phone: Start: 02-22-2023 Patient encounter procedure No PCP None WQ-NHOUB-Gbagrxuv 2420 DO Work Phone: Start: 12-30-2022 End: 12-31-2022 ambulatory INGA SHOOK [facility] Start: 12-30-2022 End: 12-30-2022 Subsequent hospital visit by physician Inga Shook MD Work Phone: Lab - [place] Procedures Date Procedure Procedure Detail Performing Clinician Start: 12-30-2022 Glucose quantitative blood xcpt reagent strip Inga Shook MD Work Phone: Start: 12-30-2022 Lipid panel Inga fatima MD Work Phone: Start: 09-04-2022 Antibody screen Neo Tello Plan of Treatment Date Care Activity Detail Author Start: 06-10-2031 DTaP/Tdap/Td vaccine (4 - Td or Tdap) DTaP/Tdap/Td vaccine (4 - Td or Tdap) [facility] Start: 06-10-2031 Tetanus Diphtheria a nd Pertussis Vaccines (4 - Td or Tdap) Tetanus Diphtheria and Pertussis Vaccines (4 - Td or Tdap) [facility] Start: 06-10-2031 Tetanus Diphtheria a nd Pertussis Vaccines (5 - Td or Tdap) Tetanus Diphtheria and Pertussis Vaccines (5 - Td or Tdap) [facility] Start: 03-24-2023 FUV, Provider: Ulises De Souza, Status: Pen, Time: 9:45 AM FUV, Provider: Ulises De Souza, Status: Pen, Time: 9:45 AM MA-Jktiavl-Fvnfnugk SJW [address] Work Phone: Start: 03-16-2023 VIRFUVHOME, Provider : Karin Mcmanus, Status: Pen, Time: 1:30 PM VIRFUVHOMButch, Provider: Karin Mcmanus, Status: Pen, Time: 1:30 PM MI-DFHTV-Orolurph 2420 DO Work Phone: Start: 09-23-2022 POV, Provider: Ulises De Souza, Status: Pen, Time: 2:15 PM POV, Provider: Ulises De Souza, Status: Pen, Time: 2:15 PM SG-Uwhtfwc-Ehwsm [place] Work Phone: Start: 06-22-2022 POV, Provider: Ulises De Souza, Status: Pen, Time: 11:40 AM POV, Provider: Ulises De Souza, Status: Pen, Time: 11:40 AM MK-Wxshilt-Yplrt Yvette Work Phone: Start: 06-05-2022 SURGSCC, Provider: Ulises De Souza, Status: Pen, Time: 7:00 AM SURGSCC, Provider: Ulises De Souza, Status: Pen, Time: 7:00 AM BQ-Apdovcz-Efcit Vy[place] Work Phone: Start: 04-27-2022 NPV, Provider: Ulises De Souza, Status: Pen, Time: 8:00 AM NPV, Provider: Ulises De Souza, Status: Pen, Time: 8:[address]-Jtphhds-Pecqs [place] Work Phone: Start: 03-19-2022 FLU (#1) FLU (#1) [facility] Start: 07-17-2021 COVID-19 (4 - Booste r for Moderna series) COVID-19 (4 - Booster for Moderna series) [facility] Start: 05-12-2021 FUV, Provider: Patrice Figueredo, Status: Pen, Time: 8:30 AM FUV, Provider: Patrice Figueredo, Status: Pen, Time: 8:30 AM DP-Sbgcrmm-Iepmta 140 [place] Work Phone: Start: 2021 Screening for malign ant neoplasm of cervix [facility] Start: 2012 Microscopic observat ion [Identifier] in Cervix by Cyto stain Pap Smear [facility] Start: 2012 Screening for malign ant neoplasm of cervix Pap smear [facility] Start: 2007 MenB (1 of 2 - MenB 2-Dose Series Bexsero) MenB (1 of 2 - MenB 2-Dose Series Bexsero) [facility] Start: 2007 MenB (1 of 2 - MenB 2-Dose Series) MenB (1 of 2 - MenB 2-Dose Series) [facility] Start: 2006 HIV screening HIV screen [facility] Start: 2003 Depression Screen Depression Screen [facility] Start: 1996 COVID-19 Vaccine (1) COVID-19 Vaccin e (1) [facility] Start: 1992 MMR (1 of 1 - Standa rd series) MMR (1 of 1 - Standard series) [facility] Start: 1992 Varicella (1 of 2 - 2-dose childhood series) Varicella (1 of 2 - 2-dose childhood series) [facility] Start: 1992 Varicella vaccine (1 of 2 - 2-dose childhood series) Varicella vaccine (1 of 2 - 2-dose childhood series) [facility] Start: 1991 Hepatitis B (1 of 3 - 3-dose series) Hepatitis B (1 of 3 - 3-dose series) [facility] Start: 1991 Hepatitis C screening Hepatitis C sc reen [facility] Immunizations Immunization Date Immunization Notes Care Provider Fa lance 04-28-2022 influenza, injectabl e, quadrivalent, preservative free No PCP None WL-Sejrykm-Mhbpolih [facility] [address] Work Phone: 07-24-2021 RHO(D) immune globul in - IM No PCP None OZ-Adfiiho-Btebb [place] Work Phone: 06-10-2021 diphtheria, tetanus toxoids and acellular pertussis vaccine, unspecified formulation Misc Doc DO [facility] 06-10-2021 tetanus toxoid, redu osiel diphtheria toxoid, and acellular pertussis vaccine, adsorbed No PCP None HG-Rnahwta-Hrgxf Yvette Work Phone: 05-22-2021 Moderna COVID-19 Vac cine 100 MCG/0.5ML Intramuscular Suspension No PCP None OA-Gkhdfkg-Ojft r [place] Work Phone: 05-09-2021 influenza, injectabl e, quadrivalent, preservative free No PCP None NW-Slzsfhv-Utaet [place] Work Phone: 08-28-2020 Moderna COVID-19 Vac cine 100 MCG/0.5ML Intramuscular Suspension No PCP None MG-Endocrinolog y-[facility] [address] Work Phone: 07-31-2020 Moderna COVID-19 Vac cine 100 MCG/0.5ML Intramuscular Suspension No PCP None MG-Endocrinolog y-[facility] [address] Work Phone: 04-29-2018 tetanus toxoid, redu osiel diphtheria toxoid, and acellular pertussis vaccine, adsorbed; Translations: [Tdap (Boostrix)] Irma Arora RR-Hscklwr-Mwqdqn Work Phone: Payers Date Payer Category Payer Unknown [id number] 2021 Private Health Insurance [employer] A ETNA CHOICE POS [id number] 2021-Present [address] [place] [address] [id number] 2019 Private Health Insurance [id number] 2018 Unknown 1991 Unknown [id number] 17 1991 Unknown [id number] [id number] 56 1991 Unknown [id number] [id number] 56 1991 Unknown [id number] [id number] 79 1991 Unknown [id number] 2.16.840.1.782142.3.579.2.4 79 1991 Unknown [id number] 2.16.840.1.632046.3.579.2.3 56 1991 Unknown [id number] 2.16.840.1.293582.3.579.2.3 56 1991 Unknown [id number] 2.16.840.1.634916.3.579.2.3 56 1991 Unknown [id number] 2.16.840.1.548180.3.579.2.3 56 1991 Unknown [id number] 2.16.840.1.264245.3.579.2.3 56 1991 Unknown [id number] 2.16.840.1.318997.3.579.2.3 56 1991 Unknown [id number] 2.16.840.1.304005.3.579.2.3 56 1991 Unknown [id number] 2.16.840.1.255897.3.579.2.3 56 1991 Unknown [id number] 2.16.840.1.426100.3.579.2.3 56 1991 Unknown [id number] 2.16.840.1.239207.3.579.2.3 56 1991 Unknown [id number] 2.16.840.1.641505.3.579.2.3 56 1991 Unknown [id number] [id number] 247 Social History Date Type Detail Facility Start: 10-16-2021 Being A Social Drinker Being A Social Drinker JQ-Sddllfa-Wromdl [address] [place] Work Phone: Start: 05-02-2021 End: 08-09-2021 Tobacco smoking status MDIS Never smoked tobacco [facility] Start: 05-02-2021 End: 08-09-2021 Tobacco use and exposure Smokeless tobacco non-user [facility] Work Phone: Start: 08-09-2021 End: 10-16-2021 Alcohol intake Ex-drinker (finding) [facility] Work Phone: Start: 12-18-2020 [facility] Work Phone: Start: 1990 Sex Assigned At Not on file [facility] Work Phone: Start: 04-06-2022 End: 04-16-2022 Exposure to SARS-CoV-2 (event) Not sure [facility] Work Phone: Start: 07-10-2021 History SDOH Alcohol Frequency 1 [facility] Start: 07-15-2021 Alcohol Comment rare use non-pregnan t [facility] Start: 10-16-2021 Tobacco use panel [facility] [place] Depression Scale Total 5 [facility] NEGATED: Highlighted row - - QA-Ysmrhmp-Grcobz Work Phone: Functional Status Date Assessment Result Facility NEGATED: Highlighted row Functional performance Functional status health issues are not documented Disease [facility]abble Work Phone: Mental Status Date Assessment Result Facility NEGATED: Highlighted row Cognitive function [Interpretation] Cognitive status health issues are not documented Disease CQ-Udsgezf-Wpmjrg Work Phone: Clinical Notes 04-27-2019 to 09-11-2022 Silvia Taylor DO - 08/09/2021 7:14 PM ESTInstructions Note Date & Type Note Facility 09-11-2022 Note Discharge Orders: Significant Events: Surgical Procedure: Clinical Events This Visit, 10-Sep-2022, 1. Percutaneous Neobladder Cystolithalopaxy converted to Open cystolithotomy;2. Dilation of SPT tract;3. Pouchogram with intraoperative interpretation;4. Complex SPT exchange DNAR: Code Status at Discharge: Full Code Activity: activity as tolerated. May shower. May not drive while taking narcotics. No pushing, pulling, or lifting objects greater than 10 pounds for 2 week(s). Diet: Dietresume normal diet Wound Care 1: Wound SiteAbdomen Wound Typesurgical incision Cleanse Withsoap and water Cover Withno dressing, leave open to air Instructionsno lotions, creams, or tub soaks Other InstructionsYour incision was closed with absorbable sutures and a clear dressing. The sutures will be absorbed on their own, and the clear dressing will flake off on its own. You may shower, but do not soak or scrub your incision. Catheter Care: Typesuprapubic Catheter Caresoap and water, Keep suprapubic tube capped and continue to catheterize the Mitrofanoff channel every 4 hours after discharge. If you encounter blood during catheterization, uncap the suprapubic tube to ensure the bladder is emptying well. Call Provider If (Homegoing Patients): Temperature is greater than 102 degrees. Chills. Urinating less than normal, over 1 day. Acting very sleepy and difficult to awaken. Vomiting (throwing up) and not able to eat or drink for 12 hours. 3 or more loose, watery bowel movements in 24 hours (diarrhea). Any new concerning symptoms. Provider FINAL REVIEW of Orders: Final Review: Final Review of Medication Reconciliation and Orders Completedby CHILD CARE GIVER Reviewing ProviderEmESHA Qureshi at 11-Sep-2022 09:05:28 Appointments: Follow-Up Appointment 01: Physician/Dept/ServiceDr Ulises De Souza Reason for ReferralPost-op visit Scheduled Date/[id number] 14:15 [facility], [address] [place] [address], [place] [address] Phone [phone] Electronic Signatures: Sherron Garcia (CHILD CARE GIVER-LEARNING DEVELOPMENT SPECIALIST) (Signed 11-Sep-2022 09:05) Authored: Discharge Orders, Provider FINAL REVIEW of Orders, Appointments, Gold Form - Watershed Tender Summary Last Updated: 11-Sep-2022 09:05 by Sherron Garcia (CHILD CARE GIVER-LEARNING DEVELOPMENT SPECIALIST) [facility] 09-11-2022 Note Send Summary: Discharge Summary Providers: Provider RoleProvider Name ReferringReyna Jaramillo AttendingUlises De Souza PrimaryRequired, No Pcp Note Recipients: Required, No Pcp, Ulises Beckford MD Discharge: Summary: Admission Date: .10-Sep-2022 10:53:00 Discharge Date: 11-Sep-2022 Attending Physician at Discharge: Ulises De Souza Admission Reason: Stones in the urinary tract Final Discharge Diagnoses: Stones in the urinary tract Procedures: Date: 10-Sep-2022 18:52:00 Procedure Name: 1. Percutaneous Neobladder Cystolithalopaxy converted to Open cystolithotomy 2. Dilation of SPT tract 3. Pouchogram with intraoperative interpretation 4. Complex SPT exchange Condition at Discharge: Satisfactory Disposition at Discharge: .Home Vital Signs: T PRBPMAPSpO2 [id number]/7897% Date/Time09/11 4: 4: 4: 4: 4:25 Range(36.1C - 36.7C ) (94 - 104 ) (18 - 18 ) (110 - 112 )/ (76 - 78 ) (96% - 97% ) Date: Weight/Scale Type:Height: 11-Sep-2022 00:1973.3 kg / kbj917.4 cm Physical Exam: General: Laying in bed. NAD. Eyes: EOMI ENMT: no apparent injury, no lesions seen, MMM Head/neck: NCAT Cardiac: regular rate in chart Pulm: normal respiratory effort GI: soft, NT/ND, incisions c/d/i : SPT in place draining Msk: HUNG Extremities: normal extremities Skin: warm, dry, no lesions noted Neuro: AOx3 Psych: appropriate mood and behavior Hospital Course: This is a 32-year-old female with a history of bladder exstrophy who underwent neobladder creation using colon and right lower quadrant with CCC. Patient has had recurrent UTIs as well as bladder stones. Most recently she was found to have approximately 5 large bladder stones totaling approximately [address]. Patient is now status post open cystolithotomy, dilation of SPT tract, pouchogram, and SPT exchange with Dr. De Souza on 09/10/22. Patient was admitted overnight for post operative pain. Patient tolerated the procedure well, and the hospital course was uncomplicated. On day of discharge, patient was tolerating a regular diet, pain was adequately controlled with PO pain medications. Pt was ambulatory and voiding through SPT and straight catheterizing.. Patient will follow-up in with Dr. De Souza for post-check. Immunizations: Immunizations: 27-Jul-2012 .Pneumonia- Pneumococcal polysaccharide vaccine-adult: Immunizations, 27-Jul-2012 .Influenza- Influenza Virus: Immunizations, 07-May-2014 .Influenza- Influenza Virus: Immunizations, 07-May-2014 .Influenza- Influenza Virus: Immunizations, 11-Apr-2016 .Influenza- Influenza Virus: Immunizations, 04-May-2017 Discharge Information: and Continuing Care: Lab Results - Pending: None Radiology Results - Pending: Xray Fluoroscopy Greater Than 1 Hr at 10-Sep-2022 20:26:00 Discharge Instructions: Activity: activity as tolerated. May shower.. May not drive while taking narcotics. No pushing, pulling, or lifting objects greater than 10 pounds for 2 week(s). Nutrition/Diet: resume normal diet Wound Care: Wound Site: Abdomen Wound Type: surgical incision Cleanse With: soap and water Cover With: no dressing, leave open to air Instructions: no lotions, creams, or tub soaks Other Instructions: Your incision was closed with absorbable sutures and a clear dressing. The sutures will be absorbed on their own, and the clear dressing will flake off on its own. You may shower, but do not soak or scrub your incision. Catheter Care: Type: suprapubic Catheter Care: soap and water, Keep suprapubic tube capped and continue to catheterize the Mitrofanoff channel every 4 hours after discharge. If you encounter blood during catheterization, uncap the suprapubic tube to ensure the bladder is emptying well. Follow Up Appointments: Follow-Up Appointment 01: Physician/Dept/Service: Dr Ulises De Souza Reason for Referral: Post-op visit Scheduled Date/Time: 23-Sep-2022 14:15 Location: [facility], [address] [place] [address], [facility], [address] [place] [address] Discharge Medications: Home Medication LORazepam 0.5 mg oral tablet - 0.5 cap(s) orally prn nitrofurantoin macrocrystals 100 mg oral capsule - orally 2 times a day oxyCODONE 5 mg oral tablet - 1 tab(s) orally every 8 hours Colace 100 mg oral capsule - 1 cap(s) orally 2 times a day ciprofloxacin 500 mg oral tablet - 1 tab(s) orally 2 times a day ondansetron 4 mg oral tablet, disintegrating - 1 tab(s) orally every 8 hours PROzac 20 mg oral capsule - 1 cap(s) oral once a day traZODone 50 mg oral tablet - 1 cap(s) oral once a day PRN Medication DNR Status: Code StatusCode Status order at time of discharge: Full Code Attestation: Note Completion: I am a: Medical Student/Acting Application Support Administrator Medical Student AttestationI, or a (more content not included)... [facility] 09-10-2022 Note Post Operative Note: PreOp Diagnosis: Neobladder Stones Post-Procedure Diagnosis: Same Procedure: 1. Percutaneous Neobladder Cystolithalopaxy converted to Open cystolithotomy 2. Dilation of SPT tract 3. Pouchogram with intraoperative interpretation 4. Complex SPT exchange Surgeon: Radha De Souza MD Resident/Fellow/Other Theater Company Producer: Yi Quiroz MD Anesthesia: General - ETT I.V. Fluids: Per Anesthesia Estimated Blood Loss (mL): 10cc Blood Replacement: none Specimen: yes. Neobladder stones Complications: none Findings: 4 large neobladder stones (~10cm stone burden total). Failure to progress endoscopically, converted to open cystolithotomy. Patient Returned To/Condition: Returned to PACU in stable condition Urine Output: Lost to field Drains and/or Catheters: 18fr SPT Operative Report Dictated: Dictation: not applicable - note contains Operative Report Operative Report: This is a 32-year-old female with a history of bladder exstrophy who underwent neobladder creation using colon and right lower quadrant with CCC. Patient has had recurrent UTIs as well as bladder stones. Most recently she was found to have approximately 5 large bladder stones totaling approximately [address]. Patient is here to undergo percutaneous neobladder cystoscopy litholapaxy with possible conversion to open cystolithotomy, given complex anatomy and possible challenges with this procedure she was counseled at length about likelihood of converting to open. She agrees and would like to proceed. Of note she underwent pigtail SPT placement into neobladder with interventional radiology. OPERATIVE REPORT: The patient was identified in the perioperative area. They were informed of the risks and benefits of the procedure and consented as appropriate. They were wheeled to the operating room where a time-out was performed using 2 patient identifiers. They were then induced into general endotracheal anesthesia. She was placed in supine fashion, and bony prominences were padded. Her abdomen was prepped including the suprapubic tube with ChloraPrep. She was draped in typical sterile fashion. Antibiotic prophylaxis were administered (Cipro). A 10 Uruguayan silicone Marte catheter was placed without difficulty through her umbilical continent catheterizable channel. A sensor wire was placed through the pigtail suprapubic catheter, the catheter was removed. This was confirmed under fluoroscopic vision. Using a dual-lumen catheter we then instilled 30 cc dilute contrast to perform a pouchogram showing large bladder stones with some filling defect, no extra of of contrast. Using dual-lumen catheter we placed a second sensor wire into the bladder. Using a 15 blade scalpel we made an incision approximately 1 inch in size adjacent to the wires to allow for balloon dilation. We secured 1 wire as a safety wire. Following this, we then advanced balloon over the wire to dilate the tract with contrast in balloon dilator and inflated to 20 degrees atmosphere. A 30-Uruguayan sheath was then advanced over this into the neobladder. The nephroscope was inserted and a pouchoscopy was performed with the stones noted in the neobladder. Using the shock pulse on the stone it was fragmented. We were able to treat approximately 1.5 of the very large stones, however we were having difficulty treating the stones as they were smooth and would roll away. As we are trying to carefully fragment and suction the stones, we took great care not to injure the mucosa of the neobladder. As we were struggling to treat the stones endoscopically, we decided to convert to open cystolithotomy as we failed to progress endoscopically. At this time we removed the nephroscope and shock pulse, leaving both wires and sheath in place. We took time to sterilely redrape portions of our operating field. Using a 15 blade scalpel we lengthened our incision in a Pfannenstiel fashion along the sheath, approximately 5 cm long. We took great care when dissecting down through the subcutaneous tissue to not injury entering adjacent structures. We incised through fascia. Once we are happy with our dissection we removed the sheath, leaving both wires in place. We were able to grasp the edges of the neobladder using Babcocks. We able to place a finger into the neobladder and feel multiple hard stones. Using ring forceps we were able to grasp stones and remove them through her cystotomy. 1 stone was crushed and we removed all stone fragments, while other stones were removed in whole. We aggressively irrigated the contents of the neobladder to ensure all stone fragments were removed. We used fluoroscopy to ensure all stones were gone. At this time we noted 1 stone remained in the upper lateral right quadrant of the neobladder. We were able to milk the stone to the center and removed with ring forcep. We repeated fluoroscopy and no stones remained. We re (more content not included)... [facility] 09-10-2022 Note History & Physical R eviewed: /Lactating: Are You no Are You Currently Breastfeedingno I have reviewed the History and Physical dated: 10-Sep-2022 History and Physical reviewed and relevant findings noted. Patient examined to review pertinent physical findings.: No significant changes Home Medications Reviewed: no changes noted Allergies Reviewed: no changes noted ERAS (Enhanced Recovery After Surgery): ERAS Patient: no Consent: COVID-19 Consent: COVID-19 Risk ConsentSurgeon has reviewed katz risks related to the risk of radha COVID-19 and if they contract COVID-19 what the risks are. Attestation: Note Completion: I am a: Resident/Fellow Attending AttestationI saw and evaluated the patient. I personally obtained the katz and critical portions of the history and physical exam or was physically present for katz and critical portions performed by the resident/fellow. I reviewed the resident/fellows documentation and discussed the patient with the resident/fellow. I agree with the resident/fellows medical decision making as documented in the note. I personally evaluated the patient [id number] Electronic Signatures: Adam Quiroz (Resident)) (Signed 10-Sep-2022 10:46) Authored: History & Physical Reviewed, ERAS, Consent, Note Completion Ulises De Souza) (Signed 10-Sep-2022 13:11) Authored: Note Completion Co-Signer: History & Physical Reviewed, ERAS, Consent, Note Completion Last Updated: 10-Sep-2022 13:11 by Ulises De Souza) [facility] 09-04-2022 Note Pre-procedure Verifi cation and Time Out: Pre-Procedure Verification and Time Out: Procedure Locationprocedure area HUDDLE - Pre-procedure Verificationsee paper form / department EMR TIME OUT - Final Verificationsee paper form / department EMR DEBRIEFsee paper form / department EMR General Information: Anesthesia Critical Care: Non-Anesthesia Date/Time of Procedure: 04-Sep-2022 16:56 Post-Procedure Diagnosis: Bladder Stones pre-procedure Procedure Name: Suprapubic Catheter Placement Findings: see radiology report Procedure performed by: Dr. Katie Calderon Theater Company Producer(s): none Estimated Blood Loss (mL): < 5 mL Specimen: no Indication(s): Bladder Stones, pre-procedure Informed Consent: written consent obtained, verbal consent obtained Procedure Details: Procedure Details: Using ultrasound guidance, a suprapubic catheter, 10 F, was placed. No immediate complications. See radiology report for full details. Tolerance: good Complications: No immediate complications Prep: Patient Position: supine Site Prep: with chlorhexidine, draped, usual sterile procedure followed Anesthesia: Anesthesia: local, intravenous Fentanyl (mcg): 100 microgram(s) Versed (mg): 2 mg Attestation: Note Completion: I am a:Resident/Fellow Attending AttestationI was present for the entire procedure Electronic Signatures: Katie Calderon) (Signed 05-Sep-2022 14:23) Authored: Note Completion Co-Signer: Pre-procedure Verification and Time Out, General Information, Procedure Details, Prep/Sedation, Note Completion Love Osborn (Resident)) (Signed 04-Sep-2022 16:58) Authored: Pre-procedure Verification and Time Out, General Information, Procedure Details, Prep/Sedation, Note Completion Last Updated: 05-Sep-2022 14:23 by Katie Calderon) [facility] 09-04-2021 Note Department of Obstet rics and Gynecology Delivery Discharge Summary Admission on 09/02/2021 2:02 PM Hospital course: Pt admitted for labor. Pt has a known h/o prolapsed uterus. Pt was delivered vaginally with vacuum-assistance [see Notes for details]. Surgical Operations & Procedures: Date of delivery: 09/02/21 Procedure: vacuum extraction Anesthesia: Epidural anesthesia Laceration(s): 1st degree and cervical Delivery Complications: none EBL: 400 cc Pertinent Findings & Procedures: Information for the patient's : LavonnePreet [[id number]] male Weight: N/A Apgars: Information for the patient's : Preet Banerjee [[id number]] One Minute : 7 Five Minute : 9 Course: Complicated by endometritis and a UTI for which she will get a 7 day course of ciprofloxacin. : Live male infant, circumcision declined. Blood Type/Rh: O NEG Antibody Screen: Antibody Screen Date Value Ref Range Status 09/02/2021 POS NA Final Rubella: Lab Results Component Value Date RUBELLAIGG immune 02/06/2021 Contraception: vasectomy : yes VTE Prophylaxis: Not Indicated Home Meds: Medication List ASK your doctor about these medications aspirin 81 MG chewable tablet FLUoxetine 20 MG capsule Commonly known as: PROZAC ondansetron 4 MG tablet Commonly known as: ZOFRAN 1 PO promethazine 12.5 MG tablet Commonly known as: PHENERGAN Meds at Discharge: Medication List START taking these medications ciprofloxacin 500 MG tablet Commonly known as: CIPRO Take 1 tablet by mouth every 12 hours for 6 days docusate sodium 100 MG capsule Commonly known as: COLACE Take 1 capsule by mouth 2 times daily as needed for Constipation ibuprofen 600 MG tablet Commonly known as: ADVIL;MOTRIN Take 1 tablet by mouth every 6 hours as needed for Pain CONTINUE taking these medications FLUoxetine 20 MG capsule Commonly known as: PROZAC ondansetron 4 MG tablet Commonly known as: ZOFRAN 1 PO promethazine 12.5 MG tablet Commonly known as: PHENERGAN STOP taking these medications aspirin 81 MG chewable tablet Where to Get Your Medications These medications were sent to [address] [phone] - [phone] [place] [id number] ? ciprofloxacin 500 MG tablet ? docusate sodium 100 MG capsule ? ibuprofen 600 MG tablet Activity: Activity as tolerated Diet: Regular diet Follow-up Appointments: _x_ visit __ incision check __ blood pressure check __ blood sugar check/ 2-hr GTT __ depression screen __ other: Condition on discharge: Stable Discharge to: Home Discharge date: 09/04/21 Discharge Dx: 1. S/p VAVD at 38w6d 2. Uterine prolapse 3. H/o bladder extrophy, repaired 4. H/o kidney infxn/ stones 5. Anxiety/ depression 6. H/o pre-eclampsia Labor and delivery, indication for care [O75.9] Patient Active Problem List Diagnosis ? Vaginal discharge during in third trimester ? Labor and delivery, indication for care Comments: Home care, Follow-up care and control were reviewed. Signs and symptoms of mastitis and Depression were reviewed. The patient is to notify her physician if any of these occur. [facility] 08-09-2021 History of Present illness Narrative Images from the original note were not included. Department of Obstetrics and Gynecology Labor and Delivery Triage Note CHIEF COMPLAINT: LOF HISTORY OF PRESENT ILLNESS: The patient is a 31 y.o. 35w3d who presents for evaluation of LOF and mild vaginal discharge that started around 4 PM today that was mildly blood tinged. Pt has a hx of bladder extrophy and repair and has a stoma that she urinates through. Reports some mild pelvic pressure, but denies any contractions. OB History 1 Para Term AB Living SAB IAB Ectopic Molar Multiple Live Births Patient presents with a chief complaint as above. Denies DFM/VB/CTX Estimated Due Date: Estimated Date of Delivery: 09/10/21 PAST MEDICAL HISTORY: Past Medical History: Diagnosis Date Anemia Chronic kidney disease Kidney stones Mental disorder anxiety and depression PAST SURGICAL HISTORY: Past Surgical History: Procedure Laterality Date BLADDER SURGERY bladder reconstruction with urostomy stoma LITHOTRIPSY WISDOM TOOTH EXTRACTION SOCIAL HISTORY: reports that she has never smoked. She has never used smokeless tobacco. She reports previous alcohol use. She reports that she does not use drugs. MEDICATIONS: Prior to Admission medications Medication Sig Start Date End Date Taking? Authorizing Provider FLUoxetine (PROZAC) 20 MG capsule Take 20 mg by mouth daily Yes Historical Provider, aspirin 81 MG chewable tablet Take 81 mg by mouth daily Yes Historical Provider, MV-Min-Fe Fum-FA-DHA ( 1 PO) Take 1 tablet by mouth Yes Historical Provider, ondansetron (ZOFRAN) 4 MG tablet Take by mouth every 8 hours as needed Historical Provider, promethazine (PHENERGAN) 12.5 MG tablet Take by mouth every 6 hours as needed Historical Provider, CARE: Complicated by: depression, hx of PreE REVIEW OF SYSTEMS: Pertinent items are noted in HPI. APPEARANCE: Pain: no PHYSICAL EXAM: Vital Signs: VS wnl-reviewed/Respirations normal effort Vitals: 08/09/21 1900 08/09/21 1905 08/09/21 1910 08/09/21 191 Pulse: 104 98 100 101 Abdomen: soft, NT, ND, no rebound/guarding Uterus: gravid/non-tender LE Edema: trace Speculum Exam: no pooling of fluid seen, Nitrizine test is negative, Ferning test is negative heart rate: Category I Cervix: 1-2 cm, exam difficult secondary to cervical prolapse, at the level of the hymen Contraction frequency: none Membranes: Intact TRIAGE COURSE: SSE exam limited secondary to cervical prolapse, cervix at the level of the hymen. No leakage or pooling of fluid noted. Nitrazine negative. Cervical exam done by Dr. Almendarez, who also palpated an intact amniotic sac. Bedside US shows a DVP of 6 cm in the lower quadrants. Pt is not broken. Will discharge home at this time. IMPRESSION: Vaginal discharge DISCUSSED WITH [facility] PROVIDER: Dr. Orellana DISPOSITION: Discharge to Home Associated attestation - Chey Salomon MD - 08/09/2021 7:50 PM EST I reviewed and agree with the care provided by the resident during or immediately following the visit including the patient's medical history, the resident's findings in the physical exam, patient's diagnosis and treatment plan. documented in this encounter [facility] Work Phone: 08-09-2021 Hospital Discharge instructions Silvia Taylor DO - 08/09/2021 Follow up appointment with your doctor/general foreman - Keep next scheduled appointment Activity - Normal Activity Call your doctor/general foreman if you have: - leaking fluid - vaginal bleeding - regular contractions: More than 6 contractions in one hour - decreased movement - worsening abdominal (belly) pain - headache, blurry vision, increased swelling, upper abdominal pain If you are going home with contractions that are uncomfortable/painful- we recommend these coping strategies: rhythmic breathing, hydrotherapy, imagery or visualization, gentle massage, walking and changing your position. Treatment Verification: Shad Banerjee was assessed on Labor and Delivery for a related visit on 08/09/21. SILVIA Taylor, DO [facility] documented in this encounter [facility] Work Phone: 04-18-2021 History of Present illness Narrative 31 year old female presenting today for follow up for h/o bladder exstrophy s/p neobladder with continent catheterizable channel via umbilicus (done by Dr. Herron/pediatric urology), recurrent nephrolithiasis with h/o ESWL and antegrade URS, and recurrent UTI's, last found to have bladder stones on ureteroscopy evaluation of bladder in 2019. She continues to do ISC 4-5 times per day. She had baby last year. She has been doing well. Recently has some bladder soreness. No gross hematuria.She follows with ID, off macrobid prophylaxis.She does ISC with 10 Fr catheters. [id number] [place] Work Phone: 02-07-2021 History of Present illness Narrative 29 year old female presenting today for follow up for h/o bladder exstrophy s/p neobladder with continent catheterizable channel via umbilicus (done by Dr. Herron/pediatric urology), recurrent nephrolithiasis with h/o ESWL and antegrade URS, and recurrent UTI's, last found to have bladder stones on ureteroscopy evaluation of bladder. She has continued to do ISC 4-5 times per day. She is currently 9 weeks . She has had 2 interval UTI's since last visit. She continues to have mucus with ISC at times, no gross hematuria. She had kidney stone issue as well.She was on macrobid prophylaxis.She has had CT imaging done at [facility].She does ISC with 10 Fr catheters. 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 Uribe today for post-op visitShe has a history of bladder exstrophy s/p colon pouch with umbilical CCC performed by Dr. Norman, s/p cystolithotomy, dilation of SPT tract, pouchogram and SPT exchange on 09/10/22. Patient ambulatory and voiding through SPT and 10Fr straight catheterizing.The patient acknowledges that she is doing well overall.Continues straight catheterization with no issues and minimal blood.No additional passing of stone fragments since last Wednesday (4 days ago)Pain well controlled, is cathing without issuesTO REVIEW:Patient is a 32 year old female presenting to our clinic for bladder stones.Patient states that she is aware of her bladder stones since 2018 with accompanied occasional bladder pain.Denies any hematuria.States that she discussed a possible procedure with Dr. Figueredo to have the stones removed, however plans were delayed second to becoming and symptoms being tolerable.Last /delivery was august,. .Vaginal delivery, uncomplicated. Does not intend on having any more children.Nephrolithiasis:Recurrent, reports several times per year.Usually passes these from the left side, has not required surgeryISC: operating well, no complaints at this time. Reports no issues with catheterization during her previous pregnancies as well.Bladder irrigation: states that she performed this during her childhood, however not in her adult life.Denies hematuriaAnnual UTI frequency: Patient reports a frequency of 3-4x per year.I personally reviewed her CT A/P 04/21/22:large bladder, 4 large stones in the bladder, short ureters bilaterally with L>R hydroureteronephrosis mild, no renal stones, no filling defectsPast medical, surgical, family and social history in the chart was reviewed and is accurate including any additions to what is in this HPI. 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 Mckeon has a history of bladder exstrophy s/p colon pouch with umbilical CCC performed by Dr. HerronPatient is a 32 year old female presenting to our clinic for bladder stones.Patient states that she is aware of her bladder stones since 2018 with accompanied occasional bladder pain.Denies any hematuria.States that she discussed a possible procedure with Dr. Figueredo to have the stones removed, however plans were delayed second to becoming and symptoms being tolerable.Last /delivery was august,. .Vaginal delivery, uncomplicated. Does not intend on having any more children.Nephrolithiasis:Recurrent, reports several times per year.Usually passes these from the left side, has not required surgeryISC: operating well, no complaints at this time. Reports no issues with catheterization during her previous pregnancies as well.Bladder irrigation: states that she performed this during her childhood, however not in her adult life.Denies hematuriaAnnual UTI frequency: Patient reports a frequency of 3-4x per year.I personally reviewed her CT A/P 04/21/22:large bladder, 4 large stones in the bladder, short ureters bilaterally with L>R hydroureteronephrosis mild, no renal stones, no filling defectsPast medical, surgical, family and social history in the chart was reviewed and is accurate including any additions to what is in this HPI. 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 FigueredoPatient is a 32 year old female presenting to our clinic for bladder stones.Patient states that she is aware of her bladder stones, with accompanied occasional bladder pain. Denies any hematuria. States that she discussed a possible procedure with Dr. Figueredo to have the stones removed, however plans were delayed second to becoming and symptoms being tolerable. Last /delivery was august,. . Vaginal delivery, uncomplicated. Does not intend on having any more children.Nephrolithiasis:Recurrent, reports several times per year.ISC: operating well, no complaints at this time. Reports no issues with catheterization during her previous pregnancies as well.Bladder irrigation: states that she performed this during her childhood, however not in her adult life.Denies hematuriaAnnual UTI frequency: Patient reports a frequency of 3-4x per year.Past medical, surgical, family and social history in the chart was reviewed and is accurate including any additions to what is in this HPI. [facility] Work Phone: documented in this encounter [facility] Work Phone: History of Present illness Narrative* Patient is 30-year-old female who is 12 weeks and is referred by Dr.Debby Figueredo for recommendations on the treatment of a resistant urinary bacteria. 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 Herron. This was performed at [facility]. She states that her neobladder is made from all bowel and she catheterizes through her umbilical orifice. Prior to her ,she would catheterize 3-5 times daily routinely. During her , she is currently at 67 timesper day. * She has had recurrent UTIs during her lifetime. She states that normally her symptoms are cloudy urine, feeling tired and nauseous. She describes that normally, when she feels like she has UTI , shedrinks plenty of water and flushes her bladder until her urine is clear her symptoms resolved. She is always treated with antibiotics. * She states that she has been on chronic antibiotic prophylaxis in the past. Notably, she was on nitrofurantoin until she was 16 years old. She was off until her first . After delivery she again stopped however she states she resumed in August as they were trying to get . * She has seen Dr. Marek Fernandes in the past and he had had her on ciprofloxacin for a period of time. * In regards to her sulfa allergy, she states that while she was elementary school, she received a sulfa drug and developed nausea and emesis. * Patient states that she saw her [employer] on February 06, 2021. The following day, she was seen by her urologist and a urinalysis and culture was performed as a screening test. She described her urine at the time and looking at her baseline. She collected a urine at that time by a fresh catheter but does not prep her stoma. She describes then screen her urine was due to her having increased reflux symptoms with her last . When she urinates all the symptoms resolved. Those are most notably back discomfort and fullness. * Currently, she denies fever, chills, or night sweats. She has been having right spotting with some mild tenderness of her uterus her OB ordered baseline labs at her visit to a history of preeclampsiawith her last . Due to her exstrophy, she states that she also gets stones every couple ofmonths for which she takes Vicodin. The stones end up in her bladder and breakdown. She has a history of urinary sepsis at [facility] in 2017. She states the source was a percutaneous nephrostomy tube had not been left in place too long. She states that she called the doctor's office immediately if she develops any kidney pain. * In regards to her catheterization protocol, she states at home she does use old catheters. After use, she washes them in water for 30 seconds and then soaks them in 91% alcohol for 5 minutes[address] She then [address] them and Ziploc freezer bag and freezes the entire bag with a catheter for 24 hours. Subsequ ently, she will reuse it after rinsing with water to remove the alcohol. She reports reusing a single catheter 3 times in total and then discards it. When she does believe she has a UTI, she will usea fresh urinary catheter. * She is referred to me at this time as her urine culture collected on February 07 as a routine screen grew Stenotrophomonas maltophilia that was sensitive only to levofloxacin and trimethoprim sulfa. Due to her , she cannot take levofloxacin. The drug of choice for this organism is trimethoprim sulfamethoxazole. The culture grew only 20-80,000 colony-forming units. Review of her past urine culture showed a Pseudomonas aeruginosa that grew in 2018 and was hughes susceptible. -Infectious Disease-Admin Marte [address] Work Phone: History of Present illness Narrative* Testing results: PVR results available and reviewed and UA results available and reviewed. * Shad Banerjee is a 32yo female who presents as a self-referral for prolapse. * Saw UROGYN in [place] one time. 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 That physician had discussed a surgery withmesh procedure, but the patient was told this would be a very challenging surgery. Due to her complicated hx (discussed below) and care with Dr. De Souza, she self-referred to for continuity of care. Desires surgical management of her prolapse. * The following were reviewed to gain additional history: * External notes: Dr. Ulises De Souza - 2021 and 2022 * Test results: CT imaging from 2021 and 2018 reviewed * Medical and surgical history notable for: * Hx of bladder extrophy at . * Underwent replacement of bladder at a few days of life. 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 Also had bladder neck closure. * Has large midline vertical incision. * Small incision to the right of the umbilicus - patient states was from a drain. * Hx of ovarian torsion as a young child - has bilateral lower quadrant laparoscopic incisions. * Recently had removal of bladder stones via transverse minilaparotomy with Dr. De Souza. * She describes the following pelvic floor symptoms: * Prolapse symptoms: present since 2018 with of first child, but worse since of second child in 2021. Is bothersome * Bulge (Y/N): yes, especially after standing all day * Splinting to urinate (Y/N): n/a - has umbilical stoma for neobladder * Splinting for bowel movements (Y/N): no * Bladder symptoms * Stress incontinence (Y/N): n/a * Urge incontinence (Y/N): n/a * Frequency (Y/N, how often): n/a, does CIC through stoma every 3 hours * Urgency (Y/N): no * Nocturia (Y/N, how many times): no * Incomplete emptying (Y/N): no * Pain with urination (Y/N): no * Excessive fluid intake (Y/N): no * history * Recurrent UTI (Y/N): yes, 1-2x per year. Was on Macrobid for suppression during , but is on nothing now. * Hematuria (Y/N): no * Stones (Y/N): yes, recurrent. 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 Issues? (Y/N): yes, does have some discomfort with prolapse in certain positions * Number of vaginal deliveries: 2 * Number of c-sections: 0 * Operative deliveries (Y/N): no * Screening: * Colonoscopy up to date (Y/N): n/a * Mammogram up to date (Y/N): n/a Frankie [id number] DO Work Phone: History of Present illness Narrative* Testing results: PVR results available and reviewed and UA results available and reviewed. * Shad Banerjee is a 32yo female who presents as a self-referral for prolapse. * Saw UROGYN in [place] one time. 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 That physician had discussed a surgery withmes procedure, but the patient was told this would be a very challenging surgery. Due to her complicated hx (discussed below) and care with Dr. De Souza, she self-referred to for continuity of care. Desires surgical management of her prolapse. * The following were reviewed to gain additional history: * External notes: Dr. Ulises De Souza - 2021 and 2022 * Test results: CT imaging from 2021 and 2018 reviewed * Medical and surgical history notable for: * Hx of bladder exstrophy at . * Underwent replacement of bladder at a few days of life. 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 Also had bladder neck closure. * Has large midline vertical incision. * Small incision to the right of the umbilicus - patient states was from a drain. * Hx of ovarian torsion as a young child - has bilateral lower quadrant laparoscopic incisions. * Recently had removal of bladder stones via transverse minilaparotomy with Dr. De Souza. * She describes the following pelvic floor symptoms: * Prolapse symptoms: present since 2018 with of first child, but worse since of second child in 2021. Is bothersome * Bulge (Y/N): yes, especially after standing all day * Splinting to urinate (Y/N): n/a - has umbilical stoma for neobladder * Splinting for bowel movements (Y/N): no * Bladder symptoms * Stress incontinence (Y/N): n/a * Urge incontinence (Y/N): n/a * Frequency (Y/N, how often): n/a, does CIC through stoma every 3 hours * Urgency (Y/N): no * Nocturia (Y/N, how many times): no * Incomplete emptying (Y/N): no * Pain with urination (Y/N): no * Excessive fluid intake (Y/N): no * history * Recurrent UTI (Y/N): yes, 1-2x per year. Was on Macrobid for suppression during , but is on nothing now. * Hematuria (Y/N): no * Stones (Y/N): yes, recurrent. 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 Issues? (Y/N): yes, does have some discomfort with prolapse in certain positions * Number of vaginal deliveries: 2 * Number of c-sections: 0 * Operative deliveries (Y/N): no * Screening: * Colonoscopy up to date (Y/N): n/a * Mammogram up to date (Y/N): n/a [id number] DO Work Phone: History of Present illness Narrative* Testing results: PVR results not available and UA results not available. * 32 y/o with complex prior surgical history in setting of bladder exstrophy s/p reconstructive surgery and creation of catheterizable pouch, with multiple subsequent surgeries, most recently by Dr. De Souza for stone management. Has vaginal prolapse and planning corrective surgery. * Reviewed patient's history with Dr. De Souza and per his impression she had a complete urinary diversion with a colon catheterizable pouch. Ureters are diverted to her colon pouch before entering the pelvis and the entirety of the pouch sits in her abdomen. Low suspicion for posterior vaginal involvement from previous surgeries. Possible tribal cystectomy (likely she had a small remnant bladder that either was removed or remains somewhere and is not visible on the scan as it is miniscule and defunctionalized). * She is ready to proceed with surgery and is open to any location. Lives in [place] (so follow ups will likely be in [place]) but would recommend surgery at either [place] or [place] in the rare case where we may need assistance from other surgical teams. [id number] DO Work Phone: Summary Purpose Family History No Family History Records FoundUnknown Family Member Name Dates Details No pertinent family history( V49.89, Z78.9) Comments:Unknown Status:Active Mother Name Dates Details No pertinent family history( V49.89, Z78.9) Status:Active Unknown Family Member Name Dates Details No pertinent family history( V49.89, Z78.9) Comments:Unknown Status:Active Mother Name Dates Details No pertinent family history( V49.89, Z78.9) Status:Active Unknown Family Member Name Dates Details No pertinent family history( V49.89, Z78.9) Comments:Unknown Status:Active Mother Name Dates Details No pertinent family history( V49.89, Z78.9) Status:Active Unknown Family Member Name Dates Details No pertinent family history: Unknown(V49.89, Z78.9) Status:Active No pertinent family history: Mother(V49.89, Z78.9) Status:Active Medical history unknown: Fat her Status:Active Unknown Family Member Name Dates Details No pertinent family history: Unknown(V49.89, Z78.9) Status:Active No pertinent family history: Mother(V49.89, Z78.9) Status:Active Medical history unknown: Fat her Status:Active Unknown Family Member Name Dates Details No pertinent family history: Unknown(V49.89, Z78.9) Status:Active No pertinent family history: Mother(V49.89, Z78.9) Status:Active Medical history unknown: Fat her Status:Active Unknown Family Member Name Dates Details No pertinent family history: Unknown(V49.89, Z78.9) Status:Active No pertinent family history: Mother(V49.89, Z78.9) Status:Active Medical history unknown: Fat her Status:Active Unknown Family Member Name Dates Details No pertinent family history: Unknown(V49.89, Z78.9) Status:Active No pertinent family history: Mother(V49.89, Z78.9) Status:Active Medical history unknown: Fat her Status:Active Unknown Family Member Name Dates Details No pertinent family history: Unknown(V49.89, Z78.9) Status:Active No pertinent family history: Mother(V49.89, Z78.9) Status:Active Medical history unknown: Fat her Status:Active Unknown Family Member Name Dates Details No pertinent family history: Unknown(V49.89, Z78.9) Status:Active No pertinent family history: Mother(V49.89, Z78.9) Status:Active Medical history unknown: Fat her Status:Active Unknown Family Member Name Dates Details No pertinent family history: Unknown(V49.89, Z78.9) Status:Active No pertinent family history: Mother(V49.89, Z78.9) Status:Active Medical history unknown: Fat her Status:Active Unknown Family Member Name Dates Details No pertinent family history: Unknown(V49.89, Z78.9) Status:Active No pertinent family history: Mother(V49.89, Z78.9) Status:Active Medical history unknown: Fat her Status:Active Unknown Family Member Name Dates Details No pertinent family history: Unknown(V49.89, Z78.9) Status:Active No pertinent family history: Mother(V49.89, Z78.9) Status:Active Medical history unknown: Fat her Status:Active Unknown Family Member Name Dates Details No pertinent family history: Unknown(V49.89, Z78.9) Status:Active No pertinent family history: Mother(V49.89, Z78.9) Status:Active Medical history unknown: Fat her Status:Active Unknown Family Member Name Dates Details No pertinent family history: Unknown(V49.89, Z78.9) Status:Active No pertinent family history: Mother(V49.89, Z78.9) Status:Active Medical history unknown: Fat her Status:Active Unknown Family Member Name Dates Details No pertinent family history: Unknown(V49.89, Z78.9) Status:Active No pertinent family history: Mother(V49.89, Z78.9) Status:Active Medical history unknown: Fat her Status:Active Unknown Family Member Name Dates Details No pertinent family history: Unknown(V49.89, Z78.9) Status:Active No pertinent family history: Mother(V49.89, Z78.9) Status:Active Medical history unknown: Fat her Status:Active Unknown Family Member Name Dates Details No pertinent family history: Unknown(V49.89, Z78.9) Status:Active No pertinent family history: Mother(V49.89, Z78.9) Status:Active Medical history unknown: Fat her Status:Active Unknown Family Member Name Dates Details No pertinent family history: Unknown(V49.89, Z78.9) Status:Active No pertinent family history: Mother(V49.89, Z78.9) Status:Active Medical history unknown: Fat her Status:Active Unknown Family Member Name Dates Details No pertinent family history: Mother(V49.89, Z78.9) Status:Active Medical history unknown: Fat her Status:Active No pertinent family history: Unknown(V49.89, Z78.9) Status:Active Unknown Family Member Name Dates Details No pertinent family history: Unknown(V49.89, Z78.9) Status:Active No pertinent family history: Mother(V49.89, Z78.9) Status:Active Medical history unknown: Fat her Status:Active Unknown Family Member Name Dates Details No pertinent family history: Unknown(V49.89, Z78.9) Status:Active No pertinent family history: Mother(V49.89, Z78.9) Status:Active Medical history unknown: Fat her Status:Active Unknown Family Member Name Dates Details No pertinent family history: Unknown(V49.89, Z78.9) Status:Active No pertinent family history: Mother(V49.89, Z78.9) Status:Active Medical history unknown: Fat her Status:Active Unknown Family Member Name Dates Details No pertinent family history: Unknown(V49.89, Z78.9) Status:Active No pertinent family history: Mother(V49.89, Z78.9) Status:Active Medical history unknown: Fat her Status:Active Advance Directives No Advanced Directives Records FoundNo Advanced Directives Records FoundNo Advanced Directives Records FoundNo Advanced Directives Records FoundNo Advanced Directives Records FoundNo Advanced Directives Records FoundNo Advanced Directives Records FoundNo Advanced Directives Records FoundNo Advanced Directives Records FoundNo Advanced Directives Records Found Chief Complaint Est patient c/o Bladder Pain, early gestationResistant urinary bacteriaResistant urinary [id number] Tube Removal* NPV- Uterine Prolapse * Curatorial Assistant Declined: MARIA EUGENIA Rosado * NPV- Uterine Prolapse * Curatorial Assistant Declined: MARIA EUGENIA Rosado * This is a telemedicine virtual visit * 2 week follow up to discuss surgical plan * MATTHEW Mann Additional Source Comments INFORMATION SOURCE (unrecogn ized section and content) DATE CREATED AUTHOR AUTHOR'S ORGANIZ ATION 01/11/2018 [facility] DATE CREATED AUTHOR AUTHOR'S ORGANIZ ATION 01/14/2018 [facility] DATE CREATED AUTHOR AUTHOR'S ORGANIZ ATION 05/19/2018 [facility] DATE CREATED AUTHOR AUTHOR'S ORGANIZ ATION 10/28/2021 [facility] DATE CREATED AUTHOR AUTHOR'S ORGANIZ ATION 05/14/2022 [facility] DATE CREATED AUTHOR AUTHOR'S ORGANIZ ATION 12/31/2022 [facility] DATE CREATED AUTHOR AUTHOR'S ORGANIZ ATION 03/17/2023 [facility] DATE CREATED AUTHOR AUTHOR'S ORGANIZ ATION 03/25/2023 [facility] DATE CREATED AUTHOR AUTHOR'S ORGANIZ ATION 06/04/2023 [facility] Reason for Visit (unrecogniz ed section and content) Care Teams (unrecognized sec tion and content) Trigonometry Teacher Relationship Specialty Start Date End Date Inga Shook MD [address] [phone] PCP - General Family Medicine 05/02/21 Deidra Foy MD [address] [place] [address] Referring Physician Obstetrics Gynecology 10/16/21 FOR RECORDS PERTAINING TO PATIENTS WHO ARE OR HAVE BEEN ENROLLED IN A CHEMICAL DEPENDENCY/SUBSTANCEABUSE PROGRAM, SOME INFORMATION MAY BE OMITTED. This clinical summary was aggregated from multiple sources. Caution should be exercised in using it in the provision of clinical care. This summary normalizes information from multiple sources, and as a consequence, information in this document may materially change the coding, format and clinical context of patient data. In addition, data may be omitted in some cases. CLINICAL DECISIONS SHOULD BE BASED ON THE PRIMARY CLINICAL RECORDS. [facility]. provides no warranty or guarantee of the accuracy or completeness of information in this document.
== END | disposition home or self-care (01) ==
LOC: US 07:12
PROVIDERS: PCP Family Medicine; Referring Provider Family Medicine; Visit Provider Family Medicine
DX: R10.11 Right upper quadrant pain (principal)
CPT/HCPCS: 76705

== ENCOUNTER → 2023-08-30 | Outpatient (CLI) | payer OTHER, SELFPAY ==
--- NOTE | 2023-08-30 09:50 | NM_ITS ---
CLINICAL: 33-year-old female with history of right upper quadrant abdominal pain. RADIONUCLIDE HEPATOBILIARY SCINTIGRAPHY COMPARISON: Abdominal ultrasound report 08/17/2023 FINDINGS: Following the intravenous administration of 4.7 mCi of 99m Tc Mebrofenin, hepatobiliary images reveal:. 1. Relatively prompt and homogeneous radiopharmaceutical concentration is noted by a normal sized liver. No parenchymal defects are identified. 2. Gallbladder activity is identified at 10 minutes post radiopharmaceutical administration. 3. Small intestinal tract is observed at 30 minutes following tracer injection. 4. Washout of the radiopharmaceutical by the hepatic parenchyma appears qualitatively normal. Cholecystokinin (0.02 ug/kg) was administered intravenously over a 30-minute period. The post CCK gallbladder ejection fraction calculated at 20 minutes following Cholecystokinin administration was noted to be 88.0 % (normal greater than 35%). During 30 minutes of post CCK imaging, there is scintigraphic evidence of refilling of the gallbladder. NM/Hepatobilliary Img w/Pharm Int IMPRESSION: 1. A gallbladder ejection fraction calculated to be greater than 35% following the administration of Cholecystokinin makes the probability of functional hepatobiliary disease (gallbladder dyskinesia) and/or organic hepatobiliary disease (chronic acalculous cholecystitis and/or cystic duct syndrome) to be low. (Reshma Mena et al, Journal of Nuclear Medicine 32:1695, 1991). 2. An encountered normal gallbladder ejection fraction with refilling of the gallbladder following CCK administration may represent the presence of Sphincter of Oddi dysfunction. Correlation with Sphincter of Oddi manometry or other diagnostic testing may be of benefit. (Darby and Darby, J Nucl Med 38:1824, 1997). Electronically Signed: Sunil Posadas DO at 9:09 EST ,
== END | disposition home or self-care (01) ==
LOC: NM 09:49
PROVIDERS: PCP Family Medicine; Referring Provider Family Medicine; Visit Provider Family Medicine
DX: R10.11 Right upper quadrant pain (principal)
CPT/HCPCS: 78227; A9537; J2805

== ENCOUNTER → 2023-12-31 | Outpatient (CLI) | payer OTHER, SELFPAY ==
[2023-12-31 14:09] LABS: Color, Urine Yellow (Yellow); Glucose, Dipstick Normal (Normal); Ketone-Dipstick Negative (Negative); Leukocyte Esterase-Dipstick 500 /ul (Negative); Nitrite-Dipstick Negative (Negative); Occult Blood-Urine 50 /ul (Negative); Protein-Dipstick 30 mg/dl (Negative); Specific Gravity, Urine 1.015 (1.002-1.030); Urine Bilirubin Dipstick Negative (Negative); Urine Clarity Turbid (Clear); Urine Urobilinogen Normal (Normal); Urine pH 6.5 (5.0 - 8.0)
== END | disposition home or self-care (01) ==
LOC: LABSPEC 12:52
PROVIDERS: PCP Family Medicine; Referring Provider Family Medicine; Visit Provider Family Medicine
DX: R30.0 Dysuria (principal)
CPT/HCPCS: 81002; 87077; 87086; 87088; 87186

== ENCOUNTER → 2024-06-28 | Outpatient (CLI) | payer OTHER, SELFPAY ==
[2024-06-28 11:48] LABS: Absolute Lymphocyte Count 2.89 X10^3/uL (0.83-4.51); Absolute Neutrophil Count 4.3 X10^3/uL (2.0-7.7); Basophil# 0.04 X10^3/uL; Basophil% 0.5 % (0-1); Eosinophil# 0.16 X10^3/uL; Hematocrit 40.9 % (37-47); Hemoglobin 13.3 g/dL (12.0-15.0); Lymphocyte # 2.89 X10^3/ul (0.83-4.51); Lymphocyte % 36.1 % (19-41); Mean Corp Hgb Conc 32.5 g/dL (32-36); Mean Corpuscular Hgb 27.4 pg (27.0-32.0); Mean Corpuscular Volume 84.2 fL (81-99); Mean Platelet Vol. 8.4 fl (6.2-12.0); Monocyte# 0.63 X10^3/uL; Monocyte% 7.9 % (0-10); NRBC Flagged by Analyzer 0 % (0-5); Neutrophil # 4.26 X10^3/uL (2.7-7.7); Neutrophil % 53.2 % (47-70); Platelet Count 326 K/mm3 (150-450); RBC Distribution Width CV 14.4 % (11.6-14.6); RBC Distribution Width SD 43.7 fl (35.1-43.9); Red Blood Count 4.86 M/mm3 (4.2-5.4)
[2024-06-28 12:16] LABS: Vitamin B12 546 pg/mL (211-911); Vitamin D,25 Hydroxy 19.1 ng/mL
[2024-06-28 12:22] LABS: AST(SGOT) 13 U/L (15-37); Alanine Aminotransfer ALT/SGPT 29 U/L (13-56); Albumin, Serum 3.8 g/dL (3.2-5.0); Alkaline Phosphatase 88 U/L (45-117); Anion Gap 5 (5-15); BUN 14 mg/dL (7-18); BUN/Creat Ratio 18.4 RATIO (10-20); Calcium,Total 9.2 mg/dL (8.5-10.1); Chloride 106 mmol/L (98-107); Creatinine, Serum 0.76 mg/dL (0.55-1.02); EST Glomerular Filtration Rate 93 mL/min (>60); Est Glom Filt Rate - Afr Amer 112 mL/min (>60); Glucose 99 mg/dL (74-106); Potassium 3.8 mmol/L (3.5-5.1); Protein, Total 7.8 g/dL (6.4-8.2); Sodium Level 137 mmol/L (136-145); T4 Free Direct 1.04 ng/dL (0.76-1.46); Thyroid Stim Hormone (TSH) 0.625 uIU/mL (0.358-3.740)
== END | disposition home or self-care (01) ==
PROVIDERS: PCP Family Medicine; Referring Provider Nurse Practitioner Family; Visit Provider Nurse Practitioner Family
DX: Z13.29 Encounter for screening for other suspected endocrine disorder (principal); Z13.21 Encounter for screening for nutritional disorder
CPT/HCPCS: 36415; 80053; 82306; 82607; 84439; 84443; 85025

== ENCOUNTER → 2025-01-02 | Outpatient (CLI) | payer OTHER, SELFPAY | END | disposition home or self-care (01) | LOC: LABSPEC 13:34 | PROVIDERS: PCP Family Medicine; Visit Provider Family Medicine | DX: R82.90 Unspecified abnormal findings in urine (principal) | CPT/HCPCS: 87086; 87088 ==

== ENCOUNTER 2025-05-19 03:44 | Emergency (ER) | payer OTHER, SELFPAY ==
[2025-05-19 03:45] VITALS: BP 142/85; PULSE 81; RESP 16; TEMP 36.6; O2SAT 98; BMI 31.7
--- NOTE | 2025-05-19 03:56 | CT_ITS ---
PROCEDURE: CT/Abdomen/Pelvis without Cont
--- NOTE | 2025-05-19 04:01 | EX.ED.DYSGE1 ---
HPI History of Present Illness Chief Complaint: Flank Pain Informant: patient Narrative Narrative: Patient is a 35-year-old female with past medical history of anxiety and depression as well as previous kidney stones. She states that around 930/10 PM she had sudden onset of left-sided back/flank pain. She states there has been no associated trauma or excessive activity. She states the pain is sharp and does not seem to improve or worsen with position change. She states that there has been no recent sick symptoms such as fevers or chills and she denies any known sick contact. She states there is no history of recent back procedures or loss of bowel or bladder control or IV drug use. She does state that she has had kidney stones previously and this feels similar nature to them and as symptoms or not being controlled at home she presents for evaluation [facility] Medical History SUZY (generalized anxiety disorder) MDD (major depressive disorder) Abnormal ultrasound Proteinuria COVID-19 vaccine series completed History of pre-eclampsia in prior , currently Rh negative status during Limb weakness Depression Anxiety Kidney infection Kidney stones, calcium oxalate Home Medications ?Medication ?Instructions ?Recorded ?Last Taken ?Type fluoxetine 20 mg capsule (Prozac) 20 mg PO DAILY 05/05/23 Unknown History trazodone 50 mg tablet 50 mg PO DAILY 05/05/23 Unknown History nitrofurantoin macrocrystal 50 mg 50 mg PO QDAY 05/22/24 Unknown History capsule bupropion HCl 150 mg tablet,12 hr 150 mg PO QAM #30 ea 03/28/25 Unknown Rx sustained-release (Wellbutrin SR) levonorgestrel 0.15 mg-ethinyl 1 tab PO QDAY #84 tabs 04/12/25 Unknown Rx estradiol 0.03 mg tablet (Altavera (28)) lorazepam 0.5 mg tablet 0.5 mg PO QDAY PRN anxiety 15 days 04/23/25 Unknown Rx #15 tabs ketorolac 10 mg tablet 10 mg PO 4X/DAY PRN pain 5 days 05/19/25 Unknown Rx #20 tabs nitrofurantoin 100 mg PO BID 7 days #14 caps 05/19/25 Unknown Rx monohydrate/macrocrystals 100 mg capsule (Macrobid) ondansetron 4 mg disintegrating 4 mg PO TID PRN nausea and 05/19/25 Unknown Rx tablet vomiting #21 tabs oxycodone-acetaminophen 5 mg-325 1 tab PO Q6H PRN pain 3 days #12 05/19/25 Unknown Rx mg tablet (Percocet) tabs Allergy/AdvReac Type Severity Reaction Status Date / Time Sulfa (Sulfonamide Allergy Nausea Verified 05/19/25 03:45 Antibiotics) Penicillins (PCN) AdvReac Anaphylaxis Verified 05/19/25 03:45 Family History Father Myocardial infarction Abnormal cholesterol test Anxiety Depression Mother Myocardial infarction Anxiety Depression Surgical History H/O lithotripsy S/P wisdom tooth extraction complete bladder reconstruction Hernia of ovary Bladder exstrophy Social History adopted: No household members: spouse and children number of children: 1 current occupational status: employed current occupation: [employer] pets and animals: Yes (no litter box) pets and animals: cat(s) and dog(s) Smoking Status: Never smoker alcohol intake: never substance use type: does not use diet: other what type of physical activity do you participate in: none seatbelt use: always do you feel safe at home: Yes additional social history: [employer]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[place] [facility] ROS ED Constitutional Constitutional ED: Denies chills or fever(s) ENT ENT ED: Denies sore throat Cardiovascular Cardiovascular: Denies chest pain Respiratory/Chest Respiratory/Chest: Denies cough or dyspnea Gastrointestinal Gastrointestinal: Reports abdominal pain and nausea; Denies diarrhea or vomiting Genitourinary Genitourinary ED: Denies dysuria or hematuria Musculoskeletal Musculoskeletal: Reports back pain Integumentary Denies rash Neurologic Neurologic: Denies headache(s) Psychiatric Psychiatric: Reports anxiety and depression Hematologic/Lymphatic Hematologic/Lymphatic: Denies easy bleeding or easy bruising EXAM Physical Exam Const Vital Signs: 05/19/25 03:45 05/19/25 05:01 Temperature 97.9 F Temperature Source Oral Pulse Rate 81 78 Respiratory Rate 16 18 Blood Pressure 142/85 H 134/81 H Blood Pressure Mean 104 98 Pulse Ox 98 98 Oxygen Delivery Method Room Air Room Air Positive well nourished and well developed General Appearance ED: well developed; Negative for pallor HEENT HEENT Narrative: Normocephalic atraumatic Eyes PERRL and EOMs intact bilaterally General Eye ED: Negative for scleral icterus Neck supple Resp normal respiratory effort and clear to auscultation bilaterally Cardio regular rate and regular rhythm Rate: other Other Details: Heart is regular rate and rhythm without murmurs rubs or gallop Radial and carotid pulses are equal and symmetric GI normal to inspection, nondistended, normoactive bowel sounds, non-tender, non-distended and no masses GI Narrative: No voluntary guarding or rigidity or pulsatile mass No peritoneal signs Stoma leading towards the reconstructed bladder does not show any surrounding soft tissue changes to suggest infection and there is no active drainage noted Auscultation: normoactive bowel sounds Palpation: soft Back/Spine Back/Spine Narrative: Positive left CVA pain noted Extremity normal to inspection Neuro oriented x3, CN's II-XII intact bilaterally and no sensory deficits noted Sensorium / Orientation: alert Motor Exam: strength 5/5 throughout Psych Mood & Affect: anxious Skin no rashes or lesions noted and no wounds General Skin Exam: Negative for jaundice or pallor MDM MDM MDM Narrative Medical decision making narrative: Patient arrived to ER mildly hypertensive but otherwise with stable vitals. She reported left flank pain and has remote history of kidney stone. In order to assess for kidney stone with renal colic versus acute kidney injury versus UTI or pyelonephritis or urosepsis basic labs of the urine sample and CT scan were obtained. White count is slightly elevated 12.4 which could be secondary to infection or simply stress response. test is negative going against complication. There are no clinically significant electrolyte abnormalities and kidney function is normal going against ARABELLA. Urine sample does show changes consistent with infection however there are no changes to suggest urosepsis. CT scan shows a dilated ureter with a 1 mm stone at the opening to the reconstructed bladder. This is consistent with her history and exam. She was given morphine Toradol and Dilaudid and had resolution of her pain. On reevaluation she is resting comfortably and remains in no acute distress. Therefore at this time as she does not have findings of acute kidney injury or urosepsis and her pain has been adequately controlled there is no need for emergent urology consultation or admission and she is otherwise safe for discharge History & Record Review Discussion w/independent historian: Patient Lab Data Attestation: I reviewed the patient's lab results. Labs: Laboratory Results - last 24 hr 05/19/25 05/19/25 03:55 04:45 WBC 12.4 H RBC 4.62 Hgb 13.2 Hct 38.4 MCV 83.1 MCH 28.6 MCHC 34.4 RDW Std Deviation 40.9 RDW Coeff of Claudia 13.7 Plt Count 321 MPV 8.2 Immature Gran % (Auto) 1.400 H Neut % (Auto) 59.0 Lymph % (Auto) 30.8 [place] % (Auto) 6.9 Eos % (Auto) 1.6 Baso % (Auto) 0.3 Absolute Neuts (auto) 7.3 Absolute Lymphs (auto) 3.82 Nucleated RBC % 0 Sodium 136 Potassium 3.6 Chloride 105 Carbon Dioxide 18.2 L Anion Gap 13 BUN 16 Creatinine 0.81 Estim Creat Clear Calc 95.14 Est GFR (MDRD) Non-Af 97 BUN/Creatinine Ratio 20.2 H Glucose 112 H Calcium 8.6 Serum , Qual NEGATIVE Urine Color Yellow Urine Clarity Cloudy Urine pH 7.0 Ur Specific [place] 1.015 Urine Protein 100 H Urine Glucose (UA) Normal Urine Ketones 5 H Urine Occult Blood 150 H Urine Nitrite Positive H Urine Bilirubin Negative Urine Urobilinogen Normal Ur Leukocyte Esterase 25 H Urine RBC 0 SEEN Urine WBC 50-100 SEEN Ur Squamous Epith Cells 0 SEEN Urine Bacteria 2+ Urine Mucus 0 SEEN Radiography Diagnostic Testing: Clinical Impression(s) from Imaging Studies Abdomen/Pelvis CT 05/19/25 03:56 IMPRESSION: Left-sided hydroureteronephrosis, likely related to a 1 mm obstructing calculus as it enters the surgically reconstructed bladder/pouch. Additional findings as above. Reading Location: [facility] Discharge Plan Triage Chief Complaint: Flank Pain ED Provider: Obinna Regalado Dx/Rx/DC Orders Clinical Impression: Kidney stone, Renal colic, UTI (urinary tract infection), Anxiety and depression Instructions: UTIs, ED Kidney Stone with Pain Prescriptions: New ondansetron 4 mg tablet,disintegrating 4 mg PO TID PRN (Reason: nausea and vomiting) Qty: 21 0RF nitrofurantoin monohyd/m-cryst [Macrobid] 100 mg capsule 100 mg PO BID 7 Days Qty: 14 0RF Rx Instructions: must administer with a meal/food ketorolac 10 mg tablet 10 mg PO 4X/DAY PRN (Reason: pain) 5 Days Qty: 20 0RF oxycodone-acetaminophen [Percocet] 5-325 mg tablet 1 tab PO Q6H PRN (Reason: pain) 3 Days Qty: 12 0RF No Action trazodone 50 mg tablet 50 mg PO DAILY fluoxetine [Prozac] 20 mg capsule 20 mg PO DAILY nitrofurantoin macrocrystal 50 mg capsule 50 mg PO QDAY bupropion HCl [Wellbutrin SR] 150 mg tablet sustained-release 12 hr 150 mg PO QAM Qty: 30 2RF levonorgestrel-ethinyl estrad [Altavera (28)] 0.15-0.03 mg tablet 1 tab PO QDAY Qty: 84 1RF lorazepam 0.5 mg tablet 0.5 mg PO QDAY PRN (Reason: anxiety) 15 Days Qty: 15 2RF Primary Care Provider: Inga Shook Referrals: Inga Shook MD [Primary Care Provider, Family Practice] Activity Restrictions/Additional Instructions: Your CT scan showed a 1 mm stone stuck in your ureter right before it enters your bladder. This should pass spontaneously. Keep yourself well-hydrated and stay active to help pass the stone. Take the prescribed medication as directed for pain control and to resolve your urinary tract infection. Follow-up with your urologist for repeat evaluation. Return to the ER she develop a fever of 100.4 or higher or pain is intractable despite taking your prescribed medication Print Language: Spanish Disposition Disposition: Home, Self Care
[2025-05-19] MEDS: 0.9% Normal Saline (1000mL) 1,000 ML 999 ML IV (04:02)
[2025-05-19 04:06] LABS: Hematocrit 38.4 % (37-47); Hemoglobin 13.2 g/dL (12.0-15.0); Immature Granulocytes Count 0.170 X10^3/uL (0.0-0.0); Mean Corp Hgb Conc 34.4 g/dL (32-36); Mean Corpuscular Volume 83.1 fL (81-99); Mean Platelet Vol. 8.2 fl (6.2-12.0); NRBC Flagged by Analyzer 0 % (0-5); Platelet Count 321 K/mm3 (150-450); RBC Distribution Width CV 13.7 % (11.6-14.6); RBC Distribution Width SD 40.9 fl (35.1-43.9); Red Blood Count 4.62 M/mm3 (4.2-5.4); White Blood Count 12.4 K/mm3 (4.4-11.0)
[2025-05-19 04:15] LABS: Internal QC Validated? YES +Cl - CLEAR BKGD; Pregnancy, Serum, hCG Quali. NEGATIVE Negative; Record Kit Lot#, Serum Preg. 0000980607
[2025-05-19 04:20] LABS: Anion Gap 13 (5-15); BUN 16 mg/dL (4-19); BUN/Creat Ratio 20.2 RATIO (10-20); Calcium,Total 8.6 mg/dL (7.6-11.0); Carbon Dioxide 18.2 mmol/L (21.0-32.0); Chloride 105 mmol/L (98-108); Estimated Creatinine Clearance 95.14 ml/min (50-250); Glucose 112 mg/dL (70-99); Potassium 3.6 mmol/L (3.3-5.1)
[2025-05-19 04:50] LABS: Mucous, Urine 0 SEEN /hpf (<or=2+); Squamous Epithelial Cells - UA 0 SEEN /hpf (5-10)
[2025-05-19 04:51] LABS: Color, Urine Yellow (Yellow); Glucose, Dipstick Normal (Normal); Ketone-Dipstick 5 mg/dl (Negative); Leukocyte Esterase-Dipstick 25 /ul (Negative); Nitrite-Dipstick Positive (Negative); Occult Blood-Urine 150 /ul (Negative); Protein-Dipstick 100 mg/dl (Negative); Specific Gravity, Urine 1.015 (1.002-1.030); Urine Bilirubin Dipstick Negative (Negative)
--- NOTE | 2025-05-19 04:54 | ED.RN ---
pt self cath through a stoma to obtain the urine.
[2025-05-19 05:01] VITALS: BP 134/81; PULSE 78; RESP 18; O2SAT 98
[2025-05-19] MEDS: Ketorolac 30 MG/ML Syringe IV (05:16)
[2025-05-19 07:28] VITALS: BP 112/65; PULSE 80; RESP 18; TEMP 36.8; O2SAT 100
[2025-05-20 01:35] LABS: Red Blood Cells-Urine 0-5 SEEN /hpf (0-5)
== END 2025-05-19 07:30 | disposition home or self-care (01) ==
PROVIDERS: Emergency Provider Emergency Medicine; PCP Family Medicine; Visit Provider Emergency Medicine
DX: N13.6 Pyonephrosis (principal); N28.82 Megaloureter; F32.A Depression, unspecified; F41.9 Anxiety disorder, unspecified; Z79.899 Other long term (current) drug therapy
CPT/HCPCS: 74176; 80048; 81001; 84703; 85025; 87086; 87088; 96361; 96365; 96375; 99282; A4216; J2405